=== PATIENT | male | born 1955 | race Caucasian/White ===

== ENCOUNTER 2021-01-20 08:04 | Emergency (ER) | payer OTHER, SELFPAY ==
[2021-01-20 08:23] VITALS: BP 138/94; PULSE 100; RESP 19; TEMP 38.7; O2SAT 95; BMI 27.6
[2021-01-20 08:27] VITALS: BP 128/84; PULSE 98; O2SAT 95
--- NOTE | 2021-01-20 09:07 | ED_ITS ---
HPI - COVID General: Chief Complaint: COVID symptoms Stated Complaint: COVID+ SOB Time Seen by Provider: 01/20/21 08:33 Triage information: Has fever, cough or shortness of breath . No known COVID + exposure last 14 days History of Present Illness: HPI Narrative: Patient is a Covid positive patient with symptoms shortness of breath fever and feels bad. Patient is an unvaccinated patient. Patient is requesting ivermectin. MD complaint: known COVID positive Prior covid testing: yes, results known Prior testing date: 01/15/21 COVID 19 common symptoms: positive fever(s), chills, non-productive cough, dyspnea, body aches, headache(s), nasal congestion and nausea COVID 19 other sytmptoms: negative chest pain Onset (ago): day(s) Severity: moderate Pertinent comorbid conditions: hypertension and heart disease Treatment prior to arrival: acetaminophen and ibuprofen COVID Results: No Data to Display Review of Systems Const: Reports: fever(s), chills and body aches Eyes: Denies: change in vision or blurry vision ENMT: Reports: nasal congestion Card: Denies: chest pain or dyspnea on exertion Resp: Reports: dyspnea and non-productive cough GI: Reports: nausea : Denies: difficulty urinating Musc: Denies: extremity pain Skin/Breast: Denies: rash Neuro: Reports: headache(s) Psych: Denies: anxiety or depression Moe/Lymph: Denies: easy bruising Physical Exam Const: COMMON NORMALS: no acute distress, average body habitus and patient oriented x3 HENMT: COMMON NORMALS: normocephalic HEAD & SCALP: normal to inspection and normocephalic FACE & SINUS: normal facial exam Eye: COMMON NORMALS: conjunctivae normal GENERAL EYE: appearance normal, both eyes and all related structures CONJUNCTIVA: Yes conjunctivae normal Neck/C-Spine: COMMON NORMALS: no JVD Chest: COMMONS NORMALS: normal inspection of the chest Resp: EFFORT & INSPECTION: Yes able to speak in complete sentences and Yes tachypneic Cardio: COMMON NORMALS: no JVD and regular rhythm RATE: tachycardic RHYTHM: regular rhythm GI: INSPECTION: Yes normal to inspection Extremity: COMMON NORMALS: normal to inspection and full ROM Neuro: COMMON NORMALS: patient oriented x3 Course Vital Signs: Vital signs: Vital Signs Temperature 101.6 F H 01/20/21 08:23 Pulse Rate 100 01/20/21 08:23 Respiratory Rate 19 H 01/20/21 08:23 Blood Pressure 138/94 01/20/21 08:23 Pulse Oximetry 95 01/20/21 08:23 MDM - COVID MDM Narrative: Medical decision making narrative: I discussed monoclonal antibody infusion with patient patient does not want to agree to accept infusion at this time. Would like to try antibiotic and steroid. Patient requesting ivermectin because a friend of his in [place] who is an [employer]TAIN recommended that. Did discuss worsening symptoms with shortness of breath low pulse ox what to watch for [facility] if he decides to go ahead and go with the infusion. COVID Results: No Data to Display Discharge Plan Discharge Patient Disposition: Home Clinical Impression: COVID-19 Condition: Stable Prescriptions: New dexamethasone 6 mg tablet 6 mg PO DAILY Qty: 7 RF: 0 Zithromax Z-Ho 250 mg tablet See Rx Instructions PO .COMPLEX Qty: 6 RF: 0 Discharge Orders: Discharge ED (Routine); Ordered 01/20/21 Ordered By: César Olmstead Referrals: Hailey Cabezas APN [Primary Care Provider] - Discharge Diet: Usual diet Discharge Activity: Increase activity as tolerated Patient Instructions: Viral Syndrome (ED) Activity Restrictions/Additional Instructions: Follow-up with medical provider as directed. Take medications as prescribed. Return to the ER or your medical provider if condition worsens. Please read and understand discharge instructions. If any questions ask please. Self quarantine for at least [address] Hardy can contact outpatient department hospital scheduled for monoclonal antibody infusion therapy if you desire that. Coding Level of Care Code ED Packing House Supervisor for Pia Fwd Exam Comprehensive
[2021-01-20] MEDS: acetaminophen 500 mg Tablet 1000 MG PO (09:25)
[2021-01-20] MEDS: dexamethasone 4 mg Tablet 10 MG PO (09:25)
[2021-01-20] MEDS: azithromycin 250 mg Tablet 500 MG PO (09:27)
[2021-01-20 09:35] VITALS: BP 144/92; PULSE 92; O2SAT 94
== END 2021-01-20 09:20 | disposition home or self-care (01) ==
PROVIDERS: Emergency Provider Nurse Practitioner Family; PCP Nurse Practitioner
DX: U07.1 COVID-19 (principal)
CPT/HCPCS: 99283; J8540; Q0144

== ENCOUNTER 2021-01-24 15:27 | Emergency (ER) | payer OTHER, SELFPAY ==
[2021-01-24 16:09] VITALS: BP 155/102; PULSE 92; RESP 20; TEMP 36.8; O2SAT 89; BMI 26.3
--- NOTE | 2021-01-24 16:39 | XRR_ITS ---
PROCEDURE INFORMATION: Exam: XR Chest Exam date and time: 01/24/2021 4:39 PM Age: 65 years old Clinical indication: Cough and shortness of breath; Prior surgery; Surgery type: Stents; Additional info: SOB, covid+ on 01/18/21 TECHNIQUE: Imaging protocol: XR of the chest. Views: 1 view. COMPARISON: CR Chest 1 [place] [id number] 08/06/2015 11:43 PM FINDINGS: Lungs: Peripheral predominant ground-glass opacities are seen in both lungs. Pleural spaces: Unremarkable. No pleural effusion. No pneumothorax. Heart/Mediastinum: Unremarkable. No cardiomegaly. Bones/joints: Unremarkable. XR/XR chest 1V portable [id number] IMPRESSION: Multilobar pneumonia versus pneumonitis. Atypical/viral pulmonary infection (ie. COVID-19 related pneumonia) is a consideration.
--- NOTE | 2021-01-24 21:02 | W.ED.SOB ---
HPI - SOB/Dyspnea General: Chief Complaint: Shortness of Breath/Dyspnea Stated Complaint: covid+: SOB, [facility] Time Seen by Provider: 01/24/21 20:50 Source: patient Mode of arrival: ambulatory Limitations: no limitations History of Present Illness: HPI Narrative: 65-year-old male who tested positive for Covid earlier this week. He states he has been having increasing shortness of breath and dyspnea. He states that he was placed on steroids the day as well and his blood sugars have been running high. He denies any chest pain. Patient is requiring 2 L of oxygen here. Denies any vomiting or diarrhea. Associated symptoms: Reports fever(s); Deny abdominal pain, chest pain, nausea or vomiting Review of Systems Const: Reports: fever(s); Denies: chills, body aches or change in appetite Eyes: Denies: blurry vision or eye discomfort ENMT: Denies: throat pain or dental pain Card: Denies: chest pain Resp: Reports: dyspnea and non-productive cough GI: Denies: abdominal pain, nausea, vomiting or diarrhea : Denies: dysuria Musc: Denies: neck pain or back pain Skin/Breast: Denies: rash Neuro: Denies: headache(s) Psych: Denies: depression Moe/Lymph: Denies: easy bruising All/Imm: Denies: urticaria Physical Exam Const: COMMON NORMALS: no acute distress, patient oriented x3 and healthy appearing HENMT: COMMON NORMALS: normocephalic and atraumatic HEAD & SCALP: normocephalic and atraumatic Eye: COMMON NORMALS: Equal, round and reactive pupils present and EOMs intact bilaterally PUPIL: Yes Equal, round and reactive pupils present Neck/C-Spine: COMMON NORMALS: full ROM and supple Chest: COMMONS NORMALS: normal inspection of the chest and normal palpation of entire chest wall Resp: COMMON NORMALS: normal respiratory effort, No retractions and No use of accessory muscles EFFORT & INSPECTION: Yes tachypneic AUSCULTATION: rales Cardio: COMMON NORMALS: regular rate, regular rhythm and No murmurs present (Cardio) RATE: regular rate RHYTHM: regular rhythm GI: COMMON NORMALS: Normal to inspection, nondistended, normoactive bowel sounds present, Soft to palpation, non-tender and no masses PALPATION: Yes Soft to palpation Extremity: COMMON NORMALS: normal to inspection and full ROM Neuro: COMMON NORMALS: patient oriented x3, moves all extremities and no focal motor deficits Psych: COMMON NORMALS: mental status grossly normal, Normal thought process present and cooperative THOUGHT PROCESS: Normal thought process present Skin: COMMON NORMALS: no rashes or lesions noted and no wounds GENERAL SKIN EXAM: no rashes or lesions noted Course Vital Signs: Vital signs: Vital Signs Temperature 98.2 F 01/24/21 16:09 Pulse Rate 87 01/25/21 02:38 Respiratory Rate 30 H 01/25/21 02:38 Blood Pressure 149/104 01/25/21 01:57 Pulse Oximetry 93 01/25/21 02:38 MDM - SOB/Dyspnea MDM Narrative: Medical decision making narrative: Patient presents here with Covid pneumonia along with hyperglycemia. I strongly recommend admission due to his hyperglycemia and his Covid. He states he feels much improved here on oxygen. His he states that his is here also and tested positive for Covid he would like to go home with her. I informed him that my advice would to be admitted but he states that he does not want to would like to trial at home first on home oxygen. Did set him up on 2 L of oxygen. I did inform him his blood sugars have likely been high due to the steroids and he is to probably increase his insulin and monitor his glucose closely. I informed if he worsens at all or changes his mind about admission he is to return immediately. He understands and agrees to this plan. Lab Data: Labs: Lab Results 01/24/21 01/24/21 01/24/21 Range/Units 21:15 21:15 21:15 WBC 7.7 (4.0-10.0) 10^3/ uL RBC 5.41 H (4.1-5.3) 10^6/u L Hgb 16.0 (11.7-16.6) g/dL Hct 47.4 (42.0-52.0) % MCV 87.6 (80-94) fL MCH 29.6 (28.0-34.0) pg MCHC 33.8 (30.0-36.0) g/dL RDW 13.4 (12.1-15.1) % Plt Count 131 (130-400) 10^3/c mm MPV 10.8 H (7.4-10.4) fL Neut % (Auto) 84.6 % Lymph % (Auto) 9.3 % [place] % (Auto) 5.2 % Eos % (Auto) 0.0 % Baso % (Auto) 0.1 % Neut # (Auto) 6.49 (1.8-7.7) 10^3/u L Lymph # (Auto) 0.7 L (0.8-4.8) 10^3/u L [place] # (Auto) 0.4 (0.2-0.9) 10^3/u L Eos # (Auto) 0.0 (0.0-0.8) 10^3/u L Baso # (Auto) 0.0 (0.0-0.1) 10^3/u L Nucleated RBC % (a uto) 0 % Nucleated RBCs # 0.0 /100WBC D-Dimer 2.25 H (0-0.59) ug/mIFE U Specimen Type Sample Site ABG pH (7.35-7.45) ABG pCO2 (35-45) mmHg ABG pO2 (80.0-100.0) mmH g ABG HCO3 (22-26) mmol/L ABG Base Excess (-2.0-2.0) mmol/ L Harley Test Hematocrit (42-52) % O2 Delivery Device O2 Liters/Min % FiO2 % Tape Weaver ID Sodium 126 L (136-145) mmol/L Potassium 5.3 H (3.5-5.1) mmol/L Chloride 91 L (98-107) mmol/L Carbon Dioxide 21 L (22-29) mmol/L Anion Gap 19.3 H (5-19) BUN 56 H (8-23) mg/dL Creatinine 2.1 H (0.7-1.2) mg/dL GFR Calculation 32.1 L (90-130) mL/min Glucose 566 H* (65-115) mg/dL POC Glucose (70-110) mg/dL Calculated Osmolal ity 303 H (285-295) mOsm/k g Lactic Acid (0.5-2.2) mmol/L Calcium 8.9 (8.5-10.5) mg/dL Total Bilirubin 0.5 (0.15-1.2) mg/dL AST 29 (0-40) U/L ALT 38 (0-41) U/L Alkaline Phosphata se 82 (40-130) IU/L C-Reactive Protein 30.5 H (0.0-4.9) mg/L NT-Pro-B Natriuret Pep 2613 H (0-125) pg/mL Total Protein 7.1 (6.6-8.7) g/dL Albumin 3.9 (3.5-5.2) g/dL Globulin 3.2 (1.3-4.6) g/dL 01/24/21 01/24/21 01/25/21 Range/Units 21:15 21:45 00:11 WBC (4.0-10.0) 10^3/ uL RBC (4.1-5.3) 10^6/u L Hgb (11.7-16.6) g/dL Hct (42.0-52.0) % MCV (80-94) fL MCH (28.0-34.0) pg MCHC (30.0-36.0) g/dL RDW (12.1-15.1) % Plt Count (130-400) 10^3/c mm MPV (7.4-10.4) fL Neut % (Auto) % Lymph % (Auto) % [place] % (Auto) % Eos % (Auto) % Baso % (Auto) % Neut # (Auto) (1.8-7.7) 10^3/u L Lymph # (Auto) (0.8-4.8) 10^3/u L [place] # (Auto) (0.2-0.9) 10^3/u L Eos # (Auto) (0.0-0.8) 10^3/u L Baso # (Auto) (0.0-0.1) 10^3/u L Nucleated RBC % (a uto) % Nucleated RBCs # /100WBC D-Dimer (0-0.59) ug/mIFE U Specimen Type Arterial Sample Site Radial, right ABG pH 7.45 (7.35-7.45) ABG pCO2 28.3 L (35-45) mmHg ABG pO2 67.3 L (80.0-100.0) mmH g ABG HCO3 19.7 L (22-26) mmol/L ABG Base Excess -2.8 L (-2.0-2.0) mmol/ L Harley Test Pos Hematocrit 49.4 (42-52) % O2 Delivery Device Nc O2 Liters/Min 2.0 % FiO2 28.0 % Tape Weaver ID nabde Sodium (136-145) mmol/L Potassium (3.5-5.1) mmol/L Chloride (98-107) mmol/L Carbon Dioxide (22-29) mmol/L Anion Gap (5-19) BUN (8-23) mg/dL Creatinine (0.7-1.2) mg/dL GFR Calculation (90-130) mL/min Glucose (65-115) mg/dL POC Glucose 549 H* (70-110) mg/dL Calculated Osmolal ity (285-295) mOsm/k g Lactic Acid 1.9 (0.5-2.2) mmol/L Calcium (8.5-10.5) mg/dL Total Bilirubin (0.15-1.2) mg/dL AST (0-40) U/L ALT (0-41) U/L Alkaline Phosphata se (40-130) IU/L C-Reactive Protein (0.0-4.9) mg/L NT-Pro-B Natriuret Pep (0-125) pg/mL Total Protein (6.6-8.7) g/dL Albumin (3.5-5.2) g/dL Globulin (1.3-4.6) g/dL 01/25/21 01/25/21 Range/Units 01:00 02:33 WBC (4.0-10.0) 10^3/ uL RBC (4.1-5.3) 10^6/u L Hgb (11.7-16.6) g/dL Hct (42.0-52.0) % MCV (80-94) fL MCH (28.0-34.0) pg MCHC (30.0-36.0) g/dL RDW (12.1-15.1) % Plt Count (130-400) 10^3/c mm MPV (7.4-10.4) fL Neut % (Auto) % Lymph % (Auto) % [place] % (Auto) % Eos % (Auto) % Baso % (Auto) % Neut # (Auto) (1.8-7.7) 10^3/u L Lymph # (Auto) (0.8-4.8) 10^3/u L [place] # (Auto) (0.2-0.9) 10^3/u L Eos # (Auto) (0.0-0.8) 10^3/u L Baso # (Auto) (0.0-0.1) 10^3/u L Nucleated RBC % (a uto) % Nucleated RBCs # /100WBC D-Dimer (0-0.59) ug/mIFE U Specimen Type Sample Site ABG pH (7.35-7.45) ABG pCO2 (35-45) mmHg ABG pO2 (80.0-100.0) mmH g ABG HCO3 (22-26) mmol/L ABG Base Excess (-2.0-2.0) mmol/ L Harley Test Hematocrit (42-52) % O2 Delivery Device O2 Liters/Min % FiO2 % Tape Weaver ID Sodium (136-145) mmol/L Potassium (3.5-5.1) mmol/L Chloride (98-107) mmol/L Carbon Dioxide (22-29) mmol/L Anion Gap (5-19) BUN (8-23) mg/dL Creatinine (0.7-1.2) mg/dL GFR Calculation (90-130) mL/min Glucose (65-115) mg/dL POC Glucose 423 H 430 H (70-110) mg/dL Calculated Osmolal ity (285-295) mOsm/k g Lactic Acid (0.5-2.2) mmol/L Calcium (8.5-10.5) mg/dL Total Bilirubin (0.15-1.2) mg/dL AST (0-40) U/L ALT (0-41) U/L Alkaline Phosphata se (40-130) IU/L C-Reactive Protein (0.0-4.9) mg/L NT-Pro-B Natriuret Pep (0-125) pg/mL Total Protein (6.6-8.7) g/dL Albumin (3.5-5.2) g/dL Globulin (1.3-4.6) g/dL Imaging Data^: CXR: Attestation: I personally reviewed and interpreted this imaging study as follows: Radiologist's impression: [place] [address] XRay Report Signed Patient: Isaiah Gillette Unit #: [id number] : 1955 Age/Sex: 65 / M ADM Date: 01/24/21 Loc: ER Room/Bed: Attending Dr: Ordering Provider/Ordering MD: Aye Ackerman Date of Service: 01/24/21 Procedure(s): XR chest 1V portable [id number] Accession Number(s): [id number] Report Number: [id number] PROCEDURE INFORMATION: Exam: XR Chest Exam date and time: 01/24/2021 4:39 PM Age: 65 years old Clinical indication: Cough and shortness of breath; Prior surgery; Surgery type: Stents; Additional info: SOB, covid+ on 01/18/21 TECHNIQUE: Imaging protocol: XR of the chest. Views: 1 view. COMPARISON: CR Chest 1 [place] [id number] 08/06/2015 11:43 PM FINDINGS: Lungs: Peripheral predominant ground-glass opacities are seen in both lungs. Pleural spaces: Unremarkable. No pleural effusion. No pneumothorax. Heart/Mediastinum: Unremarkable. No cardiomegaly. Bones/joints: Unremarkable. XR/XR chest 1V portable [id number] IMPRESSION: Multilobar pneumonia versus pneumonitis. Atypical/viral pulmonary infection (ie. COVID-19 related pneumonia) is a consideration. Dictated By: Salvador Wong MD Signed By: Salvador Wong MD Signed Date/Time: 01/24/211742 DD/ 40 Discharge Plan Discharge Patient Disposition: Home Clinical Impression: COVID-19, Acute hyperglycemia Condition: Stable Prescriptions: New albuterol sulfate 90 mcg/actuation HFA aerosol inhaler 2 inh INHALATION Q6H PRN (Reason: shortness of breath or wheezing) Qty: 8 RF: 0 No Action clonidine HCl 0.1 mg Tablet See Rx Instructions .ROUTE .COMPLEX RF: 0 Lantus U-100 Insulin 100 unit/mL Solution 22 unit SUBCUT DAILY RF: 0 metoprolol succinate 100 mg Tablet Extended Release 24 Hr 100 mg PO DAILY RF: 0 clopidogrel 75 mg Tablet 75 mg PO DAILY RF: 0 Aspir-81 81 mg Tablet,Delayed Release (Dr/Ec) 81 mg PO DAILY RF: 0 amlodipine 10 mg Tablet 10 mg PO DAILY RF: 0 doxazosin 4 mg Tablet 4 mg PO DAILY RF: 0 glipizide 5 mg Tablet 5 mg PO DAILY RF: 0 rivaroxaban 2.5 mg Tablet 2.5 mg PO BID RF: 0 Discharge Orders: Discharge ED (Routine); Ordered 01/25/21 Ordered By: Genet Schwartz Other Ambulatory Orders: DME: Oxygen (Order) Location: None Selected Ordered By: Genet Schwartz Referrals: Riley Sainz DO [Primary Care Provider] - Discharge Diet: Advance as tolerated Discharge Activity: Resume usual activity Patient Instructions: Viral Syndrome (ED) Coding Level of Care Code ED Diploma Dental Assistant for Pia Fwshelli Exam Comprehensive
[2021-01-24] MEDS: dexamethasone 4 mg/mL INJ 10 MG IVP (21:14)
[2021-01-24 21:40] VITALS: PULSE 80; RESP 18; O2SAT 94
[2021-01-24] MEDS: albuterol 8 gm MDI 2 PUFF INHALATION (21:40)
[2021-01-24 21:43] LABS: Basophils % 0.1 %; Hematocrit 47.4 % (42.0-52.0); Lymphocytes # 0.7 10^3/uL (0.8-4.8); Lymphocytes % 9.3 %; Mean Corpuscular HGB Conc 33.8 g/dL (30.0-36.0); Mean Corpuscular Hemoglobin 29.6 pg (28.0-34.0); Mean Corpuscular Volume 87.6 fL (80-94); Mean Platelet Volume 10.8 fL (7.4-10.4); Monocytes # 0.4 10^3/uL (0.2-0.9); Monocytes % 5.2 %; Neutrophils # 6.49 10^3/uL (1.8-7.7); Neutrophils % 84.6 %; Nucleated Red Blood Cells % 0 %; Platelet Count 131 10^3/cmm (130-400); Red Blood Count 5.41 10^6/uL (4.1-5.3); Red Cell Distribution Width 13.4 % (12.1-15.1); White Blood Count 7.7 10^3/uL (4.0-10.0)
[2021-01-24 21:44] LABS: Lactic Sepsis W/Reflex 1.9 mmol/L (0.5-2.2)
[2021-01-24 21:46] VITALS: BP 187/110; PULSE 78; RESP 18; O2SAT 95
[2021-01-24 21:50] VITALS: PULSE 80; RESP 18; O2SAT 93
[2021-01-24 21:54] LABS: ABG PCO2 28.3 mmHg (35-45); ABG PH Result 7.45 (7.35-7.45); Arterial Blood Gas Hematocrit 49.4 % (42-52); Base Excess ABG -2.8 mmol/L (-2.0-2.0); Blood Gas Allen Test Pos; Blood Gas Sample Site Radial, right; Blood Gas Sample Type Arterial; HCO3 ABG 19.7 mmol/L (22-26); Oxygen Device NC; PO2 ABG 67.3 mmHg (80.0-100.0)
[2021-01-24 21:55] LABS: Alanine Aminotransferase 38 U/L (0-41); Albumin Level 3.9 g/dL (3.5-5.2); Alkaline Phosphatase 82 IU/L (40-130); Aspartate Amino Transferase 29 U/L (0-40); Blood Urea Nitrogen 56 mg/dL (8-23); C Reactive Protein 30.5 mg/L (0.0-4.9); Calcium 8.9 mg/dL (8.5-10.5); Carbon Dioxide 21 mmol/L (22-29); Chloride 91 mmol/L (98-107); Globulin 3.2 g/dL (1.3-4.6); Glomerular Filtration Rate 32.1 mL/min (90-130); NT Pro B Type Natriuretic Pept 2613 pg/mL (0-125); Osmolality Calculated 303 mOsm/kg (285-295); Sodium 126 mmol/L (136-145); Total Bilirubin 0.5 mg/dL (0.15-1.2); Total Protein 7.1 g/dL (6.6-8.7)
[2021-01-24 21:56] LABS: Anion Gap 19.3 (5-19); Potassium 5.3 mmol/L (3.5-5.1)
[2021-01-24 22:00] LABS: Glucose 566 mg/dL (65-115)
[2021-01-24 22:08] LABS: D Dimer 2.25 ug/mIFEU (0-0.59)
[2021-01-24] MEDS: insulin regular-human 100 units/1 mL 13 UNIT IVP (22:10)
[2021-01-24] MEDS: hyDRALAzine 20 mg/mL INJ 1 mL 10 MG IVP (22:24)
[2021-01-24 22:35] VITALS: BP 164/94; PULSE 91; RESP 26; O2SAT 94
[2021-01-24] MEDS: sodium chloride 0.9% 500 ML 999 ML IV (23:14)
[2021-01-25 00:16] LABS: Glucose Point of Care 549 mg/dL (70-110)
[2021-01-25] MEDS: insulin regular-human 100 units/1 mL 10 UNIT IVP (00:19)
[2021-01-25 00:23] VITALS: BP 155/108; PULSE 87; RESP 29; O2SAT 93
[2021-01-25 01:04] LABS: Glucose Point of Care 423 mg/dL (70-110)
[2021-01-25] MEDS: insulin regular-human 100 units/1 mL 5 UNIT IVP (01:10)
[2021-01-25 01:20] VITALS: PULSE 91; RESP 18; O2SAT 93
[2021-01-25] MEDS: albuterol 8 gm MDI 2 PUFF INHALATION (01:20)
[2021-01-25 01:36] VITALS: O2SAT 89; O2SAT 91; O2SAT 94
[2021-01-25 01:57] VITALS: BP 149/104; PULSE 89; RESP 28; O2SAT 92
[2021-01-25 02:37] LABS: Glucose Point of Care 430 mg/dL (70-110)
[2021-01-25 02:38] VITALS: PULSE 87; RESP 30; O2SAT 93
== END 2021-01-25 02:41 | disposition home or self-care (01) ==
PROVIDERS: Emergency Provider Emergency Medicine; PCP Emergency Medicine Emergency Medical Services
DX: U07.1 COVID-19 (principal); R73.9 Hyperglycemia, unspecified
CPT/HCPCS: 36416; 36600; 71045; 80053; 82803; 82962; 83605; 83880; 85025; 85378; 86140; 94640; 96374; 96375; 96376; 99284; J0360; J1100; J1815; J3535; J7040

== ENCOUNTER 2021-01-26 17:50 | Inpatient (IN) | payer OTHER, SELFPAY ==
[2021-01-26] VITALS (9 sets, daily range): BP systolic 84–126; BP diastolic 52–85; PULSE 85–109; RESP 18–28; TEMP 37.2; O2SAT 90–97; BMI 27.8
--- NOTE | 2021-01-26 18:16 | XRR_ITS ---
PROCEDURE INFORMATION: Exam: XR Chest Exam date and time: 01/26/2021 6:16 PM Age: 65 years old Clinical indication: Dyspnea; Additional info: SOB TECHNIQUE: Imaging protocol: XR of the chest. Views: 1 view. COMPARISON: CR (CHEST, ) 01/24/2021 4:55 PM FINDINGS: There are bilateral pulmonary infiltrates not significantly changed since the previous exam. There is no pleural effusion or pneumothorax. The heart size is normal. XR/XR chest 1V portable [id number] IMPRESSION: Bilateral pulmonary infiltrates not significantly changed since the previous exam.
--- NOTE | 2021-01-26 18:17 | ECG_ITS ---
[facility] Test Date: 2021-01-26 Pat Name: Isaiah Gillette Department: Room: Gender: Male Family Reunification Specialist: : 1955 Requested By: Abe Gomes Order Number: [id number] Reading MD: HONG PHILIP Measurements Intervals Stuart Rate: 86 P: 24 KS: 163 QRS: -14 QRSD: 109 T: 101 QT: 400 QTc: 480 Interpretive Statements SINUS RHYTHM WITH MARKED SINUS ARRHYTHMIA ST DEVIATION AND MODERATE T-WAVE ABNORMALITY, CONSIDER LATERAL ISCHEMIA [-0.1+ mV T WAVE IN I/aVL/V5/V6] Compared to ECG 08/07/2015 01:14:06 Early repolarization no longer present T-wave abnormality still present Possible ischemia still present Electronically Signed On 01-26-2021 20:27:28 CDT by HONG PHILIP [email or web address]
--- NOTE | 2021-01-26 18:19 | ED_ITS ---
HPI - SOB/Dyspnea General: Chief Complaint: Shortness of Breath/Dyspnea Stated Complaint: RESP DISTRESS; COVID + Time Seen by Provider: 01/26/21 18:02 History of Present Illness: HPI Narrative: 65-year-old gentleman with who is known positive for COVID-19. He has been here a couple of times. He is diabetic. Is been given steroids previously. He says that he has had significantly increased sugars after steroids, up to the 500s. His oxygen saturation was in the low 70s at home on 2 L he had been sent home with. He presents on 15 L, still short of breath. He says that his legs have been swelling a bit. Denies fevers currently. MD elicited complaint: shortness of breath and cough Pertinent past history: diabetes Onset (ago): day(s) Context: recent illness Timing: constant and progressively worsening Severity: moderate Exacerbating factors: exertion Relieving factors: oxygen Known history of: diabetes Associated symptoms: Reports chest congestion, cough and dizziness; Deny abdominal pain, chest pain, fever(s) or vomiting Treatment prior to arrival: oxygen Review of Systems Const: Denies: fever(s) Card: Denies: chest pain Resp: Reports: chest congestion GI: Denies: abdominal pain, vomiting or hematochezia Neuro: Reports: dizziness; Denies: confusion Physical Exam Const: COMMON NORMALS: patient oriented x3 GENERAL APPEARANCE: ill appearing; not comfortable Chest: COMMONS NORMALS: normal inspection of the chest Resp: EFFORT & INSPECTION: Yes tachypneic, Yes respiratory distress and Yes uses accessory muscles Cardio: COMMON NORMALS: regular rhythm RATE: tachycardic RHYTHM: regular rhythm GI: COMMON NORMALS: Normal to inspection, nondistended, normoactive bowel sounds present and Soft to palpation PALPATION: Yes Soft to palpation Neuro: COMMON NORMALS: patient oriented x3 Course Consultations: Consultation #1: lew Vital Signs: Vital signs: Vital Signs Temperature 99.0 F 01/26/21 17:53 Pulse Rate 85 01/26/21 22:00 Respiratory Rate 21 H 01/26/21 20:00 Blood Pressure 84/52 01/26/21 18:49 Pulse Oximetry 94 01/26/21 20:00 MDM - SOB/Dyspnea MDM Narrative: Medical decision making narrative: 65-year-old male with a history of known COVID-19. He presents significantly hypoxic. He was placed on high flow nasal cannula on arrival, and has done better. Saturations are 92 to 95%. Heart rates down in the 80s. His blood pressures been good. His white blood cell count is 8.4. He is significantly hyperglycemic with blood sugar in the 430s. His bicarbonate level is 17, but his pH on blood gas testing is normal. His gap is essentially normal. He was given 15 units of insulin in the ER. Repeat BMP is pending at this point to see if gap is widening or closing. He should be able to go to our Covid unit on 2 a. Lab Data: Labs: Lab Results 01/26/21 01/26/21 01/26/21 Range/Units 18:44 18:44 18:44 WBC 8.4 (4.0-10.0) 10^3/ uL RBC 4.77 (4.1-5.3) 10^6/u L Hgb 14.2 (11.7-16.6) g/dL Hct 42.0 (42.0-52.0) % MCV 88.1 (80-94) fL MCH 29.8 (28.0-34.0) pg MCHC 33.8 (30.0-36.0) g/dL RDW 13.2 (12.1-15.1) % Plt Count 146 (130-400) 10^3/c mm MPV 10.3 (7.4-10.4) fL Neut % (Auto) 77.0 % Lymph % (Auto) 17.5 % [place] % (Auto) 3.8 % Eos % (Auto) 0.1 % Baso % (Auto) 0.1 % Neut # (Auto) 6.49 (1.8-7.7) 10^3/u L Lymph # (Auto) 1.5 (0.8-4.8) 10^3/u L [place] # (Auto) 0.3 (0.2-0.9) 10^3/u L Eos # (Auto) 0.0 (0.0-0.8) 10^3/u L Baso # (Auto) 0.0 (0.0-0.1) 10^3/u L Nucleated RBC % (a uto) 0 % Nucleated RBCs # 0.0 /100WBC D-Dimer 2.71 H (0-0.59) ug/mIFE U Specimen Type Sample Site ABG pH (7.35-7.45) ABG pCO2 (35-45) mmHg ABG pO2 (80.0-100.0) mmH g ABG HCO3 (22-26) mmol/L ABG Base Excess (-2.0-2.0) mmol/ L Harley Test Hematocrit (42-52) % Hgb O2 Saturation (95-100) % Carboxyhemoglobin (0.4-20.1) %THgb Methemoglobin (0.4-1.5) % Total Hemoglobin (14-18) g/dL O2 Delivery Device O2 Liters/Min % FiO2 % [employer]orer ID Sodium 128 L (136-145) mmol/L Potassium 4.2 (3.5-5.1) mmol/L Chloride 93 L (98-107) mmol/L Carbon Dioxide 17 L (22-29) mmol/L Anion Gap 22.2 H (5-19) BUN 51 H (8-23) mg/dL Creatinine 2.0 H (0.7-1.2) mg/dL GFR Calculation 33.9 L (90-130) mL/min Glucose 434 H (65-115) mg/dL Calculated Osmolal ity 298 H (285-295) mOsm/k g Lactic Acid (0.5-2.2) mmol/L Lactic Acid (Sepsi s) (0.5-2.2) mmol/L Calcium 8.0 L (8.5-10.5) mg/dL Total Bilirubin 0.4 (0.15-1.2) mg/dL AST 20 (0-40) U/L ALT 30 (0-41) U/L Alkaline Phosphata se 64 (40-130) IU/L Troponin T Baselin e (0-15) ng/L Troponin T 120 Min [place] (0-15) ng/L Delta Troponin T (0-10) ABS# C-Reactive Protein 78.1 H (0.0-4.9) mg/L NT-Pro-B Natriuret Pep 1724 H (0-125) pg/mL Total Protein 6.2 L (6.6-8.7) g/dL Albumin 3.2 L (3.5-5.2) g/dL Globulin 3.0 (1.3-4.6) g/dL Procalcitonin 0.21 (0-0.5) ng/mL 01/26/21 01/26/21 01/26/21 Range/Units 18:44 18:44 21:10 WBC (4.0-10.0) 10^3/ uL RBC (4.1-5.3) 10^6/u L Hgb (11.7-16.6) g/dL Hct (42.0-52.0) % MCV (80-94) fL MCH (28.0-34.0) pg MCHC (30.0-36.0) g/dL RDW (12.1-15.1) % Plt Count (130-400) 10^3/c mm MPV (7.4-10.4) fL Neut % (Auto) % Lymph % (Auto) % [place] % (Auto) % Eos % (Auto) % Baso % (Auto) % Neut # (Auto) (1.8-7.7) 10^3/u L Lymph # (Auto) (0.8-4.8) 10^3/u L [place] # (Auto) (0.2-0.9) 10^3/u L Eos # (Auto) (0.0-0.8) 10^3/u L Baso # (Auto) (0.0-0.1) 10^3/u L Nucleated RBC % (a uto) % Nucleated RBCs # /100WBC D-Dimer (0-0.59) ug/mIFE U Specimen Type Arterial Sample Site Radial, right ABG pH 7.42 (7.35-7.45) ABG pCO2 29.1 L (35-45) mmHg ABG pO2 80.6 (80.0-100.0) mmH g ABG HCO3 19.0 L (22-26) mmol/L ABG Base Excess -4.1 L (-2.0-2.0) mmol/ L Harley Test Pos Hematocrit 42.8 (42-52) % Hgb O2 Saturation 95.3 (95-100) % Carboxyhemoglobin 0.4 (0.4-20.1) %THgb Methemoglobin 0.5 (0.4-1.5) % Total Hemoglobin 14.0 (14-18) g/dL O2 Delivery Device Nc O2 Liters/Min 40.0 % FiO2 100.0 % [employer] ID [email or web address] Sodium (136-145) mmol/L Potassium (3.5-5.1) mmol/L Chloride (98-107) mmol/L Carbon Dioxide (22-29) mmol/L Anion Gap (5-19) BUN (8-23) mg/dL Creatinine (0.7-1.2) mg/dL GFR Calculation (90-130) mL/min Glucose (65-115) mg/dL Calculated Osmolal ity (285-295) mOsm/k g Lactic Acid 3.1 H (0.5-2.2) mmol/L Lactic Acid (Sepsi s) (0.5-2.2) mmol/L Calcium (8.5-10.5) mg/dL Total Bilirubin (0.15-1.2) mg/dL AST (0-40) U/L ALT (0-41) U/L Alkaline Phosphata se (40-130) IU/L Troponin T Baselin e 33 H (0-15) ng/L Troponin T 120 Min [place] (0-15) ng/L Delta Troponin T (0-10) ABS# C-Reactive Protein (0.0-4.9) mg/L NT-Pro-B Natriuret Pep (0-125) pg/mL Total Protein (6.6-8.7) g/dL Albumin (3.5-5.2) g/dL Globulin (1.3-4.6) g/dL Procalcitonin (0-0.5) ng/mL 01/26/21 01/26/21 01/26/21 Range/Units 21:55 21:55 21:55 WBC (4.0-10.0) 10^3/ uL RBC (4.1-5.3) 10^6/u L Hgb (11.7-16.6) g/dL Hct (42.0-52.0) % MCV (80-94) fL MCH (28.0-34.0) pg MCHC (30.0-36.0) g/dL RDW (12.1-15.1) % Plt Count (130-400) 10^3/c mm MPV (7.4-10.4) fL Neut % (Auto) % Lymph % (Auto) % [place] % (Auto) % Eos % (Auto) % Baso % (Auto) % Neut # (Auto) (1.8-7.7) 10^3/u L Lymph # (Auto) (0.8-4.8) 10^3/u L [place] # (Auto) (0.2-0.9) 10^3/u L Eos # (Auto) (0.0-0.8) 10^3/u L Baso # (Auto) (0.0-0.1) 10^3/u L Nucleated RBC % (a uto) % Nucleated RBCs # /100WBC D-Dimer (0-0.59) ug/mIFE U Specimen Type Sample Site ABG pH (7.35-7.45) ABG pCO2 (35-45) mmHg ABG pO2 (80.0-100.0) mmH g ABG HCO3 (22-26) mmol/L ABG Base Excess (-2.0-2.0) mmol/ L Harley Test Hematocrit (42-52) % Hgb O2 Saturation (95-100) % Carboxyhemoglobin (0.4-20.1) %THgb Methemoglobin (0.4-1.5) % Total Hemoglobin (14-18) g/dL O2 Delivery Device O2 Liters/Min % FiO2 % [employer] ID Sodium 130 L (136-145) mmol/L Potassium 4.1 (3.5-5.1) mmol/L Chloride 96 L (98-107) mmol/L Carbon Dioxide 20 L (22-29) mmol/L Anion Gap 18.1 (5-19) BUN 49 H (8-23) mg/dL Creatinine 1.9 H (0.7-1.2) mg/dL GFR Calculation 36.0 L (90-130) mL/min Glucose 398 H (65-115) mg/dL Calculated Osmolal ity 300 H (285-295) mOsm/k g Lactic Acid (0.5-2.2) mmol/L Lactic Acid (Sepsi s) 2.5 H (0.5-2.2) mmol/L Calcium 7.9 L (8.5-10.5) mg/dL Total Bilirubin (0.15-1.2) mg/dL AST (0-40) U/L ALT (0-41) U/L Alkaline Phosphata se (40-130) IU/L Troponin T Baselin e (0-15) ng/L Troponin T 120 Min [place] 31.73 H (0-15) ng/L Delta Troponin T -1.27 L (0-10) ABS# C-Reactive Protein (0.0-4.9) mg/L NT-Pro-B Natriuret Pep (0-125) pg/mL Total Protein (6.6-8.7) g/dL Albumin (3.5-5.2) g/dL Globulin (1.3-4.6) g/dL Procalcitonin (0-0.5) ng/mL Critical Care Time Critical Care Time: Critical Care Time: Yes Total Critical Care Time: 35 Attestation: This case had a high probability of a clinically significant, sudden, or life threatening deterioration of this patient's condition which required my full and direct attention, intervention and personal management. Discharge Plan Discharge Patient Disposition: Admitted As Inpatient Admit Provider: Kerry Elias Clinical Impression: COVID-19, Acute hyperglycemia Respiratory failure Qualifiers: Chronicity: acute Respiratory failure complication: hypoxia Qualified Code(s): J96.01 - Acute respiratory failure with hypoxia Condition: Serious Coding Level of Care Code ED Car Washer for [facility] Fwd Exam Detailed
[2021-01-26 18:52] LABS: Basophils % 0.1 %; Eosinophils % 0.1 %; Hemoglobin 14.2 g/dL (11.7-16.6); Lymphocytes # 1.5 10^3/uL (0.8-4.8); Lymphocytes % 17.5 %; Mean Corpuscular HGB Conc 33.8 g/dL (30.0-36.0); Mean Corpuscular Hemoglobin 29.8 pg (28.0-34.0); Mean Corpuscular Volume 88.1 fL (80-94); Mean Platelet Volume 10.3 fL (7.4-10.4); Monocytes # 0.3 10^3/uL (0.2-0.9); Monocytes % 3.8 %; Neutrophils # 6.49 10^3/uL (1.8-7.7); Nucleated Red Blood Cells % 0 %; Platelet Count 146 10^3/cmm (130-400); Red Blood Count 4.77 10^6/uL (4.1-5.3); Red Cell Distribution Width 13.2 % (12.1-15.1); White Blood Count 8.4 10^3/uL (4.0-10.0)
[2021-01-26 19:16] LABS: D Dimer 2.71 ug/mIFEU (0-0.59)
[2021-01-26 19:21] LABS: Troponin(5th) Baseline 33 ng/L (0-15)
[2021-01-26 19:29] LABS: NT Pro B Type Natriuretic Pept 1724 pg/mL (0-125); Procalcitonin 0.21 ng/mL (0-0.5)
[2021-01-26 19:35] LABS: Lactic Sepsis W/Reflex 3.1 mmol/L (0.5-2.2)
[2021-01-26 19:40] LABS: Alanine Aminotransferase 30 U/L (0-41); Albumin Level 3.2 g/dL (3.5-5.2); Alkaline Phosphatase 64 IU/L (40-130); Anion Gap 22.2 (5-19); Aspartate Amino Transferase 20 U/L (0-40); Blood Urea Nitrogen 51 mg/dL (8-23); C Reactive Protein 78.1 mg/L (0.0-4.9); Carbon Dioxide 17 mmol/L (22-29); Chloride 93 mmol/L (98-107); Glomerular Filtration Rate 33.9 mL/min (90-130); Glucose 434 mg/dL (65-115); Osmolality Calculated 298 mOsm/kg (285-295); Potassium 4.2 mmol/L (3.5-5.1); Sodium 128 mmol/L (136-145); Total Bilirubin 0.4 mg/dL (0.15-1.2); Total Protein 6.2 g/dL (6.6-8.7)
[2021-01-26] MEDS: morphine 4 mg/mL SDV 1 mL IVP (19:53)
[2021-01-26] MEDS: ondansetron 2 mg/ML SDV 2 mL 4 MG IVP (19:53)
[2021-01-26 20:36] LABS: Reflex Lactate Order REFLEX LACTIC ORDERD
[2021-01-26] MEDS: insulin regular-human 100 units/1 mL 15 UNIT IVP (20:51)
[2021-01-26] MEDS: sodium chloride 0.9% 1,000 ML 125 ML IV (20:52)
[2021-01-26 21:22] LABS: ABG PCO2 29.1 mmHg (35-45); ABG PH Result 7.42 (7.35-7.45); Arterial Blood Gas Hematocrit 42.8 % (42-52); Base Excess ABG -4.1 mmol/L (-2.0-2.0); Blood Gas Allen Test Pos; Blood Gas Sample Site Radial, right; Blood Gas Sample Type Arterial; Carboxyhemoglobin 0.4 %THgb (0.4-20.1); HGB O2 Sat 95.3 % (95-100); Methemoglobin 0.5 % (0.4-1.5); Oxygen Device NC; PO2 ABG 80.6 mmHg (80.0-100.0)
[2021-01-26] MEDS: remdesivir 200 MG in sodium chloride 0.9% (100 ml) 100 ML 100 MG IV (22:31)
[2021-01-26] MEDS: enoxaparin 40 mg/0.4 mL Syringe SUBCUT (22:35)
[2021-01-26] MEDS: dexamethasone 4 mg/mL INJ 6 MG IVP (22:35)
[2021-01-26] MEDS: cefTRIAXone 1,000 MG in sodium chloride 0.9% (plus) 100 ML 100 MG IV (22:36)
[2021-01-26 22:53] LABS: Troponin 5 2HR 31.73 ng/L (0-15)
[2021-01-26 22:54] LABS: Anion Gap 18.1 (5-19); Blood Urea Nitrogen 49 mg/dL (8-23); Calcium 7.9 mg/dL (8.5-10.5); Carbon Dioxide 20 mmol/L (22-29); Chloride 96 mmol/L (98-107); Glucose 398 mg/dL (65-115); Lactic Acid level (Lactate) 2.5 mmol/L (0.5-2.2); Osmolality Calculated 300 mOsm/kg (285-295); Potassium 4.1 mmol/L (3.5-5.1); Sodium 130 mmol/L (136-145)
[2021-01-26 23:06] LABS: Troponin 5 2HR Delta -1.27 ABS# (0-10)
[2021-01-26] MEDS: azithromycin 500 MG in sodium chloride 0.9% 250 ML 250 MG IV (23:18)
[2021-01-27] VITALS (52 sets, daily range): BP systolic 133–193; BP diastolic 78–107; PULSE 67–108; RESP 14–39; TEMP 36.8–37.2; O2SAT 80–99
[2021-01-27] MEDS: morphine 4 mg/mL SDV 1 mL 2 MG IVP (00:17)
[2021-01-27] MEDS: sodium chloride 0.9% 1,000 ML 75 ML IV ×2 (02:35→15:42)
[2021-01-27 02:44] LABS: Troponin 5 6HR 31.76 ng/L (0-15)
[2021-01-27 02:47] LABS: Glucose Point of Care 345 mg/dL (70-110)
[2021-01-27 02:57] LABS: Troponin 5 6HR Delta -1.24 ng/L (0-12)
--- NOTE | 2021-01-27 03:43 | P.HP_ITS ---
Providers/Chief Complaint Admitting Physician: Kerry Elias MD Primary Care Provider: Riley Sainz DO Chief Complaint: RESP DISTRESS; COVID + History of Present Illness Isaiah Gillette is a 65 year old male with PMH as listed below who tested positive for Covid earlier this week. He states he has been having increasing shortness of breath and dyspnea. He was discharged on 01/24 with 2lpm NC. He did not want to get steroids as it was causing hyperglycemia. Returned today with His oxygen saturation was in the low 70s at home on 2 L. Now on heated hi flow. D dimer elevated, likely from CKD and inflammation, avoiding CTA due to cr 2.0. He is on outpatient Eliquis. He refused monoclonal Ab on 01/20. He is unvaccinated. Review of Systems General: Reports: 10 or more systems reviewed and unremarkable except in HPI and below Const: Denies: fever(s), chills or body aches Eyes: Denies: change in vision, blurry vision or photophobia ENMT: Reports: hoarseness; Denies: throat pain, enlarged tonsils, odynophagia or nasal congestion Card: Denies: chest pain, palpitations, irregular heart rhythm, edema, swelling of feet/ankles, lightheadedness, pre-syncope, dyspnea on exertion or orthopnea Resp: Denies: dyspnea, productive cough, non-productive cough, wheezing, stridor, pain on inspiration, change in phlegm color, hemoptysis or chest congestion GI: Denies: abdominal pain, nausea, vomiting, hematemesis, coffee ground emesis, dysphagia, heartburn, diarrhea, constipation, GI cramping, change in stool character, hematochezia or melena : Denies: flank pain, dysuria, urinary frequency, urinary urgency, urinary hesitancy or hematuria Musc: Denies: neck pain, back pain, extremity pain, joint swelling, joint warmth or deformity Neuro: Denies: headache(s), numbness in extremities, weakness in extremities, sensory changes, difficulty walking, frequent falls, dizziness, vertigo, behavioral changes, Slurred speech present or seizure-like activity Psych: Denies: anxiety, depression, suicidal ideation or homicidal ideation Endo: Denies: polyuria, polydipsia, tired all the time, cold intolerance or hot flashes Moe/Lymph: Denies: easy bruising or easy bleeding Medications/Allergies Home Medications Medication Instructions Recorded Confirmed Last Taken Type amlodipine 10 mg PO DAILY 01/24/21 01/24/21 01/22/21 History aspirin [Aspir-81] 81 mg PO DAILY 01/24/21 01/24/21 01/22/21 History clonidine HCl See Rx Instructions .ROUTE .COMPLEX 01/24/21 01/24/21 Unknown History clopidogrel 75 mg PO DAILY 01/24/21 01/24/21 01/22/21 History doxazosin 4 mg PO DAILY 01/24/21 01/24/21 01/22/21 History glipizide 5 mg PO DAILY 01/24/21 01/24/21 01/22/21 History insulin glargine [Lantus U-100 22 unit SUBCUT DAILY 01/24/21 01/24/21 01/23/21 History Insulin] metoprolol succinate 100 mg PO DAILY 01/24/21 01/24/21 01/22/21 History rivaroxaban 2.5 mg PO BID 01/24/21 01/24/21 01/22/21 History albuterol sulfate 2 inh INHALATION Q6H PRN #8 gm 01/25/21 Unknown Rx Allergies Allergy/AdvReac Type Severity Reaction Status Date / Time No Known Allergies Allergy Verified 01/20/21 08:23 PFSH Acute PFSH: Medical History (Updated 01/27/21 @ 03:52 by Kerry Elias MD) Hypertension Vitals/I&O/Wt Last Vital Signs Temp 99.0 F 01/26/21 17:53 Pulse 72 01/27/21 03:30 Resp 14 01/27/21 03:30 BP 151/89 01/27/21 03:30 Pulse Ox 94 01/27/21 03:30 01/26/21 01/26/21 01/27/21 14:59 22:59 06:59 Intake Total 1000 / 1000 Balance 1000 / 1000 Weight last 48 hrs Weight 92.986 kg Physical Exam Narrative: EXAM NARRATIVE: General: No acute distress, AO x3 , tachypneic, on heated hi flow HEENT: PERRLA, pupils bilaterally equal and reactive, pallors not present Chest: Normal vesicular breath sounds, no added sounds, equal good air entry bilaterally CVS: S1-S2 regular, no murmurs, no tachycardia, no gallops, no rubs Abdomen: Soft, nontender, no organomegaly, bowel sounds present Neuro: No focal deficits, no facial deformity, AO x3, power 5/5 in all limbs Extremities: no cyanosis clubbing or edema. Data : 01/26/21 18:44 01/26/21 21:55 Micro: Microbiology 01/26/21 18:44 Blood Culture - Preliminary Blood SPECIMEN COLLECTED 01/26/21 18:44 Blood Culture - Preliminary Blood SPECIMEN COLLECTED A&P Assessment and plan (1) COVID-19: remdisivir 200mg iv x 1 then 100mg iv daily x 5 days dexamethasone 6g IVP qd duonebs, budesonide suppemetal 02, bipap prn ceftraixone and azithromycin empirically trend inflammatory markers Status: Acute (2) Respiratory failure: as above Status: Acute Qualifiers: Chronicity: acute Respiratory failure complication: hypoxia Qualified Code(s): J96.01 - Acute respiratory failure with hypoxia (3) Hyperosmolar hyperglycemic state (HHS): insulin drip per DKA/HHS protocol CMP every 6 hrs transition to s/c insulin when gap closes Status: Acute Attestations Medical Necessity Statement*: >2midnight will be needed for above defined care Critical Care Time: The high probability of a clinically significant, sudden o r life threatening deterioration of the patient's [respiratory] system(s) required my full and direct attention, intervention and personal management. The critical care time is as shown. This time is in addition to time spent performing any reported procedures but includes the following: [x] Data and vital sign review and interpretation [x] Patient assessment, examination and intervention [x] Documentation [x] Medication orders and management Critical Care Time (min): 45 Coding Level of Care Code Acute Regional Recruiter for g Fwd Diagnoses COVID-19 U07.1 Respiratory failure J96.01 Chronicity: acute Respiratory failure complication: hypoxia Hyperosmolar hyperglycemic state (HHS) E11.00; E11.65
[2021-01-27] MEDS: ipratropium-albuterol 3 mL Neb INHALATION ×4 (04:01→20:45)
[2021-01-27 06:19] LABS: Basophils % 0.2 %; Hematocrit 40.6 % (42.0-52.0); Hemoglobin 13.5 g/dL (11.7-16.6); Lymphocytes # 0.7 10^3/uL (0.8-4.8); Lymphocytes % 11.8 %; Mean Corpuscular HGB Conc 33.3 g/dL (30.0-36.0); Mean Corpuscular Hemoglobin 29.4 pg (28.0-34.0); Mean Corpuscular Volume 88.5 fL (80-94); Mean Platelet Volume 10.4 fL (7.4-10.4); Monocytes # 0.2 10^3/uL (0.2-0.9); Monocytes % 3.9 %; Neutrophils # 5.11 10^3/uL (1.8-7.7); Neutrophils % 82.3 %; Nucleated Red Blood Cells % 0 %; Platelet Count 155 10^3/cmm (130-400); Red Blood Count 4.59 10^6/uL (4.1-5.3); Red Cell Distribution Width 13.3 % (12.1-15.1); White Blood Count 6.2 10^3/uL (4.0-10.0)
[2021-01-27 06:25] LABS: D Dimer 2.99 ug/mIFEU (0-0.59)
[2021-01-27 06:29] LABS: Alanine Aminotransferase 29 U/L (0-41); Albumin Level 3.2 g/dL (3.5-5.2); Alkaline Phosphatase 65 IU/L (40-130); Anion Gap 17.5 (5-19); Aspartate Amino Transferase 21 U/L (0-40); Blood Urea Nitrogen 42 mg/dL (8-23); Calcium 7.6 mg/dL (8.5-10.5); Carbon Dioxide 22 mmol/L (22-29); Chloride 100 mmol/L (98-107); Globulin 2.2 g/dL (1.3-4.6); Glomerular Filtration Rate 38.3 mL/min (90-130); Glucose 269 mg/dL (65-115); Osmolality Calculated 300 mOsm/kg (285-295); Potassium 4.5 mmol/L (3.5-5.1); Sodium 135 mmol/L (136-145); Total Bilirubin 0.3 mg/dL (0.15-1.2); Total Protein 5.4 g/dL (6.6-8.7)
[2021-01-27 06:30] LABS: C Reactive Protein 102.3 mg/L (0.0-4.9); Lactate Dehydrogenase 428 U/L (135-225)
[2021-01-27 08:54] LABS: Glucose Point of Care 257 mg/dL (70-110)
[2021-01-27] MEDS: doxazosin 4 mg Tablet PO (09:07)
[2021-01-27] MEDS: aspirin 81 mg EC Tablet PO (09:07)
[2021-01-27] MEDS: rivaroxaban 10 mg Tablet 2.5 MG PO (09:07)
[2021-01-27] MEDS: pantoprazole DR 40 mg Tablet PO (09:07)
[2021-01-27] MEDS: amlodipine 10 mg Tablet PO (09:07)
[2021-01-27] MEDS: clopidogrel 75 mg Tablet PO (09:12)
[2021-01-27] MEDS: budesonide 0.5 mg/2 mL Neb INHALATION (09:18)
--- NOTE | 2021-01-27 10:02 | PC.PHAR ---
pts michelle verified medications off of pts med bottles-pt states he takes his medications the way the bottle has-waiting for [facility] to fax med list
[2021-01-27 11:02] LABS: Ferritin 1542 ng/mL (30-400)
[2021-01-27 12:03] LABS: Glucose Point of Care 407 mg/dL (70-110)
--- NOTE | 2021-01-27 12:41 | P.PN_ITS ---
Subjective Subjective: Interval history: H&P and overnight events reviewed. Patient is on heated high flow 90% 40 L Tachypneic 25-30s appears very anxious No overnight events, he has stayed afebrile, no leukocytosis noted D-dimer 2.9 Creatinine 1.8 today Glucose 269 Calcium 7.6 Albumin 3.2 Negative delta troponin Lactate improved -400ml fluid Procalcitonin unremarkable Discontinued ceftriaxone/azithromycin Will request CTA once creatinine is stable, currently patient is on rivaroxaban Vitals/I&O/Wt Last Vital Signs Temp 99.0 F 01/27/21 08:30 Pulse 85 01/27/21 12:00 Resp 30 H 01/27/21 12:00 BP 167/90 01/27/21 12:00 Pulse Ox 92 01/27/21 12:00 01/26/21 01/27/21 01/27/21 22:59 06:59 14:59 Intake Total 1000 / 1000 440 / 440 Output Total 600 / 600 1200 / 1200 Balance 1000 / 1000 -600 / 400 -760 / -760 Weight last 48 hrs Weight 92.986 kg Physical Exam Narrative: EXAM NARRATIVE: male who was sitting in his bed who appeared very anxious respiratory rate in 30s Skin flushed Saturating well on 90% 40 L heated high flow S1, S2 sinus rhythm Abdomen soft Bilateral breath sounds without adventitious rhonchi or crackles No joint swelling or cellulitis Abdomen soft without signs of peritonitis EOMI, PERRLA No neurological deficits Data : 01/27/21 04:50 01/27/21 04:50 Micro: Microbiology 01/26/21 18:44 Blood Culture - Preliminary Blood SPECIMEN COLLECTED 01/26/21 18:44 Blood Culture - Preliminary Blood SPECIMEN COLLECTED A&P Assessment and plan (1) COVID-19: Status: Acute (2) Acute hyperglycemia: Status: Acute (3) Hyperosmolar hyperglycemic state (HHS): Status: Acute (4) Acute respiratory failure with hypoxia: Status: Acute Additional A&P Information Acute hypoxic respiratory failure secondary to COVID-19 pneumonia Currently on remdesivir and Decadron regimen Discontinue ceftriaxone and azithromycin, procalcitonin unremarkable He has stayed afebrile no leukocytosis To decrease work of breathing might benefit from BiPAP on as needed basis, for now can give him morphine to decrease his anxiety CRP trending up Might benefit from interleukin-6 inhibitor if O2 requirement going up Encourage proning Incentive spirometer PT HHS No signs of DKA Blood sugar less than 250, anion gap 17, no signs of acidosis Continue sliding scale for now and discontinue insulin gtt. Acute on chronic kidney disease Patient clinically looks dehydrated, flushed skin noted Baseline creatinine seems to be around 1.5-1.8 Patient is able to void urine without any difficulty Judicious use of fluids Consistent carb diet DVT prophylaxis he is on Eliquis and dose has been reduced to 2.5 mg twice a day secondary to worsening creatinine Full code Attestations Medical Necessity Statement*: Continue ICU management for hypoxic respiratory failure related to COVID-19, high risk for deterioration Time Spent in Patient Care: less than 15 minutes Coding Level of Care Code Acute Information Technology Administrator for [facility] Fwd Diagnoses COVID-19 U07.1 Acute hyperglycemia R73.9 Hyperosmolar hyperglycemic state (HHS) E11.00; E11.65 Acute respiratory failure with hypoxia J96.01
[2021-01-27 13:14] LABS: Anion Gap 17.3 (5-19); Blood Urea Nitrogen 36 mg/dL (8-23); Calcium 7.8 mg/dL (8.5-10.5); Carbon Dioxide 20 mmol/L (22-29); Chloride 101 mmol/L (98-107); Glomerular Filtration Rate 40.9 mL/min (90-130); Glucose 396 mg/dL (65-115); Osmolality Calculated 303 mOsm/kg (285-295); Phosphorus 3.1 mg/dL (2.5-4.5); Potassium 4.3 mmol/L (3.5-5.1); Sodium 134 mmol/L (136-145)
--- NOTE | 2021-01-27 16:42 | PC.NURSE ---
Pt able to pull 1500 on IS. Catpress given now because BP is 193/100 also given in PRN Ativan
[2021-01-27] MEDS: cloNIDine 0.1 mg Tablet PO (16:43)
[2021-01-27] MEDS: LORazepam 2 mg/mL INJ 1 mL 0.5 MG IVP (16:43)
[2021-01-27] MEDS: remdesivir 100 MG in sodium chloride 0.9% (100 ml) 100 ML IV (18:31)
[2021-01-27 19:32] LABS: Glucose Point of Care 277 mg/dL (70-110)
[2021-01-27 20:24] LABS: Anion Gap 16.3 (5-19); Blood Urea Nitrogen 31 mg/dL (8-23); Calcium 7.9 mg/dL (8.5-10.5); Carbon Dioxide 19 mmol/L (22-29); Chloride 104 mmol/L (98-107); Glomerular Filtration Rate 43.9 mL/min (90-130); Glucose 249 mg/dL (65-115); Magnesium 1.9 mg/dL (1.7-2.3); Osmolality Calculated 295 mOsm/kg (285-295); Phosphorus 2.3 mg/dL (2.5-4.5); Potassium 4.3 mmol/L (3.5-5.1); Sodium 135 mmol/L (136-145)
[2021-01-27] MEDS: dexamethasone 4 mg/mL INJ 6 MG IVP (20:28)
[2021-01-27] MEDS: apixaban 5 mg Tablet 2.5 MG PO (20:28)
[2021-01-27] MEDS: insulin glargine 100 units/1 mL 30 UNIT SUBCUT (20:46)
[2021-01-27 20:57] LABS: Glucose Point of Care 283 mg/dL (70-110)
[2021-01-28] VITALS (46 sets, daily range): BP systolic 139–174; BP diastolic 78–98; PULSE 70–105; RESP 16–33; TEMP 36.8–37.3; O2SAT 83–97
[2021-01-28 02:06] LABS: Anion Gap 14.6 (5-19); Blood Urea Nitrogen 31 mg/dL (8-23); Calcium 8.1 mg/dL (8.5-10.5); Carbon Dioxide 19 mmol/L (22-29); Chloride 109 mmol/L (98-107); Glomerular Filtration Rate 43.9 mL/min (90-130); Glucose 178 mg/dL (65-115); Magnesium 2.1 mg/dL (1.7-2.3); Osmolality Calculated 297 mOsm/kg (285-295); Phosphorus 2.6 mg/dL (2.5-4.5); Potassium 4.6 mmol/L (3.5-5.1); Sodium 138 mmol/L (136-145)
[2021-01-28] MEDS: sodium chloride 0.9% 1,000 ML 75 ML IV (02:34)
[2021-01-28] MEDS: ipratropium-albuterol 3 mL Neb INHALATION ×4 (02:49→21:05)
--- NOTE | 2021-01-28 06:25 | PC.NURSE ---
Patient blood culture result back 1/3 bottles growing Gram positive cocci in clusters reported by Lexie from lab, this RN notified Dr. Mckeon of result.
[2021-01-28 06:53] LABS: Basophils % 0.1 %; Hematocrit 39.2 % (42.0-52.0); Hemoglobin 13.3 g/dL (11.7-16.6); Lymphocytes # 0.6 10^3/uL (0.8-4.8); Lymphocytes % 7.8 %; Mean Corpuscular HGB Conc 33.9 g/dL (30.0-36.0); Mean Corpuscular Hemoglobin 29.8 pg (28.0-34.0); Mean Corpuscular Volume 87.7 fL (80-94); Mean Platelet Volume 10.2 fL (7.4-10.4); Monocytes # 0.1 10^3/uL (0.2-0.9); Nucleated Red Blood Cells % 0 %; Platelet Count 163 10^3/cmm (130-400); Red Blood Count 4.47 10^6/uL (4.1-5.3); Red Cell Distribution Width 13.4 % (12.1-15.1)
--- NOTE | 2021-01-28 06:59 | PC.NURSE ---
Patient had an uneventful shift last pm. Nil distress noted. Remains on HHF, wean from 60-40L and 89.9-89.8%. N/S 75mls infusing. V/S stabe. Patient report given to Johanna BEVERLY.
[2021-01-28 07:13] LABS: D Dimer 3.27 ug/mIFEU (0-0.59)
[2021-01-28 07:32] LABS: Anion Gap 15.4 (5-19); Blood Urea Nitrogen 29 mg/dL (8-23); Calcium 8.1 mg/dL (8.5-10.5); Carbon Dioxide 19 mmol/L (22-29); Chloride 106 mmol/L (98-107); Glomerular Filtration Rate 47.3 mL/min (90-130); Glucose 227 mg/dL (65-115); Magnesium 1.9 mg/dL (1.7-2.3); Osmolality Calculated 295 mOsm/kg (285-295); Phosphorus 3.3 mg/dL (2.5-4.5); Potassium 4.4 mmol/L (3.5-5.1); Sodium 136 mmol/L (136-145)
[2021-01-28 07:33] LABS: C Reactive Protein 134.7 mg/L (0.0-4.9)
[2021-01-28] MEDS: doxazosin 4 mg Tablet PO (08:49)
[2021-01-28] MEDS: cloNIDine 0.1 mg Tablet PO ×2 (08:49→18:01)
[2021-01-28] MEDS: amlodipine 10 mg Tablet PO (08:49)
[2021-01-28] MEDS: aspirin 81 mg EC Tablet PO (08:50)
[2021-01-28] MEDS: clopidogrel 75 mg Tablet PO (08:50)
[2021-01-28] MEDS: pantoprazole DR 40 mg Tablet PO (08:50)
[2021-01-28] MEDS: metoprolol tartrate 25 mg Tablet PO ×2 (09:48→20:28)
[2021-01-28] MEDS: apixaban 5 mg Tablet 2.5 MG PO ×2 (09:48→20:28)
[2021-01-28 10:11] LABS: Anion Gap 17.7 (5-19); Blood Urea Nitrogen 32 mg/dL (8-23); Carbon Dioxide 19 mmol/L (22-29); Chloride 105 mmol/L (98-107); Glomerular Filtration Rate 38.3 mL/min (90-130); Glucose 340 mg/dL (65-115); Magnesium 2.2 mg/dL (1.7-2.3); Osmolality Calculated 304 mOsm/kg (285-295); Phosphorus 3.7 mg/dL (2.5-4.5); Potassium 4.7 mmol/L (3.5-5.1); Sodium 137 mmol/L (136-145)
--- NOTE | 2021-01-28 10:29 | PC.NURSE ---
SCDs/VTE prophylaxis Patient states he has a history of stent placement in lower legs. SCDs are uncomfortable to the patient. Patient is on Eliquis/Plavix for A.Fib and VTE prophylaxis.
--- NOTE | 2021-01-28 10:44 | P.CONIM_ITS ---
Providers/Reason For Consult Consulting Physician/Specialty*: Pulmonary critical care medicine Reason for Consult*: Acute hypoxic respiratory failure from SARS-CoV-2 pneumonia/severe COVID-19 Attending Physician: Preston Armenta MD Primary Care Provider: Riley Sainz DO History of Present Illness History of Present Illness Isaiah Gillette is a 65 year old male who presented to the hospital on January 26 with worsening shortness of breath. The patient was diagnosed with COVID-19 earlier last week. The patient was discharged from the ED with 2 L oxygen via nasal cannula on January 24. At home he notices oxygen saturation to be in the low 70s. The patient had not received any monoclonal antibody on January 20. Chest x-ray on January 26 revealed bilateral infiltrate in the peripheral distribution. Laboratory data showed normal WBC count with lymphopenia. His D-dimer is elevated at 3.27 today. The patient has mild non-anion gap metabolic acidosis likely secondary to chronic kidney disease. His blood sugar has been running in high 200s 2 400s. He has elevated LDH, CRP. His blood culture from January 26 has been negative. The patient was seen and examined in the intensive care unit. Currently he is on high flow nasal cannula with an FiO2 of 90%. Patient overall appears to be comfortable. Review of Systems Narrative: The patient is currently on high flow nasal cannula. The review of system was somewhat limited because of his clinical condition including the risk of lateralization. Overall, the patient denies any fever, night sweats. He is fatigued and also complains of some hoarseness. He denies any chest pain, the patient has cough but no significant wheezing. Meds/Allergies Home Medications and Allergies Home Medications Medication Instructions Recorded Confirmed Last Taken Type amlodipine 10 mg PO DAILY 01/24/21 01/27/21 01/22/21 History clonidine HCl 0.1 mg PO BID 01/24/21 01/27/21 Unknown History clopidogrel 75 mg PO DAILY 01/24/21 01/27/21 01/22/21 History doxazosin 2 mg PO BEDTIME 01/24/21 01/27/21 01/22/21 History glipizide 5 mg PO BID 01/24/21 01/27/21 01/22/21 History insulin glargine [Lantus U-100 25 unit SUBCUT BEDTIME 01/24/21 01/27/21 01/23/21 History Insulin] rivaroxaban [Xarelto] 2.5 mg PO BID 01/24/21 01/27/21 01/22/21 History albuterol sulfate 2 inh INHALATION Q6H PRN #8 gm 01/25/21 01/27/21 Unknown Rx Vitamin C 1 tab PO DAILY 01/27/21 01/27/21 Unknown History Vitamin D3 1 cap PO DAILY 01/27/21 01/27/21 Unknown History aspirin 325 mg PO DAILY 01/27/21 01/27/21 Unknown History azithromycin See Rx Instructions .ROUTE .COMPLEX 01/27/21 01/27/21 Unknown History dexamethasone 6 mg PO DAILY 01/27/21 01/27/21 Unknown History metoprolol tartrate 50 mg PO BID 01/27/21 01/27/21 Unknown History zinc 1 cap PO DAILY 01/27/21 01/27/21 Unknown History Allergies Allergy/AdvReac Type Severity Reaction Status Date / Time No Known Allergies Allergy Verified 01/27/21 10:01 Current Medications Current Medications Generic Name Dose Route Start Last Admin Trade Name Rejiq PRN Reason Stop Dose Admin Albuterol/Ipratropium 3 ml 01/26/21 21:30 01/28/21 09:34 Ipratropium-Albuterol 3 Ml Neb INHALATION 3 ml Q6H KINDRA Administration Amlodipine Besylate 10 mg 01/27/21 09:00 01/28/21 08:49 Amlodipine 10 Mg Tablet PO 10 mg DAILY KINDRA Administration Apixaban 2.5 mg 01/27/21 21:00 01/28/21 09:48 Apixaban 5 Mg Tablet PO 2.5 mg BID@0900,2100 KINDRA Administration Aspirin 81 mg 01/27/21 09:00 01/28/21 08:50 Aspirin 81 Mg Ec Tablet PO 81 mg DAILY KINDRA Administration Clonidine HCl 0.1 mg 01/27/21 18:00 01/28/21 08:49 Clonidine 0.1 Mg Tablet PO 0.1 mg BID KINDRA Administration Clopidogrel Bisulfate 75 mg 01/27/21 09:00 01/28/21 08:50 Clopidogrel 75 Mg Tablet PO 75 mg DAILY KINDRA Administration Dexamethasone 6 mg 01/26/21 21:30 01/27/21 20:28 Dexamethasone 4 Mg/Ml Inj IVP 6 mg Q24H KINDRA Administration Doxazosin Mesylate 4 mg 01/27/21 09:00 01/28/21 08:49 Doxazosin 4 Mg Tablet PO 4 mg DAILY KINDRA Administration Remdesivir 100 mg/ Sodium 100 mls @ 100 mls/hr 01/27/21 18:00 01/27/21 19:40 Chloride IV 01/31/21 18:59 Infused Q24H KINDRA Infusion Sodium Chloride 1,000 mls @ 75 mls/hr 01/26/21 23:45 01/28/21 02:34 Sodium Chloride 0.9% IV 75 mls/hr .[id number] KINDRA Administration Insulin Aspart 0 unit 01/27/21 08:00 01/28/21 08:49 Insulin Aspart 100 Unit/1 Ml SUBCUT 10 unit WM&BEDTIME KINDRA Administration Protocol Insulin Glargine 30 unit 01/27/21 21:00 01/27/21 20:46 Insulin Glargine 100 Units/1 Ml SUBCUT 30 unit BEDTIME KINDRA Administration Lorazepam 0.5 mg 01/27/21 12:54 01/27/21 16:43 Lorazepam 2 Mg/Ml Inj 1 Ml IVP 0.5 mg Q12H PRN Administration ANXIETY Metoprolol Tartrate 25 mg 01/28/21 09:00 01/28/21 09:48 Metoprolol Tartrate 25 Mg Tablet PO 25 mg BID@0900,2100 KINDRA Administration Morphine Sulfate 2 mg 01/26/21 23:48 01/27/21 00:17 Morphine 4 Mg/Ml Sdv 1 Ml IVP 2 mg Q4H PRN Administration SEVERE PAIN Pantoprazole Sodium 40 mg 01/27/21 09:00 01/28/21 08:[address] 40 Mg Tablet PO 40 mg DAILY KINDRA Administration PFSH Acute PFSH: Medical History Hypertension Vitals/I&O/Wt Last Vital Signs Temp 98.4 F 01/28/21 06:00 Pulse 105 H 01/28/21 10:00 Resp 20 H 01/28/21 10:00 BP 172/80 01/28/21 10:00 Pulse Ox 95 01/28/21 10:00 01/27/21 01/28/21 01/28/21 22:59 06:59 14:59 Intake Total 1573.75 / 2012.75 1235 / 3248.75 354 / 354 Output Total 850 / 2050 660 / 2710 650 / 650 Balance 723.75 / -36.25 575 / 538.75 -296 / -296 Weight last 48 hrs Weight 205 lb Physical Exam Narrative: EXAM NARRATIVE: General: Patient is awake alert and oriented, tachypneic. Neck: No JVD Respiratory: Auscultation: Reduced breath sound bilaterally, occasional crackles at the lung bases. Cardiovascular: Regular rate and rhythm, S1-S2 present, no murmur, no peripheral edema. Abdomen: Soft, nontender, nondistended, positive bowel sound Skin: No rash Neuro: Mental status is normal, no gross cranial nerve deficit, normal motor and coordination. Data Micro: Micro: Microbiology 01/26/21 18:44 Blood Culture - Pr eliminary Blood 01/26/21 18:44 Blood Culture - Pr eliminary Blood NEGATIVE TO ELIANA E Other Data: Attestation for Other Data: I personally reviewed and interpreted the following: Other data: I have reviewed his laboratory, microbiologic and radiologic data. Please see the HPI for detail. A&P Assessment and plan (1) Pneumonia due to severe acute respiratory syndrome coronavirus 2 (SARS-CoV-2): This is a 65-year-old gentleman with SARS-CoV-2 pneumonia. The patient has severe COVID-19. Currently he is requiring high flow nasal cannula with 90% FiO2. The patient has significantly elevated inflammatory markers including CRP which is currently 135 from an admission value of 30. The patient is currently receiving remdesivir, dexamethasone and I believe he will benefit from anti-IL-6 therapy. Status: Acute (2) ARDS (adult respiratory distress syndrome): The patient has developed ARDS secondary to SARS-CoV-2 pneumonia. There is no evidence of any secondary bacterial or fungal infection at this time. Currently the patient is not on antibiotic. We will continue to follow him closely. Status: Acute (3) Hyperglycemia: Patient has type 2 diabetes. He has developed significant hyperglycemia secondary to IV steroid therapy as well as the critical care illness. His blood sugar goal is less than 180. I am going to start the patient on 35 units of Lantus at night. He will receive an additional dose of 10 units of Lantus today now. The patient is receiving sliding scale coverage. I am going to add 5 units of NovoLog with each meal. The patient needs more aggressive blood sugar control. Status: Acute (4) History of atrial fibrillation: The patient has history of A. fib. Currently he is in sinus rhythm. He is anticoagulated with 2.5 mg twice daily apixaban. Is starting to have the dose of metoprolol now. If his blood pressure permits, I will start him on 50 mg twice daily. Status: Acute (5) Chronic kidney disease: The patient has chronic kidney disease secondary to diabetes. Currently his creatinine is stable. Status: Acute (6) Diabetes mellitus: Going to obtain an A1c with blood work tomorrow morning. The patient is currently on aspirin and Plavix I am assuming the patient has a significant cardiac history. I will look into that more Status: Acute (7) Hypertension: Currently the patient is on amlodipine, clonidine and metoprolol. Blood pressure goal less than 150 systolic. Status: Acute (8) Metabolic acidosis: The patient has non-anion gap metabolic acidosis. This is likely secondary to IV normal saline that the patient had been receiving or with a combination of chronic kidney disease. I have stopped the IV fluid. We will continue to monitor. 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
[2021-01-28 12:03] LABS: Glucose Point of Care 251 mg/dL (70-110)
[2021-01-28 12:03] LABS: Glucose Point of Care 406 mg/dL (70-110)
[2021-01-28 14:28] LABS: Anion Gap 16.8 (5-19); Blood Urea Nitrogen 31 mg/dL (8-23); Calcium 8.4 mg/dL (8.5-10.5); Carbon Dioxide 17 mmol/L (22-29); Chloride 105 mmol/L (98-107); Glomerular Filtration Rate 43.9 mL/min (90-130); Glucose 354 mg/dL (65-115); Osmolality Calculated 299 mOsm/kg (285-295); Phosphorus 2.8 mg/dL (2.5-4.5); Potassium 4.8 mmol/L (3.5-5.1); Sodium 134 mmol/L (136-145)
[2021-01-28 17:32] LABS: Anion Gap 15.2 (5-19); Blood Urea Nitrogen 35 mg/dL (8-23); Calcium 8.2 mg/dL (8.5-10.5); Carbon Dioxide 18 mmol/L (22-29); Chloride 106 mmol/L (98-107); Glomerular Filtration Rate 47.3 mL/min (90-130); Glucose 201 mg/dL (65-115); Magnesium 2.1 mg/dL (1.7-2.3); Osmolality Calculated 294 mOsm/kg (285-295); Phosphorus 2.3 mg/dL (2.5-4.5); Potassium 4.2 mmol/L (3.5-5.1); Sodium 135 mmol/L (136-145)
--- NOTE | 2021-01-28 17:42 | PM.PN ---
Subjective Subjective: Interval history: Patient was seen and examined this morning, continues to have shortness of breath, Continues to be tachypneic, continues to require high supplemental oxygen. His other vitals and labs have been reviewed. Medications: Reviewed: Yes Vitals/I&O/Wt Last Vital Signs Temp 98.4 F 01/28/21 06:00 Pulse 70 01/28/21 15:34 Resp 20 H 01/28/21 15:34 BP 139/84 01/28/21 15:34 Pulse Ox 94 01/28/21 15:34 01/28/21 01/28/21 01/28/21 06:59 14:59 22:59 Intake Total 1235 / 3248.75 714 / 714 Output Total 660 / 2710 850 / 850 Balance 575 / 538.75 -136 / -136 Weight last 48 hrs Weight 92.986 kg Physical Exam Const: COMMON NORMALS: patient oriented x3 Chest: CHEST: Yes Symmetrical chest wall rise Resp: OTHER: Diminished air entry bilaterally Cardio: COMMON NORMALS: regular rate, regular rhythm, S1 normal heart sound present, S2 normal heart sound present, No gallops present (Cardio), No murmurs present (Cardio), No rub (Cardio) and Peripheral pulses 2+ throughout RATE: regular rate RHYTHM: regular rhythm HEART SOUNDS: S1 normal heart sound present and S2 normal heart sound present PERIPHERAL PULSES: Peripheral pulses 2+ throughout GI: COMMON NORMALS: Normal to inspection, nondistended, normoactive bowel sounds present, Soft to palpation, non-tender, No hepatosplenomegaly present and no masses AUSCULTATION: Yes normoactive bowel sounds PALPATION: Yes Soft to palpation and Yes No hepatosplenomegaly present RECTAL EXAM: Yes deferred Extremity: COMMON NORMALS: no clubbing, cyanosis or edema and no pedal edema Neuro: COMMON NORMALS: patient oriented x3 Data : 01/28/21 06:30 01/28/21 17:07 Micro: Microbiology 01/26/21 18:44 Blood Culture - Preliminary Blood 01/26/21 18:44 Blood Culture - Preliminary Blood NEGATIVE TO DATE A&P Assessment and plan (1) COVID-19: remdisivir 200mg iv x 1 then 100mg iv daily x 5 days dexamethasone 6g IVP qd duonebs, budesonide suppemetal 02, bipap prn ceftraixone and azithromycin empirically trend inflammatory markers Status: Acute (2) Acute hyperglycemia: Status: Acute (3) Hyperosmolar hyperglycemic state (HHS): insulin drip per DKA/HHS protocol CMP every 6 hrs transition to s/c insulin when gap closes Status: Acute (4) Acute respiratory failure with hypoxia: Status: Acute Additional A&P Information Acute hypoxic respiratory failure secondary to COVID-19 pneumonia Currently on remdesivir and Decadron regimen Discontinue ceftriaxone and azithromycin, procalcitonin unremarkable He has stayed afebrile no leukocytosis To decrease work of breathing might benefit from BiPAP on as needed basis, for now can give him morphine to decrease his anxiety CRP trending up s/p 1 dose of tocilizumab Encourage proning Incentive spirometer PT HHS No signs of DKA Blood sugar less than 250, anion gap 17, no signs of acidosis Continue sliding scale for now and discontinue insulin gtt. Acute on chronic kidney disease Patient clinically looks dehydrated, flushed skin noted Baseline creatinine seems to be around 1.5-1.8 Patient is able to void urine without any difficulty Judicious use of fluids Consistent carb diet DVT prophylaxis he is on Eliquis and dose has been reduced to 2.5 mg twice a day secondary to worsening creatinine Full code Attestations Medical Necessity Statement*: Patient needs to be in hospital for management of respiratory failure secondary to Covid pneumonia. Coding Level of Care Code Acute Engraver Steel Plate for [facility] Fwd Diagnoses COVID-19 U07.1 Acute hyperglycemia R73.9 Hyperosmolar hyperglycemic state (HHS) E11.00; E11.65 Acute respiratory failure with hypoxia J96.01
[2021-01-28] MEDS: remdesivir 100 MG in sodium chloride 0.9% (100 ml) 100 ML IV (18:01)
[2021-01-28 18:04] LABS: Glucose Point of Care 214 mg/dL (70-110)
[2021-01-28] MEDS: benzonatate 100 mg Capsule PO (20:28)
[2021-01-28] MEDS: LORazepam 2 mg/mL INJ 1 mL 0.5 MG IVP (21:14)
[2021-01-28] MEDS: dexamethasone 4 mg/mL INJ 6 MG IVP (21:14)
[2021-01-28] MEDS: insulin glargine 100 units/1 mL 35 UNIT SUBCUT (21:29)
--- NOTE | 2021-01-28 21:40 | PC.NURSE ---
Patient c/o of tingling feeling to his Rt. foot bottom, blood sugar checked- 398, was given 16 units Novolog as prescribed on AUG.
[2021-01-28 21:54] LABS: Anion Gap 16.5 (5-19); Blood Urea Nitrogen 35 mg/dL (8-23); Carbon Dioxide 15 mmol/L (22-29); Chloride 103 mmol/L (98-107); Glomerular Filtration Rate 43.9 mL/min (90-130); Glucose 400 mg/dL (65-115); Osmolality Calculated 295 mOsm/kg (285-295); Phosphorus 2.3 mg/dL (2.5-4.5); Potassium 4.5 mmol/L (3.5-5.1); Sodium 130 mmol/L (136-145)
[2021-01-29] VITALS (24 sets, daily range): BP systolic 140–168; BP diastolic 74–96; PULSE 65–90; RESP 20–30; TEMP 36.4–37.1; O2SAT 84–95
[2021-01-29] MEDS: ipratropium-albuterol 3 mL Neb INHALATION ×4 (03:52→21:27)
--- NOTE | 2021-01-29 06:51 | PC.NURSE ---
Patient spent an uneventful shift last pm. Nil distress noted. Remains on HHF 50L/90%. SR with occassional pvcs and Afib on monitor. SBP 170s- 130s. DARI to Rt. hand saline locked. Call luong and urinal in close reach. Observation continues.
[2021-01-29 07:40] LABS: Glucose Point of Care 422 mg/dL (70-110)
[2021-01-29 08:04] LABS: Glucose Point of Care 398 mg/dL (70-110)
[2021-01-29] MEDS: apixaban 5 mg Tablet 2.5 MG PO ×2 (08:34→20:03)
[2021-01-29] MEDS: amlodipine 10 mg Tablet PO (08:35)
[2021-01-29] MEDS: doxazosin 4 mg Tablet PO (08:35)
[2021-01-29] MEDS: clopidogrel 75 mg Tablet PO (08:35)
[2021-01-29] MEDS: metoprolol tartrate 25 mg Tablet PO ×2 (08:35→20:04)
[2021-01-29] MEDS: pantoprazole DR 40 mg Tablet PO (08:35)
[2021-01-29] MEDS: aspirin 81 mg EC Tablet PO (08:35)
[2021-01-29] MEDS: cloNIDine 0.1 mg Tablet PO ×2 (08:35→18:24)
--- NOTE | 2021-01-29 09:39 | P.PN_ITS ---
Subjective Subjective: Interval history: Patient was seen and examined this this morning.No acute events overnigh. Continues to require high supplemental oxygen. Clinically he feels better. His other vitals and labs have been reviewed. Medications: Reviewed: Yes Vitals/I&O/Wt Last Vital Signs Temp 98.2 F 01/29/21 06:00 Pulse 72 01/29/21 09:07 Resp 24 H 01/29/21 09:07 BP 140/84 01/29/21 08:35 Pulse Ox 89 L 01/29/21 09:07 01/28/21 01/29/21 01/29/21 22:59 06:59 14:59 Intake Total 600 / 1314 480 / 1794 Output Total 600 / 1450 590 / 2040 Balance 0 / -136 -110 / -246 Physical Exam Const: COMMON NORMALS: patient oriented x3 Chest: CHEST: Yes Symmetrical chest wall rise Resp: OTHER: Diminished air entry bilaterally Cardio: COMMON NORMALS: regular rate, regular rhythm, S1 normal heart sound present, S2 normal heart sound present, No gallops present (Cardio), No murmurs present (Cardio), No rub (Cardio) and Peripheral pulses 2+ throughout RATE: r egular rate RHYTHM: regular rhythm HEART SOUNDS: S1 normal heart sound present and S2 normal heart sound present PERIPHERAL PULSES: Peripheral pulses 2+ throughout GI: COMMON NORMALS: Normal to inspection, nondistended, normoactive bowel sounds present, Soft to palpation, non-tender, No hepatosplenomegaly present and no masses AUSCULTATION: Yes normoactive bowel sounds PALPATION: Yes Soft to palpation and Yes No hepatosplenomegaly present RECTAL EXAM: Yes deferred Extremity: COMMON NORMALS: no clubbing, cyanosis or edema and no pedal edema Neuro: COMMON NORMALS: patient oriented x3 Data : 01/29/21 10:35 01/29/21 10:35 Micro: Microbiology 01/26/21 18:44 Blood Culture - Preliminary Blood A&P Assessment and plan (1) COVID-19: remdisivir 200mg iv x 1 then 100mg iv daily x 5 days dexamethasone 6g IVP qd duonebs, budesonide suppemetal 02, bipap prn ceftraixone and azithromycin empirically Status post 1 dose of tocilizumab trend inflammatory markers Status: Acute (2) Acute hyperglycemia: Status: Acute (3) Hyperosmolar hyperglycemic state (HHS): insulin drip per DKA/HHS protocol CMP every 6 hrs transition to s/c insulin when gap closes Status: Acute (4) Acute respiratory failure with hypoxia: Status: Acute Additional A&P Information Acute hypoxic respiratory failure secondary to COVID-19 pneumonia Currently on remdesivir and Decadron regimen Discontinue ceftriaxone and azithromycin, procalcitonin unremarkable He has stayed afebrile no leukocytosis To decrease work of breathing might benefit from BiPAP on as needed basis, for now can give him morphine to decrease his anxiety CRP trending up s/p 1 dose of tocilizumab Encourage proning Incentive spirometer PT HHS No signs of DKA Blood sugar less than 250, anion gap 17, no signs of acidosis On Lantus:35 U SC at night 20 units subcu daily Sliding scale insulin Acute on chronic kidney disease Patient clinically looks dehydrated, flushed skin noted Baseline creatinine seems to be around 1.5-1.8 Patient is able to void urine without any difficulty Judicious use of fluids Consistent carb diet DVT prophylaxis he is on Eliquis and dose has been reduced to 2.5 mg twice a day secondary to worsening creatinine Full code Attestations Medical Necessity Statement*: Patient needs to be in the hospital for management of respiratory failure secondary to Covid pneumonia. Coding Level of Care Code Acute Nailhead Operator for [facility] Fwd Exam Detailed Diagnoses COVID-19 U07.1 Acute hyperglycemia R73.9 Hyperosmolar hyperglycemic state (HHS) E11.00; E11.65 Acute respiratory failure with hypoxia J96.01
--- NOTE | 2021-01-29 09:40 | PC.CHAP ---
Pastoral Care Encounter/Spiritual Assessment Type of Contact [] Declined press operator carbon products visit [] Patient/Family/Request visit [] Outpatient visit [] Follow-up visit [] Physician referral [] Code/Alert [x] Routine visit [] Staff referral [] Actively dying [] Patient sleeping [] Family support [] [] Out of room [] Palliative care [] [] Receiving care in room [] Pre-surgical visit [] Trauma [] Long length of stay [x] ICU visit [x] Other: oxygen Relational/Emotional Strength [] Patient feels connected with others/family/visitors/staff [] Distress [] Loneliness/isolation [] Abandonment Spirituality of Patient [] Person of Shalonda [] Attends Spiritism of their Shalonda [] Believes in Prayer [] Reads Bible or Muslim materials [] There are Spiritual issues to be addressed Coal Weigher Interventions [x] Prayer [] Active listening [] Non-anxious presence [] Spiritual/emotional support [] Crisis/trauma care [] Spiritual counseling [] Bereavement support [] Provided bereavement packet [] Provided Bible/devotional materials [] Provided toy/stuffed animal, coloring book to patient or family member [] Provided Communion [] Anointing/[place] [] Salvation [x] Completed spiritual assessment [] Other: Impact on Illness or Injury [] Angry [] Fearful [] Anxious [] Often cries [] Exhaustion [] Unable to work [] Unable to attend taoism [] Unable to walk/stand [] Unable to read [] Unable to drive [] Unable to eat/drink [] Unable to sleep [] Unable to be with family [] Patient intubated [] Other: Summary Time spent with patient
[2021-01-29 10:45] LABS: Basophils % 0.1 %; Eosinophils % 0.1 %; Hematocrit 38.5 % (42.0-52.0); Lymphocytes # 0.4 10^3/uL (0.8-4.8); Lymphocytes % 5.5 %; Mean Corpuscular HGB Conc 33.8 g/dL (30.0-36.0); Mean Corpuscular Hemoglobin 29.9 pg (28.0-34.0); Mean Corpuscular Volume 88.5 fL (80-94); Mean Platelet Volume 10.1 fL (7.4-10.4); Monocytes # 0.2 10^3/uL (0.2-0.9); Monocytes % 1.9 %; Neutrophils # 6.99 10^3/uL (1.8-7.7); Neutrophils % 90.8 %; Nucleated Red Blood Cells % 0 %; Platelet Count 171 10^3/cmm (130-400); Red Blood Count 4.35 10^6/uL (4.1-5.3); Red Cell Distribution Width 13.9 % (12.1-15.1); White Blood Count 7.7 10^3/uL (4.0-10.0)
--- NOTE | 2021-01-29 11:02 | PM.PN ---
Subjective Subjective: Interval history: The patient was seen and examined. No significant overnight events. The patient continues to require almost 90% FiO2 on high flow nasal cannula. The patient tells me that he is feeling better than how he did before. Medications: Reviewed: Yes Vitals/I&O/Wt Last Vital Signs Temp 98.2 F 01/29/21 06:00 Pulse 72 01/29/21 09:07 Resp 24 H 01/29/21 09:07 BP 140/84 01/29/21 08:35 Pulse Ox 89 L 01/29/21 09:07 01/28/21 01/29/21 01/29/21 22:59 06:59 14:59 Intake Total 600 / 1314 480 / 1794 Output Total 600 / 1450 590 / 2040 Balance 0 / -136 -110 / -246 Physical Exam Narrative: EXAM NARRATIVE: General: Patient is awake alert and oriented, tachypneic. Neck: No JVD Respiratory: Auscultation: Reduced breath sound bilaterally, occasional crackles at the lung bases. Cardiovascular: Regular rate and rhythm, S1-S2 present, no murmur, no peripheral edema. Abdomen: Soft, nontender, nondistended, positive bowel sound Skin: No rash Neuro: Mental status is normal, no gross cranial nerve deficit, normal motor and coordination. Data : 01/29/21 10:35 01/28/21 21:25 Micro: Microbiology 01/26/21 18:44 Blood Culture - Preliminary Blood Attestation for Other Data: I personally reviewed and interpreted the following: Other data: Some of the blood work is not back yet. A&P Assessment and plan (1) Pneumonia due to severe acute respiratory syndrome coronavirus 2 (SARS-CoV-2): This is a 65-year-old gentleman with SARS-CoV-2 pneumonia. The patient has severe COVID-19. Currently he is requiring high flow nasal cannula with 88% FiO2. He is on remdesivir and dexamethasone. He received a dose of Tocilizumab on January 28 Status: Acute (2) ARDS (adult respiratory distress syndrome): The patient has developed ARDS secondary to SARS-CoV-2 pneumonia. There is no evidence of any secondary bacterial or fungal infection at this time. Currently the patient is not on antibiotic. We will continue to follow him closely. Status: Acute (3) Hyperglycemia: Patient has type 2 diabetes. He has developed significant hyperglycemia secondary to IV steroid therapy as well as the critical care illness. His blood sugar goal is less than 180. The patient is going to be on 20 units of Lantus in the morning and 35 units at night. In addition I have increased NovoLog with meal to 8 units and he will continue with sliding scale coverage. Going to obtain an A1c with tomorrow morning's lab. Status: Acute (4) History of atrial fibrillation: The patient has history of A. fib. Currently he is in sinus rhythm. He is anticoagulated with 2.5 mg twice daily apixaban. He is on metoprolol 25 twice daily. Status: Acute (5) Chronic kidney disease: The patient has chronic kidney disease secondary to diabetes. Currently his creatinine is stable. Status: Acute (6) Diabetes mellitus: The patient is currently on aspirin and Plavix I am assuming the patient has a significant cardiac history. Status: Acute (7) Hypertension: Currently the patient is on amlodipine, clonidine and metoprolol. Blood pressure goal less than 150 systolic. Blood pressure is well controlled Status: Acute (8) Metabolic acidosis: Non-anion gap metabolic acidosis. Continue to monitor. 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
[2021-01-29 11:05] LABS: Alanine Aminotransferase 23 U/L (0-41); Albumin Level 2.7 g/dL (3.5-5.2); Alkaline Phosphatase 67 IU/L (40-130); Anion Gap 15.4 (5-19); Aspartate Amino Transferase 20 U/L (0-40); Blood Urea Nitrogen 39 mg/dL (8-23); Calcium 8.1 mg/dL (8.5-10.5); Carbon Dioxide 18 mmol/L (22-29); Chloride 102 mmol/L (98-107); Globulin 2.8 g/dL (1.3-4.6); Glomerular Filtration Rate 43.9 mL/min (90-130); Glucose 454 mg/dL (65-115); Osmolality Calculated 299 mOsm/kg (285-295); Potassium 5.4 mmol/L (3.5-5.1); Sodium 130 mmol/L (136-145); Total Bilirubin 0.3 mg/dL (0.15-1.2); Total Protein 5.5 g/dL (6.6-8.7)
--- NOTE | 2021-01-29 11:47 | PC.NURSE ---
Patient on eliquis, and plavix. Patient refused SCDs because of tenderness. 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
[2021-01-29 11:51] LABS: Glucose Point of Care 395 mg/dL (70-110)
[2021-01-29] MEDS: insulin glargine 100 units/1 mL 20 UNIT SUBCUT (12:34)
--- NOTE | 2021-01-29 14:29 | PC.NURSE ---
Patient resting in bed without signs of distress. Oxygen saturation in the high 80s and low 90s throughout the day. Patient states that he is without pain as long as he keeps the heated high flow on. Patient items and call light in reach. Will continue to monitor.
[2021-01-29 17:55] LABS: Glucose Point of Care 349 mg/dL (70-110)
[2021-01-29] MEDS: remdesivir 100 MG in sodium chloride 0.9% (100 ml) 100 ML IV (18:24)
--- NOTE | 2021-01-29 19:16 | PC.NURSE ---
Shift Note Frequent safety and comfort rounds continue. Orders and/or nursing care completed as indicated. Patient monitored for response to intervention and treatment(s). Will continue to monitor.
--- NOTE | 2021-01-29 19:18 | PC.NURSE ---
1550 Dr. Mckeon at bedside. Reported increasing work of breathing and sleepiness. Orders to continue to monitor.
[2021-01-29 19:57] LABS: Glucose Point of Care 302 mg/dL (70-110)
[2021-01-29] MEDS: insulin glargine 100 units/1 mL 35 UNIT SUBCUT (20:05)
[2021-01-29] MEDS: dexamethasone 4 mg/mL INJ 6 MG IVP (20:06)
[2021-01-29] MEDS: LORazepam 2 mg/mL INJ 1 mL 0.5 MG IVP (20:08)
[2021-01-30] VITALS (38 sets, daily range): BP systolic 124–162; BP diastolic 66–89; PULSE 67–94; RESP 16–34; TEMP 35.8–36.8; O2SAT 83–95
[2021-01-30] MEDS: morphine 4 mg/mL SDV 1 mL 2 MG IVP (03:00)
[2021-01-30] MEDS: ipratropium-albuterol 3 mL Neb INHALATION ×4 (03:36→21:12)
--- NOTE | 2021-01-30 06:14 | PC.NURSE ---
Shift Summary patient has slept well overnight, complaining of only mild pain that was relieved by IV pain medicine. Ativan was given at the beginning of the shift to help with anxiety and increased resp rate. He states that he feels more rested this morning and less anxious. he does not currently have any pain. he has had adequate UOP this shift. He remains on the heated high flow. HR and BP remain WNL. patient has repositioned throughout the night per request with only minimal assistance provided. No new skin issues noted
[2021-01-30 06:47] LABS: Basophils % 0.2 %; Eosinophils % 0.3 %; Hematocrit 41.1 % (42.0-52.0); Hemoglobin 13.9 g/dL (11.7-16.6); Lymphocytes # 0.5 10^3/uL (0.8-4.8); Lymphocytes % 4.8 %; Mean Corpuscular HGB Conc 33.8 g/dL (30.0-36.0); Mean Corpuscular Hemoglobin 29.6 pg (28.0-34.0); Mean Corpuscular Volume 87.4 fL (80-94); Mean Platelet Volume 10.1 fL (7.4-10.4); Monocytes # 0.2 10^3/uL (0.2-0.9); Monocytes % 1.6 %; Neutrophils # 9.63 10^3/uL (1.8-7.7); Neutrophils % 90.7 %; Nucleated Red Blood Cells % 0 %; Platelet Count 201 10^3/cmm (130-400); Red Cell Distribution Width 13.6 % (12.1-15.1); White Blood Count 10.6 10^3/uL (4.0-10.0)
[2021-01-30 07:18] LABS: Estmated Average Glucose 243; Hemoglobin A1C 10.1 % (4.0-6.0)
[2021-01-30 07:24] LABS: Alanine Aminotransferase 29 U/L (0-41); Albumin Level 2.9 g/dL (3.5-5.2); Alkaline Phosphatase 68 IU/L (40-130); Anion Gap 15.7 (5-19); Aspartate Amino Transferase 25 U/L (0-40); Blood Urea Nitrogen 41 mg/dL (8-23); Calcium 8.4 mg/dL (8.5-10.5); Carbon Dioxide 19 mmol/L (22-29); Chloride 106 mmol/L (98-107); Globulin 2.9 g/dL (1.3-4.6); Glomerular Filtration Rate 40.9 mL/min (90-130); Glucose 141 mg/dL (65-115); Osmolality Calculated 294 mOsm/kg (285-295); Potassium 4.7 mmol/L (3.5-5.1); Sodium 136 mmol/L (136-145); Total Bilirubin 0.2 mg/dL (0.15-1.2); Total Protein 5.8 g/dL (6.6-8.7)
[2021-01-30 07:43] LABS: Glucose Point of Care 175 mg/dL (70-110)
--- NOTE | 2021-01-30 08:00 | PC.NURSE ---
Patient resting in bed without signs of distress. Patients states that he feels some better today. Patient states no complaints of pain at this time. Patient breakfast tray set up. Patient c/o the HHF falling down constantly. Patient HHF readjusted on his face and he stated that it felt much better. Patient sitting up in bed with breakfast and patient items, call light within reach. Will continue to monitor.
[2021-01-30] MEDS: amlodipine 10 mg Tablet PO (08:21)
[2021-01-30] MEDS: doxazosin 4 mg Tablet PO (08:21)
[2021-01-30] MEDS: clopidogrel 75 mg Tablet PO (08:21)
[2021-01-30] MEDS: cloNIDine 0.1 mg Tablet PO ×2 (08:21→17:25)
[2021-01-30] MEDS: pantoprazole DR 40 mg Tablet PO (08:21)
[2021-01-30] MEDS: aspirin 81 mg EC Tablet PO (08:21)
[2021-01-30] MEDS: insulin glargine 100 units/1 mL 30 UNIT SUBCUT (08:47)
--- NOTE | 2021-01-30 08:48 | PC.NURSE ---
VTE Assessment Patient has a history of artificial stent placement and has tenderness in his lower bilateral legs. Patient refused SCDs but has eliquis ordered for VTE prophylaxis. Patient is also on aspirin and plavix.
[2021-01-30] MEDS: metoprolol tartrate 25 mg Tablet PO ×2 (09:12→21:17)
[2021-01-30] MEDS: apixaban 5 mg Tablet 2.5 MG PO ×2 (09:12→21:17)
--- NOTE | 2021-01-30 09:50 | PC.CHAP ---
Pastoral Care Encounter/Spiritual Assessment Type of Contact [] Declined industrial machinery mechanic visit [] Patient/Family/Request visit [] Outpatient visit [] Follow-up visit [] Physician referral [] Code/Alert [x] Routine visit [] Staff referral [] Actively dying [] Patient sleeping [] Family support [] [] Out of room [] Palliative care [] [] Receiving care in room [] Pre-surgical visit [] Trauma [] Long length of stay [x] ICU visit [x] Other: breakfast Relational/Emotional Strength [] Patient feels connected with others/family/visitors/staff [] Distress [] Loneliness/isolation [] Abandonment Spirituality of Patient [] Person of Shalonda [] Attends Rastafari of their Shalonda [] Believes in Prayer [] Reads Bible or Baptist materials [] There are Spiritual issues to be addressed Records And Tape Recordings Engineer Interventions [x] Prayer [] Active listening [] Non-anxious presence [] Spiritual/emotional support [] Crisis/trauma care [] Spiritual counseling [] Bereavement support [] Provided bereavement packet [] Provided Bible/devotional materials [] Provided toy/stuffed animal, coloring book to patient or family member [] Provided Communion [] Anointing/[place] [] Salvation [x] Completed spiritual assessment [] Other: Impact on Illness or Injury [] Angry [] Fearful [] Anxious [] Often cries [] Exhaustion [] Unable to work [] Unable to attend judaism [] Unable to walk/stand [] Unable to read [] Unable to drive [] Unable to eat/drink [] Unable to sleep [] Unable to be with family [] Patient intubated [] Other: Summary Time spent with patient
--- NOTE | 2021-01-30 09:51 | XR_ITS ---
WS: [id number] Portable AP semiupright chest, 01/30/2021 Clinical Data: respiratory failure Comparison: Portable chest, 01/26/2021. Findings: The patchy bilateral pulmonary opacities remain the same. The heart size is normal. The aor tic arch is tortuous. Monitor leads are on the chest wall. XR/XR chest 1V portable [id number] Impression: No change in patchy bilateral pulmonary opacities.
--- NOTE | 2021-01-30 10:02 | PC.NURSE ---
Patient temperature checked and it is 96.9 degrees. Patient offered more blankets and patient stated that he has a few cold chills, but doesn't want a heavy blanket. Patient given an extra sheet. Will continue to monitor.
--- NOTE | 2021-01-30 10:52 | PM.PN ---
Subjective Subjective: Interval history: The patient was seen and examined this morning. He has been doing more or less the same. Continues to be on approximately 90% oxygen. His oxygen saturation is between high 80s to low 90s. Chest x-ray this morning revealed bilateral infiltrate. The lung volume was less compared to before. His blood sugar is better controlled. It has come down to less than 180 for the first time today since his admission. Medications: Reviewed: Yes Vitals/I&O/Wt Last Vital Signs Temp 96.9 F L 01/30/21 10:00 Pulse 85 01/30/21 10:00 Resp 19 H 01/30/21 10:00 BP 156/86 01/30/21 10:00 Pulse Ox 89 L 01/30/21 10:00 01/29/21 01/30/21 01/30/21 22:59 06:59 14:59 Intake Total 50 / 1344 150 / 1494 506 / 506 Output Total 800 / 1700 300 / 2000 450 / 450 Balance -750 / -356 -150 / -506 56 / 56 Physical Exam Narrative: EXAM NARRATIVE: General: Patient is awake alert and oriented, tachypneic. Neck: No JVD Respiratory: Auscultation: Reduced breath sound bilaterally, occasional crackles at the lung bases. Cardiovascular: Regular rate and rhythm, S1-S2 present, no murmur, no peripheral edema. Abdomen: Soft, nontender, nondistended, positive bowel sound Skin: No rash Neuro: Mental status is normal, no gross cranial nerve deficit, normal motor and coordination. Data : 01/30/21 06:10 01/30/21 06:10 Micro: Microbiology 01/26/21 18:44 Blood Culture - Preliminary Blood Staphylococcus sp coag neg Attestation for Other Data: I personally reviewed and interpreted the following: Other data: I have reviewed the patient's laboratory, microbiology cardiology data. A&P Assessment and plan (1) Pneumonia due to severe acute respiratory syndrome coronavirus 2 (SARS-CoV-2): This is a 65-year-old gentleman with SARS-CoV-2 pneumonia. The patient has severe COVID-19. Currently he is requiring high flow nasal cannula with approximately 90% FiO2 He is on remdesivir and dexamethasone. Remdesivir was started on January 27. He received a dose of Tocilizumab on [place] 2nd The patient unfortunately has not gotten significantly better since he was admitted. If he continues to desaturate frequently, he may require intubation. Status: Acute (2) ARDS (adult respiratory distress syndrome): The patient has developed ARDS secondary to SARS-CoV-2 pneumonia. There is no evidence of any secondary bacterial or fungal infection at this time. Currently the patient is not on antibiotic. We will continue to follow him closely. Status: Acute (3) Hyperglycemia: Patient has type 2 diabetes. He has developed significant hyperglycemia secondary to IV steroid therapy as well as the critical care illness. His A1c is 10. His blood sugar goal is less than 180. His blood sugar was 175 this morning. Currently he is on 35 units of Lantus at night and 20 units in the morning. I am going to increase the morning dose to 25. I have cut down the NovoLog with meals to 5 units with meals and continue the sliding scale. She is on aspirin and Plavix for likely coronary artery disease. Status: Acute (4) History of atrial fibrillation: The patient has history of A. fib. Currently he is in sinus rhythm. He is anticoagulated with 2.5 mg twice daily apixaban. He is on metoprolol 25 twice daily. Status: Acute (5) Chronic kidney disease: The patient has chronic kidney disease secondary to diabetes. Currently his creatinine is stable. There has been mild elevation of the BUN over the past few days. I am going to give him 1 L of LR 50 cc an hour. Status: Acute (6) Hypertension: Currently the patient is on amlodipine, clonidine and metoprolol. Blood pressure goal less than 150 systolic. Blood pressure is well controlled Status: Acute (7) Metabolic acidosis: Non-anion gap metabolic acidosis. Continue to monitor. Status: Acute Attestations Medical Necessity Statement*: Will defer to the primary team Coding Level of Care Code Acute Innovation Manager for [facility] Fwd Diagnoses Pneumonia due to severe acute respiratory syndrome coronavirus 2 (SARS-CoV-2) U07.1; J12.82 ARDS (adult respiratory distress syndrome) J80 Hyperglycemia R73.9 History of atrial fibrillation Z86.79 Chronic kidney disease N18.9 Hypertension I10 Metabolic acidosis E87.2 Time Spent (min) 37
[2021-01-30] MEDS: lactated ringers 1,000 ML 50 ML IV (10:57)
--- NOTE | 2021-01-30 12:04 | PC.NURSE ---
Patient temperature 96.5 degrees and patient states that he feels fine. Extra blanket still on patient from earlier today. Patient refuses any further warming measures at this time. Will continue to monitor temperature closely.
--- NOTE | 2021-01-30 12:20 | PM.PN ---
Subjective Subjective: Interval history: Patient continues to complain of SOB with minimal exertion as well as of cough.Continue to be on high supplemental oxygen. Medications: Reviewed: Yes Vitals/I&O/Wt Last Vital Signs Temp 96.5 F L 01/30/21 12:00 Pulse 77 01/30/21 12:00 Resp 16 01/30/21 12:00 BP 124/79 01/30/21 12:00 Pulse Ox 95 01/30/21 12:00 01/29/21 01/30/21 01/30/21 22:59 06:59 14:59 Intake Total 50 / 1344 150 / 1494 506 / 506 Output Total 800 / 1700 300 / 2000 450 / 450 Balance -750 / -356 -150 / -506 56 / 56 Physical Exam Const: COMMON NORMALS: patient oriented x3 Chest: CHEST: Yes Symmetrical chest wall rise Resp: OTHER: Diminished air entry bilaterally Cardio: COMMON NORMALS: regular rate, regular rhythm, S1 normal heart sound present, S2 normal heart sound present, No gallops present (Cardio), No murmurs present (Cardio), No rub (Cardio) and Peripheral pulses 2+ throughout RATE: regular rate RHYTHM: regular rhythm HEART SOUNDS: S1 normal heart sound present and S2 normal heart sound present PERIPHERAL PULSES: Peripheral pulses 2+ throughout GI: COMMON NORMALS: Normal to inspection, nondistended, normoactive bowel sounds present, Soft to palpation, non-tender, No hepatosplenomegaly present and no masses AUSCULTATION: Yes normoactive bowel sounds PALPATION: Yes Soft to palpation and Yes No hepatosplenomegaly present RECTAL EXAM: Yes deferred Extremity: COMMON NORMALS: no clubbing, cyanosis or edema and no pedal edema Neuro: COMMON NORMALS: patient oriented x3 Data : 01/30/21 06:10 01/30/21 06:10 Micro: Microbiology 01/26/21 18:44 Blood Culture - Preliminary Blood Staphylococcus sp coag neg A&P Assessment and plan (1) COVID-19: remdisivir 200mg iv x 1 then 100mg iv daily x 5 days dexamethasone 6g IVP qd duonebs, budesonide suppemetal 02, bipap prn ceftraixone and azithromycin empirically Status post 1 dose of tocilizumab trend inflammatory markers Status: Acute (2) Acute hyperglycemia: Status: Acute (3) Hyperosmolar hyperglycemic state (HHS): insulin drip per DKA/HHS protocol CMP every 6 hrs transition to s/c insulin when gap closes Status: Acute (4) Acute respiratory failure with hypoxia: Status: Acute Additional A&P Information Acute hypoxic respiratory failure secondary to COVID-19 pneumonia Currently on remdesivir and Decadron regimen Discontinue ceftriaxone and azithromycin, procalcitonin unremarkable He has stayed afebrile no leukocytosis To decrease work of breathing might benefit from BiPAP on as needed basis, for now can give him morphine to decrease his anxiety CRP trending up s/p 1 dose of tocilizumab Encourage proning Incentive spirometer PT HHS No signs of DKA Blood sugar less than 250, anion gap 17, no signs of acidosis On Lantus:35 U SC at night 20 units subcu daily Sliding scale insulin Acute on chronic kidney disease Patient clinically looks dehydrated, flushed skin noted Baseline creatinine seems to be around 1.5-1.8 Patient is able to void urine without any difficulty Judicious use of fluids Consistent carb diet DVT prophylaxis he is on Eliquis and dose has been reduced to 2.5 mg twice a day secondary to worsening creatinine Full code Attestations Medical Necessity Statement*: Patient needs to be in hospital for the management of COVID PNA Coding Level of Care Code Acute School Bus Driver/Teacher Assistant for g Fwd Exam Detailed Diagnoses COVID-19 U07.1 Acute hyperglycemia R73.9 Hyperosmolar hyperglycemic state (HHS) E11.00; E11.65 Acute respiratory failure with hypoxia J96.01
[2021-01-30] MEDS: LORazepam 2 mg/mL INJ 1 mL 0.5 MG IVP (13:45)
--- NOTE | 2021-01-30 13:56 | PC.NURSE ---
Ativan Patient very anxious and stated that he could not breathe after having a conversation with his . Patient given 0.5 mL of Ativan for anxiety. Eden Mora RN administered the IVP medication. This nurse scanned and verified the patient. Patient oxygen saturation went from 84% to 95% prior to administration. Patient states that he feels better and feels like he can breathe now. Patient notified of current status. Will continue to monitor.
--- NOTE | 2021-01-30 16:03 | PC.SLP ---
Pulmonary Rehab information sent to patient.
[2021-01-30] MEDS: lanolin oint 7 gm 1 APPLIC TOPICAL (16:55)
[2021-01-30 17:07] LABS: Glucose Point of Care 267 mg/dL (70-110)
[2021-01-30] MEDS: remdesivir 100 MG in sodium chloride 0.9% (100 ml) 100 ML IV (17:26)
[2021-01-30] MEDS: sodium bicarbonate 650 mg Tablet PO (21:17)
[2021-01-30] MEDS: dexamethasone 4 mg/mL INJ 6 MG IVP (21:18)
[2021-01-30] MEDS: insulin glargine 100 units/1 mL 35 UNIT SUBCUT (21:18)
[2021-01-30 21:23] LABS: Glucose Point of Care 337 mg/dL (70-110)
[2021-01-31] VITALS (43 sets, daily range): BP systolic 122–177; BP diastolic 78–106; PULSE 73–95; RESP 16–33; TEMP 36.4–36.9; O2SAT 86–99
[2021-01-31] MEDS: ipratropium-albuterol 3 mL Neb INHALATION ×4 (02:50→21:24)
[2021-01-31 03:39] LABS: Glucose Point of Care 184 mg/dL (70-110)
[2021-01-31 06:56] LABS: Basophils % 0.2 %; Eosinophils # 0.1 10^3/uL (0.0-0.8); Eosinophils % 0.8 %; Hematocrit 42.3 % (42.0-52.0); Hemoglobin 14.2 g/dL (11.7-16.6); Lymphocytes # 0.5 10^3/uL (0.8-4.8); Lymphocytes % 4.3 %; Mean Corpuscular HGB Conc 33.6 g/dL (30.0-36.0); Mean Corpuscular Hemoglobin 29.6 pg (28.0-34.0); Mean Corpuscular Volume 88.3 fL (80-94); Mean Platelet Volume 10.4 fL (7.4-10.4); Monocytes # 0.2 10^3/uL (0.2-0.9); Monocytes % 1.5 %; Neutrophils # 9.98 10^3/uL (1.8-7.7); Nucleated Red Blood Cells % 0.2 %; Platelet Count 181 10^3/cmm (130-400); Red Blood Count 4.79 10^6/uL (4.1-5.3); Red Cell Distribution Width 13.9 % (12.1-15.1)
[2021-01-31 07:13] LABS: Alanine Aminotransferase 46 U/L (0-41); Albumin Level 2.9 g/dL (3.5-5.2); Alkaline Phosphatase 83 IU/L (40-130); Anion Gap 18.1 (5-19); Aspartate Amino Transferase 40 U/L (0-40); Blood Urea Nitrogen 41 mg/dL (8-23); Calcium 8.2 mg/dL (8.5-10.5); Carbon Dioxide 19 mmol/L (22-29); Chloride 104 mmol/L (98-107); Globulin 2.9 g/dL (1.3-4.6); Glomerular Filtration Rate 43.9 mL/min (90-130); Glucose 197 mg/dL (65-115); Osmolality Calculated 298 mOsm/kg (285-295); Potassium 5.1 mmol/L (3.5-5.1); Sodium 136 mmol/L (136-145); Total Bilirubin 0.3 mg/dL (0.15-1.2); Total Protein 5.8 g/dL (6.6-8.7)
--- NOTE | 2021-01-31 07:15 | PC.NURSE ---
Shift Note Frequent safety and comfort rounds continue. Orders and/or nursing care completed as indicated. Patient monitored for response to intervention and treatment(s). Education provided includes IV pump, O2 safety,and telemetry. Patient verbalize understanding. Patient had 1050 mls out of clear bright yellow urine all evening. He remains on heated high flow at 55 liters and 85% FiO2. Left forearm IV has LR infusing at 50 mls/hr. Patient had no complaints of pain all evening. No wounds or skin issues noted at this time. He is alert and oriented x4. Will continue to monitor.
[2021-01-31] MEDS: insulin glargine 100 units/1 mL 30 UNIT SUBCUT (07:51)
[2021-01-31] MEDS: amlodipine 10 mg Tablet PO (07:53)
[2021-01-31] MEDS: cloNIDine 0.1 mg Tablet PO ×2 (07:54→17:29)
[2021-01-31] MEDS: apixaban 5 mg Tablet 2.5 MG PO ×2 (07:54→20:34)
[2021-01-31] MEDS: benzonatate 100 mg Capsule PO ×2 (07:54→19:26)
[2021-01-31] MEDS: aspirin 81 mg EC Tablet PO (07:54)
[2021-01-31] MEDS: clopidogrel 75 mg Tablet PO (07:54)
[2021-01-31] MEDS: metoprolol tartrate 25 mg Tablet PO ×2 (07:54→20:35)
[2021-01-31] MEDS: sodium bicarbonate 650 mg Tablet PO ×3 (07:55→20:33)
[2021-01-31] MEDS: pantoprazole DR 40 mg Tablet PO (07:55)
[2021-01-31] MEDS: doxazosin 4 mg Tablet PO (07:55)
[2021-01-31 08:08] LABS: Glucose Point of Care 227 mg/dL (70-110)
--- NOTE | 2021-01-31 09:44 | PC.CHAP ---
Pastoral Care Encounter/Spiritual Assessment Type of Contact [] Declined bird raiser visit [] Patient/Family/Request visit [] Outpatient visit [] Follow-up visit [] Physician referral [] Code/Alert [x] Routine visit [] Staff referral [] Actively dying [] Patient sleeping [] Family support [] [] Out of room [] Palliative care [] [] Receiving care in room [] Pre-surgical visit [] Trauma [] Long length of stay [x] ICU visit [] Other: Relational/Emotional Strength [] Patient feels connected with others/family/visitors/staff [] Distress [] Loneliness/isolation [] Abandonment Spirituality of Patient [] Person of Shalonda [] Attends Christian of their Shalonda [] Believes in Prayer [] Reads Bible or Congregational materials [] There are Spiritual issues to be addressed Circular Head Saw Operator Interventions [x] Prayer [] Active listening [] Non-anxious presence [] Spiritual/emotional support [] Crisis/trauma care [] Spiritual counseling [] Bereavement support [] Provided bereavement packet [] Provided Bible/devotional materials [] Provided toy/stuffed animal, coloring book to patient or family member [] Provided Communion [] Anointing/[place] [] Salvation [x] Completed spiritual assessment [] Other: Impact on Illness or Injury [] Angry [] Fearful [] Anxious [] Often cries [] Exhaustion [] Unable to work [] Unable to attend jewish [] Unable to walk/stand [] Unable to read [] Unable to drive [] Unable to eat/drink [] Unable to sleep [] Unable to be with family [] Patient intubated [] Other: Summary Time spent with patient
--- NOTE | 2021-01-31 10:56 | P.PN_ITS ---
Subjective Subjective: Interval history: The patient was seen and examined this morning. He is doing more or less the same. Continues to be on high flow nasal cannula requiring 80% oxygen. The patient appears tired. He tells me that he feels the same way. Medications: Reviewed: Yes Vitals/I&O/Wt Last Vital Signs Temp 97.5 F L 01/31/21 00:00 Pulse 88 01/31/21 10:37 Resp 24 H 01/31/21 10:37 BP 134/85 01/31/21 10:00 Pulse Ox 90 01/31/21 10:37 01/30/21 01/31/21 01/31/21 22:59 06:59 14:59 Intake Total 600 / 1106 250 / 1356 Output Total 500 / 950 1050 / 2000 Balance 100 / 156 -800 / -644 Physical Exam Narrative: EXAM NARRATIVE: General: Patient is awake alert and oriented, tachypneic. Visibly short of breath with minimal conversation Neck: No JVD Respiratory: Auscultation: Reduced breath sound bilaterally, occasional crackles at the lung bases. Cardiovascular: Regular rate and rhythm, S1-S2 present, no murmur, no peripheral edema. Abdomen: Soft, nontender, nondistended, positive bowel sound Skin: No rash Neuro: Mental status is normal, no gross cranial nerve deficit, normal motor and coordination. Data : 01/31/21 06:09 01/31/21 06:09 Attestation for Other Data: I personally reviewed and interpreted the following: Other data: I have reviewed his laboratory, microbiologic and radiologic data A&P Assessment and plan (1) Pneumonia due to severe acute respiratory syndrome coronavirus 2 (SARS-CoV-2): This is a 65-year-old gentleman with SARS-CoV-2 pneumonia. The patient has severe COVID-19. Currently he is requiring high flow nasal cannula with approximately 85% FiO2 He is on remdesivir and dexamethasone. Remdesivir was started on January 27. He received a dose of Tocilizumab on January 28 The patient unfortunately has not gotten significantly better since he was admitted. If he continues to desaturate frequently, he may require intubation. His chest x-ray from yesterday is showing changes more consistent with fibrotic evolution of the pulmonary lesions. Status: Acute (2) ARDS (adult respiratory distress syndrome): The patient has developed ARDS secondary to SARS-CoV-2 pneumonia. There is no evidence of any secondary bacterial or fungal infection at this time. Currently the patient is not on antibiotic. We will continue to follow him closely. Status: Acute (3) Hyperglycemia: Patient has type 2 diabetes. He has developed significant hyperglycemia secondary to IV steroid therapy as well as the critical care illness. His A1c is 10. His blood sugar goal is less than 180. His blood sugar is better controlled. I have adjusted the insulin regimen. Status: Acute (4) History of atrial fibrillation: The patient has history of A. fib. Currently he is in sinus rhythm. He is anticoagulated with 2.5 mg twice daily apixaban. He is on metoprolol 25 twice daily. Status: Acute (5) Chronic kidney disease: The patient has chronic kidney disease secondary to diabetes. Currently his creatinine is stable. There has been mild elevation of the BUN over the past few days. I am going to give him half NS at 50 cc for a liter today. His potassium level went up with the lactated Ringer's. Status: Acute (6) Hypertension: Currently the patient is on amlodipine, clonidine and metoprolol. Blood pressure goal less than 150 systolic. Blood pressure is well controlled Status: Acute (7) Metabolic acidosis: Non-anion gap metabolic acidosis. Continue to monitor. Status: Acute Attestations Medical Necessity Statement*: Will defer to the primary team Coding Level of Care Code Acute Strapping Machine Operator for [facility] Fwd Diagnoses Pneumonia due to severe acute respiratory syndrome coronavirus 2 (SARS-CoV-2) U07.1; J12.82 ARDS (adult respiratory distress syndrome) J80 Hyperglycemia R73.9 History of atrial fibrillation Z86.79 Chronic kidney disease N18.9 Hypertension I10 Metabolic acidosis E87.2 Time Spent (min) 32
[2021-01-31] MEDS: LORazepam 2 mg/mL INJ 1 mL 1 MG IVP (11:48)
[2021-01-31] MEDS: sodium chloride 0.45% 1,000 ML 50 ML IV (11:56)
[2021-01-31 11:57] LABS: Glucose Point of Care 187 mg/dL (70-110)
--- NOTE | 2021-01-31 12:21 | PM.PN ---
Subjective Subjective: Interval history: The patient was seen and examined this morning. Continues to require high supplemental oxygen.Not much of a change seen since yesterday. Medications: Reviewed: Yes Vitals/I&O/Wt Last Vital Signs Temp 97.5 F L 01/31/21 00:00 Pulse 88 01/31/21 10:37 Resp 24 H 01/31/21 10:37 BP 134/85 01/31/21 10:00 Pulse Ox 90 01/31/21 10:37 01/30/21 01/31/21 01/31/21 22:59 06:59 14:59 Intake Total 600 / 1106 250 / 1356 Output Total 500 / 950 1050 / 2000 Balance 100 / 156 -800 / -644 Physical Exam Const: COMMON NORMALS: patient oriented x3 Chest: CHEST: Yes Symmetrical chest wall rise Resp: OTHER: Diminished air entry bilaterally Cardio: COMMON NORMALS: regular rate, regular rhythm, S1 normal heart sound present, S2 normal heart sound present, No gallops present (Cardio), No murmurs present (Cardio), No rub (Cardio) and Peripheral pulses 2+ throughout RATE: regular rate RHYTHM: regular rhythm HEART SOUNDS: S1 normal heart sound present and S2 normal heart sound present PERIPHERAL PULSES: Peripheral pulses 2+ throughout GI: COMMON NORMALS: Normal to inspection, nondistended, normoactive bowel sounds present, Soft to palpation, non-tender, No hepatosplenomegaly present and no masses AUSCULTATION: Yes normoactive bowel sounds PALPATION: Yes Soft to palpation and Yes No hepatosplenomegaly present RECTAL EXAM: Yes deferred Extremity: COMMON NORMALS: no clubbing, cyanosis or edema and no pedal edema Neuro: COMMON NORMALS: patient oriented x3 Data : 01/31/21 06:09 01/31/21 06:09 A&P Assessment and plan (1) COVID-19: remdisivir 200mg iv x 1 then 100mg iv daily x 5 days dexamethasone 6g IVP qd duonebs, budesonide suppemetal 02, bipap prn ceftraixone and azithromycin empirically Status post 1 dose of tocilizumab trend inflammatory markers Status: Acute (2) Acute hyperglycemia: Status: Acute (3) Hyperosmolar hyperglycemic state (HHS): insulin drip per DKA/HHS protocol CMP every 6 hrs transition to s/c insulin when gap closes Status: Acute (4) Acute respiratory failure with hypoxia: Status: Acute Additional A&P Information Acute hypoxic respiratory failure secondary to COVID-19 pneumonia Currently on remdesivir and Decadron regimen Discontinue ceftriaxone and azithromycin, procalcitonin unremarkable He has stayed afebrile no leukocytosis To decrease work of breathing might benefit from BiPAP on as needed basis, for now can give him morphine to decrease his anxiety CRP trending up s/p 1 dose of tocilizumab Encourage proning Incentive spirometer PT HHS No signs of DKA Blood sugar less than 250, anion gap 17, no signs of acidosis On Lantus:35 U SC at night 20 units subcu daily Sliding scale insulin Acute on chronic kidney disease Patient clinically looks dehydrated, flushed skin noted Baseline creatinine seems to be around 1.5-1.8 Patient is able to void urine without any difficulty Judicious use of fluids Consistent carb diet DVT prophylaxis he is on Eliquis and dose has been reduced to 2.5 mg twice a day secondary to worsening creatinine Full code Attestations Medical Necessity Statement*: Patient needs to be in hospital for management of Covid pneumonia. Coding Level of Care Code Acute Manufacturing Maintenance Mechanic for [facility] Fwd Diagnoses COVID-19 U07.1 Acute hyperglycemia R73.9 Hyperosmolar hyperglycemic state (HHS) E11.00; E11.65 Acute respiratory failure with hypoxia J96.01
[2021-01-31 17:14] LABS: Glucose Point of Care 63 mg/dL (70-110)
[2021-01-31] MEDS: remdesivir 100 MG in sodium chloride 0.9% (100 ml) 100 ML IV (17:29)
[2021-01-31 17:53] LABS: Glucose Point of Care 71 mg/dL (70-110)
[2021-01-31 18:26] LABS: Glucose Point of Care 133 mg/dL (70-110)
[2021-01-31] MEDS: dexamethasone 4 mg/mL INJ 6 MG IVP (20:33)
[2021-01-31] MEDS: morphine 4 mg/mL SDV 1 mL 2 MG IVP (20:33)
[2021-01-31] MEDS: insulin glargine 100 units/1 mL 35 UNIT SUBCUT (20:39)
[2021-01-31 20:50] LABS: Glucose Point of Care 86 mg/dL (70-110)
[2021-02-01] VITALS (34 sets, daily range): BP systolic 90–168; BP diastolic 55–116; PULSE 77–105; RESP 0–31; TEMP 36.2–36.5; O2SAT 63–100
[2021-02-01] MEDS: ipratropium-albuterol 3 mL Neb INHALATION ×4 (02:31→21:38)
[2021-02-01] MEDS: morphine 4 mg/mL SDV 1 mL 2 MG IVP ×2 (04:35)
--- NOTE | 2021-02-01 04:58 | PC.NURSE ---
RR 35 to 40, very anxious, Dr. Ramso gave t.o. for 0.5 mg Ativan IVP x1 now
[2021-02-01] MEDS: LORazepam 2 mg/mL INJ 1 mL 0.5 MG IVP (05:17)
--- NOTE | 2021-02-01 06:02 | PC.NURSE ---
Shift Note Frequent safety and comfort rounds continue. Orders and/or nursing care completed as indicated. Patient monitored for response to intervention and treatment(s). Education provided includes keeping the bipap mask on. Education was also provided for medications, specifically ativan and morphine. Patient nodded that he understood and asked questions when able. was educated on the use of bipap as well as medications to lessen anxiety and air hunger. Will continue to monitor.
[2021-02-01 06:04] LABS: Basophils % 0.2 %; Eosinophils # 0.1 10^3/uL (0.0-0.8); Eosinophils % 0.9 %; Hemoglobin 14.6 g/dL (11.7-16.6); Lymphocytes # 0.5 10^3/uL (0.8-4.8); Lymphocytes % 3.9 %; Mean Corpuscular HGB Conc 32.4 g/dL (30.0-36.0); Mean Corpuscular Hemoglobin 29.7 pg (28.0-34.0); Mean Corpuscular Volume 91.6 fL (80-94); Mean Platelet Volume 9.9 fL (7.4-10.4); Monocytes # 0.2 10^3/uL (0.2-0.9); Monocytes % 1.6 %; Neutrophils # 10.79 10^3/uL (1.8-7.7); Nucleated Red Blood Cells % 0.3 %; Platelet Count 151 10^3/cmm (130-400); Red Blood Count 4.91 10^6/uL (4.1-5.3); Red Cell Distribution Width 14.2 % (12.1-15.1); White Blood Count 11.7 10^3/uL (4.0-10.0)
[2021-02-01 06:25] LABS: Alanine Aminotransferase 52 U/L (0-41); Albumin Level 2.9 g/dL (3.5-5.2); Alkaline Phosphatase 93 IU/L (40-130); Aspartate Amino Transferase 40 U/L (0-40); Blood Urea Nitrogen 48 mg/dL (8-23); Calcium 8.1 mg/dL (8.5-10.5); Carbon Dioxide 19 mmol/L (22-29); Chloride 105 mmol/L (98-107); Globulin 2.9 g/dL (1.3-4.6); Glucose 162 mg/dL (65-115); Osmolality Calculated 298 mOsm/kg (285-295); Sodium 136 mmol/L (136-145); Total Bilirubin 0.3 mg/dL (0.15-1.2); Total Protein 5.8 g/dL (6.6-8.7)
[2021-02-01 06:29] LABS: Anion Gap 17.2 (5-19); Potassium 5.2 mmol/L (3.5-5.1)
[2021-02-01] MEDS: sodium chloride 0.45% 1,000 ML 50 ML IV (07:31)
[2021-02-01] MEDS: insulin glargine 100 units/1 mL 20 UNIT SUBCUT (08:04)
[2021-02-01 08:26] LABS: Glucose Point of Care 154 mg/dL (70-110)
--- NOTE | 2021-02-01 09:53 | XR_ITS ---
WS: [id number] PORTABLE CHEST HISTORY: intubation, OGT, CVL COMPARISON: 01/30/2021 RIGHT IJ line in good position with tip in the distal SVC. Endotracheal tube in good position with the tip ending at the clavicular head level. Orogastric tube with tip terminating in the LEFT upper abdomen. The proximal port is just beyond the GE junction. For more optimal positioning consider advancing another 10 cm. Diffuse bilateral pulmonary opacifications. Reticular nodular consolidations greatest in the mid and lower lungs. Mild progression of the opacifications since 01/30/2021. Small bilateral pleural effusions . No pneumothorax. Cardiac size: Normal. Mediastinum/Aorta: Normal mediastinum. No osseous abnormality seen. XR/XR chest 1V portable [id number] IMPRESSION: 1. Endotracheal tube in good position. 2. Recommend advancing orogastric tube 10 cm for more optimal positioning. 3. RIGHT IJ catheter with tip in distal SVC. 4. Increasing bilateral pulmonary consolidations, likely pneumonia.
[2021-02-01] MEDS: rocuronium 10 mg/mL INJ 5mL IV (10:22)
[2021-02-01] MEDS: midazolam 1 mg/mL INJ 5 ML 5 MG IVP (10:22)
[2021-02-01] MEDS: midazolam 1 mg/mL INJ 2 mL 2 MG IVP (10:23)
[2021-02-01] MEDS: propofol 1,000 MG/100 ML INJ 27.9 MG IV ×3 (10:27→16:06)
[2021-02-01] MEDS: cisatracurium 100 MG in sodium chloride 0.9% 50 ML IV (10:28)
[2021-02-01] MEDS: piperacillin-tazobactam 3.375 GM in sodium chloride 0.9% (plus) 50 ML IV ×2 (11:49→18:33)
[2021-02-01 12:19] LABS: Glucose Point of Care 113 mg/dL (70-110)
--- NOTE | 2021-02-01 12:23 | PC.NURSE ---
[address] Mckeon. 8.0 ETT, 25 at teeth. Meds given per orders for intubation. Levophed, fentanyl, nimbex,propofol, versed gtts infusing per orders. RIJ CVL placed per MD. OGT inserted per this nurse. Stat CXR performed. MD gave ok to use all lines and tubes. Biz monitor in place, TOF 4/4. Marshall cath inserted per orders. Will monitor.
--- NOTE | 2021-02-01 14:19 | P.PN_ITS ---
Subjective Subjective: Interval history: The patient was seen and examined this morning.Patient was intubated this morning. Because of worsening respiratory distress.Right IJ central line was placed. Currently intubated sedated paralyzed. Medications: Reviewed: Yes Vitals/I&O/Wt Last Vital Signs Temp 97.1 F L 02/01/21 11:00 Pulse 91 02/01/21 13:42 Resp 16 02/01/21 13:00 BP 125/87 02/01/21 13:00 Pulse Ox 93 02/01/21 13:00 01/31/21 02/01/21 02/01/21 22:59 06:59 14:59 Intake Total 1600 / 1600 650 / 2250 1041.650 / 1041.650 Output Total 500 / 900 1050 / 1950 Balance 1100 / 700 -400 / 300 1041.650 / 1041.650 Physical Exam Const: COMMON NORMALS: patient oriented x3 Chest: CHEST: Yes Symmetrical chest wall rise Resp: OTHER: Diminished air entry bilaterally Cardio: COMMON NORMALS: regular rate, regular rhythm, S1 normal heart sound present, S2 normal heart sound present, No gallops present (Cardio), No murmurs present (Cardio), No rub (Cardio) and Peripheral pulses 2+ throughout RATE: regular rate RHYTHM: regular rhythm HEART SOUNDS: S1 normal heart sound present and S2 normal heart sound present PERIPHERAL PULSES: Peripheral pulses 2+ throughout GI: COMMON NORMALS: Normal to inspection, nondistended, normoactive bowel sounds present, Soft to palpation, non-tender, No hepatosplenomegaly present and no masses AUSCULTATION: Yes normoactive bowel sounds PALPATION: Yes Soft to palpation and Yes No hepatosplenomegaly present RECTAL EXAM: Yes deferred Extremity: COMMON NORMALS: no clubbing, cyanosis or edema and no pedal edema Neuro: COMMON NORMALS: patient oriented x3 Urinary Catheter Management^: Marshall: Cath Placed During This Visit: yes Urinary Catheter Date of Insertion: 02/01/21 Urinary Catheter Time of Insertion: 11:10 Data : 02/01/21 05:40 02/01/21 05:40 Micro: Microbiology 01/26/21 18:44 Blood Culture - Final Blood NO GROWTH AFTER 5 DAYS A&P Assessment and plan (1) COVID-19: remdisivir 200mg iv x 1 then 100mg iv daily x 5 days dexamethasone 6g IVP qd duonebs, budesonide suppemetal 02, bipap prn ceftraixone and azithromycin empirically Status post 1 dose of tocilizumab trend inflammatory markers Status: Acute (2) Acute hyperglycemia: Status: Acute (3) Hyperosmolar hyperglycemic state (HHS): insulin drip per DKA/HHS protocol CMP every 6 hrs transition to s/c insulin when gap closes Status: Acute (4) Acute respiratory failure with hypoxia: Status: Acute Additional A&P Information Acute hypoxic respiratory failure secondary to COVID-19 pneumonia. ESR CRP D-dimer Ferritin Blood culture Sputum culture Completed remdesivir 5-day course Completed Decadron regimen. s/p 1 dose of tocilizumab Zosyn Eliquis 2.5 mg every 12 hours Currently on Nimbex, Versed, propofol, fentanyl On Levophed HHS No signs of DKA Blood sugar less than 250, anion gap 17, no signs of acidosis On Lantus:35 U SC at night 20 units subcu daily Sliding scale insulin Acute on chronic kidney disease Patient clinically looks dehydrated, flushed skin noted Baseline creatinine seems to be around 1.5-1.8 Patient is able to void urine without any difficulty Judicious use of fluids Consistent carb diet DVT prophylaxis he is on Eliquis and dose has been reduced to 2.5 mg twice a day secondary to worsening creatinine Full code Attestations Medical Necessity Statement*: Patient needs to be in the hospital for management of respiratory failure secondary to pneumonia. Coding Level of Care Code Acute Data Report Analyst for [facility] Fwd Diagnoses COVID-19 U07.1 Acute hyperglycemia R73.9 Hyperosmolar hyperglycemic state (HHS) E11.00; E11.65 Acute respiratory failure with hypoxia J96.01
[2021-02-01] MEDS: sodium bicarbonate 650 mg Tablet PO ×2 (15:08→21:28)
[2021-02-01 15:11] LABS: ABG PCO2 48.6 mmHg (35-45); ABG PH Result 7.23 (7.35-7.45); Alveolar-Arterial Oxygen Gradi 74.1 mmHg (5-10); Arterial Blood Gas Hematocrit 44.9 % (42-52); Base Excess ABG -7.2 mmol/L (-2.0-2.0); Blood Gas Allen Test Pos; Blood Gas Operator Identificat GD; Blood Gas Sample Site Radial, right; Blood Gas Sample Type Arterial; Blood Gas Tidal Volume 0.45; Carboxyhemoglobin 0.3 %THgb (0.4-20.1); HCO3 ABG 20.5 mmol/L (22-26); HGB O2 Sat 93.4 % (95-100); Ionized Calcium Level - ABG 1.2 mmol/L (1.1-1.4); Methemoglobin 0.8 % (0.4-1.5); Oxygen Device VENT; Oxygen Saturation ABG 94.4; PO2 ABG 83.8 mmHg (80.0-100.0); Potassium Level - ABG 4.9 mmol/L (3.5-5.0); Total Hemoglobin 14.7 g/dL (14-18)
--- NOTE | 2021-02-01 15:21 | PC.NURSE ---
Fentanyl at 150mcg/h per MD.
[2021-02-01 17:34] LABS: ABG PCO2 56.8 mmHg (35-45); ABG PH Result 7.19 (7.35-7.45); Alveolar-Arterial Oxygen Gradi 70.1 mmHg (5-10); Arterial Blood Gas Hematocrit 46.5 % (42-52); Base Excess ABG -7.6 mmol/L (-2.0-2.0); Blood Gas Allen Test Pos; Blood Gas Operator Identificat GD; Blood Gas Sample Site Radial, right; Blood Gas Sample Type Arterial; Blood Gas Tidal Volume 0.45; Carboxyhemoglobin 0.5 %THgb (0.4-20.1); HCO3 ABG 21.5 mmol/L (22-26); HGB O2 Sat 95.2 % (95-100); Ionized Calcium Level - ABG 1.2 mmol/L (1.1-1.4); Methemoglobin 1.1 % (0.4-1.5); Oxygen Device VENT; Oxygen Saturation ABG 96.7; Potassium Level - ABG 5.3 mmol/L (3.5-5.0); Total Hemoglobin 15.2 g/dL (14-18)
--- NOTE | 2021-02-01 17:43 | PC.RESP ---
RT Shift Note Frequent safety and respiratory rounds continue. Orders completed as indicated. Patient monitored pre and post treatments throughout shift. Patient [Did.] tolerate treatments appropriately. Condition [.DidNotChange]. Patient and/or inside technical sales representative educated on respiratory treatment and medications. Patient and/or inside technical sales representative [NO ResponseToTeaching - ON VENT]. Will continue to monitor patient progress.
[2021-02-01 18:28] LABS: Glucose Point of Care 137 mg/dL (70-110)
--- NOTE | 2021-02-01 18:50 | PC.NURSE ---
Shift Note Frequent safety and comfort rounds continue. Orders and/or nursing care completed as indicated. Patient monitored for response to intervention and treatment(s). Education provided to r/t intubation and medications that are in use at this time, verbalizes understanding. Gtts per orders. PT proned at 1800. Will continue to monitor.
[2021-02-01] MEDS: propofol 1,000 MG/100 ML INJ 30.69 MG IV ×2 (19:32→22:14)
--- NOTE | 2021-02-01 19:58 | P.PN_ITS ---
Subjective Subjective: Interval history: The patient was seen and examined this morning. Overnight, he required BiPAP. He was tired. After discussing with his , we have decided to proceed with intubation. The patient was intubated uneventfully. He was paralyzed. The arterial blood gas revealed severe hypoxemia and respiratory acidosis. Appropriate ventilator changes were made. Patient will be ventilated in prone position. Postintubation chest x-ray revealed good positioning of the ET tube and the right IJ central venous line. There was worsening bilateral infiltrate. Medications: Reviewed: Yes Vitals/I&O/Wt Last Vital Signs Temp 97.6 F 02/01/21 16:00 Pulse 105 H 02/01/21 17:00 Resp 21 H 02/01/21 17:00 BP 98/76 02/01/21 18:00 Pulse Ox 94 02/01/21 18:00 02/01/21 02/01/21 02/01/21 06:59 14:59 22:59 Intake Total 650 / 2250 1051.136 / 1051.136 335.295 / 1386.431 Output Total 1050 / 1950 775 / 775 Balance -400 / 300 1051.136 / 1051.136 -439.705 / 611.431 Physical Exam Narrative: EXAM NARRATIVE: General: Patient is intubated and sedated, he is paralyzed Neck: No JVD Respiratory: Auscultation: Reduced breath sound bilaterally, occasional crackles at the lung bases. Cardiovascular: Regular rate and rhythm, S1-S2 present, no murmur, no peripheral edema. Abdomen: Soft, nondistended, sluggish bowel sound Skin: No rash Neuro: Sedated after intubation Urinary Catheter Management^: Marshall: Cath Placed During This Visit: yes Reason for Continuing Indwelling Catheter: Accurate Measurement of Urinary Output in Critically Ill Patients Urinary Catheter Date of Insertion: 02/01/21 Urinary Catheter Time of Insertion: 11:10 Data : 02/01/21 05:40 02/01/21 05:40 Micro: Microbiology 02/01/21 14:45 Gram Stain - Final Sputum - Endotracheal Tube Aspirate 01/26/21 18:44 Blood Culture - Final Blood NO GROWTH AFTER 5 DAYS Attestation for Other Data: I personally reviewed and interpreted the following: Other data: I have reviewed the patient laboratory, microbiologic and radiologic data A&P Assessment and plan (1) Pneumonia due to severe acute respiratory syndrome coronavirus 2 (SARS-CoV-2): This is a 65-year-old gentleman with SARS-CoV-2 pneumonia. The patient has severe COVID-19. The patient was intubated on February 01 He is on remdesivir and dexamethasone. Remdesivir was started on January 27. He received a dose of Tocilizumab on January 28 There is worsening chest infiltrate. The patient was empirically started on Zosyn. Endotracheal aspirate did not show any significant organism on Gram stain. Status: Acute (2) ARDS (adult respiratory distress syndrome): The patient has developed ARDS secondary to SARS-CoV-2 pneumonia. The patient did undergo paralysis and prone positioning. Status: Acute (3) Hyperglycemia: Patient has type 2 diabetes. He has developed significant hyperglycemia secondary to IV steroid therapy as well as the critical care illness. His A1c is 10. The patient is going to receive Lantus 20 units in the morning. He is on tube feed and he will receive every 6 hour sliding scale coverage for now. I will optimize this based on his blood sugar. Status: Acute (4) History of atrial fibrillation: The patient has history of A. fib. Currently he is in sinus rhythm. He is anticoagulated with 2.5 mg twice daily apixaban. Status: Acute (5) Chronic kidney disease: The patient has chronic kidney disease secondary to diabetes. The creatinine has been more or less stable. We will keep a close eye on input and output. Status: Acute (6) Hypertension: Medications will be optimized based on his blood pressure. Currently the patient is on multiple sedative medications may actually require pressor support . Status: Acute (7) Metabolic acidosis: Non-anion gap metabolic acidosis. Continue to monitor. Status: Acute Attestations Medical Necessity Statement*: Will defer to the primary team Coding Level of Care Code Acute Crime Lab Technician for [facility] Diagnoses Pneumonia due to severe acute respiratory syndrome coronavirus 2 (SARS-CoV-2) U07.1; J12.82 ARDS (adult respiratory distress syndrome) J80 Hyperglycemia R73.9 History of atrial fibrillation Z86.79 Chronic kidney disease N18.9 Hypertension I10 Metabolic acidosis E87.2 Time Spent (min) 44
--- NOTE | 2021-02-01 20:11 | PM.ACPR ---
Procedure/Consent Time out: Time Out Performed: Yes Consent: Consent for Procedure: Emergency procedure Procedure Narrative: Name of the procedure: Endotracheal intubation. Indication: Hypoxic respiratory failure. Medications: Etomidate 20 mg, rocuronium 100 mg Procedure: The patient was positioned optimally. The patient was oxygenated with 100% oxygen with noninvasive ventilator. After appropriate medications were given, the glide scope blade was introduced and advanced till vocal cords were visualized. The endotracheal tube was advanced through the vocal cords under direct visualization. There was fogging of the ET tube, positive change in end-tidal CO2 monitor, bilateral chest rise, bilateral positive breath sound. The ET tube was secured at 24 cm at the lips. Complications: There was no immediate complications. Chest x-ray: ET tube in good position Acute Procedures Epistaxis Control: Time out performed: Yes
--- NOTE | 2021-02-01 20:12 | PM.ACPR ---
Procedure/Consent Time out: Time Out Performed: Yes Consent: Consent for Procedure: Emergency procedure Procedure Narrative: Name of the Procedure: Right internal Jugular Central venous catheter placement under ultrasound guidance. Indication: Frequent blood work and possible need for vasopressor Anesthesiia: Lidocaine 1%, 5 ml Description of the procedure: The right IJ vein was identified with the Ultrasound from collapsibility and lack of pulsatility. The site was prepared using sterile technique. The skin and subcuteneous tissue was anesthetized using lidocaine. The introducer needle was advanced under US guidance till flash back was noted. Dark, non pulsatile blood noted. Using seldinger technique the CVC was put in.Blood return was noted in all ports. Catheter was secured with suture and covered with transparent dressing. Complications: None X-ray: Central venous catheter ends in the lower end of the SVC Acute Procedures Epistaxis Control: Time out performed: Yes
[2021-02-01] MEDS: apixaban 5 mg Tablet 2.5 MG PO (21:28)
[2021-02-01] MEDS: dexamethasone 4 mg/mL INJ 6 MG IVP (21:28)
--- NOTE | 2021-02-01 21:41 | PC.RESP ---
RT Shift Note Frequent safety and respiratory rounds continue. Orders completed as indicated. Patient monitored pre and post treatments throughout shift. Patient [Did.DidNot] tolerate treatments appropriately. Condition [Improved.Worsened.DidNotChange]. Patient and/or paper sales representative educated on respiratory treatment and medications. Patient and/or paper sales representative [ResponseToTeaching]. Will continue to monitor patient progress.
[2021-02-01 21:46] LABS: Glucose Point of Care 186 mg/dL (70-110)
[2021-02-02] VITALS (34 sets, daily range): BP systolic 88–149; BP diastolic 62–82; PULSE 71–90; RESP 0–28; TEMP 36.4–36.6; O2SAT 90–98
[2021-02-02] MEDS: cisatracurium 100 MG in sodium chloride 0.9% 50 ML 5.58 MG IV (01:46)
[2021-02-02] MEDS: piperacillin-tazobactam 3.375 GM in sodium chloride 0.9% (plus) 50 ML IV ×3 (01:48→17:54)
[2021-02-02] MEDS: propofol 1,000 MG/100 ML INJ 30.69 MG IV ×4 (01:58→15:29)
[2021-02-02 02:48] LABS: Glucose Point of Care 215 mg/dL (70-110)
--- NOTE | 2021-02-02 05:54 | PC.NURSE ---
TOF 1900 - 4 2000 - 4 2100 - 3 2200 - 2 2300 - 2 0000 - 3 0100 - 2 0200 - 3 0300 - 3 0400 - 3 0500 - 4 0600 - 3
--- NOTE | 2021-02-02 06:02 | PC.NURSE ---
Shift Note Frequent safety and comfort rounds continue. Orders and/or nursing care completed as indicated. Patient monitored for response to intervention and treatment(s). TOF and BIS assessed Q1 hour and documented. Education provided to pt's (Leyla) which included prone information and ventilator settings - specifically fiO2. Pt's asked clarifying questions and thanked this nurse for the information. Will continue to monitor.
[2021-02-02 06:03] LABS: ABG PCO2 54.1 mmHg (35-45); ABG PH Result 7.19 (7.35-7.45); Base Excess ABG -7.9 mmol/L (-2.0-2.0); Blood Gas Allen Test Pos; Blood Gas Sample Type Arterial; Blood Gas Tidal Volume 0.45; Carboxyhemoglobin 0.7 %THgb (0.4-20.1); HCO3 ABG 20.8 mmol/L (22-26); HGB O2 Sat 91.6 % (95-100); Ionized Calcium Level - ABG 1.2 mmol/L (1.1-1.4); Methemoglobin 1.2 % (0.4-1.5); Oxygen Saturation ABG 93.4; PO2 ABG 74.3 mmHg (80.0-100.0); Potassium Level - ABG 5.3 mmol/L (3.5-5.0)
[2021-02-02 06:04] LABS: Alveolar-Arterial Oxygen Gradi 51.5 mmHg (5-10); Blood Gas Operator Identificat BD; Blood Gas Sample Site Radial, right; Oxygen Device VENT
[2021-02-02 08:36] LABS: Glucose Point of Care 236 mg/dL (70-110)
[2021-02-02] MEDS: clopidogrel 75 mg Tablet PO (08:37)
[2021-02-02] MEDS: sodium bicarbonate 650 mg Tablet PO (08:37)
[2021-02-02] MEDS: aspirin 81 mg EC Tablet PO (08:37)
[2021-02-02] MEDS: pantoprazole DR 40 mg Tablet PO (08:37)
[2021-02-02] MEDS: apixaban 5 mg Tablet 2.5 MG PO ×2 (08:39→21:41)
--- NOTE | 2021-02-02 09:08 | P.PN_ITS ---
Subjective Subjective: Interval history: The patient is intubated sedated, paralyzed and prone. His oxygen requirement is 70% currently. The morning blood gas revealed combined respiratory and metabolic acidosis. This is likely due to chronic kidney disease. Overall, the patient remained stable overnight. Medications: Reviewed: Yes Vitals/I&O/Wt Last Vital Signs Temp 97.6 F 02/01/21 16:00 Pulse 89 02/02/21 06:00 Resp 3 L 02/02/21 05:00 BP 123/70 02/02/21 05:00 Pulse Ox 94 02/02/21 05:00 02/01/21 02/02/21 02/02/21 22:59 06:59 14:59 Intake Total 1575.295 / 2626.431 852.974 / 3479.405 Output Total 775 / 775 600 / 1375 Balance 800.295 / 1851.431 252.974 / 2104.405 Physical Exam Narrative: EXAM NARRATIVE: General: Patient is intubated and sedated paralyzed in prone Respiratory: Auscultation: Reduced breath sound bilaterally, occasional crackles at the lung bases. Cardiovascular: Regular rate and rhythm, S1-S2 present, no murmur, no peripheral edema. Abdomen: Soft, nondistended, sluggish bowel sound Skin: No rash Neuro: Sedated after intubation Urinary Catheter Management^: Marshall: Cath Placed During This Visit: yes Reason for Continuing Indwelling Catheter: Accurate Measurement of Urinary Output in Critically Ill Patients Urinary Catheter Date of Insertion: 02/01/21 Urinary Catheter Time of Insertion: 11:10 Data : 02/01/21 05:40 02/01/21 05:40 Micro: Microbiology 01/26/21 18:44 Blood Culture - Final Blood Staphylococcus sp coag neg 02/01/21 14:45 Gram Stain - Final Sputum - Endotracheal Tube Aspirate Attestation for Other Data: I personally reviewed and interpreted the following: Other data: I have reviewed his laboratory, microbiologic and radiology data. His lab works have not been back yet. A&P Assessment and plan (1) Pneumonia due to severe acute respiratory syndrome coronavirus 2 (SARS-CoV- 2): This is a 65-year-old gentleman with SARS-CoV-2 pneumonia. The patient has severe COVID-19. The patient was intubated on [place] 6 Remdesivir was started on January 27 and he has completed his 5-day therapy. He received a dose of Tocilizumab on January 28 There is worsening chest infiltrate. The patient was empirically started on Zosyn. Endotracheal aspirate did not show any significant organism on Gram stain. Currently he is on dexamethasone. Status: Acute (2) ARDS (adult respiratory distress syndrome): The patient has developed ARDS secondary to SARS-CoV-2 pneumonia. The patient is currently in prone position, paralyzed. His FiO2 requirement is 70%. The patient has evidence of combined metabolic and respiratory acidosis. I have increased his respiratory rate. Going to obtain a repeat arterial blood gas. Status: Acute (3) Hyperglycemia: Patient has type 2 diabetes. He has developed significant hyperglycemia secondary to IV steroid therapy as well as the critical care illness. His A1c is 10. The patient is going to be receiving 25 units of Lantus in the morning. Every 6 hours sliding scale. The patient is on trickle feed. Status: Acute (4) Metabolic acidosis: This is likely secondary to chronic kidney disease. I am starting him on concentrated bicarb drip. We'll repeat BMP at 4 PM today. Status: Acute (5) History of atrial fibrillation: The patient has history of A. fib. Currently he is in sinus rhythm. He is anticoagulated with 2.5 mg twice daily apixaban. Status: Acute (6) Chronic kidney disease: The patient has chronic kidney disease secondary to diabetes. The creatinine has been more or less stable. However, there may be worsening metabolic acidosis at this time. Status: Acute Attestations Medical Necessity Statement*: Will defer to the primary team Coding Level of Care Code Acute Technical Proposal Writer for [facility] [place] Diagnoses Pneumonia due to severe acute respiratory syndrome coronavirus 2 (SARS-CoV-2) U07.1; J12.82 ARDS (adult respiratory distress syndrome) J80 Hyperglycemia R73.9 Metabolic acidosis E87.2 History of atrial fibrillation Z86.79 Chronic kidney disease N18.9 Time Spent (min) 37
[2021-02-02] MEDS: insulin glargine 100 units/1 mL 20 UNIT SUBCUT (09:35)
[2021-02-02] MEDS: insulin glargine 100 units/1 mL 8 UNIT SUBCUT (09:42)
[2021-02-02 10:19] LABS: ABG PCO2 42.5 mmHg (35-45); ABG PH Result 7.28 (7.35-7.45); Arterial Blood Gas Hematocrit 44.1 % (42-52); Base Excess ABG -6.5 mmol/L (-2.0-2.0); Blood Gas Allen Test Pos; Blood Gas Operator Identificat GD; Blood Gas Sample Site Radial, right; Blood Gas Sample Type Arterial; Oxygen Device VENT
[2021-02-02] MEDS: ipratropium-albuterol 3 mL Neb INHALATION ×2 (14:34→20:31)
[2021-02-02 14:49] LABS: Basophils % 0.2 %; Eosinophils # 0.1 10^3/uL (0.0-0.8); Eosinophils % 0.5 %; Hematocrit 45.4 % (42.0-52.0); Hemoglobin 14.4 g/dL (11.7-16.6); Lymphocytes # 0.4 10^3/uL (0.8-4.8); Lymphocytes % 3.6 %; Mean Corpuscular HGB Conc 31.7 g/dL (30.0-36.0); Mean Corpuscular Hemoglobin 29.6 pg (28.0-34.0); Mean Corpuscular Volume 93.2 fL (80-94); Mean Platelet Volume 10.2 fL (7.4-10.4); Monocytes # 0.2 10^3/uL (0.2-0.9); Monocytes % 2.1 %; Neutrophils # 10.67 10^3/uL (1.8-7.7); Neutrophils % 92.5 %; Nucleated Red Blood Cells % 0.3 %; Platelet Count 112 10^3/cmm (130-400); Red Blood Count 4.87 10^6/uL (4.1-5.3); White Blood Count 11.5 10^3/uL (4.0-10.0)
[2021-02-02] MEDS: cisatracurium 100 MG in sodium chloride 0.9% 50 ML 8.37 MG IV (15:28)
--- NOTE | 2021-02-02 15:38 | PC.RESP ---
RT Shift Note Frequent safety and respiratory rounds continue. Orders completed as indicated. Patient monitored pre and post treatments throughout shift. Patient [Did.] tolerate treatments appropriately. Condition .DidNotChange]. Patient and/or sales representative jewelry educated on respiratory treatment and medications. Patient and/or sales representative jewelry unable. Will continue to monitor patient progress.
[2021-02-02 15:41] LABS: Alanine Aminotransferase 50 U/L (0-41); Albumin Level 2.7 g/dL (3.5-5.2); Alkaline Phosphatase 88 IU/L (40-130); Anion Gap 20.1 (5-19); Aspartate Amino Transferase 27 U/L (0-40); Blood Urea Nitrogen 57 mg/dL (8-23); Calcium 7.8 mg/dL (8.5-10.5); Carbon Dioxide 18 mmol/L (22-29); Chloride 102 mmol/L (98-107); Globulin 2.5 g/dL (1.3-4.6); Glomerular Filtration Rate 25.1 mL/min (90-130); Glucose 183 mg/dL (65-115); Magnesium 2.7 mg/dL (1.7-2.3); Osmolality Calculated 301 mOsm/kg (285-295); Potassium 5.1 mmol/L (3.5-5.1); Sodium 135 mmol/L (136-145); Total Bilirubin 0.5 mg/dL (0.15-1.2); Total Protein 5.2 g/dL (6.6-8.7)
[2021-02-02 15:42] LABS: Lactate (Lactic Acid level) 2.7 mmol/L (0.5-2.2)
[2021-02-02 15:47] LABS: Phosphorus 8.2 mg/dL (2.5-4.5)
--- NOTE | 2021-02-02 15:56 | PM.PN ---
Subjective Subjective: Interval history: The patient is intubated sedated, paralyzed and prone.at 70 % fio2 No acute events overnight. Medications: Reviewed: Yes Vitals/I&O/Wt Last Vital Signs Temp 98 F 02/02/21 13:00 Pulse 71 02/02/21 14:35 Resp 28 H 02/02/21 14:35 BP 108/74 02/02/21 13:00 Pulse Ox 97 02/02/21 14:35 02/02/21 02/02/21 02/02/21 06:59 14:59 22:59 Intake Total 852.974 / 3479.405 475.582 / 475.582 50 / 525.582 Output Total 600 / 1375 Balance 252.974 / 2104.405 475.582 / 475.582 50 / 525.582 Physical Exam Const: COMMON NORMALS: patient oriented x3 Chest: CHEST: Yes Symmetrical chest wall rise Resp: OTHER: Diminished air entry bilaterally Cardio: COMMON NORMALS: regular rate, regular rhythm, S1 normal heart sound present, S2 normal heart sound present, No gallops present (Cardio), No murmurs present (Cardio), No rub (Cardio) and Peripheral pulses 2+ throughout RATE: regular rate RHYTHM: regular rhythm HEART SOUNDS: S1 normal heart sound present and S2 normal heart sound present PERIPHERAL PULSES: Peripheral pulses 2+ throughout GI: COMMON NORMALS: Normal to inspection, nondistended, normoactive bowel sounds present, Soft to palpation, non-tender, No hepatosplenomegaly present and no masses AUSCULTATION: Yes normoactive bowel sounds PALPATION: Yes Soft to palpation and Yes No hepatosplenomegaly present RECTAL EXAM: Yes deferred Extremity: COMMON NORMALS: no clubbing, cyanosis or edema and no pedal edema Neuro: COMMON NORMALS: patient oriented x3 Urinary Catheter Management^: Marshall: Cath Placed During This Visit: yes Reason for Continuing Indwelling Catheter: Accurate Measurement of Urinary Output in Critically Ill Patients Urinary Catheter Date of Insertion: 02/01/21 Urinary Catheter Time of Insertion: 11:10 Data : 02/02/21 14:40 02/02/21 18:59 Micro: Microbiology 02/01/21 14:45 Gram Stain - Final Sputum - Endotracheal Tube Aspirate Sputum Culture - Preliminary 01/26/21 18:44 Blood Culture - Final Blood Staphylococcus sp coag neg A&P Assessment and plan (1) COVID-19: remdisivir 200mg iv x 1 then 100mg iv daily x 5 days dexamethasone 6g IVP qd duonebs, budesonide suppemetal 02, bipap prn ceftraixone and azithromycin empirically Status post 1 dose of tocilizumab trend inflammatory markers Status: Acute (2) Acute hyperglycemia: Status: Acute (3) Hyperosmolar hyperglycemic state (HHS): insulin drip per DKA/HHS protocol CMP every 6 hrs transition to s/c insulin when gap closes Status: Acute (4) Acute respiratory failure with hypoxia: Status: Acute Additional A&P Information Acute hypoxic respiratory failure secondary to COVID-19 pneumonia. ESR: CRP D-dimer Ferritin Blood culture: Coagulase negative staph 07/02 :Likely contaminant. Sputum culture Completed remdesivir 5-day course Completed Decadron regimen. s/p 1 dose of tocilizumab Zosyn Eliquis 2.5 mg every 12 hours Currently on Nimbex, Versed, propofol, fentanyl On Levophed HHS No signs of DKA Blood sugar less than 250, anion gap 17, no signs of acidosis On Lantus:35 U SC at night 20 units subcu daily Sliding scale insulin Acute on chronic kidney disease Patient clinically looks dehydrated, flushed skin noted Baseline creatinine seems to be around 1.5-1.8 Patient is able to void urine without any difficulty Judicious use of fluids Consistent carb diet DVT prophylaxis he is on Eliquis and dose has been reduced to 2.5 mg twice a day secondary to worsening creatinine Full code Attestations Medical Necessity Statement*: Patient needs to be in hospital for the management of respiratory failure Coding Level of Care Code Acute Pedicab Driver for [facility] Diagnoses COVID-19 U07.1 Acute hyperglycemia R73.9 Hyperosmolar hyperglycemic state (HHS) E11.00; E11.65 Acute respiratory failure with hypoxia J96.01
[2021-02-02 16:38] LABS: Glucose Point of Care 199 mg/dL (70-110)
--- NOTE | 2021-02-02 19:03 | PC.NURSE ---
shift summary pt from prone position to supine .. oral care done frequent check saftey and comfort urine output fair this shift back on levophed low dose when turned to supine position
--- NOTE | 2021-02-02 19:17 | PC.NURSE ---
shift summary.. from prone position to supine . 0800 train of 4 3 of 4 biz 34 1000 4 of 4 biz 36 1200 4 of 4 biz 40 1400 4 of 4 biz 36 1600 4 of 4 biz 33
[2021-02-02 19:40] LABS: Anion Gap 20.2 (5-19); Blood Urea Nitrogen 60 mg/dL (8-23); Calcium 8.1 mg/dL (8.5-10.5); Carbon Dioxide 20 mmol/L (22-29); Chloride 100 mmol/L (98-107); Glucose 184 mg/dL (65-115); Osmolality Calculated 302 mOsm/kg (285-295); Potassium 5.2 mmol/L (3.5-5.1); Sodium 135 mmol/L (136-145)
[2021-02-02 21:08] LABS: Glucose Point of Care 199 mg/dL (70-110)
[2021-02-02 21:08] LABS: Glucose Point of Care 223 mg/dL (70-110)
[2021-02-02] MEDS: propofol 1,000 MG/100 ML INJ 27.9 MG IV (21:37)
[2021-02-02] MEDS: dexamethasone 4 mg/mL INJ 6 MG IVP (21:40)
[2021-02-03] VITALS (50 sets, daily range): BP systolic 81–163; BP diastolic 52–98; PULSE 74–744; RESP 28; TEMP 34.8–37.2; O2SAT 7–99
[2021-02-03] MEDS: propofol 1,000 MG/100 ML INJ 27.9 MG IV ×4 (01:10→13:00)
[2021-02-03] MEDS: piperacillin-tazobactam 3.375 GM in sodium chloride 0.9% (plus) 50 ML IV ×3 (02:13→17:32)
[2021-02-03 03:17] LABS: Glucose Point of Care 217 mg/dL (70-110)
[2021-02-03] MEDS: ipratropium-albuterol 3 mL Neb INHALATION ×4 (03:26→21:26)
[2021-02-03 04:07] LABS: Basophils % 0.2 %; Eosinophils # 0.1 10^3/uL (0.0-0.8); Eosinophils % 0.6 %; Hematocrit 40.8 % (42.0-52.0); Hemoglobin 13.3 g/dL (11.7-16.6); Lymphocytes # 0.3 10^3/uL (0.8-4.8); Lymphocytes % 2.8 %; Mean Corpuscular HGB Conc 32.6 g/dL (30.0-36.0); Mean Corpuscular Hemoglobin 29.7 pg (28.0-34.0); Mean Corpuscular Volume 91.1 fL (80-94); Mean Platelet Volume 10.4 fL (7.4-10.4); Monocytes # 0.2 10^3/uL (0.2-0.9); Monocytes % 1.9 %; Neutrophils # 9.26 10^3/uL (1.8-7.7); Neutrophils % 92.9 %; Nucleated Red Blood Cells % 0 %; Platelet Count 124 10^3/cmm (130-400); Red Blood Count 4.48 10^6/uL (4.1-5.3); Red Cell Distribution Width 14.3 % (12.1-15.1)
[2021-02-03 04:34] LABS: Alanine Aminotransferase 62 U/L (0-41); Albumin Level 2.7 g/dL (3.5-5.2); Alkaline Phosphatase 92 IU/L (40-130); Anion Gap 19.3 (5-19); Aspartate Amino Transferase 41 U/L (0-40); Blood Urea Nitrogen 58 mg/dL (8-23); Calcium 7.6 mg/dL (8.5-10.5); Carbon Dioxide 23 mmol/L (22-29); Chloride 99 mmol/L (98-107); Globulin 2.3 g/dL (1.3-4.6); Glucose 174 mg/dL (65-115); Magnesium 2.6 mg/dL (1.7-2.3); Osmolality Calculated 304 mOsm/kg (285-295); Phosphorus 7.5 mg/dL (2.5-4.5); Potassium 4.3 mmol/L (3.5-5.1); Sodium 137 mmol/L (136-145); Total Bilirubin 0.4 mg/dL (0.15-1.2)
--- NOTE | 2021-02-03 06:26 | PC.NURSE ---
Shift Note Frequent safety and comfort rounds continue. Patient intubated, sedated and paralyzed. gtts include: nimbex, versed, fentanyl, and propofol. Patient was proned last night at 2300. fio2 decreased to 65% from 70%. Patient has been off of levo since 0000. TOF and BIS monitor maintained within parameters. Orders and nursing care completed as indicated. Patient monitored for response to intervention and treatments. Spoke with patients this shift. Education provided including ventilator management, proning, and levophed. She verbalized understanding and has no further questions. She was then able to facetime with patient before proning began. Will continue to monitor.
--- NOTE | 2021-02-03 08:00 | PC.NURSE ---
TOF 09/30.
[2021-02-03 08:35] LABS: Glucose Point of Care 183 mg/dL (70-110)
[2021-02-03] MEDS: pantoprazole 40 mg SDV IVP (09:20)
[2021-02-03] MEDS: insulin glargine 100 units/1 mL 20 UNIT SUBCUT (09:21)
[2021-02-03] MEDS: aspirin 81 mg EC Tablet PO (09:22)
[2021-02-03] MEDS: clopidogrel 75 mg Tablet PO (09:22)
[2021-02-03] MEDS: apixaban 5 mg Tablet 2.5 MG PO ×2 (09:22→21:38)
--- NOTE | 2021-02-03 11:10 | PC.NURSE ---
V tach noted on monitor within 15 minutes after bolus feeding pt 150ml while proned as ordered. Notified Dr Mckeon. OG to suction now.
--- NOTE | 2021-02-03 11:20 | PC.NURSE ---
No further V Tach noted. Immediate return of tube feeding after OG to suction. Dr Mckeon notified. Tube feeding issue will be revisited later continue to hold tube feeding.
--- NOTE | 2021-02-03 11:20 | P.PN_ITS ---
Subjective Subjective: Interval history: The patient is intubated sedated, paralyzed and prone.at 65 % fio2 No acute events overnight. Medications: Reviewed: Yes Vitals/I&O/Wt Last Vital Signs Temp 99 F 02/03/21 03:00 Pulse 81 02/03/21 08:53 Resp 28 H 02/03/21 09:09 BP 147/89 02/03/21 06:00 Pulse Ox 94 02/03/21 09:09 02/02/21 02/03/21 02/03/21 22:59 06:59 14:59 Intake Total 300 / 775.582 439.622 / 1215.204 750 / 750 Output Total 800 / 800 900 / 1700 Balance -500 / -24.418 -460.378 / -484.796 750 / 750 Weight last 48 hrs Weight 85.389 kg Physical Exam Const: COMMON NORMALS: patient oriented x3 Chest: CHEST: Yes Symmetrical chest wall rise Resp: OTHER: Diminished air entry bilaterally Cardio: COMMON NORMALS: regular rate, regular rhythm, S1 normal heart sound present, S2 normal heart sound present, No gallops present (Cardio), No murmurs present (Cardio), No rub (Cardio) and Peripheral pulses 2+ throughout RATE: regular rate RHYTHM: regular rhythm HEART SOUNDS: S1 normal heart sound present and S2 normal heart sound present PERIPHERAL PULSES: Peripheral pulses 2+ throughout GI: COMMON NORMALS: Normal to inspection, nondistended, normoactive bowel sounds present, Soft to palpation, non-tender, No hepatosplenomegaly present and no masses AUSCULTATION: Yes normoactive bowel sounds PALPATION: Yes Soft to palpation and Yes No hepatosplenomegaly present RECTAL EXAM: Yes deferred Extremity: COMMON NORMALS: no clubbing, cyanosis or edema and no pedal edema Neuro: COMMON NORMALS: patient oriented x3 Urinary Catheter Management^: Marshall: Cath Placed During This Visit: yes Reason for Continuing Indwelling Catheter: Accurate Measurement of Urinary Output in Critically Ill Patients Urinary Catheter Date of Insertion: 02/01/21 Urinary Catheter Time of Insertion: 11:10 Data : 02/03/21 03:26 02/03/21 03:26 Micro: Microbiology 02/01/21 14:45 Gram Stain - Final Sputum - Endotracheal Tube Aspirate Sputum Culture - Preliminary A&P Assessment and plan (1) COVID-19: remdisivir 200mg iv x 1 then 100mg iv daily x 5 days dexamethasone 6g IVP qd duonebs, budesonide suppemetal 02, bipap prn ceftraixone and azithromycin empirically Status post 1 dose of tocilizumab trend inflammatory markers Status: Acute (2) Acute hyperglycemia: Status: Acute (3) Hyperosmolar hyperglycemic state (HHS): insulin drip per DKA/HHS protocol CMP every 6 hrs transition to s/c insulin when gap closes Status: Acute (4) Acute respiratory failure with hypoxia: Status: Acute Additional A&P Information Acute hypoxic respiratory failure secondary to COVID-19 pneumonia. ESR: CRP:134 D-dimer: 3.27 Ferritin : 1542 Blood culture: Coagulase negative staph 07/02 :Likely contaminant. Sputum culture: Few mixed respiratory sebas Completed remdesivir 5-day course Completed Decadron regimen. s/p 1 dose of tocilizumab Zosyn : Eliquis 2.5 mg every 12 hours Currently on Nimbex, Versed, propofol, fentanyl On Levophed HHS No signs of DKA Blood sugar less than 250, anion gap 17, no signs of acidosis On Lantus:35 U SC at night 20 units subcu daily Sliding scale insulin Acute on chronic kidney disease Baseline creatinine seems to be around 1.5-1.8 Current serum creatinine:2.7 Consistent carb diet DVT prophylaxis he is on Eliquis and dose has been reduced to 2.5 mg twice a day secondary to worsening creatinine Full code Attestations Medical Necessity Statement*: Patient needs to be in hospital for management of respiratory failure. Coding Level of Care Code Acute Director Of Event Management for [facility] Fwd Diagnoses COVID-19 U07.1 Acute hyperglycemia R73.9 Hyperosmolar hyperglycemic state (HHS) E11.00; E11.65 Acute respiratory failure with hypoxia J96.01
--- NOTE | 2021-02-03 12:00 | PC.NURSE ---
TOF 4/4. Pt vent compliant.
--- NOTE | 2021-02-03 14:06 | P.PN_ITS ---
Subjective Subjective: Interval history: The patient was seen and examined. He is currently intubated sedated, paralyzed and in prone position. His oxygen saturation is in the mid 90s with an FiO2 of 65% His creatinine has remained stable. Medications: Reviewed: Yes Vitals/I&O/Wt Last Vital Signs Temp 99 F 02/03/21 03:00 Pulse 81 02/03/21 08:53 Resp 28 H 02/03/21 13:24 BP 147/89 02/03/21 06:00 Pulse Ox 7 L 02/03/21 13:24 02/02/21 02/03/21 02/03/21 22:59 06:59 14:59 Intake Total 300 / 775.582 439.622 / 1215.204 850 / 850 Output Total 800 / 800 900 / 1700 Balance -500 / -24.418 -460.378 / -484.796 850 / 850 Weight last 48 hrs Weight 188 lb 4 oz Physical Exam Narrative: EXAM NARRATIVE: General: Patient is intubated and sedated paralyzed in prone Respiratory: Auscultation: Reduced breath sound bilaterally, occasional crackles at the lung bases. Cardiovascular: Regular rate and rhythm, S1-S2 present, no murmur, no peripheral edema. Abdomen: Soft, nondistended, sluggish bowel sound Skin: No rash Neuro: Sedated and paralyzed Urinary Catheter Management^: Marshall: Cath Placed During This Visit: yes Reason for Continuing Indwelling Catheter: Accurate Measurement of Urinary Output in Critically Ill Patients Urinary Catheter Date of Insertion: 02/01/21 Urinary Catheter Time of Insertion: 11:10 Data : 02/03/21 03:26 02/03/21 03:26 Micro: Microbiology 02/01/21 14:45 Gram Stain - Final Sputum - Endotracheal Tube Aspirate Sputum Culture - Preliminary Attestation for Other Data: I personally reviewed and interpreted the following: Other data: I have reviewed his laboratory, microbiologic and radiology data. The creatinine has been stable. The patient does have hyperphosphatemia. The creatinine and BUN are stable. A&P Assessment and plan (1) Pneumonia due to severe acute respiratory syndrome coronavirus 2 (SARS-CoV-2): This is a 65-year-old gentleman with SARS-CoV-2 pneumonia. The patient has severe COVID-19. The patient was intubated on February 01 Remdesivir was started on January 27 and he has completed his 5-day therapy. He received a dose of Tocilizumab on January 28 There is worsening chest infiltrate. The patient was empirically started on Zosyn. Endotracheal aspirate did not show any significant organism on Gram stain. Currently he is on dexamethasone. Status: Acute (2) ARDS (adult respiratory distress syndrome): The patient has developed ARDS secondary to SARS-CoV-2 pneumonia. The patient is currently in prone position, paralyzed. His FiO2 requirement is 65%. The patient has evidence of combined metabolic and respiratory acidosis. I have increased his respiratory rate. He was started on a concentrated bicarb drip. His BUN/creatinine has remained stable. Interestingly, the patient had runs of nonsustained V. tach after he was given 150 cc to feed. We will hold this for the time being. I am hoping the patient will continue to make recovery and he will likely need another session of prone positioning. Status: Acute (3) Hyperglycemia: Patient has type 2 diabetes. He has developed significant hyperglycemia secondary to IV steroid therapy as well as the critical care illness. His A1c is 10. The patient is going to be receiving 25 units of Lantus in the morning. Every 6 hours sliding scale. His blood sugar has been running in low 200s. Status: Acute (4) Metabolic acidosis: This is likely secondary to chronic kidney disease. We will continue the bicarb drip for now. Status: Acute (5) History of atrial fibrillation: The patient has history of A. fib. Currently he is in sinus rhythm. He is anticoagulated with 2.5 mg twice daily apixaban. Status: Acute (6) Chronic kidney disease: The patient has chronic kidney disease secondary to diabetes. The creatinine has been more or less stable. Status: Acute Attestations Medical Necessity Statement*: Will defer to the primary team Coding Level of Care Code Acute Supervisor Winding Department for primitivo Bhatt Diagnoses Pneumonia due to severe acute respiratory syndrome coronavirus 2 (SARS-CoV-2) U07.1; J12.82 ARDS (adult respiratory distress syndrome) J80 Hyperglycemia R73.9 Metabolic acidosis E87.2 History of atrial fibrillation Z86.79 Chronic kidney disease N18.9 Time Spent (min) 33
--- NOTE | 2021-02-03 14:15 | PC.NURSE ---
Pt un-proned. Supine position HOB 45 degrees. Pt tolerated well.
--- NOTE | 2021-02-03 14:47 | PC.RESP ---
RT Shift Note Frequent safety and respiratory rounds continue. Orders completed as indicated. Patient monitored pre and post treatments throughout shift. Patient [Did.] tolerate treatments appropriately. Condition .DidNotChange]. Patient and/or vaccine customer representative educated on respiratory treatment and medications. Patient and/or vaccine customer representative [unable to comprehend]. Will continue to monitor patient progress.
[2021-02-03 15:24] LABS: Glucose Point of Care 121 mg/dL (70-110)
[2021-02-03] MEDS: cisatracurium 100 MG in sodium chloride 0.9% 50 ML 8.37 MG IV (15:30)
[2021-02-03] MEDS: insulin glargine 100 units/1 mL 8 UNIT SUBCUT (16:00)
--- NOTE | 2021-02-03 16:30 | PC.NURSE ---
Pt remains vent complaint with a TOF 4/4.
[2021-02-03] MEDS: propofol 1,000 MG/100 ML INJ 19.53 MG IV (17:32)
--- NOTE | 2021-02-03 19:40 | PC.NURSE ---
Shift summary: Pt remains paralyzed, sedated and on vent. FIO2 decreased from 65% to 50% today. Pt had an episode of V-tach due to intolerance of tube feeding while being proned. Proning done at 1415 today. Pt's temp. low, room temp increased, pt's temp improving. NO changes in Nimbex gtt. Fentanyl , Versed and Propofol gtts adjusted per BIS and VS. Bicarb fluids still infusing. updated twice this shift via telephone. Lung sounds posteriorly are clear, much more diminished anteriorly. Urine output of 1250 mls noted. Frequent safety and comfort rounds continue. Orders and/or nursing care completed as indicated. Patient monitored for response to intervention and treatment(s). Education provided include Lantus, regular insulin and sedation medications. Patient and/or sales representative girls' apparel verbalized understanding. Will continue to monitor.
[2021-02-03] MEDS: dexamethasone 4 mg/mL INJ 6 MG IVP (21:38)
[2021-02-03] MEDS: propofol 1,000 MG/100 ML INJ 16.74 MG IV (21:38)
[2021-02-04] VITALS (64 sets, daily range): BP systolic 86–140; BP diastolic 57–90; PULSE 68–101; RESP 16–28; TEMP 35.8–37.1; O2SAT 88–98
--- NOTE | 2021-02-04 02:24 | PC.NURSE ---
Addendum entered by Yakelin Tarango RN 02/04/21 07:50: BIS/TOF 1999 40/4 2200 43/4 0000 37/4 0200 34/4 0400 33/4 0600 36/4 Original Note: Shift Note Frequent safety and comfort rounds continue. Orders and/or nursing care completed as indicated. Patient monitored for response to intervention and treatment(s). Education provided includes tube feeding and patient status. Patient unable to comprehend due to sedation. Patients spouse verbalized understanding of education Will continue to monitor. Provided tube feeding boluses because there are no pumps available in the hospital to provided the ordered 15ml/hr. Patient tolerated the boluses well. Patient complete the full 3 prone sessions with stable V/S's.
[2021-02-04] MEDS: piperacillin-tazobactam 3.375 GM in sodium chloride 0.9% (plus) 50 ML IV ×3 (03:01→18:55)
[2021-02-04] MEDS: propofol 1,000 MG/100 ML INJ 16.74 MG IV (03:02)
[2021-02-04] MEDS: cisatracurium 100 MG in sodium chloride 0.9% 50 ML 5.58 MG IV ×2 (03:03→22:57)
[2021-02-04] MEDS: ipratropium-albuterol 3 mL Neb INHALATION ×4 (03:30→21:18)
[2021-02-04 03:49] LABS: Basophils % 0.2 %; Eosinophils # 0.1 10^3/uL (0.0-0.8); Eosinophils % 0.8 %; Hematocrit 38.7 % (42.0-52.0); Lymphocytes # 0.5 10^3/uL (0.8-4.8); Lymphocytes % 5.1 %; Mean Corpuscular HGB Conc 33.6 g/dL (30.0-36.0); Mean Corpuscular Hemoglobin 30.1 pg (28.0-34.0); Mean Corpuscular Volume 89.6 fL (80-94); Mean Platelet Volume 10.3 fL (7.4-10.4); Monocytes # 0.3 10^3/uL (0.2-0.9); Monocytes % 2.8 %; Neutrophils # 9.22 10^3/uL (1.8-7.7); Neutrophils % 89.7 %; Nucleated Red Blood Cells % 0.2 %; Platelet Count 100 10^3/cmm (130-400); Red Blood Count 4.32 10^6/uL (4.1-5.3); Red Cell Distribution Width 14.3 % (12.1-15.1); White Blood Count 10.3 10^3/uL (4.0-10.0)
[2021-02-04 04:15] LABS: Alanine Aminotransferase 74 U/L (0-41); Albumin Level 2.7 g/dL (3.5-5.2); Alkaline Phosphatase 90 IU/L (40-130); Anion Gap 14.6 (5-19); Aspartate Amino Transferase 57 U/L (0-40); Blood Urea Nitrogen 68 mg/dL (8-23); Calcium 7.6 mg/dL (8.5-10.5); Carbon Dioxide 31 mmol/L (22-29); Chloride 104 mmol/L (98-107); Globulin 2.2 g/dL (1.3-4.6); Glomerular Filtration Rate 22.1 mL/min (90-130); Glucose 99 mg/dL (65-115); Magnesium 2.7 mg/dL (1.7-2.3); Osmolality Calculated 320 mOsm/kg (285-295); Phosphorus 5.9 mg/dL (2.5-4.5); Potassium 4.6 mmol/L (3.5-5.1); Sodium 145 mmol/L (136-145); Total Bilirubin 0.4 mg/dL (0.15-1.2); Total Protein 4.9 g/dL (6.6-8.7)
[2021-02-04 05:37] LABS: Glucose Point of Care 97 mg/dL (70-110)
[2021-02-04 07:58] LABS: Glucose Point of Care 92 mg/dL (70-110)
[2021-02-04] MEDS: pantoprazole 40 mg SDV IVP (08:05)
[2021-02-04] MEDS: clopidogrel 75 mg Tablet PO (08:05)
[2021-02-04] MEDS: aspirin 81 mg EC Tablet PO (08:05)
[2021-02-04] MEDS: insulin glargine 100 units/1 mL 28 UNIT SUBCUT (08:07)
[2021-02-04] MEDS: apixaban 5 mg Tablet 2.5 MG PO ×2 (08:07→21:04)
--- NOTE | 2021-02-04 08:27 | XRR_ITS ---
PROCEDURE INFORMATION: Exam: XR Chest Exam date and time: 02/04/2021 8:27 AM Age: 65 years old Clinical indication: Condition or disease; Lung condition and disease; Pneumonia; Patient HX: PT intabated unable to give history TECHNIQUE: Imaging protocol: XR of the chest. Views: 1 view. COMPARISON: CR XR chest 1V portable [id number] 02/01/2021 10:08 AM FINDINGS: Tubes, catheters and devices: Endotracheal tube above the kale adjacent to the level of the clavicles. Central venous catheter via the right jugular approach with the tip projecting over the superior vena cava. nasogastric tube extends below the diaphragm although the location of the tip not identified as it is outside of the [id number]. Lungs: Patchy alveolar airspace consolidation in the perihilar regions and to a greater degree within the lung bases right greater than left. Pleural spaces: Unremarkable. No pleural effusion. No pneumothorax. Heart/Mediastinum: Unremarkable. No cardiomegaly. Bones/joints: Unremarkable. XR/XR chest 1V portable [id number] IMPRESSION: Patchy alveolar airspace consolidation in the perihilar regions and to a greater degree within the lung bases right greater than left. Moderate subpulmonic effusion on the right.
[2021-02-04 08:44] LABS: Glucose Point of Care 88 mg/dL (70-110)
--- NOTE | 2021-02-04 10:00 | PC.CHAP ---
Pastoral Care Encounter/Spiritual Assessment Type of Contact [] Declined accounts receivable coordinator visit [] Patient/Family/Request visit [] Outpatient visit [] Follow-up visit [] Physician referral [] Code/Alert [x] Routine visit [] Staff referral [] Actively dying [] Patient sleeping [] Family support [] [] Out of room [] Palliative care [] [] Receiving care in room [] Pre-surgical visit [] Trauma [] Long length of stay [x] ICU visit [] Other: Relational/Emotional Strength [] Patient feels connected with others/family/visitors/staff [] Distress [] Loneliness/isolation [] Abandonment Spirituality of Patient [] Person of Shalonda [] Attends Jewish of their Shalonda [] Believes in Prayer [] Reads Bible or Church materials [] There are Spiritual issues to be addressed [place] Interventions [x] Prayer [] Active listening [] Non-anxious presence [] Spiritual/emotional support [] Crisis/trauma care [] Spiritual counseling [] Bereavement support [] Provided bereavement packet [] Provided Bible/devotional materials [] Provided toy/stuffed animal, coloring book to patient or family member [] Provided Communion [] Anointing/[place] [] Salvation [x] Completed spiritual assessment [] Other: Impact on Illness or Injury [] Angry [] Fearful [] Anxious [] Often cries [] Exhaustion [] Unable to work [] Unable to attend hinduism [] Unable to walk/stand [] Unable to read [] Unable to drive [] Unable to eat/drink [] Unable to sleep [] Unable to be with family [] Patient intubated [] Other: Summary Time spent with patient
[2021-02-04] MEDS: propofol 1,000 MG/100 ML INJ 19.53 MG IV (10:11)
[2021-02-04 10:40] LABS: ABG PH Result 7.46 (7.35-7.45); Alveolar-Arterial Oxygen Gradi 31.1 mmHg (5-10); Arterial Blood Gas Hematocrit 41.5 % (42-52); Base Excess ABG 11.1 mmol/L (-2.0-2.0); Blood Gas Allen Test Pos; Blood Gas Operator Identificat CAK; Blood Gas Sample Site Radial, right; Blood Gas Sample Type Arterial; Carboxyhemoglobin 0.9 %THgb (0.4-20.1); HCO3 ABG 36.9 mmol/L (22-26); HGB O2 Sat 85.9 % (95-100); Ionized Calcium Level - ABG 1.1 mmol/L (1.1-1.4); Oxygen Device VENT; Oxygen Saturation ABG 87.6; PO2 ABG 54.4 mmHg (80.0-100.0); Potassium Level - ABG 4.2 mmol/L (3.5-5.0); Total Hemoglobin 13.5 g/dL (14-18)
--- NOTE | 2021-02-04 12:13 | PC.NURSE ---
0700 Report received, pt assessment completed. VSS. Gtts infusing per orders. Remains paralyzed, sedated and intubated. ETT in place, vent settings per RT. OGT in place. Biz monitor in place. Foly cath in place draining clear yellow urine to BSD. 1030 PT proned via staff x5 per MD orders. Tolerated positioning well. Bed bath given at this time. VSS, O2 sat 88%. Will monitor.
[2021-02-04 13:25] LABS: Glucose Point of Care 93 mg/dL (70-110)
[2021-02-04] MEDS: propofol 1,000 MG/100 ML INJ 25.11 MG IV ×2 (15:28→19:19)
--- NOTE | 2021-02-04 17:55 | P.PN_ITS ---
Subjective Subjective: Interval history: Patient was seen and examined he was being proned at the time of my evaluation O2 requirement increased to 75% Vitals/I&O/Wt Last Vital Signs Temp 98.7 F 02/04/21 12:00 Pulse 96 02/04/21 16:30 Resp 26 H 02/04/21 15:19 BP 114/76 02/04/21 16:30 Pulse Ox 91 02/04/21 16:30 02/04/21 02/04/21 02/04/21 06:59 14:59 22:59 Intake Total 363.332 / 7049.629 7291.550 / 1041.550 190 / 1231.550 Output Total 675 / 2225 550 / 550 Balance -311.668 / -483.561 0182.550 / 1041.550 -360 / 681.550 Weight last 48 hrs Weight 86.999 kg Weight 85.389 kg Physical Exam Narrative: EXAM NARRATIVE: Limited exam at patient is intubated and sedated and paralyzed Being proned at the time of my evaluation Reduced breath sounds bilaterally from posterior auscultation Normal sinus rhythm Abdomen exam limited Skin without any rash Sedated and paralyzed Urinary Catheter Management^: Marshall: Cath Placed During This Visit: yes Reason for Continuing Indwelling Catheter: Accurate Measurement of Urinary Output in Critically Ill Patients Urinary Catheter Date of Insertion: 02/01/21 Urinary Catheter Time of Insertion: 11:10 Data : 02/04/21 03:40 02/04/21 03:40 Micro: Microbiology 02/01/21 14:45 Gram Stain - Final Sputum - Endotracheal Tube Aspirate Sputum Culture - Preliminary Yeast A&P Assessment and plan (1) Metabolic acidosis: Status: Acute (2) Hypertension: Status: Acute (3) Diabetes mellitus: Status: Acute (4) Chronic kidney disease: Status: Acute (5) History of atrial fibrillation: Status: Acute (6) Hyperglycemia: Status: Acute (7) ARDS (adult respiratory distress syndrome): Status: Acute (8) Pneumonia due to severe acute respiratory syndrome coronavirus 2 (SARS-CoV-2): Status: Acute Additional A&P Information severe ARDS related to COVID-19 Proning,, intubated, sedated and paralyzed Status post remdesivir, interleukin-6 inhibitor January 28 Management as per operations officer trust department O2 requirement increased to 75% from 70% Continuing Decadron for now Still requiring vasopressors Empiric Zosyn antibiotic added Hyperglycemia without DKA: Aggressive insulin regimen added, insulin seems to be around 88-93 Acute on chronic kidney disease: Creatinine 2.9 monitor ins and outs, creatinine, Alkalosis noted on BMP Hold bicarb drip Tube feed diet, Full code DVT prophylaxis currently on Eliquis 2.5 twice a day Attestations Medical Necessity Statement*: Continue medical management need ICU care for proning, intubated and sedated Time Spent in Patient Care: less than 15 minutes Coding Level of Care Code Acute Weekend Anchor for Chg Fwd Diagnoses Metabolic acidosis E87.2 Hypertension I10 Diabetes mellitus E11.9 Chronic kidney disease N18.9 History of atrial fibrillation Z86.79 Hyperglycemia R73.9 ARDS (adult respiratory distress syndrome) J80 Pneumonia due to severe acute respiratory syndrome coronavirus 2 (SARS-CoV-2) U07.1; J12.82
--- NOTE | 2021-02-04 18:19 | PC.NURSE ---
Shift Note Frequent safety and comfort rounds continue. Orders and/or nursing care completed as indicated. Patient monitored for response to intervention and treatment(s). Education provided includes information about medications, lab results and treatment plan. Family verbalize understanding. Pt in prone position, tolerating well. Tolerated bolus feed well. VSS. Gtts per orders infusing to RIJ TL CVL. Vent settings per RT flowsheet. No issues noted. No s/s of pain or SOB noted. Will continue to monitor.
--- NOTE | 2021-02-04 19:20 | P.PN_ITS ---
Subjective Subjective: Interval history: pt seen at bedside today morning paralyzed and proned for 3rd time saturating > 88% on FiO2 55% labs and imaging reviewed Medications: Reviewed: Yes Vitals/I&O/Wt Last Vital Signs Temp 98.7 F 02/04/21 12:00 Pulse 92 02/04/21 18:00 Resp 23 H 02/04/21 18:22 BP 112/73 02/04/21 18:00 Pulse Ox 92 02/04/21 18:22 02/04/21 02/04/21 02/04/21 06:59 14:59 22:59 Intake Total 363.332 / 8396.338 2491.550 / 1041.550 248.45 / 1290.000 Output Total 675 / 2225 550 / 550 Balance -311.668 / -315.386 0491.550 / 1041.550 -301.55 / 740.000 Weight last 48 hrs Weight 191 lb 12.8 oz Weight 188 lb 4 oz Physical Exam Narrative: EXAM NARRATIVE: General: lying in bed, sedated and intubated. HEENT:NCAT, PERRLA, EOMI Neck: Supple Lungs: Reduced breath sounds bilaterally Heart: s1/s2, RRR Abd: soft, NT, ND, BS + Normoactive Extremities: No edema SAUSAGE MEAT TRIMMER: sedated and limited SAUSAGE MEAT TRIMMER exam possible, has contractures of all 4 extremities SKIN: no rash Urinary Catheter Management^: Marshall: Cath Placed During This Visit: yes Reason for Continuing Indwelling Catheter: Accurate Measurement of Urinary Output in Critically Ill Patients Urinary Catheter Date of Insertion: 02/01/21 Urinary Catheter Time of Insertion: 11:10 Data : 02/04/21 03:40 02/04/21 03:40 Other Labs: Laboratory Results WBC 10.3 10^3/uL (4.0-10.0) H 02/04/21 03:40 RBC 4.32 10^6/uL (4.1-5.3) 02/04/21 03:40 Hgb 13.0 g/dL (11.7-16.6) 02/04/21 03:40 Hct 38.7 % (42.0-52.0) L 02/04/21 03:40 MCV 89.6 fL (80-94) 02/04/21 03:40 MCH 30.1 pg (28.0-34.0) 02/04/21 03:40 MCHC 33.6 g/dL (30.0-36.0) 02/04/21 03:40 RDW 14.3 % (12.1-15.1) 02/04/21 03:40 Plt Count 100 10^3/cmm (130-400) L 02/04/21 03:40 MPV 10.3 fL (7.4-10.4) 02/04/21 03:40 Neut % (Auto) 89.7 % 02/04/21 03:40 Lymph % (Auto) 5.1 % 02/04/21 03:40 [place] % (Auto) 2.8 % 02/04/21 03:40 Eos % (Auto) 0.8 % 02/04/21 03:40 Baso % (Auto) 0.2 % 02/04/21 03:40 Neut # (Auto) 9.22 10^3/uL (1.8-7.7) H 02/04/21 03:40 Lymph # (Auto) 0.5 10^3/uL (0.8-4.8) L 02/04/21 03:40 [place] # (Auto) 0.3 10^3/uL (0.2-0.9) 02/04/21 03:40 Eos # (Auto) 0.1 10^3/uL (0.0-0.8) 02/04/21 03:40 Baso # (Auto) 0.0 10^3/uL (0.0-0.1) 02/04/21 03:40 Nucleated RBC % (auto) 0.2 % 02/04/21 03:40 Nucleated RBCs # 0.0 /100WBC 02/04/21 03:40 D-Dimer 3.27 ug/mIFEU (0-0.59) H 01/28/21 06:30 Specimen Type Arterial 02/04/21 10:29 Sample Site Radial, right 02/04/21 10:29 ABG pH 7.46 (7.35-7.45) H 02/04/21 10:29 ABG pCO2 52.0 mmHg (35-45) H 02/04/21 10:29 ABG pO2 54.4 mmHg (80.0-100.0) L 02/04/21 10:29 ABG HCO3 36.9 mmol/L (22-26) H 02/04/21 10:29 ABG O2 Saturation 87.6 02/04/21 10:29 ABG Base Excess 11.1 mmol/L (-2.0-2.0) H 02/04/21 10:29 Harley Test Pos 02/04/21 10:29 A-a O2 Gradient 31.1 mmHg (5-10) H 02/04/21 10:29 Hematocrit 41.5 % (42-52) L 02/04/21 10:29 Hgb O2 Saturation 85.9 % (95-100) L 02/04/21 10:29 Carboxyhemoglobin 0.9 %THgb (0.4-20.1) 02/04/21 10:29 Methemoglobin 1.0 % (0.4-1.5) 02/04/21 10:29 Total Hemoglobin 13.5 g/dL (14-18) L 02/04/21 10:29 Sodium 148.0 mmol/L (131-143) H 02/04/21 10:29 Potassium 4.2 mmol/L (3.5-5.0) 02/04/21 10:29 Glucose 66.0 mg/dL (70-115) L 02/04/21 10:29 Ionized Calcium 1.1 mmol/L (1.1-1.4) 02/04/21 10:29 O2 Delivery Device Vent 02/04/21 10:29 O2 Liters/Min 40.0 % 01/26/21 21:10 FiO2 50.0 % 02/04/21 10:29 Tidal Volume 0.50 02/04/21 10:29 PEEP 10.0 cmH20 02/04/21 10:29 Yarn Examiner Skeins ID Cak 02/04/21 10:29 Sodium 145 mmol/L (136-145) 02/04/21 03:40 Potassium 4.6 mmol/L (3.5-5.1) 02/04/21 03:40 Chloride 104 mmol/L (98-107) 02/04/21 03:40 Carbon Dioxide 31 mmol/L (22-29) H 02/04/21 03:40 Anion Gap 14.6 (5-19) 02/04/21 03:40 BUN 68 mg/dL (8-23) H 02/04/21 03:40 Creatinine 2.9 mg/dL (0.7-1.2) H 02/04/21 03:40 GFR Calculation 22.1 mL/min (90-130) L 02/04/21 03:40 Glucose 99 mg/dL (65-115) 02/04/21 03:40 POC Glucose 93 mg/dL (70-110) 02/04/21 13:20 Estimat Average Glucose 243 01/30/21 06:10 Hemoglobin A1c 10.1 % (4.0-6.0) H 01/30/21 06:10 Calculated Osmolality 320 mOsm/kg (285-295) H 02/04/21 03:40 Lactic Acid 3.1 mmol/L (0.5-2.2) H 01/26/21 18:44 Lactic Acid (Sepsis) 2.5 mmol/L (0.5-2.2) H 01/26/21 21:55 Lactate 2.7 mmol/L (0.5-2.2) H 02/02/21 14:40 Calcium 7.6 mg/dL (8.5-10.5) L 02/04/21 03:40 Phosphorus 5.9 mg/dL (2.5-4.5) H 02/04/21 03:40 Magnesium 2.7 mg/dL (1.7-2.3) H 02/04/21 03:40 Ferritin 1542 ng/mL (30-400) H 01/27/21 04:50 Total Bilirubin 0.4 mg/dL (0.15-1.2) 02/04/21 03:40 AST 57 U/L (0-40) H 02/04/21 03:40 ALT 74 U/L (0-41) H 02/04/21 03:40 Alkaline Phosphatase 90 IU/L (40-130) 02/04/21 03:40 Lactate Dehydrogenase 428 U/L (135-225) H 01/27/21 04:50 Troponin T Baseline 33 ng/L (0-15) H 01/26/21 18:44 Troponin T 120 Minute 31.73 ng/L (0-15) H 01/26/21 21:55 Delta Troponin T -1.27 ABS# (0-10) L 01/26/21 21:55 Troponin T Hi Sens 6Hr 31.76 ng/L (0-15) H 01/27/21 02:10 Troponin T Hi Sens 6Hr Delta -1.24 ng/L (0-12) L 01/27/21 02:10 C-Reactive Protein 134.7 mg/L (0.0-4.9) H 01/28/21 06:30 NT-Pro-B Natriuret Pep 1724 pg/mL (0-125) H 01/26/21 18:44 Total Protein 4.9 g/dL (6.6-8.7) L 02/04/21 03:40 Albumin 2.7 g/dL (3.5-5.2) L 02/04/21 03:40 Globulin 2.2 g/dL (1.3-4.6) 02/04/21 03:40 Procalcitonin 0.21 ng/mL (0-0.5) 01/26/21 18:44 Impressions Chest X-Ray 02/04/21 08:27 IMPRESSION: Patchy alveolar airspace consolidation in the perihilar regions and to a greater degree within the lung bases right greater than left. Moderate subpulmonic effusion on the right. Micro: Microbiology 02/01/21 14:45 Gram Stain - Final Sputum - Endotracheal Tube Aspirate Sputum Culture - Preliminary Yeast A&P Assessment and plan (1) Pneumonia due to severe acute respiratory syndrome coronavirus 2 (SARS-CoV-2): Status: Acute (2) Acute respiratory failure with hypoxia: Status: Acute (3) Hypertension: Status: Acute Qualifiers: Hypertension type: unspecified Qualified Code(s): I10 - Essential (primary) hypertension (4) Chronic kidney disease: Status: Acute Qualifiers: Chronic kidney disease stage: unspecified stage Qualified Code(s): N18.9 - Chronic kidney disease, unspecified (5) Diabetes mellitus: Status: Acute Qualifiers: Diabetes mellitus type: type 2 Diabetes mellitus chcf insulin use: unspecified chcf insulin use status Diabetes mellitus complication status: with kidney complications Diabetes mellitus complication detail: with chronic kidney disease Chronic kidney disease stage: unspecified stage Qualified Code(s): E11.22 - Type 2 diabetes mellitus with diabetic chronic kidney disease (6) Metabolic acidosis: Status: Acute # Acute hypoxic respiratory failure secondary to ARDS due to Covid 19 Pneumonia # Metabolic acidosis in pt with CKD # HTN # Diabetes # h/o A fib - rate controlled - intubated, sedated, paralyzed and proned (3rd session) - On CMV 500/10/50%/28 ABG 7.46/52/54/36/87% - Duoneb q 6 hr nathalie - dexamethasone 6 mg ivp nathalie ; s/p 5 day remdesivir and Tocilizumab 01/28/21 - monitor inflammatory markers q 48 hrs - On levophed 2 mcg/hr - ASA/PLAVIX - Lantus 28 U sub cut and Insulin scale coverage - decrease lantus to 14U - Zosyn for empiric coverage - so far sputum positive for Yeast - id pending - Blood cx - CONS - Contaminant - I/O/N - -300 ml 24 hr / +2.4L since admission - lasix 20 mg one dose - PPI for gi ppx - Elliquis for DVT ppx and chronic A FIB code: Full DVT ppx: Elliquis GI ppx : PPI Prognosis: guarded recommendations conveyed to RN,RT, Hospitalist taking care of the patient. Attestations Medical Necessity Statement*: Acute hypoxic respiratory failure secondary to ARDS due to COVID 19 Pneumonia - intubated, sedated and proned still requiring mechanical ventilator Time Spent in Patient Care: Greater than 35 minutes (>than 50% of time spent in counselling and/or direct pt care on unit) . Critical Care Time: The high probability of a clinically significant, sudden or life threatening deterioration of the patient's [] system(s) required my full and direct attention, intervention and personal management. The critical care time is as shown. This time is in addition to time spent performing any reported procedures but includes the following: [x] Data and vital sign review and interpretation [x] Patient assessment, examination and intervention [x] Documentation [x] Medication orders and management Critical Care Time (min): 60 Coding Level of Care Code Established Pt Acute Bale Breaker Operator for Chg Fwd Patient Type Established History Comprehensive Exam Comprehensive Medical Decision Making High Complexity Diagnoses Pneumonia due to severe acute respiratory syndrome coronavirus 2 (SARS-CoV-2) U07.1; J12.82 Acute respiratory failure with hypoxia J96.01 Hypertension I10 Hypertension type: unspecified Chronic kidney disease N18.9 Chronic kidney disease stage: unspecified stage Diabetes mellitus E11.22 Diabetes mellitus type: type 2 Diabetes mellitus vermin exterminator insulin use: 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 Diabetes mellitus complication status: with kidney complications Diabetes mellitus complication detail: with chronic kidney disease Chronic kidney disease stage: unspecified stage Metabolic acidosis E87.2 Time Spent (min) 60
[2021-02-04 20:27] LABS: Glucose Point of Care 46 mg/dL (70-110)
[2021-02-04] MEDS: dextrose 50% syringe 50 mL IVP (20:37)
[2021-02-04] MEDS: dexamethasone 4 mg/mL INJ 6 MG IVP (20:37)
[2021-02-04] MEDS: FUROsemide 10 mg/mL SDV 2mL 20 MG IVP (21:04)
--- NOTE | 2021-02-04 21:20 | PC.NURSE ---
OTHER CONTACTS Juanita - [phone] Johnathan - [phone] Luis Alfredo - [phone] Osman - [phone] Abe - [phone]
[2021-02-04] MEDS: propofol 1,000 MG/100 ML INJ 27.9 MG IV (22:57)
[2021-02-05] VITALS (60 sets, daily range): BP systolic 114–184; BP diastolic 77–104; PULSE 69–96; RESP 20–26; TEMP 35.3–36.4; O2SAT 87–99
[2021-02-05] MEDS: piperacillin-tazobactam 3.375 GM in sodium chloride 0.9% (plus) 50 ML IV ×3 (02:05→18:23)
[2021-02-05] MEDS: propofol 1,000 MG/100 ML INJ 27.9 MG IV ×2 (02:06→09:31)
[2021-02-05 02:20] LABS: Glucose Point of Care 73 mg/dL (70-110)
--- NOTE | 2021-02-05 03:04 | PC.NURSE ---
VERSED INCREASE Dr carton repairer (Curt) notified of increasing BIS monitor level. Nurse gave summary of sedation being used. Dr ordered nurse to increase versed to 8.
[2021-02-05] MEDS: ipratropium-albuterol 3 mL Neb INHALATION ×4 (03:05→20:42)
[2021-02-05] MEDS: propofol 1,000 MG/100 ML INJ 30.69 MG IV (05:25)
[2021-02-05 05:53] LABS: Basophils % 0.2 %; Eosinophils % 0.3 %; Hematocrit 38.7 % (42.0-52.0); Hemoglobin 12.3 g/dL (11.7-16.6); Lymphocytes # 0.5 10^3/uL (0.8-4.8); Lymphocytes % 5.3 %; Mean Corpuscular HGB Conc 31.8 g/dL (30.0-36.0); Mean Corpuscular Hemoglobin 29.1 pg (28.0-34.0); Mean Corpuscular Volume 91.7 fL (80-94); Mean Platelet Volume 10.5 fL (7.4-10.4); Monocytes # 0.4 10^3/uL (0.2-0.9); Monocytes % 3.9 %; Neutrophils # 8.07 10^3/uL (1.8-7.7); Neutrophils % 89.3 %; Nucleated Red Blood Cells % 0 %; Platelet Count 94 10^3/cmm (130-400); Red Blood Count 4.22 10^6/uL (4.1-5.3); Red Cell Distribution Width 14.9 % (12.1-15.1)
--- NOTE | 2021-02-05 06:14 | PC.NURSE ---
TOF 1900 - 4 2000 - 4 2100 - 4 2200 - 4 2300 - 4 0000 - 4 0100 - 4 0200 - 4 0300 - 4 0400 - 4 0500 - 3 0600 - 4
[2021-02-05 06:18] LABS: Alanine Aminotransferase 93 U/L (0-41); Albumin Level 2.6 g/dL (3.5-5.2); Alkaline Phosphatase 131 IU/L (40-130); Anion Gap 17.5 (5-19); Aspartate Amino Transferase 103 U/L (0-40); Blood Urea Nitrogen 74 mg/dL (8-23); Calcium 7.8 mg/dL (8.5-10.5); Carbon Dioxide 33 mmol/L (22-29); Chloride 101 mmol/L (98-107); Globulin 2.4 g/dL (1.3-4.6); Glomerular Filtration Rate 20.5 mL/min (90-130); Glucose 64 mg/dL (65-115); Magnesium 3.2 mg/dL (1.7-2.3); Osmolality Calculated 324 mOsm/kg (285-295); Phosphorus 7.5 mg/dL (2.5-4.5); Potassium 4.5 mmol/L (3.5-5.1); Sodium 147 mmol/L (136-145); Total Bilirubin 0.7 mg/dL (0.15-1.2)
--- NOTE | 2021-02-05 06:37 | PC.NURSE ---
RT Shift Note Pt was placed supine at 0315. BIS monitor assessment slowly increased. Dr. Elias notified. Orders received and implemented (see previous note and MAR). Frequent safety and respiratory rounds continue. Orders completed as indicated. Blood suagr was taken Q6 and continues to remain within normal limits or low. D50 given once (as indicated) and Dr. Glass notified. No further orders received. Patient monitored pre and post treatments throughout shift. Patient tolerated treatments appropriately. Condition Did Not Change. Patient's educated on respiratory treatment and medications. asks questions/is eager to learn. Will continue to monitor patient progress.
[2021-02-05 09:08] LABS: Glucose Point of Care 61 mg/dL (70-110)
[2021-02-05] MEDS: pantoprazole 40 mg SDV IVP (09:29)
[2021-02-05] MEDS: aspirin 81 mg EC Tablet PO (09:30)
[2021-02-05] MEDS: clopidogrel 75 mg Tablet PO (09:30)
[2021-02-05] MEDS: fluconazole premix 200 MG/100 ML PREMIX 100 MG IV (09:34)
--- NOTE | 2021-02-05 12:20 | PC.NURSE ---
During morning assessment this nurse palpated abdomen and bladder was distended and urine was leaking around catheter. Old catheter was removed and urine immediately was released. New catheter was placed and 1800 ML of tea colored urine with hematuria was in bag. Dr. Glass is aware.
[2021-02-05] MEDS: apixaban 5 mg Tablet 2.5 MG PO ×2 (12:32→21:16)
[2021-02-05] MEDS: propofol 1,000 MG/100 ML INJ 22.32 MG IV ×3 (13:23→23:47)
--- NOTE | 2021-02-05 13:27 | PC.NURSE ---
Patient was proned at 1145. Tolerated well.
[2021-02-05] MEDS: cisatracurium 100 MG in sodium chloride 0.9% 50 ML 8.37 MG IV (14:33)
[2021-02-05 14:54] LABS: ABG PCO2 46.5 mmHg (35-45); ABG PH Result 7.48 (7.35-7.45); Arterial Blood Gas Hematocrit 39.4 % (42-52); Base Excess ABG 10.1 mmol/L (-2.0-2.0); Blood Gas Allen Test Pos; Blood Gas Sample Type Arterial; HCO3 ABG 34.9 mmol/L (22-26); HGB O2 Sat 88.2 % (95-100); Ionized Calcium Level - ABG 1.1 mmol/L (1.1-1.4); Methemoglobin 1.1 % (0.4-1.5); Potassium Level - ABG 4.1 mmol/L (3.5-5.0); Total Hemoglobin 12.8 g/dL (14-18)
[2021-02-05 14:55] LABS: Alveolar-Arterial Oxygen Gradi 31.4 mmHg (5-10); Blood Gas Operator Identificat MONRO; Blood Gas Sample Site Radial, left; Oxygen Device VENT
[2021-02-05] MEDS: dextrose 50% syringe 50 mL IVP (15:13)
--- NOTE | 2021-02-05 17:00 | PC.NUTR ---
Tube feeding recommendations: Recommend continuous TF when pump available, or consider gravity feeding if possible in facility. Recommend Nepro, beginning at 10 ml/hr, increasing by 10 ml/hr q 8 hrs to goal rate of 25 ml/hr with 300 ml H2O flushes q 6 hours, to provide 1080 kcal, 49 g protein, and (or per MD discretion) Noted propofol providing 589 kcal. When propofol decreased, would recommend increasing goal rate to 40 ml/hr. Notified Dr. Glass of recommendatin. See full RD assessment for further details.
[2021-02-05 17:24] LABS: Glucose Point of Care 52 mg/dL (70-110)
[2021-02-05 17:24] LABS: Glucose Point of Care 123 mg/dL (70-110)
--- NOTE | 2021-02-05 18:00 | PC.NURSE ---
TOF BIS 0800- 4 32 1200- 4 46 1600- 4 51 1900- 4 45
[2021-02-05 18:09] LABS: Anion Gap 15.2 (5-19); Blood Urea Nitrogen 79 mg/dL (8-23); Calcium 7.8 mg/dL (8.5-10.5); Carbon Dioxide 32 mmol/L (22-29); Chloride 102 mmol/L (98-107); Glucose 95 mg/dL (65-115); Osmolality Calculated 323 mOsm/kg (285-295); Potassium 4.2 mmol/L (3.5-5.1); Sodium 145 mmol/L (136-145)
[2021-02-05 18:13] LABS: Creatine Phosphokinase 1280 U/L (39-308)
[2021-02-05] MEDS: hyDRALAzine 20 mg/mL INJ 1 mL 25 MG IVP (18:33)
[2021-02-05] MEDS: lactated ringers 1,000 ML 50 ML IV (18:35)
--- NOTE | 2021-02-05 18:46 | PM.PN ---
Subjective Subjective: Interval history: Patient examined in the room when he was proned, sedated and paralyzed Vitals/I&O/Wt Last Vital Signs Temp 95.5 F L 02/05/21 07:30 Pulse 88 02/05/21 18:00 Resp 26 H 02/05/21 17:30 BP 180/104 02/05/21 18:00 Pulse Ox 93 02/05/21 18:00 02/05/21 02/05/21 02/05/21 06:59 14:59 22:59 Intake Total 501.854 / 2264.078 555.372 / 555.372 235 / 790.372 Output Total 150 / 700 1800 / 1800 Balance 351.854 / 1564.078 -1244.628 / -1244.628 235 / -1009.628 Weight last 48 hrs Weight 86.999 kg Physical Exam Narrative: EXAM NARRATIVE: Patient laying in bed prone sedated and intubated Bilateral reduced breath sounds S1, S2 no murmur appreciated No signs of edema of lower extremities Neuro exam is limited Abdomen soft nondistended Skin without any signs of rash or cellulitis Urinary Catheter Management^: Marshall: Cath Placed During This Visit: yes Reason for Continuing Indwelling Catheter: Accurate Measurement of Urinary Output in Critically Ill Patients Urinary Catheter Date of Insertion: 02/01/21 Urinary Catheter Time of Insertion: 11:10 Data : 02/05/21 05:25 02/05/21 17:15 A&P Assessment and plan (1) Metabolic acidosis: Status: Acute (2) Hypertension: Status: Acute (3) Diabetes mellitus: Status: Acute Qualifiers: Diabetes mellitus type: type 2 Diabetes mellitus mcfp insulin use: unspecified continuous churn buttermaker insulin use status Diabetes mellitus complication status: with kidney complications Diabetes mellitus complication detail: with chronic kidney disease Chronic kidney disease stage: unspecified stage Qualified Code(s): E11.22 - Type 2 diabetes mellitus with diabetic chronic kidney disease (4) Chronic kidney disease: Status: Acute Qualifiers: Chronic kidney disease stage: unspecified stage Qualified Code(s): N18.9 - Chronic kidney disease, unspecified (5) History of atrial fibrillation: Status: Acute (6) Hyperglycemia: Status: Acute (7) ARDS (adult respiratory distress syndrome): Status: Acute (8) Pneumonia due to severe acute respiratory syndrome coronavirus 2 (SARS-CoV-2): Status: Acute Additional A&P Information Ventilator dependent respiratory failure Patient in last cycle of proning Severe ARDS Continue steroids, finished remdesivir, got interleukin-6 inhibitor dose as well Sedated and paralyzed Zosyn for empiric coverage On fluconazole IV regimen Management as per Dr. King Afebrile, no leukocytosis, Clinically looks dry sodium 145 Acute on chronic disease: Worsening, might need dialysis in near future, abnormal phosphorus and calcium noted CK 1280 Will need readjustment of dosages of antimicrobials because of worsening kidney function Hyperglycemia, labile blood sugar a few episodes of hypoglycemia, Accu-Cheks every 6 hours Tube feed diet Full code Eliquis renally reduced dose Attestations Medical Necessity Statement*: Third cycle of proning continue ICU management Time Spent in Patient Care: less than 15 minutes Coding Level of Care Code Acute Seaming Machine Operator for Chg Fwd Diagnoses Metabolic acidosis E87.2 Hypertension I10 Diabetes mellitus E11.22 Diabetes mellitus type: type 2 Diabetes mellitus mcfp insulin use: unspecified mcfp insulin use status Diabetes mellitus complication status: with kidney complications Diabetes mellitus complication detail: with chronic kidney disease Chronic kidney disease stage: unspecified stage Chronic kidney disease N18.9 Chronic kidney disease stage: unspecified stage History of atrial fibrillation Z86.79 Hyperglycemia R73.9 ARDS (adult respiratory distress syndrome) J80 Pneumonia due to severe acute respiratory syndrome coronavirus 2 (SARS-CoV-2) U07.1; J12.82
[2021-02-05 20:22] LABS: Glucose Point of Care 78 mg/dL (70-110)
[2021-02-05] MEDS: dexamethasone 4 mg/mL INJ 6 MG IVP (21:16)
--- NOTE | 2021-02-05 21:29 | PC.NURSE ---
Spoke with , Leyla, and let her know plan of action for the evening. Answered all questions.
--- NOTE | 2021-02-05 22:39 | P.PN_ITS ---
Subjective Subjective: Interval history: -Patient dialyzed on room the fourth time today -Labs and imaging reviewed Medications: Reviewed: Yes Vitals/I&O/Wt Last Vital Signs Temp 97.6 F 02/05/21 20:00 Pulse 92 02/05/21 20:43 Resp 26 H 02/05/21 20:44 BP 143/81 02/05/21 20:00 Pulse Ox 91 02/05/21 20:44 02/05/21 02/05/21 02/05/21 06:59 14:59 22:59 Intake Total 501.854 / 2264.078 555.372 / 300.316 1329 / 1870.372 Output Total 150 / 700 1800 / 1800 475 / 2275 Balance 351.854 / 1564.078 -1244.628 / -1244.628 840 / -404.628 Weight last 48 hrs Weight 191 lb 12.8 oz Physical Exam Narrative: EXAM NARRATIVE: General: lying in bed, sedated and intubated. HEENT:NCAT, PERRLA, EOMI Neck: Supple Lungs: Bilateral diffuse crepitations Heart: s1/s2, RRR Abd: soft, NT, ND, BS + Normoactive Extremities: No edema REAL ESTATE LAWYER: sedated and limited REAL ESTATE LAWYER exam possible SKIN: no rash Urinary Catheter Management^: Marshall: Cath Placed During This Visit: yes Reason for Continuing Indwelling Catheter: Accurate Measurement of Urinary Output in Critically Ill Patients Urinary Catheter Date of Insertion: 02/01/21 Urinary Catheter Time of Insertion: 11:10 Data : 02/05/21 05:25 02/05/21 17:15 Other Labs: Laboratory Results WBC 9.0 10^3/uL (4.0-10.0) 02/05/21 05:25 RBC 4.22 10^6/uL (4.1-5.3) 02/05/21 05:25 Hgb 12.3 g/dL (11.7-16.6) 02/05/21 05:25 Hct 38.7 % (42.0-52.0) L 02/05/21 05:25 MCV 91.7 fL (80-94) 02/05/21 05:25 MCH 29.1 pg (28.0-34.0) 02/05/21 05:25 MCHC 31.8 g/dL (30.0-36.0) 02/05/21 05:25 RDW 14.9 % (12.1-15.1) 02/05/21 05:25 Plt Count 94 10^3/cmm (130-400) L 02/05/21 05:25 MPV 10.5 fL (7.4-10.4) H 02/05/21 05:25 Neut % (Auto) 89.3 % 02/05/21 05:25 Lymph % (Auto) 5.3 % 02/05/21 05:25 [place] % (Auto) 3.9 % 02/05/21 05:25 Eos % (Auto) 0.3 % 02/05/21 05:25 Baso % (Auto) 0.2 % 02/05/21 05:25 Neut # (Auto) 8.07 10^3/uL (1.8-7.7) H 02/05/21 05:25 Lymph # (Auto) 0.5 10^3/uL (0.8-4.8) L 02/05/21 05:25 [place] # (Auto) 0.4 10^3/uL (0.2-0.9) 02/05/21 05:25 Eos # (Auto) 0.0 10^3/uL (0.0-0.8) 02/05/21 05:25 Baso # (Auto) 0.0 10^3/uL (0.0-0.1) 02/05/21 05:25 Nucleated RBC % (auto) 0 % 02/05/21 05:25 Nucleated RBCs # 0.0 /100WBC 02/05/21 05:25 D-Dimer 3.27 ug/mIFEU (0-0.59) H 01/28/21 06:30 Specimen Type Arterial 02/05/21 14:41 Sample Site Radial, left 02/05/21 14:41 ABG pH 7.48 (7.35-7.45) H 02/05/21 14:41 ABG pCO2 46.5 mmHg (35-45) H 02/05/21 14:41 ABG pO2 58.0 mmHg (80.0-100.0) L 02/05/21 14:41 ABG HCO3 34.9 mmol/L (22-26) H 02/05/21 14:41 ABG O2 Saturation 90.0 02/05/21 14:41 ABG Base Excess 10.1 mmol/L (-2.0-2.0) H 02/05/21 14:41 Harley Test Pos 02/05/21 14:41 A-a O2 Gradient 31.4 mmHg (5-10) H 02/05/21 14:41 Hematocrit 39.4 % (42-52) L 02/05/21 14:41 Hgb O2 Saturation 88.2 % (95-100) L 02/05/21 14:41 Carboxyhemoglobin 1.0 %THgb (0.4-20.1) 02/05/21 14:41 Methemoglobin 1.1 % (0.4-1.5) 02/05/21 14:41 Total Hemoglobin 12.8 g/dL (14-18) L 02/05/21 14:41 Sodium 149.0 mmol/L (131-143) H 02/05/21 14:41 Potassium 4.1 mmol/L (3.5-5.0) 02/05/21 14:41 Glucose 48.0 mg/dL (70-115) L 02/05/21 14:41 Ionized Calcium 1.1 mmol/L (1.1-1.4) 02/05/21 14:41 O2 Delivery Device Vent 02/05/21 14:41 O2 Liters/Min 40.0 % 01/26/21 21:10 FiO2 50.0 % 02/05/21 14:41 Tidal Volume 0.50 02/05/21 14:41 PEEP 10.0 cmH20 02/05/21 14:41 Engineer Remote Control Diesel ID [place] 02/05/21 14:41 Sodium 145 mmol/L (136-145) 02/05/21 17:15 Potassium 4.2 mmol/L (3.5-5.1) 02/05/21 17:15 Chloride 102 mmol/L (98-107) 02/05/21 17:15 Carbon Dioxide 32 mmol/L (22-29) H 02/05/21 17:15 Anion Gap 15.2 (5-19) 02/05/21 17:15 BUN 79 mg/dL (8-23) H 02/05/21 17:15 Creatinine 3.3 mg/dL (0.7-1.2) H 02/05/21 17:15 GFR Calculation 19.0 mL/min (90-130) L 02/05/21 17:15 Glucose 95 mg/dL (65-115) 02/05/21 17:15 POC Glucose 78 mg/dL (70-110) 02/05/21 20:19 Estimat Average Glucose 243 01/30/21 06:10 Hemoglobin A1c 10.1 % (4.0-6.0) H 01/30/21 06:10 Calculated Osmolality 323 mOsm/kg (285-295) H 02/05/21 17:15 Lactic Acid 3.1 mmol/L (0.5-2.2) H 01/26/21 18:44 Lactic Acid (Sepsis) 2.5 mmol/L (0.5-2.2) H 01/26/21 21:55 Lactate 2.7 mmol/L (0.5-2.2) H 02/02/21 14:40 Calcium 7.8 mg/dL (8.5-10.5) L 02/05/21 17:15 Phosphorus 7.5 mg/dL (2.5-4.5) H 02/05/21 05:25 Magnesium 3.2 mg/dL (1.7-2.3) H 02/05/21 05:25 Ferritin 1542 ng/mL (30-400) H 01/27/21 04:50 Total Bilirubin 0.7 mg/dL (0.15-1.2) 02/05/21 05:25 AST 103 U/L (0-40) H 02/05/21 05:25 ALT 93 U/L (0-41) H 02/05/21 05:25 Alkaline Phosphatase 131 IU/L (40-130) H 02/05/21 05:25 Lactate Dehydrogenase 428 U/L (135-225) H 01/27/21 04:50 Creatine Kinase 1280 U/L (39-308) H* 02/05/21 17:15 Troponin T Baseline 33 ng/L (0-15) H 01/26/21 18:44 Troponin T 120 Minute 31.73 ng/L (0-15) H 01/26/21 21:55 Delta Troponin T -1.27 ABS# (0-10) L 01/26/21 21:55 Troponin T Hi Sens 6Hr 31.76 ng/L (0-15) H 01/27/21 02:10 Troponin T Hi Sens 6Hr Delta -1.24 ng/L (0-12) L 01/27/21 02:10 C-Reactive Protein 134.7 mg/L (0.0-4.9) H 01/28/21 06:30 NT-Pro-B Natriuret Pep 1724 pg/mL (0-125) H 01/26/21 18:44 Total Protein 5.0 g/dL (6.6-8.7) L 02/05/21 05:25 Albumin 2.6 g/dL (3.5-5.2) L 02/05/21 05:25 Globulin 2.4 g/dL (1.3-4.6) 02/05/21 05:25 Procalcitonin 0.21 ng/mL (0-0.5) 01/26/21 18:44 Impressions Chest X-Ray 02/04/21 08:27 IMPRESSION: Patchy alveolar airspace consolidation in the perihilar regions and to a greater degree within the lung bases right greater than left. Moderate subpulmonic effusion on the right. A&P Assessment and plan (1) Pneumonia due to severe acute respiratory syndrome coronavirus 2 (SARS-CoV-2): Status: Acute (2) Acute respiratory failure with hypoxia: Status: Acute (3) Hypertension: Status: Acute Qualifiers: Hypertension type: unspecified Qualified Code(s): I10 - Essential (primary) hypertension (4) Chronic kidney disease: Status: Acute Qualifiers: Chronic kidney disease stage: unspecified stage Qualified Code(s): N18.9 - Chronic kidney disease, unspecified (5) Diabetes mellitus: Status: Acute Qualifiers: Diabetes mellitus type: type 2 Diabetes mellitus intermediate insulin use: unspecified intermediate insulin use status Diabetes mellitus complication status: with kidney complications Diabetes mellitus complication detail: with chronic kidney disease Chronic kidney disease stage: unspecified stage Qualified Code(s): E11.22 - Type 2 diabetes mellitus with diabetic chronic kidney disease (6) Metabolic acidosis: Status: Acute # Acute hypoxic respiratory failure secondary to ARDS due to Covid 19 Pneumonia # Metabolic acidosis in pt with CKD-worsening NASIR # HTN # Diabetes # h/o A fib - rate controlled #Rhabdomyolysis - intubated, sedated, paralyzed and proned (fourth session) - On CMV 500/10/50%/26 ABG 7.4 8/46/58/30 4/90% - Duoneb q 6 hr nathalie - dexamethasone 6 mg ivp nathalie ; s/p 5 day remdesivir and Tocilizumab 01/28/21 - monitor inflammatory markers q 48 hrs -Off pressor - ASA/PLAVIX -Hold Lantus as patient has hypoglycemic episodes -Continue FSBS every 6 monitoring and Insulin scale coverage - Zosyn for empiric coverage - so far sputum positive for Yeast - id pending-on fluconazole - Blood cx - CONS - Contaminant - I/O/N -+1.5 L/ +2.4L since admission - lasix 20 mg one dose -CK-1280, given LR 500 mL - 50 mL/hour - PPI for gi ppx - Elliquis for DVT ppx and chronic A FIB -N.p.o. for today-tube feeding after supinating the patient code: Full DVT ppx: Elliquis GI ppx : PPI Prognosis: guarded Family NOK : Updated recommendations conveyed to RN,RT, Hospitalist taking care of the patient. Attestations Medical Necessity Statement*: Acute hypoxic respiratory failure secondary to ARDS due to COVID 19 Pneumonia - intubated, sedated and proned still requiring mechanical ventilator Time Spent in Patient Care: Greater than 35 minutes (>than 50% of time spent in counselling and/or direct pt care on unit) . Critical Care Time: The high probability of a clinically significant, sudden or life threatening deterioration of the patient's [respiratory, endocrine, renal] system(s) required my full and direct attention, intervention and personal management. The critical care time is as shown. This time is in addition to time spent performing any reported procedures but includes the following: [x] Data and vital sign review and interpretation [x] Patient assessment, examination and intervention [x] Documentation [x] Medication orders and management Critical Care Time (min): 45 Coding Level of Care Code Established Pt Acute Music Mixer for Chg Fwd Patient Type Established History Comprehensive Exam Comprehensive Medical Decision Making High Complexity Diagnoses Pneumonia due to severe acute respiratory syndrome coronavirus 2 (SARS-CoV-2) U07.1; J12.82 Acute respiratory failure with hypoxia J96.01 Hypertension I10 Hypertension type: unspecified Chronic kidney disease N18.9 Chronic kidney disease stage: unspecified stage Diabetes mellitus E11.22 Diabetes mellitus type: type 2 Diabetes mellitus long filler cigar roller machine insulin use: unspecified long filler cigar roller machine insulin use status Diabetes mellitus complication status: with kidney complications Diabetes mellitus complication detail: with chronic kidney disease Chronic kidney disease stage: unspecified stage Metabolic acidosis E87.2 Time Spent (min) 45
[2021-02-06] VITALS (59 sets, daily range): BP systolic 89–157; BP diastolic 62–98; PULSE 75–104; RESP 22–26; TEMP 36.1–36.9; O2SAT 89–99
[2021-02-06] MEDS: ipratropium-albuterol 3 mL Neb INHALATION ×4 (02:44→22:20)
--- NOTE | 2021-02-06 02:47 | PC.RESP ---
RT Shift Note Frequent safety and respiratory rounds continue. Orders completed as indicated. Patient monitored pre and post treatments throughout shift. Patient [Did.] tolerate treatments appropriately. Condition [.DidNotChange]. Patient and/or sales representative wire rope educated on respiratory treatment and medications. Patient and/or sales representative wire rope [unable to comprehend]. Will continue to monitor patient progress.
[2021-02-06] MEDS: piperacillin-tazobactam 3.375 GM in sodium chloride 0.9% (plus) 50 ML IV ×3 (02:55→18:15)
[2021-02-06 03:30] LABS: Glucose Point of Care 99 mg/dL (70-110)
--- NOTE | 2021-02-06 04:42 | PC.NURSE ---
Pt put supine without difficulty. BIS 43, TOF-4
[2021-02-06] MEDS: cisatracurium 100 MG in sodium chloride 0.9% 50 ML 8.37 MG IV (04:45)
[2021-02-06] MEDS: propofol 1,000 MG/100 ML INJ 22.32 MG IV ×4 (04:45→19:51)
[2021-02-06 07:56] LABS: Glucose Point of Care 121 mg/dL (70-110)
[2021-02-06] MEDS: pantoprazole 40 mg SDV IVP (08:40)
[2021-02-06] MEDS: aspirin 81 mg EC Tablet PO (08:41)
[2021-02-06] MEDS: clopidogrel 75 mg Tablet PO (08:41)
[2021-02-06] MEDS: apixaban 5 mg Tablet 2.5 MG PO ×2 (08:41→22:07)
--- NOTE | 2021-02-06 09:48 | XR_ITS ---
WS: [id number] Portable AP semiupright chest, 02/06/2021 Clinical Data: pneumonia Comparison: Portable chest, 02/04/2021. Findings: The patchy bilateral pulmonary opacities throughout both lungs especially in the lower lobe s have not changed. The heart is normal. The aortic arch shows minimal calcification. The endotrachea l tube, right internal jugular venous catheter and nasogastric tube remain in good position. Monitor leads are on the chest wall. XR/XR chest 1V portable [id number] Impression: 1. No change in patchy bilateral pulmonary opacities consistent with pneumonia. 2. No change in position of multiple tubes.
[2021-02-06] MEDS: fluconazole premix 200 MG/100 ML PREMIX 100 MG IV (10:05)
--- NOTE | 2021-02-06 10:48 | PC.CHAP ---
Pastoral Care Encounter/Spiritual Assessment Type of Contact [] Declined fur examiner visit [] Patient/Family/Request visit [] Outpatient visit [] Follow-up visit [] Physician referral [] Code/Alert [x] Routine visit [] Staff referral [] Actively dying [] Patient sleeping [] Family support [] [] Out of room [] Palliative care [] [x] Receiving care in room [] Pre-surgical visit [] Trauma [] Long length of stay [x] ICU visit [] Other: Relational/Emotional Strength [] Patient feels connected with others/family/visitors/staff [] Distress [] Loneliness/isolation [] Abandonment Spirituality of Patient [] Person of Shalonda [] Attends Gnosticism of their Shalonda [] Believes in Prayer [] Reads Bible or Shinto materials [] There are Spiritual issues to be addressed Manager Bilingual Interventions [x] Prayer [] Active listening [] Non-anxious presence [] Spiritual/emotional support [] Crisis/trauma care [] Spiritual counseling [] Bereavement support [] Provided bereavement packet [] Provided Bible/devotional materials [] Provided toy/stuffed animal, coloring book to patient or family member [] Provided Communion [] Anointing/[place] [] Salvation [x] Completed spiritual assessment [] Other: Impact on Illness or Injury [] Angry [] Fearful [] Anxious [] Often cries [] Exhaustion [] Unable to work [] Unable to attend buddhism [] Unable to walk/stand [] Unable to read [] Unable to drive [] Unable to eat/drink [] Unable to sleep [] Unable to be with family [] Patient intubated [] Other: Summary Time spent with patient
--- NOTE | 2021-02-06 11:12 | PC.NURSE ---
Patients left lower leg and goot is cold and pale. Pulse was palpated. Dr. Goncalvesr aware
[2021-02-06 11:42] LABS: Glucose Point of Care 117 mg/dL (70-110)
[2021-02-06 12:37] LABS: Basophils % 0.1 %; Eosinophils % 0.3 %; Hematocrit 38.3 % (42.0-52.0); Lymphocytes # 0.5 10^3/uL (0.8-4.8); Lymphocytes % 5.9 %; Mean Corpuscular HGB Conc 31.3 g/dL (30.0-36.0); Mean Corpuscular Hemoglobin 29.8 pg (28.0-34.0); Mean Platelet Volume 10.5 fL (7.4-10.4); Monocytes # 0.4 10^3/uL (0.2-0.9); Neutrophils # 7.85 10^3/uL (1.8-7.7); Neutrophils % 88.6 %; Nucleated Red Blood Cells % 0 %; Platelet Count 95 10^3/cmm (130-400); Red Blood Count 4.03 10^6/uL (4.1-5.3); Red Cell Distribution Width 15.3 % (12.1-15.1); White Blood Count 8.9 10^3/uL (4.0-10.0)
[2021-02-06 12:59] LABS: Alanine Aminotransferase 100 U/L (0-41); Albumin Level 2.7 g/dL (3.5-5.2); Alkaline Phosphatase 131 IU/L (40-130); Anion Gap 17.8 (5-19); Aspartate Amino Transferase 85 U/L (0-40); Blood Urea Nitrogen 76 mg/dL (8-23); Carbon Dioxide 29 mmol/L (22-29); Chloride 107 mmol/L (98-107); Globulin 2.6 g/dL (1.3-4.6); Glomerular Filtration Rate 22.1 mL/min (90-130); Glucose 118 mg/dL (65-115); Osmolality Calculated 332 mOsm/kg (285-295); Potassium 4.8 mmol/L (3.5-5.1); Sodium 149 mmol/L (136-145); Total Bilirubin 0.5 mg/dL (0.15-1.2); Total Protein 5.3 g/dL (6.6-8.7)
[2021-02-06 13:07] LABS: Creatine Phosphokinase 774 U/L (39-308)
[2021-02-06 15:06] LABS: Glucose Point of Care 96 mg/dL (70-110)
--- NOTE | 2021-02-06 15:18 | PM.PN ---
Subjective Subjective: Interval history: Status post 4 cycles of proning Sedation vacation Negative fluid balance Afebrile Hypernatremia noted Creatinine 2.9, adequate urine output, polyuric POC glucose 96 Vitals/I&O/Wt Last Vital Signs Temp 97.0 F L 02/06/21 08:00 Pulse 79 02/06/21 15:00 Resp 26 H 02/06/21 11:35 BP 118/85 02/06/21 15:00 Pulse Ox 95 02/06/21 15:00 02/06/21 02/06/21 02/06/21 06:59 14:59 22:59 Intake Total 550 / 2670.372 500.223 / 500.223 50.233 / 550.456 Output Total 1800 / 4075 625 / 625 Balance -1250 / -1404.628 -124.777 / -124.777 50.233 / -74.544 Weight last 48 hrs Weight 86.664 kg Physical Exam Narrative: EXAM NARRATIVE: Patient was laying supine Intubated sedated and paralyzed S1, S2 sinus rhythm Abdomen soft Right-sided IJ Lower extremity no edema No signs of fluid overload Neuro exam limited Pinpoint pupils Urinary Catheter Management^: Marshall: Cath Placed During This Visit: yes Reason for Continuing Indwelling Catheter: Accurate Measurement of Urinary Output in Critically Ill Patients Urinary Catheter Date of Insertion: 02/01/21 Urinary Catheter Time of Insertion: 11:10 Data : 02/06/21 12:00 02/06/21 12:00 A&P Assessment and plan (1) Metabolic acidosis: Status: Acute (2) Diabetes mellitus: Status: Acute Qualifiers: Diabetes mellitus type: type 2 Diabetes mellitus ocean transportation intermediary insulin use: unspecified ocean transportation intermediary insulin use status Diabetes mellitus complication status: with kidney complications Diabetes mellitus complication detail: with chronic kidney disease Chronic kidney disease stage: unspecified stage Qualified Code(s): E11.22 - Type 2 diabetes mellitus with diabetic chronic kidney disease (3) Chronic kidney disease: Status: Acute Qualifiers: Chronic kidney disease stage: unspecified stage Qualified Code(s): N18.9 - Chronic kidney disease, unspecified (4) History of atrial fibrillation: Status: Acute (5) Hyperglycemia: Status: Acute (6) ARDS (adult respiratory distress syndrome): Status: Acute (7) Pneumonia due to severe acute respiratory syndrome coronavirus 2 (SARS-CoV-2): Status: Acute (8) Acute respiratory failure with hypoxia: Status: Acute (9) Hyperosmolar hyperglycemic state (HHS): Status: Acute Additional A&P Information Severe ARDS secondary to COVID-19 pneumonia Status post 4 cycles of proning Sedation vacation today Start waking up & weaning trial afterward Has stayed afebrile no leukocytosis Oxygen requirement has not worsened Continue empirical coverage On fluconazole for yeast sputum positive culture Patient seems to be around polyuric range of urine output, hypernatremia 149, will benefit from fluid hydration CK improving Acute on chronic kidney disease: Creatinine seems to run 2.9 today Hyperglycemia: Currently euglycemic Eliquis for DVT Tube feed Guarded prognosis Full code Attestations Medical Necessity Statement*: Continue ICU care Time Spent in Patient Care: less than 15 minutes Coding Level of Care Code Acute Truck Mechanic for Chg Fwd Diagnoses Metabolic acidosis E87.2 Diabetes mellitus E11.22 Diabetes mellitus type: type 2 Diabetes mellitus alf insulin use: unspecified ocean transportation intermediary insulin use status Diabetes mellitus complication status: with kidney complications Diabetes mellitus complication detail: with chronic kidney disease Chronic kidney disease stage: unspecified stage Chronic kidney disease N18.9 Chronic kidney disease stage: unspecified stage History of atrial fibrillation Z86.79 Hyperglycemia R73.9 ARDS (adult respiratory distress syndrome) J80 Pneumonia due to severe acute respiratory syndrome coronavirus 2 (SARS-CoV-2) U07.1; J12.82 Acute respiratory failure with hypoxia J96.01 Hyperosmolar hyperglycemic state (HHS) E11.00; E11.65
[2021-02-06 17:31] LABS: Glucose Point of Care 91 mg/dL (70-110)
--- NOTE | 2021-02-06 19:02 | PC.NURSE ---
Nimbex was shut off this shift. Gag reflex has returned.
--- NOTE | 2021-02-06 20:05 | PM.PN ---
Subjective Subjective: Interval history: -Patient seen at bedside today morning -Completed 4 sessions of proning -Plan today is to taper down paralytic and sedation -Labs and imaging reviewed Medications: Reviewed: Yes Vitals/I&O/Wt Last Vital Signs Temp 97.0 F L 02/06/21 08:00 Pulse 89 02/06/21 18:00 Resp 22 H 02/06/21 17:46 BP 148/95 02/06/21 18:00 Pulse Ox 92 02/06/21 18:00 02/06/21 02/06/21 02/06/21 06:59 14:59 22:59 Intake Total 550 / 2670.372 600.223 / 968.616 9727.781 / 1872.004 Output Total 1800 / 4075 625 / 625 700 / 1325 Balance -1250 / -1404.628 -24.777 / -24.777 571.781 / 547.004 Weight last 48 hrs Weight 191 lb 1 oz Physical Exam Narrative: EXAM NARRATIVE: General: lying in bed, sedated and intubated. HEENT:NCAT, PERRLA, EOMI Neck: Supple Lungs: Bilateral diffuse crepitations Heart: s1/s2, RRR Abd: soft, NT, ND, BS + Normoactive Extremities: No edema PRIMARY SPECIAL EDUCATION TEACHER: sedated and limited PRIMARY SPECIAL EDUCATION TEACHER exam possible SKIN: no rash Urinary Catheter Management^: Marshall: Cath Placed During This Visit: yes Reason for Continuing Indwelling Catheter: Accurate Measurement of Urinary Output in Critically Ill Patients Urinary Catheter Date of Insertion: 02/01/21 Urinary Catheter Time of Insertion: 11:10 Data : 02/06/21 12:00 02/06/21 12:00 Other Labs: Laboratory Results WBC 8.9 10^3/uL (4.0-10.0) 02/06/21 12:00 RBC 4.03 10^6/uL (4.1-5.3) L 02/06/21 12:00 Hgb 12.0 g/dL (11.7-16.6) 02/06/21 12:00 Hct 38.3 % (42.0-52.0) L 02/06/21 12:00 MCV 95.0 fL (80-94) H 02/06/21 12:00 MCH 29.8 pg (28.0-34.0) 02/06/21 12:00 MCHC 31.3 g/dL (30.0-36.0) 02/06/21 12:00 RDW 15.3 % (12.1-15.1) H 02/06/21 12:00 Plt Count 95 10^3/cmm (130-400) L 02/06/21 12:00 MPV 10.5 fL (7.4-10.4) H 02/06/21 12:00 Neut % (Auto) 88.6 % 02/06/21 12:00 Lymph % (Auto) 5.9 % 02/06/21 12:00 [place] % (Auto) 4.0 % 02/06/21 12:00 Eos % (Auto) 0.3 % 02/06/21 12:00 Baso % (Auto) 0.1 % 02/06/21 12:00 Neut # (Auto) 7.85 10^3/uL (1.8-7.7) H 02/06/21 12:00 Lymph # (Auto) 0.5 10^3/uL (0.8-4.8) L 02/06/21 12:00 [place] # (Auto) 0.4 10^3/uL (0.2-0.9) 02/06/21 12:00 Eos # (Auto) 0.0 10^3/uL (0.0-0.8) 02/06/21 12:00 Baso # (Auto) 0.0 10^3/uL (0.0-0.1) 02/06/21 12:00 Nucleated RBC % (auto) 0 % 02/06/21 12:00 Nucleated RBCs # 0.0 /100WBC 02/06/21 12:00 D-Dimer 3.27 ug/mIFEU (0-0.59) H 01/28/21 06:30 Specimen Type Arterial 02/05/21 14:41 Sample Site Radial, left 02/05/21 14:41 ABG pH 7.48 (7.35-7.45) H 02/05/21 14:41 ABG pCO2 46.5 mmHg (35-45) H 02/05/21 14:41 ABG pO2 58.0 mmHg (80.0-100.0) L 02/05/21 14:41 ABG HCO3 34.9 mmol/L (22-26) H 02/05/21 14:41 ABG O2 Saturation 90.0 02/05/21 14:41 ABG Base Excess 10.1 mmol/L (-2.0-2.0) H 02/05/21 14:41 Harley Test Pos 02/05/21 14:41 A-a O2 Gradient 31.4 mmHg (5-10) H 02/05/21 14:41 Hematocrit 39.4 % (42-52) L 02/05/21 14:41 Hgb O2 Saturation 88.2 % (95-100) L 02/05/21 14:41 Carboxyhemoglobin 1.0 %THgb (0.4-20.1) 02/05/21 14:41 Methemoglobin 1.1 % (0.4-1.5) 02/05/21 14:41 Total Hemoglobin 12.8 g/dL (14-18) L 02/05/21 14:41 Sodium 149.0 mmol/L (131-143) H 02/05/21 14:41 Potassium 4.1 mmol/L (3.5-5.0) 02/05/21 14:41 Glucose 48.0 mg/dL (70-115) L 02/05/21 14:41 Ionized Calcium 1.1 mmol/L (1.1-1.4) 02/05/21 14:41 O2 Delivery Device Vent 02/05/21 14:41 O2 Liters/Min 40.0 % 01/26/21 21:10 FiO2 50.0 % 02/05/21 14:41 Tidal Volume 0.50 02/05/21 14:41 PEEP 10.0 cmH20 02/05/21 14:41 Melting Furnace Skimmer ID [place] 02/05/21 14:41 Sodium 149 mmol/L (136-145) H 02/06/21 12:00 Potassium 4.8 mmol/L (3.5-5.1) 02/06/21 12:00 Chloride 107 mmol/L (98-107) 02/06/21 12:00 Carbon Dioxide 29 mmol/L (22-29) 02/06/21 12:00 Anion Gap 17.8 (5-19) 02/06/21 12:00 BUN 76 mg/dL (8-23) H 02/06/21 12:00 Creatinine 2.9 mg/dL (0.7-1.2) H 02/06/21 12:00 GFR Calculation 22.1 mL/min (90-130) L 02/06/21 12:00 Glucose 118 mg/dL (65-115) H 02/06/21 12:00 POC Glucose 91 mg/dL (70-110) 02/06/21 17:29 Estimat Average Glucose 243 01/30/21 06:10 Hemoglobin A1c 10.1 % (4.0-6.0) H 01/30/21 06:10 Calculated Osmolality 332 mOsm/kg (285-295) H 02/06/21 12:00 Lactic Acid 3.1 mmol/L (0.5-2.2) H 01/26/21 18:44 Lactic Acid (Sepsis) 2.5 mmol/L (0.5-2.2) H 01/26/21 21:55 Lactate 2.7 mmol/L (0.5-2.2) H 02/02/21 14:40 Calcium 8.0 mg/dL (8.5-10.5) L 02/06/21 12:00 Phosphorus 7.5 mg/dL (2.5-4.5) H 02/05/21 05:25 Magnesium 3.0 mg/dL (1.7-2.3) H 02/06/21 12:00 Ferritin 1542 ng/mL (30-400) H 01/27/21 04:50 Total Bilirubin 0.5 mg/dL (0.15-1.2) 02/06/21 12:00 AST 85 U/L (0-40) H 02/06/21 12:00 ALT 100 U/L (0-41) H 02/06/21 12:00 Alkaline Phosphatase 131 IU/L (40-130) H 02/06/21 12:00 Lactate Dehydrogenase 428 U/L (135-225) H 01/27/21 04:50 Creatine Kinase 774 U/L (39-308) H* 02/06/21 12:00 Troponin T Baseline 33 ng/L (0-15) H 01/26/21 18:44 Troponin T 120 Minute 31.73 ng/L (0-15) H 01/26/21 21:55 Delta Troponin T -1.27 ABS# (0-10) L 01/26/21 21:55 Troponin T Hi Sens 6Hr 31.76 ng/L (0-15) H 01/27/21 02:10 Troponin T Hi Sens 6Hr Delta -1.24 ng/L (0-12) L 01/27/21 02:10 C-Reactive Protein 134.7 mg/L (0.0-4.9) H 01/28/21 06:30 NT-Pro-B Natriuret Pep 1724 pg/mL (0-125) H 01/26/21 18:44 Total Protein 5.3 g/dL (6.6-8.7) L 02/06/21 12:00 Albumin 2.7 g/dL (3.5-5.2) L 02/06/21 12:00 Globulin 2.6 g/dL (1.3-4.6) 02/06/21 12:00 Procalcitonin 0.21 ng/mL (0-0.5) 01/26/21 18:44 Impressions Chest X-Ray 02/06/21 09:48 Impression: 1. No change in patchy bilateral pulmonary opacities consistent with pneumonia. 2. No change in position of multiple tubes. A&P Assessment and plan (1) Pneumonia due to severe acute respiratory syndrome coronavirus 2 (SARS-CoV-2): Status: Acute (2) Acute respiratory failure with hypoxia: Status: Acute (3) Hypertension: Status: Acute Qualifiers: Hypertension type: unspecified Qualified Code(s): I10 - Essential (primary) hypertension (4) Chronic kidney disease: Status: Acute Qualifiers: Chronic kidney disease stage: unspecified stage Qualified Code(s): N18.9 - Chronic kidney disease, unspecified (5) Diabetes mellitus: Status: Acute Qualifiers: Diabetes mellitus type: type 2 Diabetes mellitus group home insulin use: unspecified group home insulin use status Diabetes mellitus complication status: with kidney complications Diabetes mellitus complication detail: with chronic kidney disease Chronic kidney disease stage: unspecified stage Qualified Code(s): E11.22 - Type 2 diabetes mellitus with diabetic chronic kidney disease (6) Metabolic acidosis: Status: Acute # Acute hypoxic respiratory failure secondary to ARDS due to Covid 19 Pneumonia # Metabolic acidosis in pt with CKD-worsening NASIR # HTN # Diabetes # h/o A fib - rate controlled #Rhabdomyolysis - intubated, sedated, paralyzed and proned x 4 -Plan is to taper off paralytic and sedation and do spontaneous awakening trial - On AC 26/500/9/45%- - Duoneb q 6 hr nathalie - dexamethasone 6 mg ivp nathalie ; s/p 5 day remdesivir and Tocilizumab 01/28/21 - monitor inflammatory markers q 48 hrs -Off pressor - ASA/PLAVIX -Hold Lantus as patient has hypoglycemic episodes -Continue FSBS every 6 monitoring and Insulin scale coverage - Zosyn for empiric coverage - so far sputum positive for Yeast - id pending-on fluconazole - Blood cx - CONS - Contaminant - I/O/N -+2.4 L/+4 L / -1.6 L since admission - lasix 20 mg one dose -CK-1280, given LR 500 mL - 50 mL/hour - PPI for gi ppx - Elliquis for DVT ppx and chronic A FIB -Start tube feeding code: Full DVT ppx: Elliquis GI ppx : PPI Prognosis: guarded Family NOK : Updated recommendations conveyed to RN,RT, Hospitalist taking care of the patient. Attestations Medical Necessity Statement*: Acute hypoxic respiratory failure secondary to ARDS due to COVID 19 Pneumonia - intubated, sedated and proned still requiring mechanical ventilator Time Spent in Patient Care: Greater than 35 minutes (>than 50% of time spent in counselling and/or direct pt care on unit). Critical Care Time: The high probability of a clinically significant, sudden or life threatening deterioration of the patient's [respiratory, endocrine, renal] system(s) required my full and direct attention, intervention and personal management. The critical care time is as shown. This time is in addition to time spent performing any reported procedures but includes the following: [x] Data and vital sign review and interpretation [x] Patient assessment, examination and intervention [x] Documentation [x] Medication orders and management Critical Care Time (min): 45 Coding Level of Care Code Established Pt Acute Translation Director for Chg Fwd Patient Type Established History Comprehensive Exam Comprehensive Medical Decision Making High Complexity Diagnoses Pneumonia due to severe acute respiratory syndrome coronavirus 2 (SARS-CoV-2) U07.1; J12.82 Acute respiratory failure with hypoxia J96.01 Hypertension I10 Hypertension type: unspecified Chronic kidney disease N18.9 Chronic kidney disease stage: unspecified stage Diabetes mellitus E11.22 Diabetes mellitus type: type 2 Diabetes mellitus terminal operator insulin use: unspecified terminal operator insulin use status Diabetes mellitus complication status: with kidney complications Diabetes mellitus complication detail: with chronic kidney disease Chronic kidney disease stage: unspecified stage Metabolic acidosis E87.2 Time Spent (min) 45
[2021-02-06] MEDS: dexamethasone 4 mg/mL INJ 6 MG IVP (22:07)
[2021-02-06 22:37] LABS: Glucose Point of Care 111 mg/dL (70-110)
[2021-02-07] VITALS (45 sets, daily range): BP systolic 80–208; BP diastolic 52–127; PULSE 83–121; RESP 25–27; TEMP 36.8–37.2; O2SAT 83–100
[2021-02-07] MEDS: hyDRALAzine 20 mg/mL INJ 1 mL 25 MG IVP ×3 (00:04→15:44)
[2021-02-07] MEDS: propofol 1,000 MG/100 ML INJ 22.32 MG IV (01:05)
[2021-02-07] MEDS: ipratropium-albuterol 3 mL Neb INHALATION ×4 (02:35→21:43)
[2021-02-07] MEDS: piperacillin-tazobactam 3.375 GM in sodium chloride 0.9% (plus) 50 ML IV ×4 (03:15→20:11)
[2021-02-07 04:04] LABS: Glucose Point of Care 185 mg/dL (70-110)
[2021-02-07] MEDS: propofol 1,000 MG/100 ML INJ 30.69 MG IV ×2 (04:32→09:25)
--- NOTE | 2021-02-07 05:55 | PC.NURSE ---
Shift Note Frequent safety and comfort rounds continue. Orders and/or nursing care completed as indicated. Blood pressure started high early on during shift, PRN hydralazine given and Dr. Elias notified (see MAR). No further orders given. While performing oral care, nurse noticed patient opening his eyes to stimulation. Patient monitored for response to intervention and treatment(s). Education provided to about ventilator settings and oxygen levels. Patient's eager to learn and asked questions when appropriate. Will continue to monitor.
[2021-02-07] MEDS: apixaban 5 mg Tablet 2.5 MG PO ×2 (08:38→21:13)
[2021-02-07] MEDS: aspirin 81 mg EC Tablet PO (08:38)
[2021-02-07] MEDS: pantoprazole 40 mg SDV IVP (08:38)
[2021-02-07] MEDS: clopidogrel 75 mg Tablet PO (08:39)
[2021-02-07] MEDS: fluconazole premix 200 MG/100 ML PREMIX 100 MG IV (10:27)
--- NOTE | 2021-02-07 10:40 | PC.NURSE ---
Pt's , Leyla, called multiple times this morning for update. Nurse able to return phone call. Informed that sedation was being decreased per Dr Glass's wishes and that Precedex may be added to provide pt additional comfort. asked if she was allowed to visit. Discussed with Dr Glass. Dr Glass stated no visitors at this time. disappointed but remained pleasant.
[2021-02-07 11:31] LABS: Glucose Point of Care 175 mg/dL (70-110)
[2021-02-07 13:20] LABS: Basophils % 0.2 %; Eosinophils % 0.2 %; Hematocrit 41.8 % (42.0-52.0); Hemoglobin 12.8 g/dL (11.7-16.6); Lymphocytes # 0.6 10^3/uL (0.8-4.8); Lymphocytes % 5.4 %; Mean Corpuscular HGB Conc 30.6 g/dL (30.0-36.0); Mean Corpuscular Hemoglobin 29.6 pg (28.0-34.0); Mean Corpuscular Volume 96.8 fL (80-94); Mean Platelet Volume 10.5 fL (7.4-10.4); Monocytes # 0.5 10^3/uL (0.2-0.9); Monocytes % 4.5 %; Neutrophils % 88.3 %; Nucleated Red Blood Cells % 0.2 %; Platelet Count 99 10^3/cmm (130-400); Red Blood Count 4.32 10^6/uL (4.1-5.3); Red Cell Distribution Width 15.7 % (12.1-15.1); White Blood Count 10.4 10^3/uL (4.0-10.0)
[2021-02-07 14:00] LABS: Alanine Aminotransferase 90 U/L (0-41); Albumin Level 3.2 g/dL (3.5-5.2); Alkaline Phosphatase 140 IU/L (40-130); Anion Gap 16.7 (5-19); Aspartate Amino Transferase 66 U/L (0-40); Blood Urea Nitrogen 80 mg/dL (8-23); Calcium 8.8 mg/dL (8.5-10.5); Carbon Dioxide 27 mmol/L (22-29); Chloride 110 mmol/L (98-107); Globulin 2.8 g/dL (1.3-4.6); Glomerular Filtration Rate 25.1 mL/min (90-130); Glucose 158 mg/dL (65-115); Osmolality Calculated 335 mOsm/kg (285-295); Potassium 4.7 mmol/L (3.5-5.1); Sodium 149 mmol/L (136-145); Total Bilirubin 0.6 mg/dL (0.15-1.2)
[2021-02-07 14:02] LABS: Glucose Point of Care 132 mg/dL (70-110)
[2021-02-07 14:15] LABS: Creatine Phosphokinase 1096 U/L (39-308)
--- NOTE | 2021-02-07 15:40 | PC.NURSE ---
Dr Glass ordered Hydralazine to be administered slightly early.
[2021-02-07] MEDS: dexmedetomidine 400 MCG in sodium chloride 0.9% (100 ml) 100 ML IV (15:43)
[2021-02-07] MEDS: propofol 1,000 MG/100 ML INJ 13.95 MG IV (15:54)
[2021-02-07 17:40] LABS: Glucose Point of Care 105 mg/dL (70-110)
[2021-02-07 17:40] LABS: Glucose Point of Care 97 mg/dL (70-110)
--- NOTE | 2021-02-07 17:52 | PC.RESP ---
RT Shift Note Frequent safety and respiratory rounds continue. Orders completed as indicated. Patient monitored pre and post treatments throughout shift. Patient [Did.] tolerate treatments appropriately. Condition [.DidNotChange]. Patient and/or client relations representative educated on respiratory treatment and medications. Patient and/or client relations representative [unable to comprehend]. Will continue to monitor patient progress.
--- NOTE | 2021-02-07 18:03 | PM.PN ---
Subjective Subjective: Interval history: Seen and examined Patient is intubated and sedated Status post 4 cycles of proning Awakening trial Sedation vacation Wean off pressors Vitals/I&O/Wt Last Vital Signs Temp 98.9 F 02/07/21 11:30 Pulse 101 H 02/07/21 16:56 Resp 27 H 02/07/21 16:57 BP 208/107 02/07/21 16:00 Pulse Ox 90 02/07/21 16:57 02/07/21 02/07/21 02/07/21 06:59 14:59 22:59 Intake Total 634.542 / 2576.046 278.833 / 278.833 60.032 / 338.865 Output Total 950 / 2275 1420 / 1420 Balance -315.458 / 301.046 278.833 / 278.833 -1359.968 / -1081.135 Weight last 48 hrs Weight 86.664 kg Physical Exam Narrative: EXAM NARRATIVE: Intubated and sedated Neuro exam limited Pinpoint pupils Bilateral breath sounds assisted, diminished Abdomen soft Right IJ in place Lower extremity no edema Urinary Catheter Management^: Marshall: Cath Placed During This Visit: yes Reason for Continuing Indwelling Catheter: Accurate Measurement of Urinary Output in Critically Ill Patients Urinary Catheter Date of Insertion: 02/01/21 Urinary Catheter Time of Insertion: 11:10 Data : 02/07/21 12:46 02/07/21 12:46 A&P Assessment and plan (1) ARDS (adult respiratory distress syndrome): Status: Acute (2) Pneumonia due to severe acute respiratory syndrome coronavirus 2 (SARS-CoV-2): Status: Acute (3) History of atrial fibrillation: Status: Acute (4) Chronic kidney disease: Status: Acute Qualifiers: Chronic kidney disease stage: unspecified stage Qualified Code(s): N18.9 - Chronic kidney disease, unspecified (5) Diabetes mellitus: Status: Acute Qualifiers: Diabetes mellitus type: type 2 Diabetes mellitus terminal press operator insulin use: unspecified terminal press operator insulin use status Diabetes mellitus complication status: with kidney complications Diabetes mellitus complication detail: with chronic kidney disease Chronic kidney disease stage: unspecified stage Qualified Code(s): E11.22 - Type 2 diabetes mellitus with diabetic chronic kidney disease (6) Hypertension: Status: Acute (7) Metabolic acidosis: Status: Acute (8) Hyperosmolar hyperglycemic state (HHS): Status: Acute Additional A&P Information Ventilator dependent respiratory failure secondary to severe ARDS related to COVID-19 Finished 4 cycles of proning Wean off pressors Awakening trials, sedation vacation Wean off oxygen requirement Management as per field services manager Hypernatremia Negative fluid balance Hypernatremia secondary to free water deficit, may benefit from water flushes with tube feeds Acute on chronic kidney disease Creatinine trending down Might get better with water flushes and replenishment of intravascular volume No signs of acidosis potassium 4.7 Uremia secondary to dehydration as well Sputum culture grew yeast On fluconazole Zosyn as empirical coverage Blood culture most likely contaminant, plan to de-escalate antibiotics if clinically stays stable Eliquis for A. fib would suffice for DVT Currently on reduced dose secondary to NASIR Type 2 diabetes, currently euglycemic, Lantus on hold secondary to hypoglycemic events Full code Attestations Medical Necessity Statement*: Intubated continue ICU care Time Spent in Patient Care: less than 15 minutes Coding Level of Care Code Acute High School Foreign Language Tutor for [facility] Fwd Diagnoses ARDS (adult respiratory distress syndrome) J80 Pneumonia due to severe acute respiratory syndrome coronavirus 2 (SARS-CoV-2) U07.1; J12.82 History of atrial fibrillation Z86.79 Chronic kidney disease N18.9 Chronic kidney disease stage: unspecified stage Diabetes mellitus E11.22 Diabetes mellitus type: type 2 Diabetes mellitus terminal press operator insulin use: unspecified alf insulin use status Diabetes mellitus complication status: with kidney complications Diabetes mellitus complication detail: with chronic kidney disease Chronic kidney disease stage: unspecified stage Hypertension I10 Metabolic acidosis E87.2 Hyperosmolar hyperglycemic state (HHS) E11.00; E11.65
[2021-02-07 20:25] LABS: Glucose Point of Care 120 mg/dL (70-110)
[2021-02-07] MEDS: propofol 1,000 MG/100 ML INJ 25.11 MG IV (20:49)
[2021-02-07] MEDS: dexamethasone 4 mg/mL INJ 6 MG IVP (21:13)
--- NOTE | 2021-02-07 22:22 | PM.PN ---
Subjective Subjective: Interval history: -Patient seen multiple times at bedside today -Yesterday tapered paralytic and Versed-patient barely opens eyes -Today plan is to taper down further sedation with fentanyl and propofol and if needed will place on Precedex drip -Continue with awakening trial - labs and imaging reviewed Medications: Reviewed: Yes Vitals/I&O/Wt Last Vital Signs Temp 98.9 F 02/07/21 11:30 Pulse 99 02/07/21 22:00 Resp 26 H 02/07/21 21:41 BP 80/52 02/07/21 22:00 Pulse Ox 93 02/07/21 22:00 02/07/21 02/07/21 02/07/21 06:59 14:59 22:59 Intake Total 634.542 / 2576.046 278.833 / 278.833 317.671 / 596.504 Output Total 950 / 2275 1420 / 1420 Balance -315.458 / 301.046 278.833 / 278.833 -1102.329 / -823.496 Weight last 48 hrs Weight 191 lb 1 oz Physical Exam Narrative: EXAM NARRATIVE: General: lying in bed, sedated and intubated. HEENT:NCAT, PERRLA, EOMI Neck: Supple Lungs: Bilateral diffuse crepitations Heart: s1/s2, RRR Abd: soft, NT, ND, BS + Normoactive Extremities: No edema SUPERVISOR ORDER TAKERS: sedated and limited SUPERVISOR ORDER TAKERS exam possible SKIN: no rash Urinary Catheter Management^: Marshall: Cath Placed During This Visit: yes Reason for Continuing Indwelling Catheter: Accurate Measurement of Urinary Output in Critically Ill Patients Urinary Catheter Date of Insertion: 02/01/21 Urinary Catheter Time of Insertion: 11:10 Data : 02/07/21 12:46 02/07/21 12:46 Other Labs: Laboratory Results WBC 10.4 10^3/uL (4.0-10.0) H 02/07/21 12:46 RBC 4.32 10^6/uL (4.1-5.3) 02/07/21 12:46 Hgb 12.8 g/dL (11.7-16.6) 02/07/21 12:46 Hct 41.8 % (42.0-52.0) L 02/07/21 12:46 MCV 96.8 fL (80-94) H 02/07/21 12:46 MCH 29.6 pg (28.0-34.0) 02/07/21 12:46 MCHC 30.6 g/dL (30.0-36.0) 02/07/21 12:46 RDW 15.7 % (12.1-15.1) H 02/07/21 12:46 Plt Count 99 10^3/cmm (130-400) L 02/07/21 12:46 MPV 10.5 fL (7.4-10.4) H 02/07/21 12:46 Neut % (Auto) 88.3 % 02/07/21 12:46 Lymph % (Auto) 5.4 % 02/07/21 12:46 [place] % (Auto) 4.5 % 02/07/21 12:46 Eos % (Auto) 0.2 % 02/07/21 12:46 Baso % (Auto) 0.2 % 02/07/21 12:46 Neut # (Auto) 9.20 10^3/uL (1.8-7.7) H 02/07/21 12:46 Lymph # (Auto) 0.6 10^3/uL (0.8-4.8) L 02/07/21 12:46 [place] # (Auto) 0.5 10^3/uL (0.2-0.9) 02/07/21 12:46 Eos # (Auto) 0.0 10^3/uL (0.0-0.8) 02/07/21 12:46 Baso # (Auto) 0.0 10^3/uL (0.0-0.1) 02/07/21 12:46 Nucleated RBC % (auto) 0.2 % 02/07/21 12:46 Nucleated RBCs # 0.0 /100WBC 02/07/21 12:46 D-Dimer 3.27 ug/mIFEU (0-0.59) H 01/28/21 06:30 Specimen Type Arterial 02/05/21 14:41 Sample Site Radial, left 02/05/21 14:41 ABG pH 7.48 (7.35-7.45) H 02/05/21 14:41 ABG pCO2 46.5 mmHg (35-45) H 02/05/21 14:41 ABG pO2 58.0 mmHg (80.0-100.0) L 02/05/21 14:41 ABG HCO3 34.9 mmol/L (22-26) H 02/05/21 14:41 ABG O2 Saturation 90.0 02/05/21 14:41 ABG Base Excess 10.1 mmol/L (-2.0-2.0) H 02/05/21 14:41 Harley Test Pos 02/05/21 14:41 A-a O2 Gradient 31.4 mmHg (5-10) H 02/05/21 14:41 Hematocrit 39.4 % (42-52) L 02/05/21 14:41 Hgb O2 Saturation 88.2 % (95-100) L 02/05/21 14:41 Carboxyhemoglobin 1.0 %THgb (0.4-20.1) 02/05/21 14:41 Methemoglobin 1.1 % (0.4-1.5) 02/05/21 14:41 Total Hemoglobin 12.8 g/dL (14-18) L 02/05/21 14:41 Sodium 149.0 mmol/L (131-143) H 02/05/21 14:41 Potassium 4.1 mmol/L (3.5-5.0) 02/05/21 14:41 Glucose 48.0 mg/dL (70-115) L 02/05/21 14:41 Ionized Calcium 1.1 mmol/L (1.1-1.4) 02/05/21 14:41 O2 Delivery Device Vent 02/05/21 14:41 O2 Liters/Min 40.0 % 01/26/21 21:10 FiO2 50.0 % 02/05/21 14:41 Tidal Volume 0.50 02/05/21 14:41 PEEP 10.0 cmH20 02/05/21 14:41 Business Support Coordinator ID [place] 02/05/21 14:41 Sodium 149 mmol/L (136-145) H 02/07/21 12:46 Potassium 4.7 mmol/L (3.5-5.1) 02/07/21 12:46 Chloride 110 mmol/L (98-107) H 02/07/21 12:46 Carbon Dioxide 27 mmol/L (22-29) 02/07/21 12:46 Anion Gap 16.7 (5-19) 02/07/21 12:46 BUN 80 mg/dL (8-23) H 02/07/21 12:46 Creatinine 2.6 mg/dL (0.7-1.2) H 02/07/21 12:46 GFR Calculation 25.1 mL/min (90-130) L 02/07/21 12:46 Glucose 158 mg/dL (65-115) H 02/07/21 12:46 POC Glucose 120 mg/dL (70-110) H 02/07/21 20:19 Estimat Average Glucose 243 01/30/21 06:10 Hemoglobin A1c 10.1 % (4.0-6.0) H 01/30/21 06:10 Calculated Osmolality 335 mOsm/kg (285-295) H 02/07/21 12:46 Lactic Acid 3.1 mmol/L (0.5-2.2) H 01/26/21 18:44 Lactic Acid (Sepsis) 2.5 mmol/L (0.5-2.2) H 01/26/21 21:55 Lactate 2.7 mmol/L (0.5-2.2) H 02/02/21 14:40 Calcium 8.8 mg/dL (8.5-10.5) 02/07/21 12:46 Phosphorus 7.5 mg/dL (2.5-4.5) H 02/05/21 05:25 Magnesium 3.0 mg/dL (1.7-2.3) H 02/07/21 12:46 Ferritin 1542 ng/mL (30-400) H 01/27/21 04:50 Total Bilirubin 0.6 mg/dL (0.15-1.2) 02/07/21 12:46 AST 66 U/L (0-40) H 02/07/21 12:46 ALT 90 U/L (0-41) H 02/07/21 12:46 Alkaline Phosphatase 140 IU/L (40-130) H 02/07/21 12:46 Lactate Dehydrogenase 428 U/L (135-225) H 01/27/21 04:50 Creatine Kinase 1096 U/L (39-308) H* 02/07/21 12:46 Troponin T Baseline 33 ng/L (0-15) H 01/26/21 18:44 Troponin T 120 Minute 31.73 ng/L (0-15) H 01/26/21 21:55 Delta Troponin T -1.27 ABS# (0-10) L 01/26/21 21:55 Troponin T Hi Sens 6Hr 31.76 ng/L (0-15) H 01/27/21 02:10 Troponin T Hi Sens 6Hr Delta -1.24 ng/L (0-12) L 01/27/21 02:10 C-Reactive Protein 134.7 mg/L (0.0-4.9) H 01/28/21 06:30 NT-Pro-B Natriuret Pep 1724 pg/mL (0-125) H 01/26/21 18:44 Total Protein 6.0 g/dL (6.6-8.7) L 02/07/21 12:46 Albumin 3.2 g/dL (3.5-5.2) L 02/07/21 12:46 Globulin 2.8 g/dL (1.3-4.6) 02/07/21 12:46 Procalcitonin 0.21 ng/mL (0-0.5) 01/26/21 18:44 Impressions Chest X-Ray 02/06/21 09:48 Impression: 1. No change in patchy bilateral pulmonary opacities consistent with pneumonia. 2. No change in position of multiple tubes. A&P Assessment and plan (1) Pneumonia due to severe acute respiratory syndrome coronavirus 2 (SARS-CoV-2): Status: Acute (2) Acute respiratory failure with hypoxia: Status: Acute (3) Hypertension: Status: Acute Qualifiers: Hypertension type: unspecified Qualified Code(s): I10 - Essential (primary) hypertension (4) Chronic kidney disease: Status: Acute Qualifiers: Chronic kidney disease stage: unspecified stage Qualified Code(s): N18.9 - Chronic kidney disease, unspecified (5) Diabetes mellitus: Status: Acute Qualifiers: Diabetes mellitus type: type 2 Diabetes mellitus penitentiary insulin use: unspecified penitentiary insulin use status Diabetes mellitus complication status: with kidney complications Diabetes mellitus complication detail: with chronic kidney disease Chronic kidney disease stage: unspecified stage Qualified Code(s): E11.22 - Type 2 diabetes mellitus with diabetic chronic kidney disease (6) Metabolic acidosis: Status: Acute # Acute hypoxic respiratory failure secondary to ARDS due to Covid 19 Pneumonia # Metabolic acidosis in pt with CKD-worsening NASIR # HTN # Diabetes # h/o A fib - rate controlled off paralytic and #Rhabdomyolysis #Thrombocytopenia-monitor platelets - intubated, sedated, paralyzed and proned x 4 ; Versed since 02/06/2021 -Plan is to taper off further sedation and do spontaneous awakening trial - On AC 26/500/9/75%- - Duoneb q 6 hr nathalie - dexamethasone 6 mg ivp nathalie ; s/p 5 day remdesivir and Tocilizumab 01/28/21 - monitor inflammatory markers q 48 hrs -Off pressor - ASA/PLAVIX -Hold Lantus as patient has hypoglycemic episodes -Continue FSBS every 6 monitoring and Insulin scale coverage - Zosyn for empiric coverage - so far sputum positive for Yeast - id pending-on fluconazole - Blood cx - CONS - Contaminant - I/O/N -+300;; +900 since admission - lasix 20 mg one dose -CK-1280, given LR 500 mL - 50 mL/hour - PPI for gi ppx - Elliquis for DVT ppx and chronic A FIB -Continue tube feeding code: Full DVT ppx: Elliquis GI ppx : PPI Prognosis: guarded Family NOK : Updated recommendations conveyed to RN,RT, Hospitalist taking care of the patient. Attestations Medical Necessity Statement*: Acute hypoxic respiratory failure secondary to ARDS due to COVID 19 Pneumonia - intubated, sedated and proned still requiring mechanical ventilator Time Spent in Patient Care: Greater than 35 minutes (>than 50% of time spent in counselling and/or direct pt care on unit). Critical Care Time: The high probability of a clinically significant, sudden or life threatening deterioration of the patient's [respiratory, endocrine, renal] system(s) required my full and direct attention, intervention and personal management. The critical care time is as shown. This time is in addition to time spent performing any reported procedures but includes the following: [x] Data and vital sign review and interpretation [x] Patient assessment, examination and intervention [x] Documentation [x] Medication orders and management Critical Care Time (min): 45 Coding Level of Care Code Established Pt Acute Etcher Enameling for Chg Fwd Patient Type Established History Comprehensive Exam Comprehensive Medical Decision Making High Complexity Diagnoses Pneumonia due to severe acute respiratory syndrome coronavirus 2 (SARS-CoV-2) U07.1; J12.82 Acute respiratory failure with hypoxia J96.01 Hypertension I10 Hypertension type: unspecified Chronic kidney disease N18.9 Chronic kidney disease stage: unspecified stage Diabetes mellitus E11.22 Diabetes mellitus type: type 2 Diabetes mellitus penitentiary insulin use: unspecified penitentiary insulin use status Diabetes mellitus complication status: with kidney complications Diabetes mellitus complication detail: with chronic kidney disease Chronic kidney disease stage: unspecified stage Metabolic acidosis E87.2 Time Spent (min) 45
[2021-02-08] VITALS (56 sets, daily range): BP systolic 91–173; BP diastolic 57–97; PULSE 73–102; RESP 24–28; TEMP 37.2; O2SAT 86–96
[2021-02-08] MEDS: propofol 1,000 MG/100 ML INJ 22.32 MG IV ×2 (00:25→02:56)
[2021-02-08] MEDS: dexmedetomidine 400 MCG in sodium chloride 0.9% (100 ml) 100 ML 15.77 MCG IV ×3 (01:08→17:41)
[2021-02-08 01:38] LABS: Glucose Point of Care 179 mg/dL (70-110)
[2021-02-08] MEDS: ipratropium-albuterol 3 mL Neb INHALATION ×3 (03:07→14:33)
--- NOTE | 2021-02-08 04:00 | XR_ITS ---
WS: [id number] Portable AP semiupright chest, 02/08/2021 Clinical Data: pneumonia Comparison: Portable chest, 02/06/2021. Findings: The bilateral patchy pulmonary opacities remain the same. The heart is normal. The endotrac heal tube remains above the kale. The endotracheal tube has been retreated and tip may be overlying the T1 vertebral body. The right internal jugular venous catheter has not changed. XR/XR chest 1V portable 27085 Impression: 1. Endotracheal tube above kale. 2. No change in patchy bilateral pulmonary opacities consistent with pneumonia.
[2021-02-08 04:58] LABS: Basophils % 0.2 %; Eosinophils % 0.5 %; Hematocrit 35.3 % (42.0-52.0); Hemoglobin 10.8 g/dL (11.7-16.6); Lymphocytes # 0.4 10^3/uL (0.8-4.8); Mean Corpuscular HGB Conc 30.6 g/dL (30.0-36.0); Mean Corpuscular Hemoglobin 29.9 pg (28.0-34.0); Mean Corpuscular Volume 97.8 fL (80-94); Mean Platelet Volume 10.4 fL (7.4-10.4); Monocytes # 0.2 10^3/uL (0.2-0.9); Monocytes % 2.3 %; Neutrophils # 7.83 10^3/uL (1.8-7.7); Neutrophils % 91.2 %; Nucleated Red Blood Cells % 0 %; Platelet Count 79 10^3/cmm (130-400); Red Blood Count 3.61 10^6/uL (4.1-5.3); Red Cell Distribution Width 15.7 % (12.1-15.1); White Blood Count 8.6 10^3/uL (4.0-10.0)
[2021-02-08 05:18] LABS: Alanine Aminotransferase 72 U/L (0-41); Albumin Level 2.7 g/dL (3.5-5.2); Alkaline Phosphatase 107 IU/L (40-130); Anion Gap 14.8 (5-19); Aspartate Amino Transferase 52 U/L (0-40); Blood Urea Nitrogen 79 mg/dL (8-23); Calcium 8.2 mg/dL (8.5-10.5); Carbon Dioxide 27 mmol/L (22-29); Chloride 114 mmol/L (98-107); Globulin 2.4 g/dL (1.3-4.6); Glucose 189 mg/dL (65-115); Magnesium 2.7 mg/dL (1.7-2.3); Osmolality Calculated 341 mOsm/kg (285-295); Potassium 4.8 mmol/L (3.5-5.1); Sodium 151 mmol/L (136-145); Total Bilirubin 0.6 mg/dL (0.15-1.2); Total Protein 5.1 g/dL (6.6-8.7)
[2021-02-08 06:03] LABS: Creatine Phosphokinase 658 U/L (39-308)
--- NOTE | 2021-02-08 06:27 | PC.NURSE ---
Shift Note Frequent safety and comfort rounds continue. Orders and/or nursing care completed as indicated. Patient monitored for response to intervention and treatment(s). Education provided includes changes of vent settings. Patient's responsive to teaching and asked questions. Patient required increasing amounts of fio2 throughout the night. Final fio2 of shift was 85%. Will continue to monitor.
--- NOTE | 2021-02-08 08:00 | PC.NURSE ---
OG tube appears to be displaced. Feeding tube stopped. Reinserted. Xray obtained per protocol to check placement.
[2021-02-08 08:37] LABS: Glucose Point of Care 174 mg/dL (70-110)
--- NOTE | 2021-02-08 08:46 | XR_ITS ---
WS: [id number] Portable AP upright chest, 02/08/2021, 0906 hours Clinical Data: OG PLACEMENT Comparison: Portable chest, 02/08/2021, 0513 hours Findings: The nasogastric tube has been placed so that it ends in the body of the stomach. XR/XR chest 1V portable 10071 Impression: Satisfactory placement of nasogastric tube.
[2021-02-08] MEDS: propofol 1,000 MG/100 ML INJ 33.48 MG IV ×2 (08:49→17:40)
--- NOTE | 2021-02-08 09:32 | PC.NUTR ---
Tube feeding recommendatin: Recommend check Phos and triglycerides when possible. Spoke with Dr. Glass regarding renal function, recommend change to Nepro. Beginning at 15 ml/hr, increasing by 10 ml/hr q 12 hrs to goal rate of 25 ml/hr with 300 ml H2O flushes q 6 hours, to provide 1080 kcal, 49 g protein, and 1635 ml H2O. (or per MD discretion) Noted propofol providing 883 kcal. When propofol decreased, would recommend increasing goal rate to 40 ml/hr. See full RD assessment for further details.
[2021-02-08] MEDS: pantoprazole 40 mg SDV IVP (10:30)
[2021-02-08] MEDS: aspirin 81 mg EC Tablet PO (10:30)
[2021-02-08] MEDS: clopidogrel 75 mg Tablet PO (10:30)
[2021-02-08] MEDS: apixaban 5 mg Tablet 2.5 MG PO ×2 (10:31→21:05)
[2021-02-08] MEDS: fluconazole premix 200 MG/100 ML PREMIX 100 MG IV (10:55)
[2021-02-08 11:21] LABS: ABG PCO2 38.6 mmHg (35-45); ABG PH Result 7.47 (7.35-7.45); Alveolar-Arterial Oxygen Gradi 64.6 mmHg (5-10); Base Excess ABG 3.8 mmol/L (-2.0-2.0); Blood Gas Operator Identificat GD; Blood Gas Sample Site Brachial, right; Blood Gas Sample Type Arterial; Carboxyhemoglobin 0.9 %THgb (0.4-20.1); HCO3 ABG 27.7 mmol/L (22-26); HGB O2 Sat 90.2 % (95-100); Ionized Calcium Level - ABG 1.2 mmol/L (1.1-1.4); Methemoglobin 1.3 % (0.4-1.5); Oxygen Device VENT; Oxygen Saturation ABG 92.2; Potassium Level - ABG 4.6 mmol/L (3.5-5.0); Total Hemoglobin 12.1 g/dL (14-18)
--- NOTE | 2021-02-08 14:36 | PC.RESP ---
RT Shift Note Frequent safety and respiratory rounds continue. Orders completed as indicated. Patient monitored pre and post treatments throughout shift. Patient [Did.] tolerate treatments appropriately. Condition [.DidNotChange]. Patient and/or volunteer patient representative educated on respiratory treatment and medications. Patient and/or volunteer patient representative [unable to comprehend]. Will continue to monitor patient progress.
[2021-02-08] MEDS: propofol 1,000 MG/100 ML INJ 39.05 MG IV ×2 (14:58→18:29)
[2021-02-08 15:12] LABS: Glucose Point of Care 162 mg/dL (70-110)
--- NOTE | 2021-02-08 16:00 | USCV_ITS ---
Isaiah Gillette Age: 65 Gender: M : 1955 Exam Date: 02/08/2021 16:30 Ordering Phys: Praveen Glass MD Technologist: Mary Gunn [place] [facility] [place]: PAD Risk Factors: Unknown Previous Vascular Surgery: BILATERAL GRAFTS UPPER LEGS. RIGHT LEFT BP: 128.0 / 80.00 BP: 120.0/ 80.00 0 0 Waveform Velocity (cm/s) Velocity (cm/s) Waveform Monophasic 82.6 Iliac Prox 103.4 Monophasic Monophasic Iliac Mid Monophasic 56.7 108.4 Biphasic 58.1 Iliac Distal 149.4 Monophasic Monophasic 81.2 LASER BEAM MACHINE OPERATOR 145.3 Monophasic SFA Prox 127.5 Monophasic Monophasic 36.1 POP 68.6 Monophasic BRAIN PICKER 41.1 Monophasic DPA 79.5 Monophasic BERNARD 0.8 FINDINGS NO FLOW RT SITKA SFA. THE GRAFT ON RT HAS NO FLOW LT SITKA SFA HAS NO FLOW AT MID AND DISTAL LEVEL. THE GRAFT APPEARS TO BE OPENED AND GOING To moderate diffuse plaque in the right iliac and common femoral artery. Normal Doppler flow signals in the superficial femoral artery on the bypass graft. The bypass graft has a hypoechoic lumen. Moderate to heavy heterogeneous irregular plaques are noted to the popliteal artery. No Doppler flow signals in the dorsalis pedis artery. A small segment of the posterior tibial artery was found to have extremely low velocity continuous Doppler flow signal. On the left side moderate diffuse plaques were noted in the iliac and femoral arteries. No Doppler flow signals were noted in the mid and distal superficial femoral artery. The femoral popliteal bypass graft appeared to be patent. Flow was noted in the posterior tibial and dorsalis pedis arteries. Monophasic and continuous waveforms in the dorsalis pedis artery LT DPA 100 LT BRAIN PICKER 100 Diminished resting BERNARD of 0.8 on the left side CONCLUSIONS 1. 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 2. Features of total occlusion of the femoral-popliteal bypass graft on the right side possibly recent 3. Sluggish flow in the right popliteal and peroneal arteries with no detectable flow in the dorsalis pedis artery. Signs of sluggish collateral filling in a small segment of the posterior tibial artery. 3. Features of total occlusion of the mid and distal superficial femoral artery on the left side 4. The left to popliteal, posterior tibial arteries found to be patent. Features of collateral filling the dorsalis pedis artery on the left side. 5. Slightly diminished resting BERNARD of 0.8 on the left side. No similar previous studies are available for comparison Dr Michelle Srivastava MD [facility] (Electronically Signed) Final Date: 09 February 2021 09:44 S
--- NOTE | 2021-02-08 17:00 | PC.NURSE ---
Pt's at bedside. Pt became agitated attempting to communicate. SBP increased. Work of breathing increased. Pt attempts to pull at tube. Increased Diprovan out of parameters. Dr Glass at bedside and aware.
--- NOTE | 2021-02-08 18:56 | P.PN_ITS ---
Subjective Subjective: Interval history: Added water flushes clinically looks dehydrated sodium 151 with worsening of creatinine Urine output 1 L with positive balance of 700 mL Awakening trials, sedation vacation Weaning off vasopressors Discontinued Zosyn secondary to worsening creatinine no bacteremia Requested nurse to do [facility] evaluation today Fentanyl running at 25, propofol at 40, tube feeding at 15 mL/h Precedex 0.7 Vitals/I&O/Wt Last Vital Signs Temp 98.9 F 02/08/21 08:00 Pulse 82 02/08/21 17:30 Resp 25 H 02/08/21 18:16 BP 138/92 02/08/21 17:30 Pulse Ox 92 02/08/21 18:16 02/08/21 02/08/21 02/08/21 06:59 14:59 22:59 Intake Total 693.032 / 1289.536 573.125 / 573.125 231.342 / 804.467 Output Total 1050 / 2470 Balance -356.968 / -1180.464 573.125 / 573.125 231.342 / 804.467 Physical Exam Narrative: EXAM NARRATIVE: Intubated and sedated Requiring vasopressors and sedatives Abdomen soft Yellow-colored urine noticed in the bag S1, S2 variable rhythm Assisted bilateral breath sounds Weak pulse right leg cold extremity No signs of cellulitis Pinpoint pupils Urinary Catheter Management^: Marshall: Cath Placed During This Visit: yes Reason for Continuing Indwelling Catheter: Accurate Measurement of Urinary Output in Critically Ill Patients Urinary Catheter Date of Insertion: 02/01/21 Urinary Catheter Time of Insertion: 11:10 Data : 02/08/21 04:49 02/08/21 04:49 A&P Assessment and plan (1) Metabolic acidosis: Status: Acute (2) Hypertension: Status: Acute (3) Diabetes mellitus: Status: Acute Qualifiers: Diabetes mellitus type: type 2 Diabetes mellitus mcfp insulin use: unspecified mcfp insulin use status Diabetes mellitus complication status: with kidney complications Diabetes mellitus complication detail: with chronic kidney disease Chronic kidney disease stage: unspecified stage Qualified Code(s): E11.22 - Type 2 diabetes mellitus with diabetic chronic kidney disease (4) Chronic kidney disease: Status: Acute Qualifiers: Chronic kidney disease stage: unspecified stage Qualified Code(s): N18.9 - Chronic kidney disease, unspecified (5) History of atrial fibrillation: Status: Acute (6) Hyperglycemia: Status: Acute (7) ARDS (adult respiratory distress syndrome): Status: Acute (8) Pneumonia due to severe acute respiratory syndrome coronavirus 2 (SARS-CoV- 2): Status: Acute (9) Respiratory failure: Status: Acute Qualifiers: Chronicity: acute Respiratory failure complication: hypoxia Qualified Code(s): J96.01 - Acute respiratory failure with hypoxia (10) COVID-19: Status: Acute (11) Hypernatremia: Status: Acute Additional A&P Information Ventilator dependent respiratory failure ARDS related to COVID-19 Status post proning 4 cycles Sedation vacation, awakening trials,, Titrating off Precedex Currently on propofol fentanyl and Precedex Hypernatremia related to intravascular volume depletion 4 L water deficit Added free water flushes 200 mL every 4 hours Judicious use of fluids considering ARDS Acute on chronic kidney disease Creatinine worsening clinically looks dehydrated No signs of acidosis CPK improving Discontinue Zosyn secondary to worsening creatinine, no bacteremia Continue antifungal Arterial clot: Cold extremities, anticoagulation to be decided by irrigation system operator History of A. 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: unspecified mcfp insulin use status Diabetes mellitus complication status: with kidney complications Diabetes mellitus complication detail: with chronic kidney disease Chronic kidney disease stage: unspecified stage Chronic kidney disease N18.9 Chronic kidney disease stage: unspecified stage History of atrial fibrillation Z86.79 Hyperglycemia R73.9 ARDS (adult respiratory distress syndrome) J80 Pneumonia due to severe acute respiratory syndrome coronavirus 2 (SARS-CoV-2) U07.1; J12.82 Respiratory failure J96.01 Chronicity: acute Respiratory failure complication: hypoxia COVID-19 U07.1 Hypernatremia E87.0
--- NOTE | 2021-02-08 20:30 | PC.NURSE ---
Pt's states she is taking pt's wallet to have access to medical business cards and other info. She requested I chart so our records are not inaccurate upon discharge.
--- NOTE | 2021-02-08 20:42 | P.PN_ITS ---
Subjective Subjective: Interval history: -Patient seen at bedside today multiple times -Continues to be sedated and on ventilator FiO2 75% -Right extremity felt very cold and could not feel dorsalis pedis pulses -Arterial Doppler ordered and -Other labs and imaging reviewed Medications: Reviewed: Yes Vitals/I&O/Wt Last Vital Signs Temp 98.9 F 02/08/21 08:00 Pulse 77 02/08/21 20:00 Resp 25 H 02/08/21 18:16 BP 135/86 02/08/21 20:00 Pulse Ox 93 02/08/21 20:00 02/08/21 02/08/21 02/08/21 06:59 14:59 22:59 Intake Total 693.032 / 1289.536 573.125 / 573.125 531.342 / 1104.467 Output Total 1050 / 2470 1500 / 1500 Balance -356.968 / -1180.464 573.125 / 573.125 -968.658 / -395.533 Physical Exam Narrative: EXAM NARRATIVE: General: lying in bed, sedated and intubated. HEENT:NCAT, PERRLA, EOMI Neck: Supple Lungs: Bilateral diffuse crackles Heart: s1/s2, RRR Abd: soft, NT, ND, BS + Normoactive Extremities: No edema BLANKET WINDER OPERATOR: sedated and limited BLANKET WINDER OPERATOR exam possible SKIN: no rash Urinary Catheter Management^: Marshall: Cath Placed During This Visit: yes Reason for Continuing Indwelling Catheter: Accurate Measurement of Urinary Output in Critically Ill Patients Urinary Catheter Date of Insertion: 02/01/21 Urinary Catheter Time of Insertion: 11:10 Data : 02/09/21 03:28 02/09/21 03:28 A&P Assessment and plan (1) Pneumonia due to severe acute respiratory syndrome coronavirus 2 (SRI S-CoV-2): Status: Acute (2) Acute respiratory failure with hypoxia: Status: Acute (3) Hypertension: Status: Acute Qualifiers: Hypertension type: unspecified Qualified Code(s): I10 - Essential (primary) hypertension (4) Chronic kidney disease: Status: Acute Qualifiers: Chronic kidney disease stage: unspecified stage Qualified Code(s): N18.9 - Chronic kidney disease, unspecified (5) Diabetes mellitus: Status: Acute Qualifiers: Diabetes mellitus type: type 2 Diabetes mellitus terminal press operator insulin use: unspecified terminal press operator insulin use status Diabetes mellitus complication status: with kidney complications Diabetes mellitus complication detail: with chronic kidney disease Chronic kidney disease stage: unspecified stage Qualified Code(s): E11.22 - Type 2 diabetes mellitus with diabetic chronic kidney disease (6) Metabolic acidosis: Status: Acute (7) Decreased pulses in feet: Status: Acute # Acute hypoxic respiratory failure secondary to ARDS due to Covid 19 Pneumonia # Metabolic acidosis in pt with CKD-worsening NASIR # HTN # Diabetes # h/o A fib - rate controlled off paralytic and #Rhabdomyolysis -improving #Thrombocytopenia-monitor platelets #Decreased right lower extremity pulses and cold - intubated, sedated, paralyzed and proned x 4 ; Versed since 02/06/2021 -Plan is to taper off further sedation and do spontaneous awakening trial - On AC /500//75%- - Duoneb q 6 hr nathalie - dexamethasone 6 mg ivp nathalie ; s/p 5 day remdesivir and Tocilizumab 01/28/21 - monitor inflammatory markers q 48 hrs -Off pressor - ASA/PLAVIX -Ordered arterial Doppler for cold right lower extremity -Hold Lantus as patient has hypoglycemic episodes -Continue FSBS every 6 monitoring and Insulin scale coverage - Zosyn for empiric coverage - so far sputum positive for Yeast - id pending-on fluconazole - Blood cx - CONS - Contaminant - I/O/N -+300;; +900 since admission - lasix 20 mg one dose -CK-1280, given LR 500 mL - 50 mL/hour -improving CK - PPI for gi ppx - Elliquis for DVT ppx and chronic A FIB -Continue tube feeding code: Full DVT ppx: Elliquis GI ppx : PPI Prognosis: guarded Family NOK : Updated recommendations conveyed to RN,RT, Hospitalist taking care of the patient. Attestations Medical Necessity Statement*: Acute hypoxic respiratory failure secondary to ARDS due to COVID 19 Pneumonia - intubated, sedated and proned still requiring mechanical ventilator Time Spent in Patient Care: Greater than 35 minutes (>than 50% of time spent in counselling and/or direct pt care on unit) . Critical Care Time: The high probability of a clinically significant, sudden or life threatening deterioration of the patient's [respiratory, endocrine, renal, vascular] system(s) required my full and direct attention, intervention and personal management. The critical care time is as shown. This time is in addition to time spent performing any reported procedures but includes the following: [x] Data and vital sign review and interpretation [x] Patient assessment, examination and intervention [x] Documentation [x] Medication orders and management Critical Care Time (min): 45 Coding Level of Care Code Established Pt Acute Air Transportation Provider for g Fwd Patient Type Established History Comprehensive Exam Comprehensive Medical Decision Making High Complexity Diagnoses Pneumonia due to severe acute respiratory syndrome coronavirus 2 (SARS-CoV-2) U07.1; J12.82 Acute respiratory failure with hypoxia J96.01 Hypertension I10 Hypertension type: unspecified Chronic kidney disease N18.9 Chronic kidney disease stage: unspecified stage Diabetes mellitus E11.22 Diabetes mellitus type: type 2 Diabetes mellitus longterm insulin use: unspecified terminal press operator insulin use status Diabetes mellitus complication status: with kidney complications Diabetes mellitus complication detail: with chronic kidney disease Chronic kidney disease stage: unspecified stage Metabolic acidosis E87.2 Decreased pulses in feet R09.89 Time Spent (min) 45
[2021-02-08] MEDS: dexamethasone 4 mg/mL INJ 6 MG IVP (20:44)
[2021-02-08] MEDS: propofol 1,000 MG/100 ML INJ 27.9 MG IV (20:55)
[2021-02-08 21:05] LABS: Glucose Point of Care 173 mg/dL (70-110)
[2021-02-09] VITALS (48 sets, daily range): BP systolic 122–197; BP diastolic 74–102; PULSE 60–101; RESP 18–29; TEMP 36.8–37.8; O2SAT 88–96; BMI 25.9
[2021-02-09] MEDS: propofol 1,000 MG/100 ML INJ 27.9 MG IV ×4 (00:34→11:21)
[2021-02-09] MEDS: dexmedetomidine 400 MCG in sodium chloride 0.9% (100 ml) 100 ML 15.77 MCG IV ×4 (00:35→23:04)
[2021-02-09 03:47] LABS: Glucose Point of Care 235 mg/dL (70-110)
[2021-02-09 04:08] LABS: Basophils % 0.3 %; Eosinophils # 0.1 10^3/uL (0.0-0.8); Eosinophils % 0.7 %; Hematocrit 37.9 % (42.0-52.0); Hemoglobin 11.3 g/dL (11.7-16.6); Lymphocytes # 0.5 10^3/uL (0.8-4.8); Lymphocytes % 5.3 %; Mean Corpuscular HGB Conc 29.8 g/dL (30.0-36.0); Mean Corpuscular Hemoglobin 30.1 pg (28.0-34.0); Mean Corpuscular Volume 101.1 fl (80-94); Mean Platelet Volume 10.8 fL (7.4-10.4); Monocytes # 0.2 10^3/uL (0.2-0.9); Monocytes % 2.1 %; Neutrophils % 90.9 %; Nucleated Red Blood Cells % 0 %; Platelet Count 86 10^3/cmm (130-400); Red Blood Count 3.75 10^6/uL (4.1-5.3); Red Cell Distribution Width 15.8 % (12.1-15.1); White Blood Count 9.9 10^3/uL (4.0-10.0)
--- NOTE | 2021-02-09 04:23 | XRR_ITS ---
PROCEDURE INFORMATION: Exam: XR Chest Exam date and time: 02/09/2021 4:23 AM Age: 65 years old Clinical indication: Device placement; Ett placement (vent status); Patient HX: Check placement of et tube; Additional info: Check ett placement TECHNIQUE: Imaging protocol: XR of the chest. Views: 1 view. COMPARISON: CR XR chest 1V portable [id number] 02/08/2021 9:04 AM FINDINGS: Tubes, catheters and devices: An endotracheal tube is present with its tip about 8.5 cm above the kale. A nasogastric tube extends down to the stomach. A central venous catheter is present with the tip in the SVC. Lungs: There are prominent worsening bilateral pulmonary infiltrates especially in the lung bases. Pleural spaces: Unremarkable. No pleural effusion. No pneumothorax. Heart/Mediastinum: Unremarkable. No cardiomegaly. Bones/joints: Unremarkable. XR/XR chest 1V portable [id number] IMPRESSION: 1. The tip of the endotracheal tube is about 8.5 cm above the klae. 2. Prominent extensive basilar pulmonary infiltrates which are worsening since previous study.
[2021-02-09 04:55] LABS: Alanine Aminotransferase 62 U/L (0-41); Albumin Level 2.8 g/dL (3.5-5.2); Alkaline Phosphatase 124 IU/L (40-130); Anion Gap 15.2 (5-19); Aspartate Amino Transferase 37 U/L (0-40); Blood Urea Nitrogen 77 mg/dL (8-23); Calcium 8.4 mg/dL (8.5-10.5); Carbon Dioxide 25 mmol/L (22-29); Chloride 116 mmol/L (98-107); Globulin 2.6 g/dL (1.3-4.6); Glomerular Filtration Rate 26.2 mL/min (90-130); Glucose 240 mg/dL (65-115); Magnesium 2.6 mg/dL (1.7-2.3); Osmolality Calculated 343 mOsm/kg (285-295); Potassium 5.2 mmol/L (3.5-5.1); Sodium 151 mmol/L (136-145); Total Bilirubin 0.5 mg/dL (0.15-1.2); Total Protein 5.4 g/dL (6.6-8.7)
[2021-02-09 04:57] LABS: Creatine Phosphokinase 447 U/L (39-308)
--- NOTE | 2021-02-09 08:42 | PM.PN ---
Subjective Subjective: Interval history: - no fevers - -216 last 24 hours/ + 537 - drips: fentanyl 60; propofol 50, precedex 0.7 - stable platelets 86 - Na 151; K 5.2; creatinine better;CK better; - Eliquis /asa/plavix/ PPI - Dex 3 mg - taperin down over 5 days - Diflucan - Push ET 2 cm down - arterial doppler results reported features of severe PAD on the right and left extremities with occluded right femoral popliteal bypass graft Medications: Reviewed: Yes Vitals/I&O/Wt Last Vital Signs Temp 98.3 F 02/09/21 07:00 Pulse 80 02/09/21 07:00 Resp 25 H 02/09/21 07:00 BP 149/90 02/09/21 07:00 Pulse Ox 94 02/09/21 07:00 02/08/21 02/09/21 02/09/21 22:59 06:59 14:59 Intake Total 626.364 / 1199.489 884 / 2083.489 198.86 / 198.86 Output Total 1500 / 1500 800 / 2300 Balance -873.636 / -300.511 84 / -216.511 198.86 / 198.86 Weight last 48 hrs Weight 191 lb 1 oz Physical Exam Narrative: EXAM NARRATIVE: General: lying in bed, sedated and intubated. HEENT:NCAT, PERRLA, EOMI Neck: Supple Lungs: Bilateral diffuse crackles Heart: s1/s2, RRR Abd: soft, NT, ND, BS + Normoactive Extremities: No edema; today felt right lower extremity slightly warm CELL TENDER HELPER: sedated and limited CELL TENDER HELPER exam possible SKIN: no rash Urinary Catheter Management^: Marshall: Cath Placed During This Visit: yes Reason for Continuing Indwelling Catheter: Accurate Measurement of Urinary Output in Critically Ill Patients Urinary Catheter Date of Insertion: 02/01/21 Urinary Catheter Time of Insertion: 11:10 Data : 02/09/21 03:28 02/09/21 03:28 Other Labs: Laboratory Results WBC 9.9 10^3/uL (4.0-10.0) 02/09/21 03:28 RBC 3.75 10^6/uL (4.1-5.3) L 02/09/21 03:28 Hgb 11.3 g/dL (11.7-16.6) L 02/09/21 03:28 Hct 37.9 % (42.0-52.0) L 02/09/21 03:28 MCV 101.1 fl (80-94) H 02/09/21 03:28 MCH 30.1 pg (28.0-34.0) 02/09/21 03:28 MCHC 29.8 g/dL (30.0-36.0) L 02/09/21 03:28 RDW 15.8 % (12.1-15.1) H 02/09/21 03:28 Plt Count 86 10^3/cmm (130-400) L 02/09/21 03:28 MPV 10.8 fL (7.4-10.4) H 02/09/21 03:28 Neut % (Auto) 90.9 % 02/09/21 03:28 Lymph % (Auto) 5.3 % 02/09/21 03:28 [place] % (Auto) 2.1 % 02/09/21 03:28 Eos % (Auto) 0.7 % 02/09/21 03:28 Baso % (Auto) 0.3 % 02/09/21 03:28 Neut # (Auto) 9.00 10^3/uL (1.8-7.7) H 02/09/21 03:28 Lymph # (Auto) 0.5 10^3/uL (0.8-4.8) L 02/09/21 03:28 [place] # (Auto) 0.2 10^3/uL (0.2-0.9) 02/09/21 03:28 Eos # (Auto) 0.1 10^3/uL (0.0-0.8) 02/09/21 03:28 Baso # (Auto) 0.0 10^3/uL (0.0-0.1) 02/09/21 03:28 Nucleated RBC % (auto) 0 % 02/09/21 03:28 Nucleated RBCs # 0.0 /100WBC 02/09/21 03:28 D-Dimer 3.27 ug/mIFEU (0-0.59) H 01/28/21 06:30 Specimen Type Arterial 02/08/21 11:00 Sample Site Brachial, right 02/08/21 11:00 ABG pH 7.47 (7.35-7.45) H 02/08/21 11:00 ABG pCO2 38.6 mmHg (35-45) 02/08/21 11:00 ABG pO2 64.0 mmHg (80.0-100.0) L 02/08/21 11:00 ABG HCO3 27.7 mmol/L (22-26) H 02/08/21 11:00 ABG O2 Saturation 92.2 02/08/21 11:00 ABG Base Excess 3.8 mmol/L (-2.0-2.0) H 02/08/21 11:00 Harley Test N/a 02/08/21 11:00 A-a O2 Gradient 64.6 mmHg (5-10) H 02/08/21 11:00 Hematocrit 37.0 % (42-52) L 02/08/21 11:00 Hgb O2 Saturation 90.2 % (95-100) L 02/08/21 11:00 Carboxyhemoglobin 0.9 %THgb (0.4-20.1) 02/08/21 11:00 Methemoglobin 1.3 % (0.4-1.5) 02/08/21 11:00 Total Hemoglobin 12.1 g/dL (14-18) L 02/08/21 11:00 Sodium 154.0 mmol/L (131-143) H 02/08/21 11:00 Potassium 4.6 mmol/L (3.5-5.0) 02/08/21 11:00 Glucose 228.0 mg/dL (70-115) H 02/08/21 11:00 Ionized Calcium 1.2 mmol/L (1.1-1.4) 02/08/21 11:00 O2 Delivery Device Vent 02/08/21 11:00 O2 Liters/Min 40.0 % 01/26/21 21:10 FiO2 85.0 % 02/08/21 11:00 Tidal Volume 0.50 02/08/21 11:00 PEEP 10.0 cmH20 02/08/21 11:00 Trust Accounts Supervisor ID Gd 02/08/21 11:00 Sodium 151 mmol/L (136-145) H 02/09/21 03:28 Potassium 5.2 mmol/L (3.5-5.1) H 02/09/21 03:28 Chloride 116 mmol/L (98-107) H 02/09/21 03:28 Carbon Dioxide 25 mmol/L (22-29) 02/09/21 03:28 Anion Gap 15.2 (5-19) 02/09/21 03:28 BUN 77 mg/dL (8-23) H 02/09/21 03:28 Creatinine 2.5 mg/dL (0.7-1.2) H 02/09/21 03:28 GFR Calculation 26.2 mL/min (90-130) L 02/09/21 03:28 Glucose 240 mg/dL (65-115) H 02/09/21 03:28 POC Glucose 108 mg/dL (70-110) 02/09/21 14:46 Estimat Average Glucose 243 01/30/21 06:10 Hemoglobin A1c 10.1 % (4.0-6.0) H 01/30/21 06:10 Calculated Osmolality 343 mOsm/kg (285-295) H 02/09/21 03:28 Lactic Acid 3.1 mmol/L (0.5-2.2) H 01/26/21 18:44 Lactic Acid (Sepsis) 2.5 mmol/L (0.5-2.2) H 01/26/21 21:55 Lactate 2.7 mmol/L (0.5-2.2) H 02/02/21 14:40 Calcium 8.4 mg/dL (8.5-10.5) L 02/09/21 03:28 Phosphorus 7.5 mg/dL (2.5-4.5) H 02/05/21 05:25 Magnesium 2.6 mg/dL (1.7-2.3) H 02/09/21 03:28 Ferritin 1542 ng/mL (30-400) H 01/27/21 04:50 Total Bilirubin 0.5 mg/dL (0.15-1.2) 02/09/21 03:28 AST 37 U/L (0-40) 02/09/21 03:28 ALT 62 U/L (0-41) H 02/09/21 03:28 Alkaline Phosphatase 124 IU/L (40-130) 02/09/21 03:28 Lactate Dehydrogenase 428 U/L (135-225) H 01/27/21 04:50 Creatine Kinase 447 U/L (39-308) H* 02/09/21 03:28 Troponin T Baseline 33 ng/L (0-15) H 01/26/21 18:44 Troponin T 120 Minute 31.73 ng/L (0-15) H 01/26/21 21:55 Delta Troponin T -1.27 ABS# (0-10) L 01/26/21 21:55 Troponin T Hi Sens 6Hr 31.76 ng/L (0-15) H 01/27/21 02:10 Troponin T Hi Sens 6Hr Delta -1.24 ng/L (0-12) L 01/27/21 02:10 C-Reactive Protein 134.7 mg/L (0.0-4.9) H 01/28/21 06:30 NT-Pro-B Natriuret Pep 1724 pg/mL (0-125) H 01/26/21 18:44 Total Protein 5.4 g/dL (6.6-8.7) L 02/09/21 03:28 Albumin 2.8 g/dL (3.5-5.2) L 02/09/21 03:28 Globulin 2.6 g/dL (1.3-4.6) 02/09/21 03:28 Triglycerides 627 mg/dL (0-150) H 02/09/21 03:28 LDL Cholesterol Direct 122 mg/dL (0-100) H 02/09/21 03:28 Procalcitonin 0.21 ng/mL (0-0.5) 01/26/21 18:44 Impressions Chest X-Ray 02/09/21 04:23 IMPRESSION: 1. The tip of the endotracheal tube is about 8.5 cm above the kale. 2. Prominent extensive basilar pulmonary infiltrates which are worsening since previous study. A&P Assessment and plan (1) Pneumonia due to severe acute respiratory syndrome coronavirus 2 (SARS-CoV-2): Status: Acute (2) Acute respiratory failure with hypoxia: Status: Acute (3) Hypertension: Status: Acute Qualifiers: Hypertension type: unspecified Qualified Code(s): I10 - Essential (primary) hypertension (4) Chronic kidney disease: Status: Acute Qualifiers: Chronic kidney disease stage: unspecified stage Qualified Code(s): N18.9 - Chronic kidney disease, unspecified (5) Diabetes mellitus: Status: Acute Qualifiers: Diabetes mellitus type: type 2 Diabetes mellitus medical terminologist insulin use: unspecified medical terminologist insulin use status Diabetes mellitus complication status: with kidney complications Diabetes mellitus complication detail: with chronic kidney disease Chronic kidney disease stage: unspecified stage Qualified Code(s): E11.22 - Type 2 diabetes mellitus with diabetic chronic kidney disease (6) Metabolic acidosis: Status: Acute (7) Decreased pulses in feet: Status: Acute (8) PAD (peripheral artery disease): Status: Acute # Acute hypoxic respiratory failure secondary to ARDS due to Covid 19 Pneumonia # Metabolic acidosis in pt with CKD-worsening NASIR # HTN # Diabetes # h/o A fib - rate controlled off paralytic and #Rhabdomyolysis -improving #Thrombocytopenia-monitor platelets #severe PAD - intubated, sedated, paralyzed and proned x 4 ; Versed since 02/06/2021 -Plan is to taper off further sedation and do spontaneous awakening trial - drips: fentanyl 60; propofol 50, precedex 0.7; dc propofol as triglycerides are high - Morphine 2mg ivp q 6 hr prn pain - On AC 26/500/9/75%- - Duoneb q 6 hr nathalie - dexamethasone 6 mg ivp nathalie ; s/p 5 day remdesivir and Tocilizumab 01/28/21 - monitor inflammatory markers q 48 hrs -Off pressor, ASA/PLAVIX -Ordered arterial Doppler for cold right lower extremity - I/O/N -216 last 24 hours/ + 537 since admission - Na 151; K 5.2; creatinine better;CK better; started on D5 @ 30 mls/hr -Hold Lantus as patient has hypoglycemic episodes -Continue FSBS every 6 monitoring and Insulin scale coverage - -Continue tube feeding - PPI for gi ppx - Elliquis for DVT ppx and chronic A FIB - no fevers ; off antibiotics; - Diflucan - Blood cx - CONS - Contaminant - Zosyn for empiric coverage - so far sputum positive for Yeast - id pending-on fluconazole - stable platelets 86 - Eliquis /asa/plavix/ PPI - Dex 3 mg - taperin down over 5 days - Push ET 2 cm down - arterial doppler results reported features of severe PAD on the right and left extremities with occluded right femoral popliteal bypass graft -notify results to family and they wanted to transfer to [facility] to pts vascular surgeon Dr. Holley - Unable to reach Dr. Holley office and also [facility] is on transfer diversion due to bed unavailability -Family agreed to see intervention gasoline service attendant here & Dr. Farley was consulted-we will follow his recommendations-until then we will continue Eliquis, aspirin, Plavix code: Full DVT ppx: Elliquis GI ppx : PPI Prognosis: guarded Family NOK : Updated recommendations conveyed to RN,RT, Hospitalist taking care of the patient. Attestations Medical Necessity Statement*: Acute hypoxic respiratory failure secondary to ARDS due to COVID 19 Pneumonia - intubated, sedated and proned still requiring mechanical ventilator Time Spent in Patient Care: Greater than 35 minutes (>than 50% of time spent in counselling and/or direct pt care on unit). Critical Care Time: The high probability of a clinically significant, sudden or life threatening deterioration of the patient's [respiratory, endocrine, renal, vascular] system(s) required my full and direct attention, intervention and personal management. The critical care time is as shown. This time is in addition to time spent performing any reported procedures but includes the following: [x] Data and vital sign review and interpretation [x] Patient assessment, examination and intervention [x] Documentation [x] Medication orders and management Critical Care Time (min): 45 Coding Level of Care Code Acute Macerator Operator for [facility] Fwd Diagnoses Pneumonia due to severe acute respiratory syndrome coronavirus 2 (SARS-CoV-2) U07.1; J12.82 Acute respiratory failure with hypoxia J96.01 Hypertension I10 Hypertension type: unspecified Chronic kidney disease N18.9 Chronic kidney disease stage: unspecified stage Diabetes mellitus E11.22 Diabetes mellitus type: type 2 Diabetes mellitus medical terminologist insulin use: unspecified [facility] insulin use status Diabetes mellitus complication status: with kidney complications Diabetes mellitus complication detail: with chronic kidney disease Chronic kidney disease stage: unspecified stage Metabolic acidosis E87.2 Decreased pulses in feet R09.89 PAD (peripheral artery disease) I73.9
[2021-02-09 09:39] LABS: Triglycerides 627 mg/dL (0-150)
[2021-02-09] MEDS: ipratropium-albuterol 3 mL Neb INHALATION ×3 (09:43→21:44)
[2021-02-09] MEDS: apixaban 5 mg Tablet 2.5 MG PO ×2 (10:00→23:46)
[2021-02-09 10:01] LABS: LDL Cholesterol Direct 122 mg/dL (0-100)
[2021-02-09] MEDS: clopidogrel 75 mg Tablet PO (10:01)
[2021-02-09] MEDS: aspirin 81 mg EC Tablet PO (10:01)
[2021-02-09] MEDS: pantoprazole 40 mg SDV IVP (10:02)
[2021-02-09 10:04] LABS: Glucose Point of Care 157 mg/dL (70-110)
[2021-02-09] MEDS: fluconazole premix 200 MG/100 ML PREMIX 100 MG IV (10:04)
--- NOTE | 2021-02-09 12:11 | P.PN_ITS ---
Subjective Subjective: Interval history: Patient was seen and examined this morning, noticed green urine color, Triglyceride high, propofol to be discontinued today Currently on fentanyl at 60 propofol at 50 Precedex 0.7 Platelet staying stable around 86 He is on low-dose Eliquis and Plavix Taper down Decadron to 3 mg today Added D5 at 30 cc/h getting water flushes 200 cc every 4 hours Sodium 151 Endotracheal tube appears to centimeters down after reviewing chest x-ray Zosyn discontinued currently on Diflucan Arterial Doppler studies showing significant arterial obstruction however no signs of acute ischemia of lower extremity Fluid balance -500 ml General Purchasing Agent requested his medications to be administered with D5 and start normal saline because of worsening sodium and chloride Triglyceride 627 I have tried to get in touch with [facility] transfer line unfortunately they are on diversion and will not accept any patients at this point Vitals/I&O/Wt Last Vital Signs Temp 98.3 F 02/09/21 07:00 Pulse 74 02/09/21 09:00 Resp 27 H 02/09/21 11:55 BP 147/84 02/09/21 09:00 Pulse Ox 92 02/09/21 11:55 02/08/21 02/09/21 02/09/21 22:59 06:59 14:59 Intake Total 626.364 / 1199.489 884 / 2083.489 298.86 / 298.86 Output Total 1500 / 1500 800 / 2300 Balance -873.636 / -300.511 84 / -216.511 298.86 / 298.86 Weight last 48 hrs Weight 86.664 kg Physical Exam Narrative: EXAM NARRATIVE: Intubated and sedated Endotracheal tube placed 2 cm down FiO2 70% PEEP 10 Saturating well Bilateral assisted breath sounds with rhonchi Soft abdomen Left foot warmer as compared to right foot however no ischemic ulcer of toes, feeble pulses bilaterally Variable S1-S2 no murmur Right IJ Marshall catheter draining green urine Urinary Catheter Management^: Marshall: Cath Placed During This Visit: yes Reason for Continuing Indwelling Catheter: Accurate Measurement of Urinary Output in Critically Ill Patients Urinary Catheter Date of Insertion: 02/01/21 Urinary Catheter Time of Insertion: 11:10 Data : 02/09/21 03:28 02/09/21 03:28 A&P Assessment and plan (1) Hypernatremia: Status: Acute (2) Metabolic acidosis: Status: Acute (3) Hypertension: Status: Acute (4) Diabetes mellitus: Status: Acute Qualifiers: Diabetes mellitus type: type 2 Diabetes mellitus terminal operations supervisor insulin use: unspecified care home insulin use status Diabetes mellitus complication status: with kidney complications Diabetes mellitus complication detail: with chronic kidney disease Chronic kidney disease stage: unspecified stage Qualified Code(s): E11.22 - Type 2 diabetes mellitus with diabetic chronic kidney disease (5) Acute kidney injury superimposed on chronic kidney disease: Status: Acute (6) History of atrial fibrillation: Status: Acute (7) ARDS (adult respiratory distress syndrome): Status: Acute (8) Pneumonia due to severe acute respiratory syndrome coronavirus 2 (SARS-CoV-2): Status: Acute (9) Arterial occlusion: Status: Acute Additional A&P Information Ventilator dependent respiratory failure Severe ARDS COVID-19 pneumonia No bacteremia, sputum positive for yeast Species of yeast not finalized currently on Diflucan Afebrile no leukocytosis Vasopressors turned off Sedation vacation Propofol to be discontinued secondary to hypertriglyceridemia and green urine, propofol syndrome Monitor liver enzymes, heart rate seems to be within normal range Acute arterial occlusion is requesting that patient be transferred to [facility], intervention done by Dr. Holley in the past [facility] is on diversion, won't accept him at this point General Purchasing Agent notified Hypernatremia Sodium 151 Negative fluid balance, started D5 at 30 cc/h he will get 200 mL water flushes every 4 hours Total 4 L water deficit General Purchasing Agent requested pharmacy to mix his medications with D5 instead of normal saline Hyperglycemia: Most of his [id number] glucose levels are below 180 Long-acting insulin was discontinued due to hypoglycemia Acute on chronic kidney disease NASIR secondary to hypotension initially required vasopressors, Creatinine slightly improved today after addition of water flushes yesterday Potassium 5.2 Acidosis improved Rhabdomyolysis creatininekinase improving Zosyn discontinued Eliquis reduced dose would suffice DVT prophylaxis, considering arterial occlusion this might be changed to heparin today Tube feeding 15 mL/h Full code Tube feed diet GI prophylaxis Protonix Guarded prognosis, updated Attestations Medical Necessity Statement*: Continue medical management for above-mentioned assessment and plan Time Spent in Patient Care: 16 - 35 minutes Coding Level of Care Code Acute Rat Culturist for [facility] Fwd Diagnoses Hypernatremia E87.0 Metabolic acidosis E87.2 Hypertension I10 Diabetes mellitus E11.22 Diabetes mellitus type: type 2 Diabetes mellitus care home insulin use: unspecified care home insulin use status Diabetes mellitus complication status: with kidney complications Diabetes mellitus complication detail: with chronic kidney disease Chronic kidney disease stage: unspecified stage Acute kidney injury superimposed on chronic kidney disease N17.9; N18.9 History of atrial fibrillation Z86.79 ARDS (adult respiratory distress syndrome) J80 Pneumonia due to severe acute respiratory syndrome coronavirus 2 (SARS-CoV-2) U07.1; J12.82 Arterial occlusion I70.90
[2021-02-09] MEDS: dextrose 5% 1,000 ML 30 ML IV (13:04)
--- NOTE | 2021-02-09 13:09 | PM.CONSULT ---
Providers/Reason For Consult Consulting Physician/Specialty*: Interventional cardiology Reason for Consult*: Chronic limb ischemia Attending Physician: Soraya Ramos MD Primary Care Provider: Riley Sainz DO History of Present Illness History of Present Illness Isaiah Gillette is a 65 year old male past medical history significant for chronic kidney disease with baseline creatinine around 2.0, severe peripheral arterial disease with history of multiple intervention in the past chronically occluded bilateral SFA was admitted with Covid pneumonia ARDS placed on vent has been slowly recovering was noted to have slightly cold feet by the family, because of their concern arterial ultrasound was performed which showed chronically occluded bilateral SFA and graft however monophasic flow noted on the left side with BERNARD of 0.8 on the left. Patient follows up with vascular surgery /Dr. Holley at [facility]. I was asked to assist in patient's care. I examined the patient. He has good vitals with good mean arterial pressure. Both legs and feet are warm and moist with good capillary refill. Patient is moving both feet and leg, he has good sensation while my examination. He has dopplerable good right posterior tibial and left anterior tibial pulses. CONCLUSIONS 1. 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 2. Features of total occlusion of the femoral-popliteal bypass graft on the right side possibly recent 3. Sluggish flow in the right popliteal and peroneal arteries with no detectable flow in the dorsalis pedis artery. Signs of sluggish collateral filling in a small segment of the posterior tibial artery. 3. Features of total occlusion of the mid and distal superficial femoral artery on the left side 4. The left to popliteal, posterior tibial arteries found to be patent. Features of collateral filling the dorsalis pedis artery on the left side. 5. Slightly diminished resting BERNARD of 0.8 on the left side. No similar previous studies are available for comparison Dr Michelle Srivastava MD [facility] (Electronically Signed) Final Date: 09 February 2021 09:44 Review of Systems General: Reports: 10 or more systems reviewed and unremarkable except in HPI and below Narrative: The patient is currently on high flow nasal cannula. The review of system was somewhat limited because of his clinical condition including the risk of lateralization. Overall, the patient denies any fever, night sweats. He is fatigued and also complains of some hoarseness. He denies any chest pain, the patient has cough but no significant wheezing. Const: Denies: fever(s), chills or body aches Eyes: Denies: change in vision, blurry vision or photophobia ENMT: Reports: hoarseness; Denies: throat pain, enlarged tonsils, odynophagia or nasal congestion Card: Denies: chest pain, palpitations, irregular heart rhythm, edema, swelling of feet/ankles, lightheadedness, pre-syncope, dyspnea on exertion or orthopnea Resp: Denies: dyspnea, productive cough, non-productive cough, wheezing, stridor, pain on inspiration, change in phlegm color, hemoptysis or chest congestion GI: Denies: abdominal pain, nausea, vomiting, hematemesis, coffee ground emesis, dysphagia, heartburn, diarrhea, constipation, GI cramping, change in stool character, hematochezia or melena : Denies: flank pain, dysuria, urinary frequency, urinary urgency, urinary hesitancy or hematuria Musc: Denies: neck pain, back pain, extremity pain, joint swelling, joint warmth or deformity Neuro: Denies: headache(s), numbness in extremities, weakness in extremities, sensory changes, difficulty walking, frequent falls, dizziness, vertigo, confusion, behavioral changes, Slurred speech present or seizure-like activity Psych: Denies: anxiety, depression, suicidal ideation or homicidal ideation Endo: Denies: polyuria, polydipsia, tired all the time, cold intolerance or hot flashes Moe/Lymph: Denies: easy bruising or easy bleeding Meds/Allergies Home Medications and Allergies Home Medications Medication Instructions Recorded Confirmed Last Taken Type amlodipine 10 mg PO DAILY 01/24/21 01/27/21 01/22/21 History clonidine HCl 0.1 mg PO BID 01/24/21 01/27/21 Unknown History clopidogrel 75 mg PO DAILY 01/24/21 01/27/21 01/22/21 History doxazosin 2 mg PO BEDTIME 01/24/21 01/27/21 01/22/21 History glipizide 5 mg PO BID 01/24/21 01/27/21 01/22/21 History insulin glargine [Lantus U-100 25 unit SUBCUT BEDTIME 01/24/21 01/27/21 01/23/21 History Insulin] rivaroxaban [Xarelto] 2.5 mg PO BID 01/24/21 01/27/21 01/22/21 History albuterol sulfate 2 inh INHALATION Q6H PRN #8 gm 01/25/21 01/27/21 Unknown Rx Vitamin C 1 tab PO DAILY 01/27/21 01/27/21 Unknown History Vitamin D3 1 cap PO DAILY 01/27/21 01/27/21 Unknown History aspirin 325 mg PO DAILY 01/27/21 01/27/21 Unknown History azithromycin See Rx Instructions .ROUTE .COMPLEX 01/27/21 01/27/21 Unknown History dexamethasone 6 mg PO DAILY 01/27/21 01/27/21 Unknown History metoprolol tartrate 50 mg PO BID 01/27/21 01/27/21 Unknown History zinc 1 cap PO DAILY 01/27/21 01/27/21 Unknown History Allergies Allergy/AdvReac Type Severity Reaction Status Date / Time No Known Allergies Allergy Verified 01/27/21 10:01 Current Medications Current Medications Generic Name Dose Route Start Last Admin Trade Name Freq PRN Reason Stop Dose Admin Albuterol/Ipratropium 3 ml 01/26/21 21:30 02/09/21 09:43 Ipratropium-Albuterol 3 Ml Neb INHALATION 3 ml Q6H KINDRA Administration Apixaban 2.5 mg 01/27/21 21:00 02/09/21 10:00 Apixaban 5 Mg Tablet PO 2.5 mg BID@0900,2100 KINDRA Administration Aspirin 81 mg 01/27/21 09:00 02/09/21 10:01 Aspirin 81 Mg Ec Tablet PO 81 mg DAILY KINDRA Administration Clopidogrel Bisulfate 75 mg 01/27/21 09:00 02/09/21 10:01 Clopidogrel 75 Mg Tablet PO 75 mg DAILY KINDRA Administration Dextrose 50 ml 01/26/21 21:25 02/04/21 20:37 Dextrose 50% Syringe 50 Ml IVP 50 ml PRN PRN Administration hypoglycemia protocol Protocol Hydralazine HCl 25 mg 02/05/21 18:12 02/07/21 15:44 Hydralazine 20 Mg/Ml Inj 1 Ml IVP 25 mg Q6H PRN Administration HYPERTENSION Propofol 1,000 mg in 100 mls @ 0 mls/hr 02/01/21 08:00 02/09/21 11:21 Diprivan IV 50 mcg/kg/min .Q0M KINDRA 27.9 mls/hr Administration Protocol Per Protocol Fentanyl 1,000 mcg/ Sodium 100 mls @ 0 mls/hr 02/01/21 08:00 02/08/21 08:50 Chloride IV 40 mcg/hr .Q0M KINDRA 4 mls/hr Titration Protocol Per Protocol Norepinephrine Bitartrate 4 mg 254 mls @ 0 mls/hr 02/01/21 08:00 02/03/21 12:12 / Dextrose IV Infused .Q0M KINDRA Titration Protocol Per Protocol Fluconazole 200 mg in 100 mls @ 100 mls/hr 02/05/21 10:00 02/09/21 10:04 Diflucan Premix IV 100 mls/hr Q24H KINDRA Administration Dexmedetomidine HCl 400 mcg/ 104 mls @ 0 mls/hr 02/07/21 15:15 02/09/21 07:42 Sodium Chloride IV 0.7 mcg/kg/hr .Q0M KINDRA 15.77 mls/hr Administration Protocol Per Protocol Dextrose 1,000 mls @ 30 mls/hr 02/09/21 12:15 02/09/21 13:04 D5w IV 30 mls/hr .Q24H KINDRA Administration Insulin Aspart 0 unit 02/01/21 21:00 02/09/21 10:14 Insulin Aspart 100 Unit/1 Ml SUBCUT 4 unit Q6H KINDRA Administration Protocol Lanolin 1 applic 01/30/21 16:16 01/30/21 16:55 Lanolin Oint 7 Gm TOPICAL 1 tube PRN PRN Administration DRYNESS Pantoprazole Sodium 40 mg 02/03/21 09:00 02/09/21 10:02 Pantoprazole 40 Mg Sdv IVP 40 mg DAILY KINDRA Administration PFSH Acute PFSH: Medical History (Updated 02/09/21 @ 14:31 by Soraya Farley MD) Hypertension Peripheral arterial disease with history of revascularization Vitals/I&O/Wt Last Vital Signs Temp 98.3 F 02/09/21 07:00 Pulse 87 02/09/21 11:00 Resp 27 H 02/09/21 11:55 BP 176/88 02/09/21 11:00 Pulse Ox 92 02/09/21 11:55 02/08/21 02/09/21 02/09/21 22:59 06:59 14:59 Intake Total 626.364 / 1199.489 884 / 2083.489 298.86 / 298.86 Output Total 1500 / 1500 800 / 2300 Balance -873.636 / -300.511 84 / -216.511 298.86 / 298.86 Weight last 48 hrs Weight 191 lb 1 oz Physical Exam Narrative: EXAM NARRATIVE: Patient somewhat respond to the command. He is intubated. Bilateral lower extremity warm and moist. Good capillary refill on both feet. Good dopplerable right posterior tibial and left anterior tibial pulses. Color of both legs normal. Urinary Catheter Management^: Marshall: Cath Placed During This Visit: yes Reason for Continuing Indwelling Catheter: Accurate Measurement of Urinary Output in Critically Ill Patients Urinary Catheter Date of Insertion: 02/01/21 Urinary Catheter Time of Insertion: 11:10 A&P Assessment and plan (1) Peripheral arterial disease with history of revascularization: Patient has chronic limb ischemia without acute limb threatening insult or ischemia. He has good capillary refill both legs are warm and moist. He has good dopplerable posterior tibial on the right and left anterior tibial pulses. He has history of multiple revascularization in the past. Graft and SFA on the right side is chronically occluded left SFA is also chronically occluded he has collateral flow to the lower legs. At this point there is no indication to proceed with intervention. We will treat him medically by keeping both leg warm and mean arterial pressure at optimal level of more than 65 mmHg. We recommend continuing anticoagulation in the form of Eliquis or heparin and aspirin what ever our medicine and pulmonary critical care colleagues choose. Patient has underlying acute on chronic kidney injury. He is at a high risk for contrast-induced nephropathy and at a high risk of ending up in dialysis if taken to the Optics Technical Officer at the same time as a defined above there is no indication to consider revascularization with invasive strategy at the moment. I have detailed discussion with the patient family his and 2 sons for nearly half an hour, I have explained my findings and recommendations. I have given them the option of second opinion in fact our medicine recruiting operations consultant has consulted [facility] where initially patient's family would like the patient to be transferred but because of bed situation due to Covid pandemic [facility] and surrounding was not accepting. We will continue to monitor closely. Patient's family including both son and his understood my recommendation and agreed with it. Status: Acute (2) Acute kidney injury superimposed on chronic kidney disease: Acute on chronic continue to manage as per medicine. Patient is at high risk of contrast-induced nephropathy . Status: Acute (3) Pneumonia due to severe acute respiratory syndrome coronavirus 2 (SARS-CoV-2): As per medicine and pulmonary critical care Status: Acute Consult Attestations Medical Necessity Statement: Patient require continuation hospitalization for above defined care. 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
[2021-02-09 14:51] LABS: Glucose Point of Care 108 mg/dL (70-110)
[2021-02-09] MEDS: cetacaine Spray 5 gm Can 1 SPRAY TOPICAL (15:04)
--- NOTE | 2021-02-09 18:39 | PC.NURSE ---
Shift Note Frequent safety and comfort rounds continue. Orders and/or nursing care completed as indicated. Patient monitored for response to intervention and treatment(s). Dr. Glass and Dr. Ramos discussed right leg arterial occlusion. Spoke with flower machine operator in [place]. No need for transfer of care to [place] at this time as this arterial occlusion is not acute. Education provided included plan of care and medication changes. propofol stopped due to increased cholesterol level and green urine color. versed gtt started. Pt is restless at times still despite versed, fentanyl and precedex drips. understands teaching. Will continue to monitor.
[2021-02-09] MEDS: dexamethasone 4 mg/mL INJ 3 MG IVP (23:46)
[2021-02-10] VITALS (62 sets, daily range): BP systolic 92–206; BP diastolic 56–112; PULSE 79–96; RESP 13–27; TEMP 36.8–37.9; O2SAT 89–96; BMI 25.9
[2021-02-10] MEDS: ipratropium-albuterol 3 mL Neb INHALATION ×4 (03:25→20:54)
[2021-02-10 03:45] LABS: Glucose Point of Care 149 mg/dL (70-110)
[2021-02-10 03:57] LABS: Basophils % 0.3 %; Eosinophils # 0.4 10^3/uL (0.0-0.8); Eosinophils % 3.7 %; Hematocrit 35.8 % (42.0-52.0); Hemoglobin 10.8 g/dL (11.7-16.6); Lymphocytes # 0.6 10^3/uL (0.8-4.8); Lymphocytes % 5.9 %; Mean Corpuscular HGB Conc 30.2 g/dL (30.0-36.0); Mean Corpuscular Hemoglobin 29.7 pg (28.0-34.0); Mean Corpuscular Volume 98.4 fl (80-94); Mean Platelet Volume 11.2 fL (7.4-10.4); Monocytes # 0.3 10^3/uL (0.2-0.9); Monocytes % 3.6 %; Neutrophils # 8.19 10^3/uL (1.8-7.7); Nucleated Red Blood Cells % 0 %; Platelet Count 79 10^3/cmm (130-400); Red Blood Count 3.64 10^6/uL (4.1-5.3); Red Cell Distribution Width 15.1 % (12.1-15.1); White Blood Count 9.5 10^3/uL (4.0-10.0)
[2021-02-10 04:23] LABS: Alanine Aminotransferase 53 U/L (0-41); Albumin Level 2.8 g/dL (3.5-5.2); Alkaline Phosphatase 124 IU/L (40-130); Anion Gap 10.9 (5-19); Aspartate Amino Transferase 32 U/L (0-40); Blood Urea Nitrogen 56 mg/dL (8-23); Calcium 8.4 mg/dL (8.5-10.5); Carbon Dioxide 26 mmol/L (22-29); Chloride 115 mmol/L (98-107); Globulin 2.4 g/dL (1.3-4.6); Glomerular Filtration Rate 30.4 mL/min (90-130); Glucose 152 mg/dL (65-115); Magnesium 2.1 mg/dL (1.7-2.3); Osmolality Calculated 322 mOsm/kg (285-295); Potassium 4.9 mmol/L (3.5-5.1); Sodium 147 mmol/L (136-145); Total Bilirubin 0.5 mg/dL (0.15-1.2); Total Protein 5.2 g/dL (6.6-8.7)
[2021-02-10] MEDS: dexmedetomidine 400 MCG in sodium chloride 0.9% (100 ml) 100 ML 15.77 MCG IV ×3 (06:24→21:28)
--- NOTE | 2021-02-10 08:32 | XRR_ITS ---
PROCEDURE INFORMATION: Exam: XR Chest Exam date and time: 02/10/2021 8:32 AM Age: 65 years old Clinical indication: Condition or disease; Lung condition and disease; Pneumonia TECHNIQUE: Imaging protocol: XR of the chest. Views: 1 view. COMPARISON: CR (CHEST, ) 02/09/2021 5:17 AM FINDINGS: Tubes, catheters and devices: Endotracheal tube above the kale adjacent to the level of the clavicles. nasogastric tube extends below the diaphragm although the location of the tip not identified as it is outside of the [id number]. Central venous catheter via the right jugular approach with the tip projecting over the superior vena cava. Lungs: diffuse interstitial and alveolar airspace disease most pronounced within the lung bases and to a lesser degree the perihilar regions. Pneumonia versus cardiogenic or noncardiogenic edema versus other alveolar filling process. Correlate. Pleural spaces: Unremarkable. No pleural effusion. No pneumothorax. Heart/Mediastinum: Borderline cardiomegaly. Bones/joints: Unremarkable. XR/XR chest 1V portable [id number] IMPRESSION: Diffuse interstitial and alveolar airspace disease most pronounced within the lung bases and to a lesser degree the perihilar regions. Pneumonia versus cardiogenic or noncardiogenic edema versus other alveolar filling process. Correlate. Favor pneumonic process.
[2021-02-10 09:05] LABS: Glucose Point of Care 141 mg/dL (70-110)
[2021-02-10] MEDS: apixaban 5 mg Tablet 2.5 MG PO ×2 (09:11→20:21)
[2021-02-10] MEDS: clopidogrel 75 mg Tablet PO (09:11)
[2021-02-10] MEDS: pantoprazole 40 mg SDV IVP (09:11)
[2021-02-10] MEDS: aspirin 81 mg EC Tablet PO (09:11)
[2021-02-10] MEDS: fluconazole premix 200 MG/100 ML PREMIX 100 MG IV (09:27)
[2021-02-10 11:15] LABS: ABG PCO2 37.2 mmHg (35-45); ABG PH Result 7.48 (7.35-7.45); Alveolar-Arterial Oxygen Gradi 42.8 mmHg (5-10); Arterial Blood Gas Hematocrit 34.7 % (42-52); Base Excess ABG 3.7 mmol/L (-2.0-2.0); Blood Gas Allen Test Pos; Blood Gas Operator Identificat CAK; Blood Gas Sample Site Radial, left; Blood Gas Sample Type Arterial; Carboxyhemoglobin 1.4 %THgb (0.4-20.1); HCO3 ABG 27.4 mmol/L (22-26); HGB O2 Sat 87.5 % (95-100); Methemoglobin 1.2 % (0.4-1.5); Oxygen Device VENT; Oxygen Saturation ABG 89.8; Potassium Level - ABG 4.7 mmol/L (3.5-5.0); Total Hemoglobin 11.3 g/dL (14-18)
--- NOTE | 2021-02-10 11:22 | PC.NURSE ---
in weaning versed
[2021-02-10] MEDS: hyDRALAzine 20 mg/mL INJ 1 mL 25 MG IVP (13:07)
--- NOTE | 2021-02-10 13:08 | PC.NURSE ---
blood pressure consistently high. hydralazine given
--- NOTE | 2021-02-10 13:18 | PC.NURSE ---
1320 more awake, rolling head around breathing hard
[2021-02-10] MEDS: morphine 4 mg/mL SDV 1 mL 2 MG IVP (13:25)
--- NOTE | 2021-02-10 14:31 | P.PN_ITS ---
Subjective Subjective: Interval history: Patient was seen and examined at the bedside, was also present at the time of my evaluation His FiO2 requirement has increased to 70% Urine output 3 L Sodium 147 today Currently on Precedex 0.7 Fentanyl 100, propofol has been turned off, Versed at 8 Pressure support settings, concern for auto PEEP, this morning ABG revealed hypoxia with PEEP of 8, 60% FiO2 Cr improving Stays euglycemic Right foot toes colder and pale, otherwise his lower extremities and dorsum of foot has normal temperature without any skin mottling or ischemic ulcers Vitals/I&O/Wt Last Vital Signs Temp 98.4 F 02/10/21 13:00 Pulse 83 02/10/21 13:00 Resp 24 H 02/10/21 13:25 BP 173/112 02/10/21 13:00 Pulse Ox 91 02/10/21 13:25 02/09/21 02/10/21 02/10/21 22:59 06:59 14:59 Intake Total 600.000 / 1188.422 536.017 / 1724.439 404.616 / 404.616 Output Total 1300 / 1300 1750 / 3050 Balance -700.000 / -111.578 -1213.983 / -1325.561 404.616 / 404.616 Weight last 48 hrs Weight 86.664 kg Weight 86.664 kg Physical Exam Narrative: EXAM NARRATIVE: Intubated and sedated On pressure support Right toes cold with pale color, otherwise bilateral lower extremities warm to touch, no signs of arterial ischemic ulcers Urine color has improved to yellowish-green S1, S2 No murmur Clinically euvolemic Abdomen soft Patient does wake up and tries to bite his tube Is able to move his extremities when he wakes up spite being on sedation, Right IJ Marshall catheter Urinary Catheter Management^: Marshall: Cath Placed During This Visit: yes Reason for Continuing Indwelling Catheter: Accurate Measurement of Urinary Output in Critically Ill Patients Urinary Catheter Date of Insertion: 02/01/21 Urinary Catheter Time of Insertion: 11:10 Data : 02/10/21 03:22 02/10/21 03:22 A&P Assessment and plan (1) PAD (peripheral artery disease): Status: Acute (2) Decreased pulses in feet: Status: Acute (3) Peripheral arterial disease with history of revascularization: Status: Acute (4) Arterial occlusion: Status: Acute (5) Acute kidney injury superimposed on chronic kidney disease: Status: Acute (6) Hypernatremia: Status: Acute (7) Metabolic acidosis: Status: Acute (8) Hypertension: Status: Acute (9) Diabetes mellitus: Status: Acute Qualifiers: Diabetes mellitus type: type 2 Diabetes mellitus termination clerk insulin use: unspecified nursing home insulin use status Diabetes mellitus complication status: with kidney complications Diabetes mellitus complication detail: with chronic kidney disease Chronic kidney disease stage: unspecified stage Qualified Code(s): E11.22 - Type 2 diabetes mellitus with diabetic chronic kidney disease (10) History of atrial fibrillation: Status: Acute (11) Hyperglycemia: Status: Acute (12) ARDS (adult respiratory distress syndrome): Status: Acute (13) Pneumonia due to severe acute respiratory syndrome coronavirus 2 (SARS-CoV-2): Status: Acute Additional A&P Information Ventilator dependent respiratory failure Severe ARDS COVID-19 pneumonia Currently on Diflucan Low-grade temperature noted No leukocytosis Currently on fentanyl 100 and Versed 8 does wake up from time to time, propofol discontinued yesterday Urine color improving Ventilator settings changed to pressure support, on PEEP of 8 FiO2 60% PO2 showed hypoxia Vent management as per sand mill operator facing 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 Farley evaluated him yesterday recommended continuing Eliquis, no acute intervention needed no signs of acute limb ischemia, please review his note for further detail Hypernatremia: Sodium 147 improving with D5 and water flushes Polyuric 3 L urine output Hyperglycemia: Currently blood sugar within target range Lantus Acute on chronic kidney disease: Creatinine improving with replenishment of fluids and discontinuation of Zosyn Potassium improved as well CPK trending down Eliquis reduced dose because of NASIR Acidosis improved Tube feeding at 50 mL/h with water flushes 200 mL every 4 hours GI prophylaxis Protonix Guarded prognosis, present at the bedside, her questions were answered to her satisfaction, Full code Attestations Medical Necessity Statement*: Continue ICU care intubated, Time Spent in Patient Care: 16 - 35 minutes Coding Level of Care Code Acute Director Of Convention Services for g Fwd Diagnoses PAD (peripheral artery disease) I73.9 Decreased pulses in feet R09.89 Peripheral arterial disease with history of revascularization I73.9; Z98.890 Arterial occlusion I70.90 Acute kidney injury superimposed on chronic kidney disease N17.9; N18.9 Hypernatremia E87.0 Metabolic acidosis E87.2 Hypertension I10 Diabetes mellitus E11.22 Diabetes mellitus type: type 2 Diabetes mellitus nursing home insulin use: unspecified nursing home insulin use status Diabetes mellitus complication status: with kidney complications Diabetes mellitus complication detail: with chronic kidney disease Chronic kidney disease stage: unspecified stage History of atrial fibrillation Z86.79 Hyperglycemia R73.9 ARDS (adult respiratory distress syndrome) J80 Pneumonia due to severe acute respiratory syndrome coronavirus 2 (SARS-CoV-2) U07.1; J12.82
--- NOTE | 2021-02-10 14:33 | PC.NURSE ---
didnt shailesh. volume control. here. resp. labored. b/p up. fentanyl increased to [address] porras.
--- NOTE | 2021-02-10 14:42 | P.PN_ITS ---
Subjective Subjective: Interval history: Patient continues to be on the ventilator respond to tactile stimulus. Both legs and feet continues to be of normal temperature. Color is normal. Medications: Reviewed: Yes Vitals/I&O/Wt Last Vital Signs Temp 98.4 F 02/10/21 13:00 Pulse 83 02/10/21 13:00 Resp 24 H 02/10/21 13:25 BP 173/112 02/10/21 13:00 Pulse Ox 91 02/10/21 13:25 02/09/21 02/10/21 02/10/21 22:59 06:59 14:59 Intake Total 600.000 / 1188.422 536.017 / 1724.439 404.616 / 404.616 Output Total 1300 / 1300 1750 / 3050 Balance -700.000 / -111.578 -1213.983 / -1325.561 404.616 / 404.616 Weight last 48 hrs Weight 191 lb 1 oz Weight 191 lb 1 oz Physical Exam Narrative: EXAM NARRATIVE: Patient continues to be intubated. Bilateral lower extremity warm and of normal color. Good capillary refill on both feet. doppler able right posterior anterior and posterior tibial and left anterior tibial pulses. Urinary Catheter Management^: Marshall: Cath Placed During This Visit: yes Reason for Continuing Indwelling Catheter: Accurate Measurement of Urinary Output in Critically Ill Patients Urinary Catheter Date of Insertion: 02/01/21 Urinary Catheter Time of Insertion: 11:10 Data : 02/10/21 03:22 02/10/21 03:22 A&P Assessment and plan (1) Peripheral arterial disease with history of revascularization: Patient has chronic limb ischemia without acute limb threatening insult or ischemia. He has good capillary refill both legs are warm and moist. He has good dopplerable posterior tibial on the right and left anterior tibial pulses. He has history of multiple revascularization in the past. Graft and SFA on the right side is chronically occluded left SFA is also chronically occluded he has collateral flow to the lower legs. At this point there is no indication to proceed with intervention. We will treat him medically by keeping both leg warm and mean arterial pressure at optimal level of more than 65 mmHg. We recommend continuing anticoagulation in the form of Eliquis or heparin and aspirin what ever our medicine and pulmonary critical care colleagues choose. Patient has underlying acute on chronic kidney injury. He is at a high risk for contrast- induced nephropathy and at a high risk of ending up in dialysis if taken to the Vice Chancellor at the same time as a defined above there is no indication to consider revascularization with invasive strategy at the moment. I have detailed discussion with the patient family his and 2 sons for nearly half an hour, I have explained my findings and recommendations. I have given them the option of second opinion in fact our medicine databases software consultant has consulted [facility] where initially patient's family would like the patient to be transferred but because of bed situation due to Covid pandemic [facility] and surrounding was not accepting. We will continue to monitor closely. Patient's family including both son and his understood my recommendation and agreed with it. Patient remained stable vascular peña. Both feet and legs looks fine no indication of limb threatening ischemia. Status: Acute (2) Acute kidney injury superimposed on chronic kidney disease: Management as per medicine Status: Acute (3) Pneumonia due to severe acute respiratory syndrome coronavirus 2 (SARS-CoV-2): Management as per pulmonary and medicine Status: Acute Attestations Medical Necessity Statement*: As per medicine and pulmonary critical care Coding Level of Care Code Established Pt Acute Aquatics Manager for Chg Fwd Patient Type Established History Detailed Exam Detailed Medical Decision Making Moderate Complexity Diagnoses Peripheral arterial disease with history of revascularization I73.9; Z98.890 Acute kidney injury superimposed on chronic kidney disease N17.9; N18.9 Pneumonia due to severe acute respiratory syndrome coronavirus 2 (SARS-CoV-2) U07.1; J12.82
[2021-02-10 16:12] LABS: Glucose Point of Care 149 mg/dL (70-110)
[2021-02-10] MEDS: dextrose 5% 1,000 ML 30 ML IV (16:18)
--- NOTE | 2021-02-10 16:26 | PC.NURSE ---
urine remains a blue tinge. remains at bedside.
--- NOTE | 2021-02-10 19:26 | P.PN_ITS ---
Subjective Subjective: Interval history: -Patient seen at bedside today morning -Triglycerides are high-so held propofol -Patient seen and hyperventilating and has to place him on PSV 20/860% -Plan is to reduce Versed and to maintain sedation with fentanyl, Precedex, Ativan as needed and morphine as needed - Medications: Reviewed: Yes Vitals/I&O/Wt Last Vital Signs Temp 100.3 F H 02/10/21 16:00 Pulse 93 02/10/21 16:00 Resp 14 02/10/21 17:54 BP 106/61 02/10/21 16:00 Pulse Ox 92 02/10/21 17:54 02/10/21 02/10/21 02/10/21 06:59 14:59 22:59 Intake Total 536.017 / 1724.439 404.616 / 404.616 817 / 1221.616 Output Total 1750 / 3050 1200 / 1200 Balance -1213.983 / -1325.561 404.616 / 404.616 -383 / 21.616 Weight last 48 hrs Weight 191 lb 1 oz Weight 191 lb 1 oz Physical Exam Narrative: EXAM NARRATIVE: General: lying in bed, sedated and intubated. HEENT:NCAT, PERRLA, EOMI Neck: Supple Lungs: Bilateral diffuse crackles Heart: s1/s2, RRR Abd: soft, NT, ND, BS + Normoactive Extremities: No edema; today felt right lower extremity slightly warm; right extremity toes felt cold MARINE OPERATIONS COORDINATOR: sedated and limited MARINE OPERATIONS COORDINATOR exam possible SKIN: no rash Urinary Catheter Management^: Marshall: Cath Placed During This Visit: yes Reason for Continuing Indwelling Catheter: Accurate Measurement of Urinary Output in Critically Ill Patients Urinary Catheter Date of Insertion: 02/01/21 Urinary Catheter Time of Insertion: 11:10 Data : 02/10/21 03:22 02/10/21 03:22 Other Labs: Laboratory Results WBC 9.5 10^3/uL (4.0-10.0) 02/10/21 03:22 RBC 3.64 10^6/uL (4.1-5.3) L 02/10/21 03:22 Hgb 10.8 g/dL (11.7-16.6) L 02/10/21 03:22 Hct 35.8 % (42.0-52.0) L 02/10/21 03:22 MCV 98.4 fl (80-94) H 02/10/21 03:22 MCH 29.7 pg (28.0-34.0) 02/10/21 03:22 MCHC 30.2 g/dL (30.0-36.0) 02/10/21 03:22 RDW 15.1 % (12.1-15.1) 02/10/21 03:22 Plt Count 79 10^3/cmm (130-400) L 02/10/21 03:22 MPV 11.2 fL (7.4-10.4) H 02/10/21 03:22 Neut % (Auto) 86.0 % 02/10/21 03:22 Lymph % (Auto) 5.9 % 02/10/21 03:22 Mobile % (Auto) 3.6 % 02/10/21 03:22 Eos % (Auto) 3.7 % 02/10/21 03:22 Baso % (Auto) 0.3 % 02/10/21 03:22 Neut # (Auto) 8.19 10^3/uL (1.8-7.7) H 02/10/21 03:22 Lymph # (Auto) 0.6 10^3/uL (0.8-4.8) L 02/10/21 03:22 Mobile # (Auto) 0.3 10^3/uL (0.2-0.9) 02/10/21 03:22 Eos # (Auto) 0.4 10^3/uL (0.0-0.8) 02/10/21 03:22 Baso # (Auto) 0.0 10^3/uL (0.0-0.1) 02/10/21 03:22 Nucleated RBC % (auto) 0 % 02/10/21 03:22 Nucleated RBCs # 0.0 /100WBC 02/10/21 03:22 D-Dimer 3.27 ug/mIFEU (0-0.59) H 01/28/21 06:30 Specimen Type Arterial 02/10/21 11:03 Sample Site Radial, left 02/10/21 11:03 ABG pH 7.48 (7.35-7.45) H 02/10/21 11:03 ABG pCO2 37.2 mmHg (35-45) 02/10/21 11:03 ABG pO2 54.0 mmHg (80.0-100.0) L 02/10/21 11:03 ABG HCO3 27.4 mmol/L (22-26) H 02/10/21 11:03 ABG O2 Saturation 89.8 02/10/21 11:03 ABG Base Excess 3.7 mmol/L (-2.0-2.0) H 02/10/21 11:03 Harley Test Pos 02/10/21 11:03 A-a O2 Gradient 42.8 mmHg (5-10) H 02/10/21 11:03 Hematocrit 34.7 % (42-52) L 02/10/21 11:03 Hgb O2 Saturation 87.5 % (95-100) L 02/10/21 11:03 Carboxyhemoglobin 1.4 %THgb (0.4-20.1) 02/10/21 11:03 Methemoglobin 1.2 % (0.4-1.5) 02/10/21 11:03 Total Hemoglobin 11.3 g/dL (14-18) L 02/10/21 11:03 Sodium 150.0 mmol/L (131-143) H 02/10/21 11:03 Potassium 4.7 mmol/L (3.5-5.0) 02/10/21 11:03 Glucose 150.0 mg/dL (70-115) H 02/10/21 11:03 Ionized Calcium 1.0 mmol/L (1.1-1.4) L 02/10/21 11:03 O2 Delivery Device Vent 02/10/21 11:03 O2 Liters/Min 40.0 % 01/26/21 21:10 FiO2 60.0 % 02/10/21 11:03 Tidal Volume 0.50 02/08/21 11:00 PEEP 8.0 cmH20 02/10/21 11:03 Human Resources Services Specialist ID Cak 02/10/21 11:03 Sodium 147 mmol/L (136-145) H 02/10/21 03:22 Potassium 4.9 mmol/L (3.5-5.1) 02/10/21 03:22 Chloride 115 mmol/L (98-107) H 02/10/21 03:22 Carbon Dioxide 26 mmol/L (22-29) 02/10/21 03:22 Anion Gap 10.9 (5-19) 02/10/21 03:22 BUN 56 mg/dL (8-23) H 02/10/21 03:22 Creatinine 2.2 mg/dL (0.7-1.2) H 02/10/21 03:22 GFR Calculation 30.4 mL/min (90-130) L 02/10/21 03:22 Glucose 152 mg/dL (65-115) H 02/10/21 03:22 POC Glucose 154 mg/dL (70-110) H 02/10/21 20:15 Estimat Average Glucose 243 01/30/21 06:10 Hemoglobin A1c 10.1 % (4.0-6.0) H 01/30/21 06:10 Calculated Osmolality 322 mOsm/kg (285-295) H 02/10/21 03:22 Lactic Acid 3.1 mmol/L (0.5-2.2) H 01/26/21 18:44 Lactic Acid (Sepsis) 2.5 mmol/L (0.5-2.2) H 01/26/21 21:55 Lactate 2.7 mmol/L (0.5-2.2) H 02/02/21 14:40 Calcium 8.4 mg/dL (8.5-10.5) L 02/10/21 03:22 Phosphorus 7.5 mg/dL (2.5-4.5) H 02/05/21 05:25 Magnesium 2.1 mg/dL (1.7-2.3) 02/10/21 03:22 Ferritin 1542 ng/mL (30-400) H 01/27/21 04:50 Total Bilirubin 0.5 mg/dL (0.15-1.2) 02/10/21 03:22 AST 32 U/L (0-40) 02/10/21 03:22 ALT 53 U/L (0-41) H 02/10/21 03:22 Alkaline Phosphatase 124 IU/L (40-130) 02/10/21 03:22 Lactate Dehydrogenase 428 U/L (135-225) H 01/27/21 04:50 Creatine Kinase 447 U/L (39-308) H* 02/09/21 03:28 Troponin T Baseline 33 ng/L (0-15) H 01/26/21 18:44 Troponin T 120 Minute 31.73 ng/L (0-15) H 01/26/21 21:55 Delta Troponin T -1.27 ABS# (0-10) L 01/26/21 21:55 Troponin T Hi Sens 6Hr 31.76 ng/L (0-15) H 01/27/21 02:10 Troponin T Hi Sens 6Hr Delta -1.24 ng/L (0-12) L 01/27/21 02:10 C-Reactive Protein 134.7 mg/L (0.0-4.9) H 01/28/21 06:30 NT-Pro-B Natriuret Pep 1724 pg/mL (0-125) H 01/26/21 18:44 Total Protein 5.2 g/dL (6.6-8.7) L 02/10/21 03:22 Albumin 2.8 g/dL (3.5-5.2) L 02/10/21 03:22 Globulin 2.4 g/dL (1.3-4.6) 02/10/21 03:22 Triglycerides 627 mg/dL (0-150) H 02/09/21 03:28 LDL Cholesterol Direct 122 mg/dL (0-100) H 02/09/21 03:28 Procalcitonin 0.21 ng/mL (0-0.5) 01/26/21 18:44 Micro: Microbiology 02/10/21 14:45 Gram Stain - Final Sputum - Endotracheal Tube Aspirate A&P Assessment and plan (1) Pneumonia due to severe acute respiratory syndrome coronavirus 2 (SARS-CoV-2): Status: Acute (2) Acute respiratory failure with hypoxia: Status: Acute (3) Hypertension: Status: Acute Qualifiers: Hypertension type: unspecified Qualified Code(s): I10 - Essential (primary) hypertension (4) Chronic kidney disease: Status: Acute Qualifiers: Chronic kidney disease stage: unspecified stage Qualified Code(s): N18.9 - Chronic kidney disease, unspecified (5) Diabetes mellitus: Status: Acute Qualifiers: Diabetes mellitus type: type 2 Diabetes mellitus fdc insulin use: unspecified medical terminologist insulin use status Diabetes mellitus complication status: with kidney complications Diabetes mellitus complication detail: with chronic kidney disease Chronic kidney disease stage: unspecified stage Qualified Code(s): E11.22 - Type 2 diabetes mellitus with diabetic chronic kidney disease (6) Metabolic acidosis: Status: Acute (7) Decreased pulses in feet: Status: Acute (8) PAD (peripheral artery disease): Status: Acute # Acute hypoxic respiratory failure secondary to ARDS due to Covid 19 Pneumonia # Metabolic acidosis in pt with CKD-worsening NASIR # HTN # Diabetes # h/o A fib - rate controlled off paralytic and #Rhabdomyolysis -improving #Thrombocytopenia-monitor platelets #severe PAD - intubated, sedated, paralyzed and proned x 4 ; -Plan is to taper off further sedation and do spontaneous awakening trial -dc propofol as triglycerides are high ; while tapering off sedation patient is hyperventilating and seen in respiratory distress -Maintain sedation with fentanyl, Precedex, Ativan as needed and Morphine 2mg ivp q 6 hr prn pain -Currently on pressure support ventilation 20/8 fio2 60% - Chest x ray today: RLL opacity - i will obtain bronchoscopy if it perisists - Duoneb q 6 hr nathalie - dexamethasone 6 mg ivp nathalie x 10day and currently dexamethasone 3 mg ivp daily - s/p 5 day remdesivir and Tocilizumab 01/28/21 - monitor inflammatory markers q 48 hrs -Off pressor, ASA/PLAVIX -arterial doppler results reported features of severe PAD on the right and left extremities with occluded right femoral popliteal bypass graft -notify results to family and they wanted to transfer to [facility] to pts vascular surgeon Dr. Holley - Unable to reach Dr. Holley office and also [facility] is on transfer diversion due to bed unavailability -Family agreed to see intervention sandfill operator here & Dr. Farley was consulted- recommended medical management and so we will continue Eliquis, aspirin, Plavix - I/O/N -1325last 24 hours/-900 since admission - Na 147; K 4.9; creatinine better;CK better; on D5 @ 30 mls/hr -Hold Lantus as patient has hypoglycemic episodes -Continue FSBS every 6 monitoring and Insulin scale coverage - Continue tube feeding - PPI for gi ppx - Elliquis for DVT ppx and chronic A FIB - no fevers ; off antibiotics; - Blood cx - CONS - Contaminant - so far sputum positive for Yeast - id pending-on fluconazole - stable platelets 86 - Eliquis /asa/plavix/ PPI - Push ET 2 cm down code: Full DVT ppx: Elliquis GI ppx : PPI Prognosis: guarded Family NOK : Updated recommendations conveyed to RN,RT, Hospitalist taking care of the patient. Attestations Medical Necessity Statement*: Acute hypoxic respiratory failure secondary to ARDS due to COVID 19 Pneumonia - intubated, sedated and proned still requiring mechanical ventilator Time Spent in Patient Care: Greater than 35 minutes (>than 50% of time spent in counselling and/or direct pt care on unit) . Critical Care Time: The high probability of a clinically significant, sudden or life threatening deterioration of the patient's [respiratory, cardiac, endocrine, renal, vascular] system(s) required my full and direct attention, intervention and personal management. The critical care time is as shown. This time is in addition to time spent performing any reported procedures but include s the following: [x] Data and vital sign review and interpretation [x] Patient assessment, examination and intervention [x] Documentation [x] Medication orders and management Critical Care Time (min): 45 Coding Level of Care Code Acute Extension Service Supervisor for g Fwd Diagnoses Pneumonia due to severe acute respiratory syndrome coronavirus 2 (SARS-CoV-2) U07.1; J12.82 Acute respiratory failure with hypoxia J96.01 Hypertension I10 Hypertension type: unspecified Chronic kidney disease N18.9 Chronic kidney disease stage: unspecified stage Diabetes mellitus E11.22 Diabetes mellitus type: type 2 Diabetes mellitus medical terminologist insulin use: unspecified fdc insulin use status Diabetes mellitus complication status: with kidney complications Diabetes mellitus complication detail: with chronic kidney disease Chronic kidney disease stage: unspecified stage Metabolic acidosis E87.2 Decreased pulses in feet R09.89 PAD (peripheral artery disease) I73.9
[2021-02-10 20:17] LABS: Glucose Point of Care 154 mg/dL (70-110)
[2021-02-10] MEDS: dexamethasone 4 mg/mL INJ 3 MG IVP (20:21)
[2021-02-11] VITALS (67 sets, daily range): BP systolic 95–151; BP diastolic 61–90; PULSE 74–97; RESP 12–24; TEMP 37.1–38; O2SAT 85–98; BMI 25.9
[2021-02-11] MEDS: ipratropium-albuterol 3 mL Neb INHALATION ×4 (02:32→21:43)
[2021-02-11 03:09] LABS: Glucose Point of Care 256 mg/dL (70-110)
--- NOTE | 2021-02-11 04:00 | XRR_ITS ---
PROCEDURE INFORMATION: Exam: XR Chest Exam date and time: 02/11/2021 4:00 AM Age: 65 years old Clinical indication: Condition or disease; Lung condition and disease; Pneumonia; Viral TECHNIQUE: Imaging protocol: XR of the chest. Views: 1 view. COMPARISON: CR XR chest 1V portable [id number] 02/10/2021 9:26 AM FINDINGS: Tubes, catheters and devices: Central venous catheter via the right jugular approach with the tip projecting over the superior vena cava. nasogastric tube extends below the diaphragm although the location of the tip not identified as it is outside of the [id number]. Lungs: Patchy diffuse interstitial and alveolar airspace disease most pronounced in the perihilar regions and lung bases. Subpulmonic effusions bilaterally. Pleural spaces: See Lungs finding. Heart/Mediastinum: Borderline cardiomegaly. Bones/joints: Unremarkable. XR/XR chest 1V portable [id number] IMPRESSION: Patchy diffuse interstitial and alveolar airspace disease most pronounced in the perihilar regions and lung bases. Subpulmonic effusions bilaterally. Edema and/or pneumonia.
[2021-02-11 05:04] LABS: ABG PCO2 37.6 mmHg (35-45); ABG PH Result 7.43 (7.35-7.45); Arterial Blood Gas Hematocrit 42.1 % (42-52); Base Excess ABG 0.8 mmol/L (-2.0-2.0); Blood Gas Allen Test Pos; Blood Gas Sample Type Arterial; PO2 ABG 60.6 mmHg (80.0-100.0)
[2021-02-11 05:11] LABS: Blood Gas Sample Site Radial, right; Oxygen Device VENT
[2021-02-11] MEDS: dexmedetomidine 400 MCG in sodium chloride 0.9% (100 ml) 100 ML 15.77 MCG IV ×3 (05:37→19:55)
[2021-02-11 07:56] LABS: Basophils % 0.4 %; Eosinophils # 0.2 10^3/uL (0.0-0.8); Eosinophils % 2.5 %; Hematocrit 33.6 % (42.0-52.0); Hemoglobin 10.4 g/dL (11.7-16.6); Lymphocytes # 0.8 10^3/uL (0.8-4.8); Lymphocytes % 8.1 %; Mean Corpuscular Hemoglobin 30.1 pg (28.0-34.0); Mean Corpuscular Volume 97.4 fl (80-94); Mean Platelet Volume 11.2 fL (7.4-10.4); Monocytes # 0.5 10^3/uL (0.2-0.9); Monocytes % 5.6 %; Neutrophils # 7.62 10^3/uL (1.8-7.7); Neutrophils % 82.9 %; Nucleated Red Blood Cells % 0 %; Platelet Count 85 10^3/cmm (130-400); Red Blood Count 3.45 10^6/uL (4.1-5.3); Red Cell Distribution Width 14.9 % (12.1-15.1); White Blood Count 9.2 10^3/uL (4.0-10.0)
[2021-02-11 08:10] LABS: Alanine Aminotransferase 44 U/L (0-41); Albumin Level 2.5 g/dL (3.5-5.2); Alkaline Phosphatase 104 IU/L (40-130); Anion Gap 12.8 (5-19); Aspartate Amino Transferase 34 U/L (0-40); Blood Urea Nitrogen 60 mg/dL (8-23); Calcium 8.2 mg/dL (8.5-10.5); Carbon Dioxide 24 mmol/L (22-29); Chloride 112 mmol/L (98-107); Globulin 2.3 g/dL (1.3-4.6); Glomerular Filtration Rate 33.9 mL/min (90-130); Glucose 214 mg/dL (65-115); Osmolality Calculated 321 mOsm/kg (285-295); Potassium 4.8 mmol/L (3.5-5.1); Sodium 144 mmol/L (136-145); Total Bilirubin 0.4 mg/dL (0.15-1.2); Total Protein 4.8 g/dL (6.6-8.7)
[2021-02-11 08:11] LABS: Glucose Point of Care 186 mg/dL (70-110)
[2021-02-11] MEDS: levofloxacin-dextrose 5 % 750 MG/150 ML PREMIX 100 MG IV (08:18)
[2021-02-11] MEDS: pantoprazole 40 mg SDV IVP (08:56)
[2021-02-11] MEDS: clopidogrel 75 mg Tablet PO (08:56)
[2021-02-11] MEDS: aspirin 81 mg EC Tablet PO (08:56)
[2021-02-11] MEDS: apixaban 5 mg Tablet 2.5 MG PO ×2 (08:56→20:34)
[2021-02-11] MEDS: fluconazole premix 200 MG/100 ML PREMIX 100 MG IV (10:12)
[2021-02-11] MEDS: quetiapine 25 mg Tablet 50 MG PO ×2 (10:25→18:16)
[2021-02-11] MEDS: linezolid premix 600 MG/300 ML PREMIX 300 MG IV ×2 (11:22→22:23)
--- NOTE | 2021-02-11 13:00 | P.PN_ITS ---
Subjective Subjective: Interval history: Patient both legs stays warm moist with dopplerable right posterior tibial and left anterior tibial pulses. No change from the yesterday Medications: Reviewed: Yes Vitals/I&O/Wt Last Vital Signs Temp 99.4 F 02/11/21 11:00 Pulse 91 02/11/21 11:00 Resp 23 H 02/11/21 12:05 BP 133/81 02/11/21 11:00 Pulse Ox 95 02/11/21 12:05 02/10/21 02/11/21 02/11/21 22:59 06:59 14:59 Intake Total 999.8 / 1404.416 304 / 6209.834 1463 / 1004 Output Total 1200 / 1200 1200 / 2400 450 / 450 Balance -200.2 / 204.416 -896 / -691.584 554 / 554 Weight last 48 hrs Weight 191 lb 1 oz Weight 191 lb 1 oz Physical Exam Narrative: EXAM NARRATIVE: Patient is intubated and sedated. Bilateral lower extremity warm and of normal color. Good capillary refill on both feet. doppler able right posterior anterior and posterior tibial and left anterior tibial pulses. Urinary Catheter Management^: Marshall: Cath Placed During This Visit: yes Reason for Continuing Indwelling Catheter: Accurate Measurement of Urinary Output in Critically Ill Patients Urinary Catheter Date of Insertion: 02/01/21 Urinary Catheter Time of Insertion: 11:10 Data : 02/11/21 03:56 02/11/21 03:56 Micro: Microbiology 02/11/21 11:34 Blood Culture - Preliminary Blood SPECIMEN COLLECTED 02/11/21 11:34 Blood Culture - Preliminary Blood SPECIMEN COLLECTED 02/10/21 14:45 Gram Stain - Final Sputum - Endotracheal Tube Aspirate Sputum Culture - Preliminary Gram Negative Rods A&P Assessment and plan (1) Peripheral arterial disease with history of revascularization: Patient has chronic limb ischemia without acute limb threatening insult or ischemia. He has good capillary refill both legs are warm and moist. He has good dopplerable posterior tibial on the right and left anterior tibial pulses. He has history of multiple revascularization in the past. Graft and SFA on the right side is chronically occluded left SFA is also chronically occluded he has collateral flow to the lower legs. At this point there is no indication to proceed with intervention. We will treat him medically by keeping both leg warm and mean arterial pressure at optimal level of more than 65 mmHg. We recommend continuing anticoagulation in the form of Eliquis or heparin and aspirin what ever our medicine and pulmonary critical care colleagues choose. Patient has underlying acute on chronic kidney injury. He is at a high risk for contrast- induced nephropathy and at a high risk of ending up in dialysis if taken to the Aircraft Communicator at the same time as a defined above there is no indication to consider revascularization with invasive strategy at the moment. I have detailed discussion with the patient family his and 2 sons for nearly half an hour, I have explained my findings and recommendations. I have given them the option of second opinion in fact our medicine crop consultant has consulted [facility] where initially patient's family would like the patient to be transferred but because of bed situation due to Covid pandemic [facility] and surrounding was not accepting. We will continue to monitor closely. Patient's family including both son and his understood my recommendation and agreed with it. Patient remained stable vascular peña. Both feet and legs looks fine no indication of limb threatening ischemia. Patient remained stable vascular peña. Continue managing him conservatively at this point no intention to proceed with invasive study Status: Acute (2) Acute kidney injury superimposed on chronic kidney disease: Management as per medicine Status: Acute (3) Pneumonia due to severe acute respiratory syndrome coronavirus 2 (SARS-CoV-2): Management as per pulmonary and medicine Status: Acute Attestations Medical Necessity Statement*: As per medicine Coding Level of Care Code Established Pt Acute Ear Pull Machine Operator for g Fwd Patient Type Established History Expanded Problem Focused Exam Expanded Problem Focused Medical Decision Making Moderate Complexity Diagnoses Peripheral arterial disease with history of revascularization I73.9; Z98.890 Acute kidney injury superimposed on chronic kidney disease N17.9; N18.9 Pneumonia due to severe acute respiratory syndrome coronavirus 2 (SARS-CoV-2) U07.1; J12.82
--- NOTE | 2021-02-11 13:42 | P.PCN_ITS ---
Procedure/Consent Time out: Time Out Performed: Yes Consent: Consent for Procedure: Consent obtained from other (indicate) (), Risks & Benefits reviewed and Agrees to proceed with procedure Procedure Narrative: Procedure: Bronchoscopy with airway inspection and clearance of mucus-obtaining bronchoalveolar lavage samples for cultures Pre-Operative Diagnosis: Pneumonia Post-Operative Diagnosis: Same Indication: chest x-ray showing Patchy diffuse interstitial and alveolar airspace disease most pronounced in the perihilar regions and lung bases. Anesthesia: Patient already intubated and on fentanyl and versed and titrated drips to reach adequate sedation; given additonal dose of fentanyl 25 mcg and versed 2 mg one dose each Pre-procedure Evaluation: Patient was evaluated clinically and ancillary testing reviewed. The risk of having active MTB infection is very low in my clinical judgement. ASA: Malampati score: unable to evaluate due to presence of endotracheal tube Consent: Consents were obtained from NOK and placed in the chart Procedure Details: Time out was performed by the procedure team and nursing staff. Vent support maintained on Fio2 100. The bronchoscope was introduced through the ETT. A bronchoscopic airway exam was performed to evaluate the visible tracheobronchial tree to the segmental level. Summary of Significant Findings: -Bronchoscope passed through ET tube to visualize distal trachea which was noted to be normal. Main kale visualized which was sharp and normal. Then the scope was passed through the right bronchial tree was assessed to include the right mainstem bronchus, RBI, and RUL/RML/RLL bronchi to the segmental and subsegmental levels. No active bleeding noted. Mucosa appeared normal. Small amounts of purulent secretions noted and suctioned right away. Then the scope was left bronchial tree was assessed to include the left mainstem bronchus, PEPE, Lingula, and LLL bronchi to the segmental and subsegmental level. No active bleeding noted. Mucosa appeared normal. Small amounts of purulent secretions noted in left lower lobe. They were all suctioned right away. The bronchoscope was then removed and the procedure terminated. Estimated Blood Loss: None Specimens: Bronchoalveolar lavage was taken from right lower lobe and sent for microbiology cultures, fungal cultures and PCP. Complications:None; patient tolerated the procedure well. Disposition: Patient remains critically ill, intubated and stays in ICU Patient tolerated the procedure well. Praveen Glass MD Pulmonary critical Care Medicine [facility] Acute Procedures Epistaxis Control: Time out performed: Yes
--- NOTE | 2021-02-11 14:02 | P.PN_ITS ---
Subjective Subjective: Interval history: Patient spiked fever yesterday night, this morning broad-spectrum antibiotics added, status post bronchial lavage, bronchoscopy by cnc mill and lathe operator His right foot is warmer today as compared to yesterday no signs of acute limb ischemia Versed decreased to 6 mg today Fentanyl running at 100 On pressure support 70% FiO2 P O2 60 on 70% FiO2 with PEEP of 8 D5 running at lower rate negative balance 464ml Creatinine improved 2.0 Right IJ dressing changed, Marshall catheter in place draining clear yellow urine Low albumin AST ALT improving Vitals/I&O/Wt Last Vital Signs Temp 98.7 F 02/11/21 13:30 Pulse 82 02/11/21 13:30 Resp 21 H 02/11/21 13:30 BP 146/90 02/11/21 13:30 Pulse Ox 95 02/11/21 13:30 02/10/21 02/11/21 02/11/21 22:59 06:59 14:59 Intake Total 999.8 / 1404.416 304 / 9417.019 5113 / 1082 Output Total 1200 / 1200 1200 / 2400 450 / 450 Balance -200.2 / 204.416 -896 / -691.584 632 / 632 Weight last 48 hrs Weight 86.664 kg Weight 86.664 kg Physical Exam Narrative: EXAM NARRATIVE: Intubated and sedated Right IJ Marshall draining concentrated urine, yellow, Abdomen soft S1, S2 bilateral assisted breath sounds Patient did show some movement yesterday when was at the bedside, he was moving his head right to left, seemed agitated and wanted to move his upper extremities Today sedated Right foot feels warmer as compared to yesterday no acute limb ischemic findings Neuro exam limited, pinpoint pupil Skin without any ulcers Urinary Catheter Management^: Marshall: Cath Placed During This Visit: yes Reason for Continuing Indwelling Catheter: Accurate Measurement of Urinary Output in Critically Ill Patients Urinary Catheter Date of Insertion: 02/01/21 Urinary Catheter Time of Insertion: 11:10 Data : 02/11/21 03:56 02/11/21 03:56 Micro: Microbiology 02/11/21 11:34 Blood Culture - Preliminary Blood SPECIMEN COLLECTED 02/11/21 11:34 Blood Culture - Preliminary Blood SPECIMEN COLLECTED 02/10/21 14:45 Gram Stain - Final Sputum - Endotracheal Tube Aspirate Sputum Culture - Preliminary Gram Negative Rods A&P Assessment and plan (1) Sepsis: Status: Acute (2) PAD (peripheral artery disease): Status: Acute (3) Decreased pulses in feet: Status: Acute (4) Peripheral arterial disease with history of revascularization: Status: Acute (5) Arterial occlusion: Status: Acute (6) Acute kidney injury superimposed on chronic kidney disease: Status: Acute (7) Hypernatremia: Status: Acute (8) Metabolic acidosis: Status: Acute (9) Hypertension: Status: Acute (10) Pneumonia due to severe acute respiratory syndrome coronavirus 2 (SARS-CoV-2): Status: Acute (11) Respiratory failure: Status: Acute Qualifiers: Chronicity: acute Respiratory failure complication: hypoxia Qualified Code(s): J96.01 - Acute respiratory failure with hypoxia (12) COVID-19: Status: Acute Additional A&P Information Sepsis criteria met today Fever, tachypnea, concern for ventilator associated pneumonia Status post bronchoscopy and BAL Chest x-ray showing dense consolidation right lower lobe Bilateral groundglass opacities Antibiotics escalated to broad-spectrum with imipenem and linezolid, to be dosed renally Blood culture, bronchoalveolar lavage, urine culture sent, sputum culture sent yesterday Not in septic shock not requiring vasopressors no acute worsening of leukocytosis, blood pressure stable Requested CRP and procalcitonin High risk for superimposed bacterial infection and aspiration pneumonia/hospita l-acquired pneumonia Ventilator dependent respiratory failure Secondary to severe ARDS related to COVID-19 Management as per cnc mill and lathe operator Still requiring 70% FiO2 Off vasopressors, sedation vacation, awakening trials, he does become hypoxic as soon as his sedation decreases, concern for auto PEEP as well Peripheral arterial disease with occlusion of graft Appreciate cardiology recommendations, chronic occlusion no acute intervention needed, right foot is warmer with no acute signs of threatening ischemia Continue Eliquis Acute on chronic kidney disease: Creatinine improving with D5, continue water flushes, Antibiotics to be dosed renally, Eliquis renally dose Adequate urine output, negative balance Urine color change from green to yellow today Urine culture sent Might get CT abdomen to rule out pyelonephritis if UA shows significant pyuria will request UA Potassium, acidosis improved Hypernatremia: Improved with D5 Decrease water flushes 150 mL every 4h Hyperglycemia: Currently he is euglycemic on sliding scale Lantus discontinued Full code Tube feeding at 15 mL/h DVT prophylaxis Eliquis reduced dose Attestations Medical Necessity Statement*: Continue ICU management Time Spent in Patient Care: 16 - 35 minutes Coding Level of Care Code Acute Principal Planner for Chg Fwd Diagnoses Sepsis A41.9 PAD (peripheral artery disease) I73.9 Decreased pulses in feet R09.89 Peripheral arterial disease with history of revascularization I73.9; Z98.890 Arterial occlusion I70.90 Acute kidney injury superimposed on chronic kidney disease N17.9; N18.9 Hypernatremia E87.0 Metabolic acidosis E87.2 Hypertension I10 Pneumonia due to severe acute respiratory syndrome coronavirus 2 (SARS-CoV-2) U07.1; J12.82 Respiratory failure J96.01 Chronicity: acute Respiratory failure complication: hypoxia COVID-19 U07.1
[2021-02-11 14:05] LABS: Glucose Point of Care 149 mg/dL (70-110)
[2021-02-11 14:38] LABS: Glucose Urine UA Norm (Normal); Ketones Urine Negative (Negative); Protein Urine Trace (Negative); Urine Appearance Cloudy (CLEAR); Urine Color Yellow (Yellow); pH Urine 5 (5-7)
[2021-02-11 14:39] LABS: Add Urine Microscopic? YES; Bacteria Urine 2+ /hpf; Bilirubin Urine Neg (Negative); Blood Urine 3+ (Negative); Leukocyte Esterase Urine Trace (Negative); Nitrate Urine Negative (Negative); Urobilinogen Urine Norm (Negative)
[2021-02-11 14:40] LABS: Hyaline Casts Urine 0-4 /lpf; Mucus Urine 1+ /hpf
[2021-02-11 14:53] LABS: Procalcitonin 0.22 ng/mL (0-0.5)
--- NOTE | 2021-02-11 19:09 | PC.NURSE ---
Shift Note Frequent safety and comfort rounds continue. Orders and/or nursing care completed as indicated. Patient monitored for response to intervention and treatment(s). Bronchoscopy was done today and patient tolerated well. Education provided to spouse includes fluconazole, imipenem-cilastatin, quetiapine, diagnosis, bronchoscopy, and treatment plan. Spouse responded to education and reinforcement will be needed. Patient has spontaneously opened eyes. Patient remains on vent and sedated.
[2021-02-11] MEDS: lidocaine 1% INJ 20 mL 5 ML IV (19:10)
[2021-02-11 20:20] LABS: Glucose Point of Care 178 mg/dL (70-110)
[2021-02-11] MEDS: dexamethasone 4 mg/mL INJ 3 MG IVP (20:34)
[2021-02-11] MEDS: atorvastatin 40 mg Tablet PO (20:34)
--- NOTE | 2021-02-11 23:27 | P.PN_ITS ---
Subjective Subjective: Interval history: do awakening trial-Patient seen at bedside today multiple times -Labs and imaging reviewed -Plan is to do bronchoscopy for right lower lobe opacity -Started on empiric coverage with Zyvox and imipenem -Plan is to taper off sedation and awakening trial Medications: Reviewed: Yes Vitals/I&O/Wt Last Vital Signs Temp 98.8 F 02/11/21 19:00 Pulse 83 02/11/21 22:00 Resp 16 02/11/21 19:45 BP 123/73 02/11/21 22:00 Pulse Ox 92 02/11/21 22:00 02/11/21 02/11/21 02/12/21 14:59 22:59 06:59 Intake Total 1082 / 1082 208.283 / 1290.283 Output Total 450 / 450 637 / 1087 Balance 632 / 632 -428.717 / 203.283 Weight last 48 hrs Weight 191 lb 1 oz Weight 191 lb 1 oz Physical Exam Narrative: EXAM NARRATIVE: General: lying in bed, sedated and intubated. HEENT:NCAT, PERRLA, EOMI Neck: Supple Lungs: Bilateral diffuse crackles Heart: s1/s2, RRR Abd: soft, NT, ND, BS + Normoactive Extremities: No edema; today felt right lower extremity slightly warm STUDENT FINANCE SPECIALIST: sedated and limited STUDENT FINANCE SPECIALIST exam possible SKIN: no rash Urinary Catheter Management^: Marshall: Cath Placed During This Visit: yes Reason for Continuing Indwelling Catheter: Accurate Measurement of Urinary Output in Critically Ill Patients Urinary Catheter Date of Insertion: 02/01/21 Urinary Catheter Time of Insertion: 11:10 Data : 02/13/21 15:25 02/13/21 03:50 Other Labs: Laboratory Results WBC 9.2 10^3/uL (4.0-10.0) 02/11/21 03:56 RBC 3.45 10^6/uL (4.1-5.3) L 02/11/21 03:56 Hgb 10.4 g/dL (11.7-16.6) L 02/11/21 03:56 Hct 33.6 % (42.0-52.0) L 02/11/21 03:56 MCV 97.4 fl (80-94) H 02/11/21 03:56 MCH 30.1 pg (28.0-34.0) 02/11/21 03:56 MCHC 31.0 g/dL (30.0-36.0) 02/11/21 03:56 RDW 14.9 % (12.1-15.1) 02/11/21 03:56 Plt Count 85 10^3/cmm (130-400) L 02/11/21 03:56 MPV 11.2 fL (7.4-10.4) H 02/11/21 03:56 Neut % (Auto) 82.9 % 02/11/21 03:56 Lymph % (Auto) 8.1 % 02/11/21 03:56 [place] % (Auto) 5.6 % 02/11/21 03:56 Eos % (Auto) 2.5 % 02/11/21 03:56 Baso % (Auto) 0.4 % 02/11/21 03:56 Neut # (Auto) 7.62 10^3/uL (1.8-7.7) 02/11/21 03:56 Lymph # (Auto) 0.8 10^3/uL (0.8-4.8) 02/11/21 03:56 [place] # (Auto) 0.5 10^3/uL (0.2-0.9) 02/11/21 03:56 Eos # (Auto) 0.2 10^3/uL (0.0-0.8) 02/11/21 03:56 Baso # (Auto) 0.0 10^3/uL (0.0-0.1) 02/11/21 03:56 Nucleated RBC % (auto) 0 % 02/11/21 03:56 Nucleated RBCs # 0.0 /100WBC 02/11/21 03:56 D-Dimer 3.27 ug/mIFEU (0-0.59) H 01/28/21 06:30 Specimen Type Arterial 02/11/21 04:50 Sample Site Radial, right 02/11/21 04:50 ABG pH 7.43 (7.35-7.45) 02/11/21 04:50 ABG pCO2 37.6 mmHg (35-45) 02/11/21 04:50 ABG pO2 60.6 mmHg (80.0-100.0) L 02/11/21 04:50 ABG HCO3 25.0 mmol/L (22-26) 02/11/21 04:50 ABG O2 Saturation 89.8 02/10/21 11:03 ABG Base Excess 0.8 mmol/L (-2.0-2.0) 02/11/21 04:50 Harley Test Pos 02/11/21 04:50 A-a O2 Gradient 42.8 mmHg (5-10) H 02/10/21 11:03 Hematocrit 42.1 % (42-52) 02/11/21 04:50 Hgb O2 Saturation 87.5 % (95-100) L 02/10/21 11:03 Carboxyhemoglobin 1.4 %THgb (0.4-20.1) 02/10/21 11:03 Methemoglobin 1.2 % (0.4-1.5) 02/10/21 11:03 Total Hemoglobin 11.3 g/dL (14-18) L 02/10/21 11:03 Sodium 150.0 mmol/L (131-143) H 02/10/21 11:03 Potassium 4.7 mmol/L (3.5-5.0) 02/10/21 11:03 Glucose 150.0 mg/dL (70-115) H 02/10/21 11:03 Ionized Calcium 1.0 mmol/L (1.1-1.4) L 02/10/21 11:03 O2 Delivery Device Vent 02/11/21 04:50 O2 Liters/Min 40.0 % 01/26/21 21:10 FiO2 70.0 % 02/11/21 04:50 Tidal Volume 0.50 02/08/21 11:00 PEEP 8.0 cmH20 02/11/21 04:50 CPAP 16.0 cmH20 02/11/21 04:50 Laborer [employer] ID Hinja 02/11/21 04:50 Sodium 144 mmol/L (136-145) 02/11/21 03:56 Potassium 4.8 mmol/L (3.5-5.1) 02/11/21 03:56 Chloride 112 mmol/L (98-107) H 02/11/21 03:56 Carbon Dioxide 24 mmol/L (22-29) 02/11/21 03:56 Anion Gap 12.8 (5-19) 02/11/21 03:56 BUN 60 mg/dL (8-23) H 02/11/21 03:56 Creatinine 2.0 mg/dL (0.7-1.2) H 02/11/21 03:56 GFR Calculation 33.9 mL/min (90-130) L 02/11/21 03:56 Glucose 214 mg/dL (65-115) H 02/11/21 03:56 POC Glucose 178 mg/dL (70-110) H 02/11/21 20:18 Estimat Average Glucose 243 01/30/21 06:10 Hemoglobin A1c 10.1 % (4.0-6.0) H 01/30/21 06:10 Calculated Osmolality 321 mOsm/kg (285-295) H 02/11/21 03:56 Lactic Acid 3.1 mmol/L (0.5-2.2) H 01/26/21 18:44 Lactic Acid (Sepsis) 2.5 mmol/L (0.5-2.2) H 01/26/21 21:55 Lactate 2.7 mmol/L (0.5-2.2) H 02/02/21 14:40 Calcium 8.2 mg/dL (8.5-10.5) L 02/11/21 03:56 Phosphorus 7.5 mg/dL (2.5-4.5) H 02/05/21 05:25 Magnesium 2.1 mg/dL (1.7-2.3) 02/10/21 03:22 Ferritin 1542 ng/mL (30-400) H 01/27/21 04:50 Total Bilirubin 0.4 mg/dL (0.15-1.2) 02/11/21 03:56 AST 34 U/L (0-40) 02/11/21 03:56 ALT 44 U/L (0-41) H 02/11/21 03:56 Alkaline Phosphatase 104 IU/L (40-130) 02/11/21 03:56 Lactate Dehydrogenase 428 U/L (135-225) H 01/27/21 04:50 Creatine Kinase 447 U/L (39-308) H* 02/09/21 03:28 Troponin T Baseline 33 ng/L (0-15) H 01/26/21 18:44 Troponin T 120 Minute 31.73 ng/L (0-15) H 01/26/21 21:55 Delta Troponin T -1.27 ABS# (0-10) L 01/26/21 21:55 Troponin T Hi Sens 6Hr 31.76 ng/L (0-15) H 01/27/21 02:10 Troponin T Hi Sens 6Hr Delta -1.24 ng/L (0-12) L 01/27/21 02:10 C-Reactive Protein 134.7 mg/L (0.0-4.9) H 01/28/21 06:30 NT-Pro-B Natriuret Pep 1724 pg/mL (0-125) H 01/26/21 18:44 Total Protein 4.8 g/dL (6.6-8.7) L 02/11/21 03:56 Albumin 2.5 g/dL (3.5-5.2) L 02/11/21 03:56 Globulin 2.3 g/dL (1.3-4.6) 02/11/21 03:56 Triglycerides 627 mg/dL (0-150) H 02/09/21 03:28 LDL Cholesterol Direct 122 mg/dL (0-100) H 02/09/21 03:28 Procalcitonin 0.22 ng/mL (0-0.5) 02/11/21 03:56 Urine Color Yellow (Yellow) 02/11/21 14:09 Urine Appearance Cloudy (CLEAR) A 02/11/21 14:09 Urine pH 5 (5-7) 02/11/21 14:09 Ur Specific [place] 1.020 (1.005-1.030) 02/11/21 14:09 Urine Protein Trace (Negative) 02/11/21 14:09 Urine Glucose (UA) Norm (Normal) 02/11/21 14:09 Urine Ketones Negative (Negative) 02/11/21 14:09 Urine Blood 3+ (Negative) H 02/11/21 14:09 Urine Nitrate Negative (Negative) 02/11/21 14:09 Urine Bilirubin Neg (Negative) 02/11/21 14:09 Urine Urobilinogen Norm mg/dL (Negative) 02/11/21 14:09 Ur Leukocyte Esterase Trace (Negative) H 02/11/21 14:09 Urine RBC 5-10 /hpf (0-2) H 02/11/21 14:09 Urine WBC 5-10 /hpf (0-5) H 02/11/21 14:09 Ur Squamous Epith Cells 5-10 /hpf (0-5) H 02/11/21 14:09 Amorphous Sediment Not Reportable 02/11/21 14:09 Urine Bacteria 2+ /hpf (NONE) H 02/11/21 14:09 Hyaline Casts 0-4 /lpf H 02/11/21 14:09 Urine Mucus 1+ /hpf 02/11/21 14:09 Impressions Chest X-Ray 02/11/21 04:00 IMPRESSION: Patchy diffuse interstitial and alveolar airspace disease most pronounced in the perihilar regions and lung bases. Subpulmonic effusions bilaterally. Edema and/or pneumonia. Micro: Microbiology 02/11/21 Unknown Gram Stain - Final Lung Right Lower Lobe 02/11/21 11:34 Blood Culture - Preliminary Blood SPECIMEN COLLECTED 02/11/21 11:34 Blood Culture - Preliminary Blood SPECIMEN COLLECTED 02/10/21 14:45 Gram Stain - Final Sputum - Endotracheal Tube Aspirate Sputum Culture - Preliminary Gram Negative Rods A&P Assessment and plan (1) Pneumonia due to severe acute respiratory syndrome coronavirus 2 (SARS-CoV-2): Status: Acute (2) Acute respiratory failure with hypoxia: Status: Acute (3) Hypertension: Status: Acute Qualifiers: Hypertension type: unspecified Qualified Code(s): I10 - Essential (primary) hypertension (4) Chronic kidney disease: Status: Acute Qualifiers: Chronic kidney disease stage: unspecified stage Qualified Code(s): N18.9 - Chronic kidney disease, unspecified (5) Diabetes mellitus: Status: Acute Qualifiers: Chronic kidney disease stage: unspecified stage Diabetes mellitus complication detail: with chronic kidney disease Diabetes mellitus complication status: with kidney complications Diabetes mellitus terminal system operator insulin use: unspecified long-term insulin use status Diabetes mellitus type: type 2 Qualified Code(s): E11.22 - Type 2 diabetes mellitus with diabetic chronic kidney disease (6) Metabolic acidosis: Status: Acute (7) Decreased pulses in feet: Status: Acute (8) PAD (peripheral artery disease): Status: Acute # Acute hypoxic respiratory failure secondary to ARDS due to Covid 19 Pneumonia # Metabolic acidosis in pt with CKD-worsening NASIR # HTN # Diabetes # h/o A fib - rate controlled off paralytic and #Rhabdomyolysis -improving #Thrombocytopenia-monitor platelets #severe PAD - intubated, sedated, paralyzed and proned x 4 ; -Plan is to taper off further sedation and do spontaneous awakening trial -dc propofol as triglycerides are high ; while tapering off sedation patient is hyperventilating and seen in respiratory distress -Maintain sedation with fentanyl, Precedex, Ativan as needed and Morphine 2mg ivp q 6 hr prn pain -Currently on pressure support ventilation 20/8 fio2 60% - Duoneb q 6 hr nathalie - dexamethasone 6 mg ivp nathalie x 10day and currently dexamethasone 3 mg ivp daily - s/p 5 day remdesivir and Tocilizumab 01/28/21 - monitor inflammatory markers q 48 hrs -Off pressor, ASA/PLAVIX -arterial doppler results reported features of severe PAD on the right and left extremities with occluded right femoral popliteal bypass graft -notify results to family and they wanted to transfer to [facility] to pts vascular s urgeon Dr. Holley - Unable to reach Dr. Holley office and also [facility] is on transfer diversion due to bed unavailability -Family agreed to see intervention tool planer set up operator here & Dr. Farley was consulted-recommended medical management and so we will continue Eliquis, aspirin, Plavix -Try to maintain negative fluid balance - Na 144; K 4.9; creatinine better;CK better; on D5 @ 30 mls/hr -Continue FSBS every 6 monitoring and Insulin scale coverage - Continue tube feeding - PPI for gi ppx - Elliquis for DVT ppx and chronic A FIB - Blood cx - CONS - Contaminant - so far sputum positive for Yeast - id pending-on fluconazole - Chest x ray today: RLL opacity -s/p bronchoscopy for airway inspection and BAL sent for bacterial culture, fungal culture, PCP-started on empiric coverage with Zyvox and imipenem - stable platelets 86 - Eliquis /asa/plavix/ PPI - Push ET 2 cm down code: Full DVT ppx: Elliquis GI ppx : PPI Prognosis: guarded Family NOK : Updated recommendations conveyed to RN,RT, Hospitalist taking care of the patient. Attestations Medical Necessity Statement*: Acute hypoxic respiratory failure secondary to ARDS due to COVID 19 Pneumonia - intubated, sedated and proned still requiring mechanical ventilator Time Spent in Patient Care: Greater than 35 minutes (>than 50% of time spent in counselling and/or direct pt care on unit) . Critical Care Time: The high probability of a clinically significant, sudden or life threatening deterioration of the patient's [respiratory, cardiac, en docrine, renal, vascular] system(s) required my full and direct attention, intervention and personal management. The critical care time is as shown. This time is in addition to time spent performing any reported procedures but includes the following: [x] Data and vital sign review and interpretation [x] Patient assessment, examination and intervention [x] Documentation [x] Medication orders and management Critical Care Time (min): 45 Coding Level of Care Code Established Pt Acute Campus Recruiting Internship for Chg Fwd Patient Type Established History Comprehensive Exam Comprehensive Medical Decision Making High Complexity Diagnoses Pneumonia due to severe acute respiratory syndrome coronavirus 2 (SARS-CoV-2) U07.1; J12.82 Acute respiratory failure with hypoxia J96.01 Hypertension I10 Hypertension type: unspecified Chronic kidney disease N18.9 Chronic kidney disease stage: unspecified stage Diabetes mellitus E11.22 Chronic kidney disease stage: unspecified stage Diabetes mellitus complication detail: with chronic kidney disease Diabetes mellitus complication status: with kidney complications Diabetes mellitus long-term insulin use: unspecified terminal system operator insulin use status Diabetes mellitus type: type 2 Metabolic acidosis E87.2 Decreased pulses in feet R09.89 PAD (peripheral artery disease) I73.9 Time Spent (min) 45
[2021-02-12] VITALS (65 sets, daily range): BP systolic 93–180; BP diastolic 58–90; PULSE 68–102; RESP 11–24; TEMP 36.7–37.3; O2SAT 86–98
[2021-02-12] MEDS: dextrose 5% 1,000 ML 30 ML IV (02:04)
[2021-02-12 02:22] LABS: Glucose Point of Care 276 mg/dL (70-110)
[2021-02-12] MEDS: ipratropium-albuterol 3 mL Neb INHALATION ×2 (02:43→14:42)
[2021-02-12] MEDS: dexmedetomidine 400 MCG in sodium chloride 0.9% (100 ml) 100 ML 15.77 MCG IV ×4 (02:52→21:47)
[2021-02-12 04:40] LABS: ABG PCO2 37.5 mmHg (35-45); ABG PH Result 7.41 (7.35-7.45); Alveolar-Arterial Oxygen Gradi 40.5 mmHg (5-10); Arterial Blood Gas Hematocrit 33.4 % (42-52); Base Excess ABG -0.9 mmol/L (-2.0-2.0); Blood Gas Operator Identificat HARKR; Blood Gas Sample Site Brachial, right; Blood Gas Sample Type Arterial; Carboxyhemoglobin 1.3 %THgb (0.4-20.1); HCO3 ABG 23.6 mmol/L (22-26); HGB O2 Sat 91.8 % (95-100); Ionized Calcium Level - ABG 1.2 mmol/L (1.1-1.4); Methemoglobin 1.2 % (0.4-1.5); Oxygen Device VENT; Oxygen Saturation ABG 94.3; Total Hemoglobin 10.9 g/dL (14-18)
[2021-02-12 05:30] LABS: Basophils % 0.2 %; Eosinophils # 0.1 10^3/uL (0.0-0.8); Eosinophils % 1.4 %; Hematocrit 33.3 % (42.0-52.0); Hemoglobin 10.4 g/dL (11.7-16.6); Lymphocytes # 0.6 10^3/uL (0.8-4.8); Lymphocytes % 6.6 %; Mean Corpuscular HGB Conc 31.2 g/dL (30.0-36.0); Mean Corpuscular Hemoglobin 30.2 pg (28.0-34.0); Mean Corpuscular Volume 96.8 fl (80-94); Mean Platelet Volume 11.3 fL (7.4-10.4); Monocytes # 0.3 10^3/uL (0.2-0.9); Monocytes % 3.9 %; Neutrophils # 7.24 10^3/uL (1.8-7.7); Neutrophils % 87.3 %; Nucleated Red Blood Cells % 0 %; Platelet Count 86 10^3/cmm (130-400); Red Blood Count 3.44 10^6/uL (4.1-5.3); Red Cell Distribution Width 14.8 % (12.1-15.1); White Blood Count 8.3 10^3/uL (4.0-10.0)
--- NOTE | 2021-02-12 05:39 | PC.NURSE ---
updated patients this morning on progress throughout the night. patients asking about morning labs and update on plan of care for today. I reinforced that the Dr has not yet rounded this morning and that we would have more information regarding the plan for the day afterwards.
[2021-02-12 05:49] LABS: Alanine Aminotransferase 45 U/L (0-41); Albumin Level 2.5 g/dL (3.5-5.2); Alkaline Phosphatase 111 IU/L (40-130); Anion Gap 14.1 (5-19); Aspartate Amino Transferase 34 U/L (0-40); Blood Urea Nitrogen 57 mg/dL (8-23); C Reactive Protein 42.8 mg/L (0.0-4.9); Calcium 8.1 mg/dL (8.5-10.5); Carbon Dioxide 22 mmol/L (22-29); Chloride 109 mmol/L (98-107); Globulin 2.6 g/dL (1.3-4.6); Glucose 253 mg/dL (65-115); Lactate Dehydrogenase 521 U/L (135-225); Magnesium 1.9 mg/dL (1.7-2.3); Osmolality Calculated 314 mOsm/kg (285-295); Potassium 5.1 mmol/L (3.5-5.1); Sodium 140 mmol/L (136-145); Total Bilirubin 0.5 mg/dL (0.15-1.2); Total Protein 5.1 g/dL (6.6-8.7)
--- NOTE | 2021-02-12 06:00 | XRR_ITS ---
PROCEDURE INFORMATION: Exam: XR Chest Exam date and time: 02/12/2021 6:00 AM Age: 65 years old Clinical indication: Condition or disease; Lung condition and disease; Pneumonia; Patient HX: F/u resp failure. Intubated TECHNIQUE: Imaging protocol: XR of the chest. Views: 1 view. COMPARISON: CR XR chest 1V portable [id number] 02/11/2021 4:19 AM FINDINGS: Tubes, catheters and devices: Right IJ approach central line is in satisfactory position, with distal tip in the SVC, approximately 3 cm above the SVC/RA junction. Endotracheal tube is in satisfactory position. Feeding tube is in satisfactory position. Lungs: Persistent bilateral airspace opacities. Possible trace bilateral pleural effusions. No pneumothorax. Pleural spaces: See Lungs finding. Heart/Mediastinum: Stable cardiomediastinal silhouette. Bones/joints: No acute osseous injury identified. XR/XR chest 1V portable [id number] IMPRESSION: Persistent bilateral airspace opacities. Possible trace bilateral pleural effusions.
--- NOTE | 2021-02-12 06:15 | PC.NURSE ---
Shift Note Frequent safety and comfort rounds continue. Orders and nursing care completed as indicated. Patient monitored for response to intervention and treatments. Education provided including ventilator management, sedation medication, and change in antibiotic therapy. Patients verbalizes understanding. Will continue to monitor.
[2021-02-12] MEDS: quetiapine 25 mg Tablet 50 MG PO ×2 (08:43→18:38)
[2021-02-12] MEDS: aspirin 81 mg EC Tablet PO (08:43)
[2021-02-12] MEDS: pantoprazole 40 mg SDV IVP (08:44)
[2021-02-12] MEDS: clopidogrel 75 mg Tablet PO (08:44)
[2021-02-12] MEDS: apixaban 5 mg Tablet 2.5 MG PO ×3 (08:45→19:57)
--- NOTE | 2021-02-12 09:43 | PC.CHAP ---
Pastoral Care Encounter/Spiritual Assessment Type of Contact [] Declined swatch maker visit [] Patient/Family/Request visit [] Outpatient visit [] Follow-up visit [] Physician referral [] Code/Alert [x] Routine visit [] Staff referral [] Actively dying [] Patient sleeping [] Family support [] [] Out of room [] Palliative care [] [x] Receiving care in room [] Pre-surgical visit [] Trauma [] Long length of stay [x] ICU visit [] Other: Relational/Emotional Strength [] Patient feels connected with others/family/visitors/staff [] Distress [] Loneliness/isolation [] Abandonment Spirituality of Patient [] Person of Shalonda [] Attends Methodist of their Shalonda [] Believes in Prayer [] Reads Bible or Adventism materials [] There are Spiritual issues to be addressed Est[employer]ator [employer] Interventions [x] Prayer [] Active listening [] Non-anxious presence [] Spiritual/emotional support [] Crisis/trauma care [] Spiritual counseling [] Bereavement support [] Provided bereavement packet [] Provided Bible/devotional materials [] Provided toy/stuffed animal, coloring book to patient or family member [] Provided Communion [] Anointing/[place] [] Salvation [x] Completed spiritual assessment [] Other: Impact on Illness or Injury [] Angry [] Fearful [] Anxious [] Often cries [] Exhaustion [] Unable to work [] Unable to attend confucianist [] Unable to walk/stand [] Unable to read [] Unable to drive [] Unable to eat/drink [] Unable to sleep [] Unable to be with family [] Patient intubated [] Other: Summary Time spent with patient
[2021-02-12] MEDS: linezolid premix 600 MG/300 ML PREMIX 300 MG IV ×2 (10:19→22:21)
[2021-02-12] MEDS: fluconazole premix 200 MG/100 ML PREMIX 100 MG IV (10:20)
[2021-02-12 11:47] LABS: Glucose Point of Care 199 mg/dL (70-110)
--- NOTE | 2021-02-12 14:51 | PM.PN ---
Subjective Subjective: Interval history: Patient was seen and examined this morning, his eyes were open and he showed blinking to apprehension Versed decreased to 3 mg Precedex 0.7 Fentanyl at 100 Pressure support 60% FiO2 PEEP 8 Noticed both feet were cold today as compared to yesterday however no mottling or ischemic ulcer noticed Urine color yellow Tube feed at 15 mL an hour, requested nurse to go up on the rate D5 discontinued this morning Positive fluid balance today Sodium 140 potassium 5.1 creatinine 1.9 improving On broad-spectrum antibiotics CRP 42 Magnesium 1.9 Sputum culture from 02/10 growing Klebsiella sensitive to the lactamase Vitals/I&O/Wt Last Vital Signs Temp 98.7 F 02/12/21 10:00 Pulse 80 02/12/21 14:44 Resp 16 02/12/21 14:43 BP 126/71 02/12/21 10:00 Pulse Ox 97 02/12/21 14:43 02/11/21 02/12/21 02/12/21 22:59 06:59 14:59 Intake Total 308.283 / 3578.723 2356 / 5994.283 658.510 / 658.510 Output Total 637 / 1087 1300 / 2387 Balance -328.717 / 182.145 0833 / 3607.283 658.510 / 658.510 Weight last 48 hrs Weight 89.443 kg Weight 86.664 kg Physical Exam Narrative: EXAM NARRATIVE: Intubated and sedated Pressure support 60% FiO2 PEEP 8 Patient does open his eyes intermittently does show blinking to apprehension Right IJ Marshall catheter draining yellow-colored urine Abdomen soft Both feet cold today as compared to yesterday however no active signs of ischemic ulcers no mottling, weak posterior tibial pulses palpable Neuro exam limited S1, S2 sinus rhythm no murmur appreciated Assisted bilateral breath sounds with rhonchi Urinary Catheter Management^: Marshall: Cath Placed During This Visit: yes Reason for Continuing Indwelling Catheter: Accurate Measurement of Urinary Output in Critically Ill Patients Urinary Catheter Date of Insertion: 02/01/21 Urinary Catheter Time of Insertion: 11:10 Data : 02/13/21 03:50 02/13/21 03:50 Micro: Microbiology 02/10/21 14:45 Gram Stain - Final Sputum - Endotracheal Tube Aspirate Sputum Culture - Final Klebsiella pneumoniae 02/11/21 11:34 Blood Culture - Preliminary Blood NEGATIVE TO DATE 02/11/21 11:34 Blood Culture - Preliminary Blood NEGATIVE TO DATE 02/11/21 14:09 Urine Culture - Preliminary Urine Catheterized 02/11/21 Unknown Gram Stain - Final Lung Right Lower Lobe A&P Assessment and plan (1) Sepsis: Status: Acute (2) PAD (peripheral artery disease): Status: Acute (3) Decreased pulses in feet: Status: Acute (4) Peripheral arterial disease with history of revascularization: Status: Acute (5) Arterial occlusion: Status: Acute (6) Acute kidney injury superimposed on chronic kidney disease: Status: Acute (7) Hypernatremia: Status: Acute (8) Metabolic acidosis: Status: Acute (9) Hypertension: Status: Acute (10) History of atrial fibrillation: Status: Acute (11) ARDS (adult respiratory distress syndrome): Status: Acute (12) Pneumonia due to severe acute respiratory syndrome coronavirus 2 (SARS-CoV-2): Status: Acute (13) COVID-19: Status: Acute Additional A&P Information Sepsis Secondary to possible ventilator associated pneumonia Sputum culture growing Klebsiella Sensitive to beta lactamase Blood cultures unremarkable, bronchoalveolar lavage cultures no growth yet Hemodynamically stable, no fever in last 24 hours Off pressors, Continue broad-spectrum antibiotics for now along antifungal Arterial occlusion, peripheral arterial disease with chronic occlusion of graft No active ischemic ulcers no skin mottling however skin feet are cold Monitor for now Currently on aspirin, Plavix, atorvastatin and Eliquis Hypernatremia: D5 discontinued today sodium 140 today he is in positive fluid balance Metabolic acidosis: Improved ARDS related to COVID-19 Ventilator dependent respiratory failure Currently on pressure support PEEP 8, FiO2 60% Ventilator management as per bake room worker Status post bronchoscopy and bronchoalveolar lavage Acute on chronic kidney disease Creatinine improving with fluid hydration, D5 discontinued requested nurse to go up on his tube feeding Creatinine 1.9 Type 2 diabetes: Glucose within normal range Full code Tube feed rate to be increased DVT prophylaxis Eliquis can resume 5 mg twice a day once creatinine less than 1.7 Attestations Medical Necessity Statement*: Continue medical management patient is intubated and sedated Time Spent in Patient Care: less than 15 minutes Coding Level of Care Code Acute Flight Manager for [facility] Diagnoses Sepsis A41.9 PAD (peripheral artery disease) I73.9 Decreased pulses in feet R09.89 Peripheral arterial disease with history of revascularization I73.9; Z98.890 Arterial occlusion I70.90 Acute kidney injury superimposed on chronic kidney disease N17.9; N18.9 Hypernatremia E87.0 Metabolic acidosis E87.2 Hypertension I10 History of atrial fibrillation Z86.79 ARDS (adult respiratory distress syndrome) J80 Pneumonia due to severe acute respiratory syndrome coronavirus 2 (SARS-CoV-2) U07.1; J12.82 COVID-19 U07.1
--- NOTE | 2021-02-12 15:34 | PC.NUTR ---
Tube feeding follow up: Pt has been receiving TF at 15 ml/hr X 12 days, (assumed, unclear provision at times per chart) providing only 432 kcal per day during this entire time period. Currently continues receiving Gluc 1.2 @ 15 ml/hr. Recommend increasing by 10 ml/hr q 8 hours to goal rate of 55 ml/hr with 150 ml H2O flushes q 6 hours, to provide 1584 kcal, 79 g protein, and 1663 ml H2O. Spoke with Dr. Glass, who states will increase feeding rate today. Continue to recommend checking Phos when possible. See full RD assessment for further details.
[2021-02-12 19:52] LABS: Glucose Point of Care 268 mg/dL (70-110)
[2021-02-12] MEDS: atorvastatin 40 mg Tablet PO (19:57)
[2021-02-12] MEDS: dexamethasone 4 mg/mL INJ 3 MG IVP (19:57)
[2021-02-12] MEDS: insulin glargine 100 units/1 mL 15 UNIT SUBCUT (19:58)
--- NOTE | 2021-02-12 23:22 | PM.PN ---
Subjective Subjective: Interval history: -Patient seen at bedside today several times -Plan is to taper off sedation and awakening trial-patient hyperventilates and so started on fentanyl patch and placed on pressure support ventilation -Sputum cultures grew gram-negative rods -Other labs and imaging reviewed Medications: Reviewed: Yes Vitals/I&O/Wt Last Vital Signs Temp 99 F 02/12/21 19:00 Pulse 85 02/12/21 21:00 Resp 15 02/12/21 19:49 BP 160/90 02/12/21 21:00 Pulse Ox 92 02/12/21 21:00 02/12/21 02/12/21 02/13/21 14:59 22:59 06:59 Intake Total 658.510 / 658.510 427.338 / 1085.848 Output Total 1100 / 1100 Balance 658.510 / 658.510 -672.662 / -14.152 Weight last 48 hrs Weight 197 lb 3 oz Weight 191 lb 1 oz Physical Exam Narrative: EXAM NARRATIVE: General: lying in bed, sedated and intubated. HEENT:NCAT, PERRLA, EOMI Neck: Supple Lungs: Bilateral diffuse crackles Heart: s1/s2, RRR Abd: soft, NT, ND, BS + Normoactive Extremities: No edema; today felt right lower extremity slightly warm REMOTE SENSING ANALYST: sedated and limited REMOTE SENSING ANALYST exam possible SKIN: no rash Urinary Catheter Management^: Marshall: Cath Placed During This Visit: yes Reason for Continuing Indwelling Catheter: Accurate Measurement of Urinary Output in Critically Ill Patients Urinary Catheter Date of Insertion: 02/01/21 Urinary Catheter Time of Insertion: 11:10 Data : 02/13/21 15:25 02/13/21 03:50 Other Labs: Laboratory Results WBC 8.3 10^3/uL (4.0-10.0) 02/12/21 05:10 RBC 3.44 10^6/uL (4.1-5.3) L 02/12/21 05:10 Hgb 10.4 g/dL (11.7-16.6) L 02/12/21 05:10 Hct 33.3 % (42.0-52.0) L 02/12/21 05:10 MCV 96.8 fl (80-94) H 02/12/21 05:10 MCH 30.2 pg (28.0-34.0) 02/12/21 05:10 MCHC 31.2 g/dL (30.0-36.0) 02/12/21 05:10 RDW 14.8 % (12.1-15.1) 02/12/21 05:10 Plt Count 86 10^3/cmm (130-400) L 02/12/21 05:10 MPV 11.3 fL (7.4-10.4) H 02/12/21 05:10 Neut % (Auto) 87.3 % 02/12/21 05:10 Lymph % (Auto) 6.6 % 02/12/21 05:10 [place] % (Auto) 3.9 % 02/12/21 05:10 Eos % (Auto) 1.4 % 02/12/21 05:10 Baso % (Auto) 0.2 % 02/12/21 05:10 Neut # (Auto) 7.24 10^3/uL (1.8-7.7) 02/12/21 05:10 Lymph # (Auto) 0.6 10^3/uL (0.8-4.8) L 02/12/21 05:10 [place] # (Auto) 0.3 10^3/uL (0.2-0.9) 02/12/21 05:10 Eos # (Auto) 0.1 10^3/uL (0.0-0.8) 02/12/21 05:10 Baso # (Auto) 0.0 10^3/uL (0.0-0.1) 02/12/21 05:10 Nucleated RBC % (auto) 0 % 02/12/21 05:10 Nucleated RBCs # 0.0 /100WBC 02/12/21 05:10 D-Dimer 3.27 ug/mIFEU (0-0.59) H 01/28/21 06:30 Specimen Type Arterial 02/12/21 04:20 Sample Site Brachial, right 02/12/21 04:20 ABG pH 7.41 (7.35-7.45) 02/12/21 04:20 ABG pCO2 37.5 mmHg (35-45) 02/12/21 04:20 ABG pO2 69.0 mmHg (80.0-100.0) L 02/12/21 04:20 ABG HCO3 23.6 mmol/L (22-26) 02/12/21 04:20 ABG O2 Saturation 94.3 02/12/21 04:20 ABG Base Excess -0.9 mmol/L (-2.0-2.0) 02/12/21 04:20 Harley Test N/a 02/12/21 04:20 A-a O2 Gradient 40.5 mmHg (5-10) H 02/12/21 04:20 Hematocrit 33.4 % (42-52) L 02/12/21 04:20 Hgb O2 Saturation 91.8 % (95-100) L 02/12/21 04:20 Carboxyhemoglobin 1.3 %THgb (0.4-20.1) 02/12/21 04:20 Methemoglobin 1.2 % (0.4-1.5) 02/12/21 04:20 Total Hemoglobin 10.9 g/dL (14-18) L 02/12/21 04:20 Sodium 141.0 mmol/L (131-143) 02/12/21 04:20 Potassium 5.0 mmol/L (3.5-5.0) 02/12/21 04:20 Glucose 292.0 mg/dL (70-115) H 02/12/21 04:20 Ionized Calcium 1.2 mmol/L (1.1-1.4) 02/12/21 04:20 O2 Delivery Device Vent 02/12/21 04:20 O2 Liters/Min 40.0 % 01/26/21 21:10 FiO2 60.0 % 02/12/21 04:20 Tidal Volume 0.50 02/08/21 11:00 PEEP 8.0 cmH20 02/12/21 04:20 CPAP 16.0 cmH20 02/11/21 04:50 Food Order Expediter ID Harkr 02/12/21 04:20 Sodium 140 mmol/L (136-145) 02/12/21 05:10 Potassium 5.1 mmol/L (3.5-5.1) 02/12/21 05:10 Chloride 109 mmol/L (98-107) H 02/12/21 05:10 Carbon Dioxide 22 mmol/L (22-29) 02/12/21 05:10 Anion Gap 14.1 (5-19) 02/12/21 05:10 BUN 57 mg/dL (8-23) H 02/12/21 05:10 Creatinine 1.9 mg/dL (0.7-1.2) H 02/12/21 05:10 GFR Calculation 36.0 mL/min (90-130) L 02/12/21 05:10 Glucose 253 mg/dL (65-115) H 02/12/21 05:10 POC Glucose 268 mg/dL (70-110) H 02/12/21 19:49 Estimat Average Glucose 243 01/30/21 06:10 Hemoglobin A1c 10.1 % (4.0-6.0) H 01/30/21 06:10 Calculated Osmolality 314 mOsm/kg (285-295) H 02/12/21 05:10 Lactic Acid 3.1 mmol/L (0.5-2.2) H 01/26/21 18:44 Lactic Acid (Sepsis) 2.5 mmol/L (0.5-2.2) H 01/26/21 21:55 Lactate 2.7 mmol/L (0.5-2.2) H 02/02/21 14:40 Calcium 8.1 mg/dL (8.5-10.5) L 02/12/21 05:10 Phosphorus 7.5 mg/dL (2.5-4.5) H 02/05/21 05:25 Magnesium 1.9 mg/dL (1.7-2.3) 02/12/21 05:10 Ferritin 1542 ng/mL (30-400) H 01/27/21 04:50 Total Bilirubin 0.5 mg/dL (0.15-1.2) 02/12/21 05:10 AST 34 U/L (0-40) 02/12/21 05:10 ALT 45 U/L (0-41) H 02/12/21 05:10 Alkaline Phosphatase 111 IU/L (40-130) 02/12/21 05:10 Lactate Dehydrogenase 521 U/L (135-225) H 02/12/21 05:10 Creatine Kinase 447 U/L (39-308) H* 02/09/21 03:28 Troponin T Baseline 33 ng/L (0-15) H 01/26/21 18:44 Troponin T 120 Minute 31.73 ng/L (0-15) H 01/26/21 21:55 Delta Troponin T -1.27 ABS# (0-10) L 01/26/21 21:55 Troponin T Hi Sens 6Hr 31.76 ng/L (0-15) H 01/27/21 02:10 Troponin T Hi Sens 6Hr Delta -1.24 ng/L (0-12) L 01/27/21 02:10 C-Reactive Protein 42.8 mg/L (0.0-4.9) H 02/12/21 05:10 NT-Pro-B Natriuret Pep 1724 pg/mL (0-125) H 01/26/21 18:44 Total Protein 5.1 g/dL (6.6-8.7) L 02/12/21 05:10 Albumin 2.5 g/dL (3.5-5.2) L 02/12/21 05:10 Globulin 2.6 g/dL (1.3-4.6) 02/12/21 05:10 Triglycerides 627 mg/dL (0-150) H 02/09/21 03:28 LDL Cholesterol Direct 122 mg/dL (0-100) H 02/09/21 03:28 Procalcitonin 0.22 ng/mL (0-0.5) 02/11/21 03:56 Urine Color Yellow (Yellow) 02/11/21 14:09 Urine Appearance Cloudy (CLEAR) A 02/11/21 14:09 Urine pH 5 (5-7) 02/11/21 14:09 Ur Specific [place] 1.020 (1.005-1.030) 02/11/21 14:09 Urine Protein Trace (Negative) 02/11/21 14:09 Urine Glucose (UA) Norm (Normal) 02/11/21 14:09 Urine Ketones Negative (Negative) 02/11/21 14:09 Urine Blood 3+ (Negative) H 02/11/21 14:09 Urine Nitrate Negative (Negative) 02/11/21 14:09 Urine Bilirubin Neg (Negative) 02/11/21 14:09 Urine Urobilinogen Norm mg/dL (Negative) 02/11/21 14:09 Ur Leukocyte Esterase Trace (Negative) H 02/11/21 14:09 Urine RBC 5-10 /hpf (0-2) H 02/11/21 14:09 Urine WBC 5-10 /hpf (0-5) H 02/11/21 14:09 Ur Squamous Epith Cells 5-10 /hpf (0-5) H 02/11/21 14:09 Amorphous Sediment Not Reportable 02/11/21 14:09 Urine Bacteria 2+ /hpf (NONE) H 02/11/21 14:09 Hyaline Casts 0-4 /lpf H 02/11/21 14:09 Urine Mucus 1+ /hpf 02/11/21 14:09 Misc Test Reference See comment 02/04/21 08:00 Impressions Chest X-Ray 02/12/21 06:00 IMPRESSION: Persistent bilateral airspace opacities. Possible trace bilateral pleural effusions. Micro: Microbiology 02/10/21 14:45 Gram Stain - Final Sputum - Endotracheal Tube Aspirate Sputum Culture - Final Klebsiella pneumoniae 02/11/21 11:34 Blood Culture - Preliminary Blood NEGATIVE TO DATE 02/11/21 11:34 Blood Culture - Preliminary Blood NEGATIVE TO DATE 02/11/21 14:09 Urine Culture - Preliminary Urine Catheterized 02/11/21 Unknown Gram Stain - Final Lung Right Lower Lobe A&P Assessment and plan (1) Pneumonia due to severe acute respiratory syndrome coronavirus 2 (SARS-CoV-2): Status: Acute (2) Acute respiratory failure with hypoxia: Status: Acute (3) Hypertension: Status: Acute Qualifiers: Hypertension type: unspecified Qualified Code(s): I10 - Essential (primary) hypertension (4) Chronic kidney disease: Status: Acute Qualifiers: Chronic kidney disease stage: unspecified stage Qualified Code(s): N18.9 - Chronic kidney disease, unspecified (5) Diabetes mellitus: Status: Acute Qualifiers: Diabetes mellitus type: type 2 Diabetes mellitus skilled nursing insulin use: unspecified skilled nursing insulin use status Diabetes mellitus complication status: with kidney complications Diabetes mellitus complication detail: with chronic kidney disease Chronic kidney disease stage: unspecified stage Qualified Code(s): E11.22 - Type 2 diabetes mellitus with diabetic chronic kidney disease (6) Metabolic acidosis: Status: Acute (7) Decreased pulses in feet: Status: Acute (8) PAD (peripheral artery disease): Status: Acute # Acute hypoxic respiratory failure secondary to ARDS due to Covid 19 Pneumonia # Metabolic acidosis in pt with CKD-worsening NASIR # HTN # Diabetes # h/o A fib - rate controlled off paralytic and #Rhabdomyolysis -improving #Thrombocytopenia-monitor platelets #severe PAD - intubated, sedated, paralyzed and proned x 4 ; -Plan is to taper off further sedation and do spontaneous awakening trial -dc propofol as triglycerides are high ; while tapering off sedation patient is hyperventilating and seen in respiratory distress; started on fentanyl patch -Maintain sedation with fentanyl, Precedex, Ativan as needed and Morphine 2mg ivp q 6 hr prn pain -Currently on pressure support ventilation 20/8 fio2 60% - Duoneb q 6 hr nathalie - dexamethasone 6 mg ivp nathalie x 10day and currently dexamethasone 3 mg ivp daily - s/p 5 day remdesivir and Tocilizumab 01/28/21 - monitor inflammatory markers q 48 hrs -Off pressor, ASA/PLAVIX -arterial doppler results reported features of severe PAD on the right and left extremities with occluded right femoral popliteal bypass graft -notify results to family and they wanted to transfer to [facility] to pts vascular surgeon Dr. Holley - Unable to reach Dr. Holley office and also [facility] is on transfer diversion due to bed unavailability -Family agreed to see intervention senior test engineer here & Dr. Farley was consulted-recommended medical management and so we will continue Eliquis, aspirin, Plavix -Try to maintain negative fluid balance - Na 140; K 4.9; creatinine better;CK better; on D5 @ 30 mls/hr -Continue FSBS every 6 monitoring and Insulin scale coverage-started on Lantus 15 units daily - Continue tube feeding - PPI for gi ppx - Elliquis for DVT ppx and chronic A FIB - Blood cx - CONS - Contaminant - so far sputum positive for Yeast - id pending-on fluconazole - -s/p bronchoscopy 02/11/2021 for airway inspection and BAL sent for bacterial culture, fungal culture, PCP- on empiric coverage with Zyvox and imipenem-sputum cultures 02/10/21 showed gram-negative rods - stable platelets 86 - Eliquis /asa/plavix/ PPI code: Full DVT ppx: Elliquis GI ppx : PPI Prognosis: guarded Family NOK : Updated recommendations conveyed to RN,RT, Hospitalist taking care of the patient. Attestations Medical Necessity Statement*: Acute hypoxic respiratory failure secondary to ARDS due to COVID 19 Pneumonia - intubated, sedated and proned still requiring mechanical ventilator Time Spent in Patient Care: Greater than 35 minutes (>than 50% of time spent in counselling and/or direct pt care on unit). Critical Care Time: The high probability of a clinically significant, sudden or life threatening deterioration of the patient's [respiratory, cardiac, endocrine, renal, vascular] system(s) required my full and direct attention, intervention and personal management. The critical care time is as shown. This time is in addition to time spent performing any reported procedures but includes the following: [x] Data and vital sign review and interpretation [x] Patient assessment, examination and intervention [x] Documentation [x] Medication orders and management Critical Care Time (min): 45 Coding Level of Care Code Established Pt Acute Flight Technician for [facility] Patient Type Established History Comprehensive Exam Comprehensive Medical Decision Making High Complexity Diagnoses Pneumonia due to severe acute respiratory syndrome coronavirus 2 (SARS-CoV-2) U07.1; J12.82 Acute respiratory failure with hypoxia J96.01 Hypertension I10 Hypertension type: unspecified Chronic kidney disease N18.9 Chronic kidney disease stage: unspecified stage Diabetes mellitus E11.22 Diabetes mellitus type: type 2 Diabetes mellitus skilled nursing insulin use: unspecified skilled nursing insulin use status Diabetes mellitus complication status: with kidney complications Diabetes mellitus complication detail: with chronic kidney disease Chronic kidney disease stage: unspecified stage Metabolic acidosis E87.2 Decreased pulses in feet R09.89 PAD (peripheral artery disease) I73.9 Time Spent (min) 45
[2021-02-13] VITALS (59 sets, daily range): BP systolic 81–161; BP diastolic 54–86; PULSE 70–105; RESP 12–35; TEMP 36.8–37.3; O2SAT 87–99
[2021-02-13] MEDS: ipratropium-albuterol 3 mL Neb INHALATION ×5 (02:47→20:46)
[2021-02-13 03:06] LABS: Glucose Point of Care 265 mg/dL (70-110)
--- NOTE | 2021-02-13 04:09 | PC.NURSE ---
patient bathed at this time, skin assessed. SCD removed due to discoloration of pressure points. tube feeding tubing changed
[2021-02-13 04:21] LABS: Basophils % 0.4 %; Eosinophils # 0.7 10^3/uL (0.0-0.8); Eosinophils % 10.1 %; Hematocrit 32.1 % (42.0-52.0); Hemoglobin 9.9 g/dL (11.7-16.6); Lymphocytes # 0.9 10^3/uL (0.8-4.8); Lymphocytes % 13.8 %; Mean Corpuscular HGB Conc 30.8 g/dL (30.0-36.0); Mean Corpuscular Hemoglobin 29.7 pg (28.0-34.0); Mean Corpuscular Volume 96.4 fl (80-94); Mean Platelet Volume 11.8 fL (7.4-10.4); Monocytes # 0.4 10^3/uL (0.2-0.9); Monocytes % 6.2 %; Neutrophils # 4.65 10^3/uL (1.8-7.7); Neutrophils % 69.1 %; Nucleated Red Blood Cells % 0 %; Platelet Count 89 10^3/cmm (130-400); Red Blood Count 3.33 10^6/uL (4.1-5.3); White Blood Count 6.7 10^3/uL (4.0-10.0)
[2021-02-13 04:37] LABS: Alanine Aminotransferase 44 U/L (0-41); Albumin Level 2.5 g/dL (3.5-5.2); Alkaline Phosphatase 117 IU/L (40-130); Anion Gap 11.5 (5-19); Aspartate Amino Transferase 33 U/L (0-40); Blood Urea Nitrogen 51 mg/dL (8-23); Calcium 8.2 mg/dL (8.5-10.5); Carbon Dioxide 24 mmol/L (22-29); Chloride 107 mmol/L (98-107); Globulin 2.5 g/dL (1.3-4.6); Glomerular Filtration Rate 43.9 mL/min (90-130); Glucose 238 mg/dL (65-115); Magnesium 1.9 mg/dL (1.7-2.3); Osmolality Calculated 307 mOsm/kg (285-295); Phosphorus 3.4 mg/dL (2.5-4.5); Potassium 4.5 mmol/L (3.5-5.1); Sodium 138 mmol/L (136-145); Total Bilirubin 0.5 mg/dL (0.15-1.2)
[2021-02-13 04:40] LABS: Procalcitonin 0.21 ng/mL (0-0.5)
[2021-02-13] MEDS: dexmedetomidine 400 MCG in sodium chloride 0.9% (100 ml) 100 ML 15.77 MCG IV ×2 (05:16→11:20)
--- NOTE | 2021-02-13 06:00 | XR_ITS ---
WS: [id number] Portable AP semiupright chest, 02/13/2021 Clinical Data: pneumonia Comparison: Portable chest, 02/12/2021 Findings: The endotracheal tube, nasogastric tube and right internal jugular venous catheter remain i n good position. The bilateral pulmonary opacities have not changed. Monitor leads are on the chest w all. The heart is slightly enlarged. There is a small right pleural effusion. XR/XR chest 1V portable [id number] Impression: 1. No change in bilateral pulmonary opacities. 2. No change in multiple tubes
--- NOTE | 2021-02-13 06:16 | PC.NURSE ---
Shift Note Frequent safety and comfort rounds continue. Orders and nursing care completed as indicated. Patient monitored for response to intervention and treatments. Education provided including ventilator management and importance of remaining calm. patient nods in understanding. reinforcement needed due to sedation medication Will continue to monitor.
[2021-02-13] MEDS: morphine 4 mg/mL SDV 1 mL 2 MG IVP (07:21)
[2021-02-13] MEDS: cefTRIAXone 1,000 MG in sodium chloride 0.9% (plus) 50 ML 100 MG IV (08:11)
[2021-02-13 08:29] LABS: Glucose Point of Care 174 mg/dL (70-110)
[2021-02-13] MEDS: fentaNYL 50 mcg Patch 1 PATCH TRANSDERMA (08:31)
[2021-02-13] MEDS: insulin glargine 100 units/1 mL 15 UNIT SUBCUT (08:31)
[2021-02-13] MEDS: pantoprazole 40 mg SDV IVP (08:43)
[2021-02-13] MEDS: quetiapine 100 mg Tablet PO ×2 (08:43→17:25)
[2021-02-13] MEDS: aspirin 81 mg EC Tablet PO (08:43)
[2021-02-13] MEDS: clopidogrel 75 mg Tablet PO (08:44)
[2021-02-13] MEDS: apixaban 5 mg Tablet PO ×3 (08:44→20:33)
[2021-02-13] MEDS: fluconazole premix 200 MG/100 ML PREMIX 100 MG IV (10:10)
[2021-02-13] MEDS: lactated ringers 500 ML 999 ML IV (11:22)
--- NOTE | 2021-02-13 14:58 | PC.RESP ---
RT Shift Note Frequent safety and respiratory rounds continue. Orders completed as indicated. Patient monitored pre and post treatments throughout shift. Patient [Did.] tolerate treatments appropriately. Condition [.DidNotChange]. Patient and/or outreach representative educated on respiratory treatment and medications. Patient and/or outreach representative [unable to comprehend]. Will continue to monitor patient progress.
--- NOTE | 2021-02-13 14:59 | PM.PN ---
Subjective Subjective: Interval history: Patient was seen and examined in ICU along with ICU nurse Broad-spectrum antibiotics deescalated to ceftriaxone Sputum culture positive for Klebsiella no growth of yeast noticed this time He has stayed afebrile This morning he was hypotensive, getting fluid bolus TPN running at 20 mL/h Pressure support settings 50% FiO2 PEEP 8 Creatinine 1.6 today sodium 138 Eliquis dose switch back to 5 mg twice a day No intervention planned from cardiology for bilateral lower extremity chronic graft occlusion Versed at 1 mg, fentanyl at 25 mg Patient is able to wake up open his eyes Precedex 0.7 Hypoglycemia noted Lantus 15U twice a day added Vitals/I&O/Wt Last Vital Signs Temp 99.2 F 02/13/21 13:00 Pulse 105 H 02/13/21 14:55 Resp 32 H 02/13/21 14:55 BP 98/67 02/13/21 13:00 Pulse Ox 92 02/13/21 14:55 02/12/21 02/13/21 02/13/21 22:59 06:59 14:59 Intake Total 427.338 / 3705.520 3152.966 / 2149.814 325.167 / 325.167 Output Total 1100 / 1100 1400 / 2500 Balance -672.662 / -14.152 -336.034 / -350.186 325.167 / 325.167 Weight last 48 hrs Weight 88.961 kg Weight 89.443 kg Physical Exam Narrative: EXAM NARRATIVE: Patient intubated and sedated currently on pressure support Waking up opening his eyes with sedation vacation S1, S2 sinus rhythm no murmur No signs of heart failure Abdomen soft Right IJ Marshall catheter draining yellow urine Bilateral lower extremity cold without any ischemic ulcers or signs of gangrene no acute limb ischemic findings Weak dorsalis pedis pulses Patient does blink eyes to apprehension Urinary Catheter Management^: Marshall: Cath Placed During This Visit: yes Reason for Continuing Indwelling Catheter: Accurate Measurement of Urinary Output in Critically Ill Patients Urinary Catheter Date of Insertion: 02/01/21 Urinary Catheter Time of Insertion: 11:10 Data : 02/13/21 15:25 02/13/21 03:50 Micro: Microbiology 02/11/21 Unknown Gram Stain - Final Lung Right Lower Lobe Bronchoalveolar Lavage Culture - Preliminary 02/11/21 14:09 Urine Culture - Final Urine Catheterized 02/10/21 14:45 Gram Stain - Final Sputum - Endotracheal Tube Aspirate Sputum Culture - Final Klebsiella pneumoniae 02/11/21 11:34 Blood Culture - Preliminary Blood NEGATIVE TO DATE 02/11/21 11:34 Blood Culture - Preliminary Blood NEGATIVE TO DATE A&P Assessment and plan (1) Sepsis: Status: Acute (2) PAD (peripheral artery disease): Status: Acute (3) Decreased pulses in feet: Status: Acute (4) Peripheral arterial disease with history of revascularization: Status: Acute (5) Arterial occlusion: Status: Acute (6) Acute kidney injury superimposed on chronic kidney disease: Status: Acute (7) Hypernatremia: Status: Acute (8) Metabolic acidosis: Status: Acute (9) Hypertension: Status: Acute (10) Diabetes mellitus: Status: Acute Qualifiers: Chronic kidney disease stage: unspecified stage Diabetes mellitus complication detail: with chronic kidney disease Diabetes mellitus complication status: with kidney complications 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 insulin use: unspecified care home insulin use status Diabetes mellitus type: type 2 Qualified Code(s): E11.22 - Type 2 diabetes mellitus with diabetic chronic kidney disease (11) History of atrial fibrillation: Status: Acute (12) Hyperglycemia: Status: Acute (13) ARDS (adult respiratory distress syndrome): Status: Acute (14) Pneumonia due to severe acute respiratory syndrome coronavirus 2 (SARS-CoV-2): Status: Acute (15) Acute respiratory failure with hypoxia: Status: Acute (16) COVID-19: Status: Acute (17) Acute hyperglycemia: Status: Acute Additional A&P Information Ventilator dependent respiratory failure COVID-19 w Severe ARDS Intubated and sedated, sedation vacation, Versed decreased down to 1 mg, fentanyl at 25 Precedex running at 27 Patient has blink his eyes to hypertension, Currently on pressure support Vent management as per supervisor model making Patient was admitted on 01/27, candidate for tracheostomy ,peg and placement to LTAC? Right IJ placed 02/01 Status post bronchoscopy 02/10 Sepsis Related to possible ventilator dependent pneumonia Sputum culture positive for Klebsiella however previous culture was positive for yeast Yeast identification still pending, continue IV fluconazole broad-spectrum antibiotics switched to p.o. ceftriaxone Getting fluid bolus for an episode of hypotension this morning when his sedation was decreased Urine culture, urine antigens unremarkable Arterial occlusion peripheral arterial disease Chronic occlusion of graft Appreciate cardiology recommendations Not a candidate of acute intervention continue aspirin, Plavix, statin and Eliquis is still interested if he will get accepted at [facility], Dr. Holley placed the graft,(their ICU is on diversion) Hypernatremia secondary to 42 water deficit which improved after D5 fluid resuscitation, Sodium improved, D5 discontinued TPN increased to 30 mL/h Acute on chronic kidney disease Creatinine improved to 1.6 with improvement in fluid intake Acidosis, hyperkalemia improved Type 2 diabetes with hyperglycemia started Lantus 15 units twice a day, it was discontinued due to episode of hypoglycemia, part of the reason is his medications are also running through D5 Full code Tube feeds at 30 mL/h DVT prophylaxis currently on Eliquis 5 mg twice a day because of history of A. fib still wants him to be transferred to [facility] wants to have a bed Attestations Medical Necessity Statement*: continue icu care Coding Level of Care Code Acute Educational Technician for Chg Fwd Diagnoses Sepsis A41.9 PAD (peripheral artery disease) I73.9 Decreased pulses in feet R09.89 Peripheral arterial disease with history of revascularization I73.9; Z98.890 Arterial occlusion I70.90 Acute kidney injury superimposed on chronic kidney disease N17.9; N18.9 Hypernatremia E87.0 Metabolic acidosis E87.2 Hypertension I10 Diabetes mellitus E11.22 Chronic kidney disease stage: unspecified stage Diabetes mellitus complication detail: with chronic kidney disease Diabetes mellitus complication status: with kidney complications 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
[2021-02-13 15:20] LABS: Glucose Point of Care 157 mg/dL (70-110)
[2021-02-13 16:00] LABS: Troponin T (5th) Once 94 ng/L (0-15)
[2021-02-13 16:02] LABS: Basophils % 0.5 %; Eosinophils # 0.6 10^3/uL (0.0-0.8); Eosinophils % 9.3 %; Hematocrit 34.1 % (42.0-52.0); Hemoglobin 10.5 g/dL (11.7-16.6); Lymphocytes # 0.9 10^3/uL (0.8-4.8); Lymphocytes % 14.7 %; Mean Corpuscular HGB Conc 30.8 g/dL (30.0-36.0); Mean Corpuscular Hemoglobin 30.1 pg (28.0-34.0); Mean Corpuscular Volume 97.7 fl (80-94); Mean Platelet Volume 11.6 fL (7.4-10.4); Monocytes # 0.4 10^3/uL (0.2-0.9); Monocytes % 5.9 %; Neutrophils # 4.33 10^3/uL (1.8-7.7); Neutrophils % 69.1 %; Nucleated Red Blood Cells % 0 %; Platelet Count 94 10^3/cmm (130-400); Red Blood Count 3.49 10^6/uL (4.1-5.3); Red Cell Distribution Width 15.2 % (12.1-15.1); White Blood Count 6.3 10^3/uL (4.0-10.0)
--- NOTE | 2021-02-13 16:33 | P.PN_ITS ---
Subjective Subjective: Interval history: -Patient seen at bedside today multiple times -Afebrile, normal white count, pansensitive Klebsiella in sputum cultures -DC vancomycin, imipenem and started on Rocephin -Continue Diflucan for yeast in sputum -Moderately controlled sugars-we will DC D5 5 and continue Lantus 50 a.m. daily -Continue CMV 500/8/60 percent -We will plan to transfer to LTAC for trach and PEG Medications: Reviewed: Yes Vitals/I&O/Wt Last Vital Signs Temp 99.2 F 02/13/21 13:00 Pulse 102 H 02/13/21 15:00 Resp 32 H 02/13/21 14:55 BP 112/71 02/13/21 15:00 Pulse Ox 92 02/13/21 15:00 02/13/21 02/13/21 02/13/21 06:59 14:59 22:59 Intake Total 1063.966 / 2149.814 325.167 / 325.167 Output Total 1400 / 2500 Balance -336.034 / -350.186 325.167 / 325.167 Weight last 48 hrs Weight 196 lb 2 oz Weight 197 lb 3 oz Physical Exam Narrative: EXAM NARRATIVE: General: lying in bed, sedated and intubated. HEENT:NCAT, PERRLA, EOMI Neck: Supple Lungs: Bilateral diffuse crackles Heart: s1/s2, RRR Abd: soft, NT, ND, BS + Normoactive Extremities: No edema; bilateral warm extremities BORDER INSPECTOR: sedated and limited BORDER INSPECTOR exam possible; moves all his limbs when tapering off sedation SKIN: no rash Urinary Catheter Management^: Marshall: Cath Placed During This Visit: yes Reason for Continuing Indwelling Catheter: Accurate Measurement of Urinary Output in Critically Ill Patients Urinary Catheter Date of Insertion: 02/01/21 Urinary Catheter Time of Insertion: 11:10 Data : 02/13/21 15:25 02/13/21 03:50 Other Labs: Laboratory Results WBC 6.3 10^3/uL (4.0-10.0) 02/13/21 15:25 RBC 3.49 10^6/uL (4.1-5.3) L 02/13/21 15:25 Hgb 10.5 g/dL (11.7-16.6) L 02/13/21 15:25 Hct 34.1 % (42.0-52.0) L 02/13/21 15:25 MCV 97.7 fl (80-94) H 02/13/21 15:25 MCH 30.1 pg (28.0-34.0) 02/13/21 15:25 MCHC 30.8 g/dL (30.0-36.0) 02/13/21 15:25 RDW 15.2 % (12.1-15.1) H 02/13/21 15:25 Plt Count 94 10^3/cmm (130-400) L 02/13/21 15:25 MPV 11.6 fL (7.4-10.4) H 02/13/21 15:25 Neut % (Auto) 69.1 % 02/13/21 15:25 Lymph % (Auto) 14.7 % 02/13/21 15:25 [place] % (Auto) 5.9 % 02/13/21 15:25 Eos % (Auto) 9.3 % 02/13/21 15:25 Baso % (Auto) 0.5 % 02/13/21 15:25 Neut # (Auto) 4.33 10^3/uL (1.8-7.7) 02/13/21 15:25 Lymph # (Auto) 0.9 10^3/uL (0.8-4.8) 02/13/21 15:25 [place] # (Auto) 0.4 10^3/uL (0.2-0.9) 02/13/21 15:25 Eos # (Auto) 0.6 10^3/uL (0.0-0.8) 02/13/21 15:25 Baso # (Auto) 0.0 10^3/uL (0.0-0.1) 02/13/21 15:25 Nucleated RBC % (auto) 0 % 02/13/21: Nucleated RBCs # 0.0 /100WBC 02/13/21 15:25 D-Dimer 3.27 ug/mIFEU (0-0.59) H 01/28/21 06:30 Specimen Type Arterial 02/12/21 04:20 Sample Site Brachial, right 02/12/21 04:20 ABG pH 7.41 (7.35-7.45) 02/12/21 04:20 ABG pCO2 37.5 mmHg (35-45) 02/12/21 04:20 ABG pO2 69.0 mmHg (80.0-100.0) L 02/12/21 04:20 ABG HCO3 23.6 mmol/L (22-26) 02/12/21 04:20 ABG O2 Saturation 94.3 02/12/21 04:20 ABG Base Excess -0.9 mmol/L (-2.0-2.0) 02/12/21 04:20 Harley Test N/a 02/12/21 04:20 A-a O2 Gradient 40.5 mmHg (5-10) H 02/12/21 04:20 Hematocrit 33.4 % (42-52) L 02/12/21 04:20 Hgb O2 Saturation 91.8 % (95-100) L 02/12/21 04:20 Carboxyhemoglobin 1.3 %THgb (0.4-20.1) 02/12/21 04:20 Methemoglobin 1.2 % (0.4-1.5) 02/12/21 04:20 Total Hemoglobin 10.9 g/dL (14-18) L 02/12/21 04:20 Sodium 141.0 mmol/L (131-143) 02/12/21 04:20 Potassium 5.0 mmol/L (3.5-5.0) 02/12/21 04:20 Glucose 292.0 mg/dL (70-115) H 02/12/21 04:20 Ionized Calcium 1.2 mmol/L (1.1-1.4) 02/12/21 04:20 O2 Delivery Device Vent 02/12/21 04:20 O2 Liters/Min 40.0 % 01/26/21 21:10 FiO2 60.0 % 02/12/21 04:20 Tidal Volume 0.50 02/08/21 11:00 PEEP 8.0 cmH20 02/12/21 04:20 CPAP 16.0 cmH20 02/11/21 04:50 Caption Writer ID [email or web address] 02/12/21 04:20 Sodium 138 mmol/L (136-145) 02/13/21 03:50 Potassium 4.5 mmol/L (3.5-5.1) 02/13/21 03:50 Chloride 107 mmol/L (98-107) 02/13/21 03:50 Carbon Dioxide 24 mmol/L (22-29) 02/13/21 03:50 Anion Gap 11.5 (5-19) 02/13/21 03:50 BUN 51 mg/dL (8-23) H 02/13/21 03:50 Creatinine 1.6 mg/dL (0.7-1.2) H 02/13/21 03:50 GFR Calculation 43.9 mL/min (90-130) L 02/13/21 03:50 Glucose 238 mg/dL (65-115) H 02/13/21 03:50 POC Glucose 157 mg/dL (70-110) H 02/13/21 15:16 Estimat Average Glucose 243 01/30/21 06:10 Hemoglobin A1c 10.1 % (4.0-6.0) H 01/30/21 06:10 Calculated Osmolality 307 mOsm/kg (285-295) H 02/13/21 03:50 Lactic Acid 3.1 mmol/L (0.5-2.2) H 01/26/21 18:44 Lactic Acid (Sepsis) 2.5 mmol/L (0.5-2.2) H 01/26/21 21:55 Lactate 2.7 mmol/L (0.5-2.2) H 02/02/21 14:40 Calcium 8.2 mg/dL (8.5-10.5) L 02/13/21 03:50 Phosphorus 3.4 mg/dL (2.5-4.5) 02/13/21 03:50 Magnesium 1.9 mg/dL (1.7-2.3) 02/13/21 03:50 Ferritin 1542 ng/mL (30-400) H 01/27/21 04:50 Total Bilirubin 0.5 mg/dL (0.15-1.2) 02/13/21 03:50 AST 33 U/L (0-40) 02/13/21 03:50 ALT 44 U/L (0-41) H 02/13/21 03:50 Alkaline Phosphatase 117 IU/L (40-130) 02/13/21 03:50 Lactate Dehydrogenase 521 U/L (135-225) H 02/12/21 05:10 Creatine Kinase 447 U/L (39-308) H* 02/09/21 03:28 Troponin T Gen 5 ng/L 94 ng/L (0-15) H 02/13/21 15:25 Troponin T Baseline 33 ng/L (0-15) H 01/26/21 18:44 Troponin T 120 Minute 31.73 ng/L (0-15) H 01/26/21 21:55 Delta Troponin T -1.27 ABS# (0-10) L 01/26/21 21:55 Troponin T Hi Sens 6Hr 31.76 ng/L (0-15) H 01/27/21 02:10 Troponin T Hi Sens 6Hr Delta -1.24 ng/L (0-12) L 01/27/21 02:10 C-Reactive Protein 42.8 mg/L (0.0-4.9) H 02/12/21 05:10 NT-Pro-B Natriuret Pep 1724 pg/mL (0-125) H 01/26/21 18:44 Total Protein 5.0 g/dL (6.6-8.7) L 02/13/21 03:50 Albumin 2.5 g/dL (3.5-5.2) L 02/13/21 03:50 Globulin 2.5 g/dL (1.3-4.6) 02/13/21 03:50 Triglycerides 627 mg/dL (0-150) H 02/09/21 03:28 LDL Cholesterol Direct 122 mg/dL (0-100) H 02/09/21 03:28 Procalcitonin 0.21 ng/mL (0-0.5) 02/13/21 03:50 Urine Color Yellow (Yellow) 02/11/21 14:09 Urine Appearance Cloudy (CLEAR) A 02/11/21 14:09 Urine pH 5 (5-7) 02/11/21 14:09 Ur Specific [place] 1.020 (1.005-1.030) 02/11/21 14:09 Urine Protein Trace (Negative) 02/11/21 14:09 Urine Glucose (UA) Norm (Normal) 02/11/21 14:09 Urine Ketones Negative (Negative) 02/11/21 14:09 Urine Blood 3+ (Negative) H 02/11/21 14:09 Urine Nitrate Negative (Negative) 02/11/21 14:09 Urine Bilirubin Neg (Negative) 02/11/21 14:09 Urine Urobilinogen Norm mg/dL (Negative) 02/11/21 14:09 Ur Leukocyte Esterase Trace (Negative) H 02/11/21 14:09 Urine RBC 5-10 /hpf (0-2) H 02/11/21 14:09 Urine WBC 5-10 /hpf (0-5) H 02/11/21 14:09 Ur Squamous Epith Cells 5-10 /hpf (0-5) H 02/11/21 14:09 Amorphous Sediment Not Reportable 02/11/21 14:09 Urine Bacteria 2+ /hpf (NONE) H 02/11/21 14:09 Hyaline Casts 0-4 /lpf H 02/11/21 14:09 Urine Mucus 1+ /hpf 02/11/21 14:09 Misc Test Reference See comment 02/04/21 08:00 Impressions Chest X-Ray 02/13/21 06:00 Impression: 1. No change in bilateral pulmonary opacities. 2. No change in multiple tubes Micro: Microbiology 02/11/21 Unknown Gram Stain - Final Lung Right Lower Lobe Bronchoalveolar Lavage Culture - Preliminary 02/11/21 14:09 Urine Culture - Final Urine Catheterized 02/10/21 14:45 Gram Stain - Final Sputum - Endotracheal Tube Aspirate Sputum Culture - Final Klebsiella pneumoniae 02/11/21 11:34 Blood Culture - Preliminary Blood NEGATIVE TO DATE 02/11/21 11:34 Blood Culture - Preliminary Blood NEGATIVE TO DATE A&P Assessment and plan (1) Pneumonia due to severe acute respiratory syndrome coronavirus 2 (SARS-CoV-2): Status: Acute (2) Acute respiratory failure with hypoxia: Status: Acute (3) Hypertension: Status: Acute Qualifiers: Hypertension type: unspecified Qualified Code(s): I10 - Essential (primary) hypertension (4) Chronic kidney disease: Status: Acute Qualifiers: Chronic kidney disease stage: unspecified stage Qualified Code(s): N18.9 - Chronic kidney disease, unspecified (5) Diabetes mellitus: Status: Acute Qualifiers: Diabetes mellitus type: type 2 Diabetes mellitus superintendent terminal insulin use: unspecified superintendent terminal insulin use status Diabetes mellitus complication status: with kidney complications Diabetes mellitus complication detail: with chronic kidney disease Chronic kidney disease stage: unspecified stage Qualified Code(s): E11.22 - Type 2 diabetes mellitus with diabetic chronic kidney disease (6) Metabolic acidosis: Status: Acute (7) Decreased pulses in feet: Status: Acute (8) PAD (peripheral artery disease): Status: Acute (9) Ventilator associated pneumonia: Status: Acute (10) Counseling regarding advance care planning and goals of care: Status: Acute # Acute hypoxic respiratory failure secondary to ARDS due to Covid 19 Pneumonia #Ventilator associated pneumonia-pansensitive Klebsiella-started on Rocephin 02/13/2021 # Metabolic acidosis in pt with CKD-worsening NASIR-improving # HTN # Diabetes # h/o A fib - rate controlled #Rhabdomyolysis -improving #Thrombocytopenia-monitor platelets #severe PAD-on aspirin/Plavix-no need for urgent intervention - intubated, sedated, paralyzed and proned x 4 ; -Plan is to taper off further sedation and do spontaneous awakening trial -dc propofol as triglycerides are high ; while tapering off sedation patient is hyperventilating and seen in respiratory distress; started on fentanyl patch -Maintain sedation with fentanyl, Precedex, Ativan as needed and Morphine 2mg ivp q 6 hr prn pain -Also started on Seroquel 100 mg p.o. twice daily -Currently on CMV 500/60% FiO2/8 PEEP and ABG 7.41/37/69/23/94% - Duoneb q 6 hr nathalie - dexamethasone 6 mg ivp ntahalie x 10day and currently dexamethasone 3 mg ivp daily-we will DC today - s/p 5 day remdesivir and Tocilizumab 01/28/21 - monitor inflammatory markers q 48 hrs -Off pressor, ASA/PLAVIX -arterial doppler results reported features of severe PAD on the right and left extremities with occluded right femoral popliteal bypass graft -notify results to family and they wanted to transfer to [facility] to pts vascular surgeon Dr. Holley - Unable to reach Dr. Holley office and also [facility] is on tr ansfer diversion due to bed unavailability -Family agreed to see intervention trestle builder here & Dr. Farley was consulted- recommended medical management and so we will continue Eliquis, aspirin, Plavix --350 cc in 24 hours / +1.5 L since admission try to maintain negative fluid balance - Na 138; K 4.5; creatinine better;CK better; DC D5 @ 30 mls/hr -Continue FSBS every 6 monitoring and Insulin scale coverage-continue Lantus 15 units daily - Continue tube feeding - PPI for gi ppx - Elliquis for DVT ppx and chronic A FIB - Blood cx - CONS - Contaminant - so far sputum positive for Yeast - id pending-on fluconazole - -s/p bronchoscopy 02/11/2021 for airway inspection - BAL-bacterial culture negative so far, fungal culture, PCP-pending -Sputum cultures 02/10/21 showed pansensitive Klebsiella-DC Zyvox imipenem and started on Rocephin 02/13/21 - stable platelets 86 - Eliquis /asa/plavix/ PPI code: Full DVT ppx: Elliquis GI ppx : PPI Prognosis: guarded Disposition: Planning to send long-term acute care facility might need trach and PEG for long-term recovery. Family NOK : Updated recommendations conveyed to RN,RT, Hospitalist taking care of the patient. Attestations Medical Necessity Statement*: Acute hypoxic respiratory failure secondary to ARDS due to COVID 19 Pneumonia - intubated, sedated and proned still requiring mechanical ventilator Time Spent in Patient Care: Greater than 35 minutes (>than 50% of time spent in counselling and/or direct pt care on unit) . Critical Care Time: The high probability of a clinically significant, sudden or life threatening deterioration of the patient's [respiratory, cardiac, endocrine, renal, vascular] system(s) required my full and direct attention, intervention and personal management. The critical care time is as shown. This time is in addition to time spent performing any reported procedures but includes the following: [x] Data and vital sign review and interpretation [x] Patient assessment, examination and intervention [x] Documentation [x] Medication orders and management Critical Care Time (min): 90 Coding Level of Care Code Established Pt Acute Skin Piler for Chg Fwd Patient Type Established History Comprehensive Exam Comprehensive Medical Decision Making High Complexity Diagnoses Pneumonia due to severe acute respiratory syndrome coronavirus 2 (SARS-CoV-2) U07.1; J12.82 Acute respiratory failure with hypoxia J96.01 Hypertension I10 Hypertension type: unspecified Chronic kidney disease N18.9 Chronic kidney disease stage: unspecified stage Diabetes mellitus E11.22 Diabetes mellitus type: type 2 Diabetes mellitus prison insulin use: unspecified superintendent terminal insulin use status Diabetes mellitus complication status: with kidney complications Diabetes mellitus complication detail: with chronic kidney disease Chronic kidney disease stage: unspecified stage Metabolic acidosis E87.2 Decreased pulses in feet R09.89 PAD (peripheral artery disease) I73.9 Ventilator associated pneumonia J95.851 Counseling regarding advance care planning and goals of care Z71.89 Time Spent (min) 90
[2021-02-13] MEDS: dexmedetomidine 400 MCG in sodium chloride 0.9% (100 ml) 100 ML 22.53 MCG IV ×2 (17:24→22:43)
--- NOTE | 2021-02-13 19:41 | PC.NURSE ---
Spoke with Dr porras regarding current versed rate and discontinuation of order. received orders to renew the versed order and wean the gtt throughout the night.
[2021-02-13 20:31] LABS: Glucose Point of Care 230 mg/dL (70-110)
[2021-02-13] MEDS: atorvastatin 40 mg Tablet PO (20:34)
--- NOTE | 2021-02-13 23:00 | PC.NURSE ---
event note: patient noted to be sating 87%. upon entering patients room, he was noted to be audibly breathing around the ETT and coughing persistently. sats quickly dropped to low 80s. This RN attempted to suction patient but the catheter would not advance. RT imediately notified and began bagging patient. patient noted to be difficult to bag. Dr. Fleming at bedside Tube feeding disconnected with noted air escaping from OG. Dr Fleming ordered a stat CXR for possible pneumo-revealing distended stomach. Dr. Fleming attempted exchange of ETT at this time. patients sats at 50% at this time. sats quickly dropped and patient became bradycardic and lost a pulse. dx as PEA and resp code was initiated. (SEE CODE CHARTING) once rosc achieved patient was maintained of vent and levophed support for blood pressure patients sats recovering to high 80's- orders received for nimbex gtt for ventilator compliance from Dr. Fleming. initial TOF 4/4 on map
--- NOTE | 2021-02-13 23:14 | XRR_ITS ---
PROCEDURE INFORMATION: Exam: XR Chest Exam date and time: 02/13/2021 11:14 PM Age: 65 years old Clinical indication: Shortness of breath; Additional info: Change in status. Declining. TECHNIQUE: Imaging protocol: XR of the chest. Views: 1 view. COMPARISON: CR XR chest 1V portable [id number] 02/13/2021 6:36 AM FINDINGS: Tubes, catheters and devices: Right IJ catheter tip advanced to the right atriocaval junction. Enteric tube tip is beyond the proximal portion of the stomach and is not seen because it is below the inferior margin of the film. Stable endotracheal tube. Lungs: Stable moderate to severe bilateral nonspecific pulmonary opacities most consistent with pneumonia. Pleural spaces: Unremarkable. No pleural effusion. No pneumothorax. Heart/Mediastinum: Unremarkable. No cardiomegaly. Bones/joints: Unremarkable. XR/XR chest 1V portable [id number] IMPRESSION: Right IJ catheter tip advanced to the right atriocaval junction.
--- NOTE | 2021-02-13 23:21 | XRR_ITS ---
PROCEDURE INFORMATION: Exam: XR Chest Exam date and time: 02/13/2021 11:21 PM Age: 65 years old Clinical indication: Device placement; Ett placement (vent status); Additional info: Post intubation TECHNIQUE: Imaging protocol: XR of the chest. Views: 1 view. COMPARISON: CR XR chest 1V portable [id number] 02/13/2021 11:11 PM FINDINGS: Tubes, catheters and devices: Stable right central line. Stable endotracheal tube over the mid trachea, 4 cm proximal to the kale. Enteric tube tip is beyond the proximal portion of the stomach and is not seen because it is below the inferior margin of the film. Lungs: Moderate to severe with nonspecific bilateral pulmonary opacities most consistent with pneumonia. Pleural spaces: Unremarkable. No pleural effusion. No pneumothorax. Heart/Mediastinum: Unremarkable. No cardiomegaly. Bones/joints: Unremarkable. XR/XR chest 1V portable [id number] IMPRESSION: 1. Stable endotracheal tube over the mid trachea, 4 cm proximal to the kale. 2. Moderate to severe with nonspecific bilateral pulmonary opacities most consistent with pneumonia. 3. Enteric tube tip is beyond the proximal portion of the stomach and is not seen because it is below the inferior margin of the film.
[2021-02-14] VITALS (41 sets, daily range): BP systolic 82–156; BP diastolic 59–88; PULSE 82–152; RESP 9–27; TEMP 36.7–37.2; O2SAT 85–99
[2021-02-14] MEDS: succinylcholine 20 mg/mL SDV 10mL IVP
--- NOTE | 2021-02-14 00:25 | P.PNCC_ITS ---
Critical Care Event Note Critical Care Event The high probability of a clinically significant, sudden or life threatening deterioration of the patient's respiratory and cardiovascular system(s) required my full and direct attention, intervention and personal management. The critical care time is as shown. This time is in addition to time spent performing any reported procedures but includes the following: [x] Data and vital sign review and interpretation [x] Patient assessment, examination and intervention [x] Documentation [x] Medication orders and management I was in the ICU caring for another patient when Mr. Malhotra was noted to have sudden drop in oxygen saturations from around 90% to 80% to 70-60 and so on. On examination, patient was tachypneic, appeared to be breathing around the ET tube although the cuff was confirmed to still be inflated. It was difficult to auscultate breath sounds due to the amount of upper airway noise. Nothing was able to be suctioned out of the oropharynx or the ET tube. At the same time patient's abdomen was noted to be quite distended. Tube feeds were turned off and subsequently disconnected. Patient had air blowing out of the gastric tube with his respirations. He was on Versed, fentanyl, Precedex. He was disconnected from the ventilator and attempts to bag were difficult. Stat chest x-ray did not show evidence of pneumothorax though there was a large gastric bubble seen. Attempt was made to change the ET tube over a bougie after administering a paralytic. The bougie was placed to marked level from bedside measurements, cuff deflated and ET tube exchanged for another 8.0 tube. No color change nor breath sounds were noted and tube was withdrawn. Attempts were made at bagging which remained difficult. Fiberoptic scope which was already set up was then utilized for direct visualization. ET tube was placed visualized going through the cords to 26 at the lip which was the same markings as previous. Still unable to confirm color change and bilateral breath auscultation. ET tube was again pulled and patient was bagged. Bradycardic and subsequent PEA arrest occurred at this juncture and ACLS protocol was initiated. Dr. Schwartz assisted with intubation. Patient received 2 doses of epinephrine with return of spontaneous circulation. He remained tachycardic, at times wide- complex tachycardia afterwards. He received approximately 150 cc bolus of normal saline for hypotension prior to reinitiation of Levophed. Levophed was at 20 mics. Sedation was temporarily turned off. Chest x-ray showed ET tube at the clavicular line. It was advanced to 28 at the lip. I am not sure if the ET tube had migrated above the vocal cords previously leading to the hypoxemia but that might account for the challenges that we were having. After replacing the ET tube in the airway, abdomen decompressed further through the gastric tube and was soft again. Dr. Glass appeared after return of spontaneous circulation. We reviewed the events, ventilator settings and plan for paralytics. Patient has required adjustments to paralytics, ventilator settings several times since then. Updated of the events this evening and provided support. Have communicated with nursing staff as well. Most recent blood gas was improved though he is currently on 100% FiO2. Chest x-ray with increased opacities comparatively. Condition remains guarded. Critical Care Time Critical Care Time: Code activated: Yes Critical Care Time (min): 150 Additional information about critical care time: 60 minutes of critical care time occurred on 02/13/2021 before midnight, the remaining critical care time was after midnight on 02/14/2021. Critical care time includes procedures and care done during code. Coding Level of Care Code Acute Spooler Rubber Strand for Pia Bhatt
--- NOTE | 2021-02-14 00:30 | PC.NURSE ---
patients , michelle, at bedside. Discussed recent events with myself and Dr. Fleming at this time.
[2021-02-14 00:32] LABS: ABG PCO2 45.7 mmHg (35-45); ABG PH Result 7.27 (7.35-7.45); Alveolar-Arterial Oxygen Gradi 79.3 mmHg (5-10); Arterial Blood Gas Hematocrit 32.2 % (42-52); Base Excess ABG -5.7 mmol/L (-2.0-2.0); Blood Gas Allen Test Pos; Blood Gas Operator Identificat JB; Blood Gas Sample Site Radial, left; Blood Gas Sample Type Arterial; Carboxyhemoglobin 1.5 %THgb (0.4-20.1); HCO3 ABG 21.1 mmol/L (22-26); Ionized Calcium Level - ABG 1.3 mmol/L (1.1-1.4); Methemoglobin 1.3 % (0.4-1.5); Oxygen Device VENT; Oxygen Saturation ABG 80.2; PO2 ABG 49.3 mmHg (80.0-100.0); Potassium Level - ABG 4.5 mmol/L (3.5-5.0); Total Hemoglobin 10.5 g/dL (14-18)
--- NOTE | 2021-02-14 00:40 | PC.NURSE ---
paralytic initiated at this time. TOF 4/4 on 4 map
[2021-02-14] MEDS: cisatracurium 100 MG in sodium chloride 0.9% 50 ML IV (01:10)
--- NOTE | 2021-02-14 01:38 | PC.NURSE ---
TOF 4/4. nimbex gtt increased
--- NOTE | 2021-02-14 02:46 | ED_ITS ---
HPI - SOB/Dyspnea General: Chief Complaint: Shortness of Breath/Dyspnea Stated Complaint: RESP DISTRESS; COVID + Time Seen by Provider: 01/26/21 18:02 History of Present Illness: Severity: moderate Exacerbating factors: exertion Relieving factors: oxygen Treatment prior to arrival: oxygen [facility] ED PFSH: Medical History (Updated 02/13/21 @ 16:46 by Praveen Glass MD) Hypertension Peripheral arterial disease with history of revascularization Procedures Intubation sedative: none Laryngoscope: Devin ET Tube Size: 8 ET Tube Uncuffed: No Tube Secured Depth (cm): 26 Tube Secured Location: teeth Tube Placement Confirmation: visualized tube passing through cords, equal breath sounds bilaterally, no breath sounds over epigastrium and confirmation by capnometry Course Vital Signs: Vital signs: Vital Signs Temperature 98.2 F 02/13/21 20:53 Pulse Rate 107 H 02/14/21 01:00 Respiratory Rate 27 H 02/14/21 00:09 Blood Pressure 134/78 02/14/21 01:00 Pulse Oximetry 91 02/14/21 01:00 MDM - SOB/Dyspnea MDM Narrative: Medical decision making narrative: Responded to a CODE BLUE in the ICU. I arrived CPR was in progress Dr. Fleming was present running the code. I intubated the patient visualize the tube going through the cords had good color change on capnography. Lab Data: Labs: Lab Results 01/26/21 01/26/21 01/26/21 Range/Units 18:44 18:44 18:44 WBC 8.4 (4.0-10.0) 10^3/ uL RBC 4.77 (4.1-5.3) 10^6/u L Hgb 14.2 (11.7-16.6) g/dL Hct 42.0 (42.0-52.0) % MCV 88.1 (80-94) fL MCH 29.8 (28.0-34.0) pg MCHC 33.8 (30.0-36.0) g/dL RDW 13.2 (12.1-15.1) % Plt Count 146 (130-400) 10^3/c mm MPV 10.3 (7.4-10.4) fL Neut % (Auto) 77.0 % Lymph % (Auto) 17.5 % [place] % (Auto) 3.8 % Eos % (Auto) 0.1 % Baso % (Auto) 0.1 % Neut # (Auto) 6.49 (1.8-7.7) 10^3/u L Lymph # (Auto) 1.5 (0.8-4.8) 10^3/u L [place] # (Auto) 0.3 (0.2-0.9) 10^3/u L Eos # (Auto) 0.0 (0.0-0.8) 10^3/u L Baso # (Auto) 0.0 (0.0-0.1) 10^3/u L Nucleated RBC % (a uto) 0 % Nucleated RBCs # 0.0 /100WBC D-Dimer 2.71 H (0-0.59) ug/mIFE U Specimen Type Sample Site ABG pH (7.35-7.45) ABG pCO2 (35-45) mmHg ABG pO2 (80.0-100.0) mmH g ABG HCO3 (22-26) mmol/L ABG Base Excess (-2.0-2.0) mmol/ L Harley Test Hematocrit (42-52) % Hgb O2 Saturation (95-100) % Carboxyhemoglobin (0.4-20.1) %THgb Methemoglobin (0.4-1.5) % Total Hemoglobin (14-18) g/dL O2 Delivery Device O2 Liters/Min % FiO2 % Associate Professor [employer] ID Sodium 128 L (136-145) mmol/L Potassium 4.2 (3.5-5.1) mmol/L Chloride 93 L (98-107) mmol/L Carbon Dioxide 17 L (22-29) mmol/L Anion Gap 22.2 H (5-19) BUN 51 H (8-23) mg/dL Creatinine 2.0 H (0.7-1.2) mg/dL GFR Calculation 33.9 L (90-130) mL/min Glucose 434 H (65-115) mg/dL Calculated Osmolal ity 298 H (285-295) mOsm/k g Lactic Acid (0.5-2.2) mmol/L Lactic Acid (Sepsi s) (0.5-2.2) mmol/L Calcium 8.0 L (8.5-10.5) mg/dL Total Bilirubin 0.4 (0.15-1.2) mg/dL AST 20 (0-40) U/L ALT 30 (0-41) U/L Alkaline Phosphata se 64 (40-130) IU/L Troponin T Baselin e (0-15) ng/L Troponin T 120 Min [place] (0-15) ng/L Delta Troponin T (0-10) ABS# C-Reactive Protein 78.1 H (0.0-4.9) mg/L NT-Pro-B Natriuret Pep 1724 H (0-125) pg/mL Total Protein 6.2 L (6.6-8.7) g/dL Albumin 3.2 L (3.5-5.2) g/dL Globulin 3.0 (1.3-4.6) g/dL Procalcitonin 0.21 (0-0.5) ng/mL 01/26/21 01/26/21 01/26/21 Range/Units 18:44 18:44 21:10 WBC (4.0-10.0) 10^3/ uL RBC (4.1-5.3) 10^6/u L Hgb (11.7-16.6) g/dL Hct (42.0-52.0) % MCV (80-94) fL MCH (28.0-34.0) pg MCHC (30.0-36.0) g/dL RDW (12.1-15.1) % Plt Count (130-400) 10^3/c mm MPV (7.4-10.4) fL Neut % (Auto) % Lymph % (Auto) % [place] % (Auto) % Eos % (Auto) % Baso % (Auto) % Neut # (Auto) (1.8-7.7) 10^3/u L Lymph # (Auto) (0.8-4.8) 10^3/u L [place] # (Auto) (0.2-0.9) 10^3/u L Eos # (Auto) (0.0-0.8) 10^3/u L Baso # (Auto) (0.0-0.1) 10^3/u L Nucleated RBC % (a uto) % Nucleated RBCs # /100WBC D-Dimer (0-0.59) ug/mIFE U Specimen Type Arterial Sample Site Radial, right ABG pH 7.42 (7.35-7.45) ABG pCO2 29.1 L (35-45) mmHg ABG pO2 80.6 (80.0-100.0) mmH g ABG HCO3 19.0 L (22-26) mmol/L ABG Base Excess -4.1 L (-2.0-2.0) mmol/ L Harley Test Pos Hematocrit 42.8 (42-52) % Hgb O2 Saturation 95.3 (95-100) % Carboxyhemoglobin 0.4 (0.4-20.1) %THgb Methemoglobin 0.5 (0.4-1.5) % Total Hemoglobin 14.0 (14-18) g/dL O2 Delivery Device Nc O2 Liters/Min 40.0 % FiO2 100.0 % Associate Professor [employer] ID nabde Sodium (136-145) mmol/L Potassium (3.5-5.1) mmol/L Chloride (98-107) mmol/L Carbon Dioxide (22-29) mmol/L Anion Gap (5-19) BUN (8-23) mg/dL Creatinine (0.7-1.2) mg/dL GFR Calculation (90-130) mL/min Glucose (65-115) mg/dL Calculated Osmolal ity (285-295) mOsm/k g Lactic Acid 3.1 H (0.5-2.2) mmol/L Lactic Acid (Sepsi s) (0.5-2.2) mmol/L Calcium (8.5-10.5) mg/dL Total Bilirubin (0.15-1.2) mg/dL AST (0-40) U/L ALT (0-41) U/L Alkaline Phosphata se (40-130) IU/L Troponin T Baselin e 33 H (0-15) ng/L Troponin T 120 Min [place] (0-15) ng/L Delta Troponin T (0-10) ABS# C-Reactive Protein (0.0-4.9) mg/L NT-Pro-B Natriuret Pep (0-125) pg/mL Total Protein (6.6-8.7) g/dL Albumin (3.5-5.2) g/dL Globulin (1.3-4.6) g/dL Procalcitonin (0-0.5) ng/mL 01/26/21 01/26/21 01/26/21 Range/Units 21:55 21:55 21:55 WBC (4.0-10.0) 10^3/ uL RBC (4.1-5.3) 10^6/u L Hgb (11.7-16.6) g/dL Hct (42.0-52.0) % MCV (80-94) fL MCH (28.0-34.0) pg MCHC (30.0-36.0) g/dL RDW (12.1-15.1) % Plt Count (130-400) 10^3/c mm MPV (7.4-10.4) fL Neut % (Auto) % Lymph % (Auto) % [place] % (Auto) % Eos % (Auto) % Baso % (Auto) % Neut # (Auto) (1.8-7.7) 10^3/u L Lymph # (Auto) (0.8-4.8) 10^3/u L [place] # (Auto) (0.2-0.9) 10^3/u L Eos # (Auto) (0.0-0.8) 10^3/u L Baso # (Auto) (0.0-0.1) 10^3/u L Nucleated RBC % (a uto) % Nucleated RBCs # /100WBC D-Dimer (0-0.59) ug/mIFE U Specimen Type Sample Site ABG pH (7.35-7.45) ABG pCO2 (35-45) mmHg ABG pO2 (80.0-100.0) mmH g ABG HCO3 (22-26) mmol/L ABG Base Excess (-2.0-2.0) mmol/ L Harley Test Hematocrit (42-52) % Hgb O2 Saturation (95-100) % Carboxyhemoglobin (0.4-20.1) %THgb Methemoglobin (0.4-1.5) % Total Hemoglobin (14-18) g/dL O2 Delivery Device O2 Liters/Min % FiO2 % Associate Professor [employer] ID Sodium 130 L (136-145) mmol/L Potassium 4.1 (3.5-5.1) mmol/L Chloride 96 L (98-107) mmol/L Carbon Dioxide 20 L (22-29) mmol/L Anion Gap 18.1 (5-19) BUN 49 H (8-23) mg/dL Creatinine 1.9 H (0.7-1.2) mg/dL GFR Calculation 36.0 L (90-130) mL/min Glucose 398 H (65-115) mg/dL Calculated Osmolal ity 300 H (285-295) mOsm/k g Lactic Acid (0.5-2.2) mmol/L Lactic Acid (Sepsi s) 2.5 H (0.5-2.2) mmol/L Calcium 7.9 L (8.5-10.5) mg/dL Total Bilirubin (0.15-1.2) mg/dL AST (0-40) U/L ALT (0-41) U/L Alkaline Phosphata se (40-130) IU/L Troponin T Baselin e (0-15) ng/L Troponin T 120 Min [place] 31.73 H (0-15) ng/L Delta Troponin T -1.27 L (0-10) ABS# C-Reactive Protein (0.0-4.9) mg/L NT-Pro-B Natriuret Pep (0-125) pg/mL Total Protein (6.6-8.7) g/dL Albumin (3.5-5.2) g/dL Globulin (1.3-4.6) g/dL Procalcitonin (0-0.5) ng/mL Discharge Plan Discharge Patient Disposition: Admitted As Inpatient Admit Provider: Kerry Elias Clinical Impression: COVID-19, Acute hyperglycemia Respiratory failure Qualifiers: Chronicity: acute Respiratory failure complication: hypoxia Qualified Code(s): J96.01 - Acute respiratory failure with hypoxia Condition: Serious Coding Level of Care Code ED Transplant Case Manager for Pia Bhatt
--- NOTE | 2021-02-14 02:48 | PC.NURSE ---
CODE EVENT 2314 - Michael Sheikh RN, Jourdan and Mera from RT at bedside. Pt's abdomen noted to be firm and gurgling was noted around ET tube. Dr and staff assessing patient. XRAY called STAT to ICU. 2317- Xray arrive. Chest Xray & KUB complete. ET Tube placement assessed. 232- ET tube removed; attempt to replace tube with boujee; Pt O2 sat @ 80%; versed drip, fentanyl drip, and precedex drip paused. 232- attempt unsuccessful; O2 sat at 45%. reattempt 232- Dr Schwartz called to ICU. O2 sat at 0%. Bagging begun with face mask by RT. 2324- Loss of pulse, CPR started. 1mg Epi given IVP. 2327 - Dr Schwartz arrived. 1mg Epi given IVP Pulse check - PEA - compressions resumed Pt intubated by Dr Schwartz. 233 - 1mg Epi given IVP BP 77/43 233- Pulse check - Left femoral pulse palpated. ROSC. Sinus tach 130. 60% SPO2. Hyperkalemic rhythm per Dr. Schwartz 2333- Levophed drip started at 10. 2334 - Loss of pulse. Compressions restarted. NS 500ml bolus started 2336 - 1mg Epi given IVP Calcium Chloride given IVP 2337 - Bicarb given IVP Pulse check - ROSC. Sinus tach with couplet PVCs- HR 159; 82% SPO2; BP 81/38 Sedation drips restarted. RT continuing to bag pt with ET tube and BVM. 2340 - Datar at bedside Chest Xray - ET tube at clavicle level. Pt repositioned and tube advanced. second Chest Xray - tube in good position per Datar. 2346- Pt's RN called pt's to have her come in and update. 147/93 90% SPO2; 143 HR sinus tach; 25 Resp. 2355 - Patient transitioned to vent by RT Kalen. HR 121; 86% pulse ox and climbing; 104/65; 18 Resp.
[2021-02-14 02:51] LABS: Glucose Point of Care 255 mg/dL (70-110)
[2021-02-14] MEDS: ipratropium-albuterol 3 mL Neb INHALATION ×3 (03:23→14:39)
[2021-02-14] MEDS: dexmedetomidine 400 MCG in sodium chloride 0.9% (100 ml) 100 ML 22.53 MCG IV ×5 (03:32→22:28)
--- NOTE | 2021-02-14 03:39 | XRR_ITS ---
PROCEDURE INFORMATION: Exam: XR Chest Exam date and time: 02/14/2021 3:39 AM Age: 65 years old Clinical indication: Shortness of breath; Patient HX: Resp failure S/P code; Additional info: Resp distress TECHNIQUE: Imaging protocol: XR of the chest. Views: 1 view. COMPARISON: CR XR chest 1V portable [id number] 02/13/2021 11:36 PM FINDINGS: Tubes, catheters and devices: The wholeEndotracheal tube is in satisfactory position. Feeding tube is in satisfactory position. Right IJ approach central line is in satisfactory position, with distal tip in the SVC, approximately 3 cm above the SVC/RA junction. Lungs: Persistent bilateral airspace opacities. Possible trace bilateral pleural effusions. No pneumothorax. Pleural spaces: See Lungs finding. Heart/Mediastinum: Stable cardiomediastinal silhouette. Stable cardiomediastinal silhouette. Bones/joints: No acute osseous injury identified. XR/XR chest 1V [id number] IMPRESSION: Persistent bilateral airspace opacities, with possible trace bilateral pleural effusions.
--- NOTE | 2021-02-14 03:42 | PC.NURSE ---
patient continues to desat. patient is overbreathing vent. paralytic increased for compliance. stat chest xray ordered
--- NOTE | 2021-02-14 03:53 | PC.NURSE ---
spoke with Dr. Fleming regarding recent events and inability to improve patients saturations. received orders to switch patient to cpap mode and decrease paralytic
[2021-02-14 04:30] LABS: ABG PCO2 43.6 mmHg (35-45); ABG PH Result 7.35 (7.35-7.45); Alveolar-Arterial Oxygen Gradi 76.2 mmHg (5-10); Arterial Blood Gas Hematocrit 30.9 % (42-52); Base Excess ABG -1.8 mmol/L (-2.0-2.0); Blood Gas Allen Test Pos; Blood Gas Operator Identificat HARKR; Blood Gas Sample Site Radial, right; Blood Gas Sample Type Arterial; Carboxyhemoglobin 1.2 %THgb (0.4-20.1); HCO3 ABG 23.8 mmol/L (22-26); HGB O2 Sat 92.6 % (95-100); Ionized Calcium Level - ABG 1.3 mmol/L (1.1-1.4); Oxygen Device VENT; Oxygen Saturation ABG 94.7; PO2 ABG 73.9 mmHg (80.0-100.0); Potassium Level - ABG 4.5 mmol/L (3.5-5.0); Total Hemoglobin 10.1 g/dL (14-18)
[2021-02-14 05:26] LABS: Basophils % 0.4 %; Eosinophils # 0.4 10^3/uL (0.0-0.8); Eosinophils % 6.3 %; Hematocrit 31.9 % (42.0-52.0); Hemoglobin 9.7 g/dL (11.7-16.6); Lymphocytes # 0.5 10^3/uL (0.8-4.8); Lymphocytes % 8.8 %; Mean Corpuscular HGB Conc 30.4 g/dL (30.0-36.0); Mean Corpuscular Hemoglobin 29.8 pg (28.0-34.0); Mean Corpuscular Volume 98.2 fl (80-94); Mean Platelet Volume 11.6 fL (7.4-10.4); Monocytes # 0.3 10^3/uL (0.2-0.9); Neutrophils # 4.38 10^3/uL (1.8-7.7); Nucleated Red Blood Cells % 0 %; Platelet Count 92 10^3/cmm (130-400); Red Blood Count 3.25 10^6/uL (4.1-5.3); Red Cell Distribution Width 15.3 % (12.1-15.1); White Blood Count 5.6 10^3/uL (4.0-10.0)
[2021-02-14 05:47] LABS: Alanine Aminotransferase 146 U/L (0-41); Albumin Level 2.3 g/dL (3.5-5.2); Alkaline Phosphatase 124 IU/L (40-130); Anion Gap 9.6 (5-19); Aspartate Amino Transferase 143 U/L (0-40); Blood Urea Nitrogen 47 mg/dL (8-23); Calcium 8.4 mg/dL (8.5-10.5); Carbon Dioxide 25 mmol/L (22-29); Chloride 108 mmol/L (98-107); Globulin 2.4 g/dL (1.3-4.6); Glomerular Filtration Rate 43.9 mL/min (90-130); Glucose 199 mg/dL (65-115); Magnesium 1.8 mg/dL (1.7-2.3); Osmolality Calculated 304 mOsm/kg (285-295); Potassium 4.6 mmol/L (3.5-5.1); Sodium 138 mmol/L (136-145); Total Bilirubin 0.3 mg/dL (0.15-1.2); Total Protein 4.7 g/dL (6.6-8.7)
[2021-02-14] MEDS: cefTRIAXone 1,000 MG in sodium chloride 0.9% (plus) 50 ML 100 MG IV (06:23)
--- NOTE | 2021-02-14 07:46 | PC.NURSE ---
Shift Note Frequent safety and comfort rounds continue. Orders and nursing care completed as indicated. Patient monitored for response to intervention and treatments. Education provided including ventilator management, oxygenation, and progress of care. Patients verbalized understanding. Will continue to monitor.
[2021-02-14 08:12] LABS: Glucose Point of Care 130 mg/dL (70-110)
[2021-02-14] MEDS: aspirin 81 mg EC Tablet PO (09:17)
[2021-02-14] MEDS: clopidogrel 75 mg Tablet PO (09:17)
[2021-02-14] MEDS: quetiapine 100 mg Tablet PO ×2 (09:18→17:42)
[2021-02-14] MEDS: apixaban 5 mg Tablet PO ×2 (09:18→21:49)
[2021-02-14] MEDS: pantoprazole 40 mg SDV IVP (09:19)
[2021-02-14 09:34] LABS: ABG PCO2 43.7 mmHg (35-45); ABG PH Result 7.35 (7.35-7.45); Alveolar-Arterial Oxygen Gradi 68.3 mmHg (5-10); Arterial Blood Gas Hematocrit 31.2 % (42-52); Base Excess ABG -1.5 mmol/L (-2.0-2.0); Blood Gas Allen Test Pos; Blood Gas Sample Site Radial, right; Blood Gas Sample Type Arterial; Blood Gas Tidal Volume 0.45; Carboxyhemoglobin 1.2 %THgb (0.4-20.1); HCO3 ABG 24.2 mmol/L (22-26); HGB O2 Sat 90.6 % (95-100); Ionized Calcium Level - ABG 1.3 mmol/L (1.1-1.4); Methemoglobin 0.9 % (0.4-1.5); Oxygen Device VENT; Oxygen Saturation ABG 92.6; PO2 ABG 64.1 mmHg (80.0-100.0); Potassium Level - ABG 4.5 mmol/L (3.5-5.0); Total Hemoglobin 10.2 g/dL (14-18)
[2021-02-14] MEDS: fluconazole premix 200 MG/100 ML PREMIX 100 MG IV (10:01)
[2021-02-14] MEDS: docusate sodium 10 mg/mL (5ml) Liq 100 MG PO (11:31)
--- NOTE | 2021-02-14 11:34 | XR_ITS ---
WS: [id number] KUB, AP view, 02/14/2021 Clinical Data: distended abd Comparison: None. Findings: No abnormal intraabdominal masses or calcifications are seen. There is no dilatated small bowel or ev idence of obstruction. The nasogastric tube ends in the stomach. There is a aortoiliac stent. There is a large amount of fec al material throughout the colon. There are surgical clips in both inguinal areas. XR/XR abdomen 1V* [id number] Impression: Large amount of fecal material throughout the colon.
[2021-02-14] MEDS: morphine 4 mg/mL SDV 1 mL 2 MG IVP ×3 (14:01→22:08)
[2021-02-14 14:49] LABS: Glucose Point of Care 125 mg/dL (70-110)
--- NOTE | 2021-02-14 14:50 | PC.RESP ---
RT Shift Note Frequent safety and respiratory rounds continue. Orders completed as indicated. Patient monitored pre and post treatments throughout shift. Patient [Did.] tolerate treatments appropriately. Condition .DidNotChange]. Patient and/or sales representative electric service educated on respiratory treatment and medications. Patient and/or sales representative electric service [unable to comprehend]. Will continue to monitor patient progress.
--- NOTE | 2021-02-14 15:54 | P.PN_ITS ---
Subjective Subjective: Interval history: Patient was examined this morning, is at bedside, currently is on 90% FiO2, overnight, patient had a sudden drop in the FiO2 overnight, was tachypneic, abdomen is quite distended, was disconnected from ventilator, attempts at bagging was difficult, no evidence of pneumothorax, he developed bradycardia then PEA arrest, ACLS initiated, with ROSC, 2 doses of epi, patient's airway was exchanged, then advanced, possibility of ET tube migration above vocal cords as a cause of his desaturations overnight is likely, currently normotensive, Levophed, no tachypnea, afebrile, on sedation Vitals/I&O/Wt Last Vital Signs Temp 98.0 F 02/14/21 07:00 Pulse 109 H 02/14/21 15:00 Resp 23 H 02/14/21 15:00 BP 125/69 02/14/21 15:00 Pulse Ox 92 02/14/21 15:00 02/14/21 02/14/21 02/14/21 06:59 14:59 22:59 Intake Total 233.023 / 1226.209 596.491 / 596.491 Output Total 1200 / 1200 Balance -966.977 / 26.209 596.491 / 596.491 Weight last 48 hrs Weight 90.718 kg Weight 88.961 kg Physical Exam Narrative: EXAM NARRATIVE: Intubated, sedated Resp: COMMON NORMALS: normal respiratory effort, No retractions, No use of accessory muscles and clear to auscultation bilaterally AUSCULTATION: clear to auscultation bilaterally Cardio: COMMON NORMALS: regular rate, regular rhythm, S1 normal heart sound present and S2 normal heart sound present RATE: regular rate RHYTHM: regular rhythm HEART SOUNDS: S1 normal heart sound present and S2 normal heart sound present GI: COMMON NORMALS: Normal to inspection, nondistended, normoactive bowel sounds present, Soft to palpation and non-tender PALPATION: Yes Soft to palpation Extremity: COMMON NORMALS: no pedal edema Urinary Catheter Management^: Marshall: Cath Placed During This Visit: yes Reason for Continuing Indwelling Catheter: Accurate Measurement of Urinary Output in Critically Ill Patients Urinary Catheter Date of Insertion: 02/01/21 Urinary Catheter Time of Insertion: 11:10 Data : 02/14/21 04:15 02/14/21 04:15 Micro: Microbiology 02/11/21 Unknown Gram Stain - Final Lung Right Lower Lobe Bronchoalveolar Lavage Culture - Preliminary Yeast 02/11/21 Unknown Fungal Smear - Preliminary Sputum - Endotracheal Tube Aspirate A&P Assessment and plan (1) Sepsis: Status: Acute (2) PAD (peripheral artery disease): Status: Acute (3) Decreased pulses in feet: Status: Acute (4) Peripheral arterial disease with history of revascularization: Status: Acute (5) Arterial occlusion: Status: Acute (6) Acute kidney injury superimposed on chronic kidney disease: Status: Acute (7) Hypernatremia: Status: Acute (8) Metabolic acidosis: Status: Acute (9) Hypertension: Status: Acute (10) Diabetes mellitus: Status: Acute Qualifiers: Diabetes mellitus type: type 2 Diabetes mellitus long term care phlebotomist insulin use: unspecified long term care phlebotomist insulin use status Diabetes mellitus complication status: with kidney complications Diabetes mellitus complication detail: with chronic kidney disease Chronic kidney disease stage: unspecified stage Qualified Code(s): E11.22 - Type 2 diabetes mellitus with diabetic chronic kidney disease (11) History of atrial fibrillation: Status: Acute (12) Hyperglycemia: Status: Acute (13) ARDS (adult respiratory distress syndrome): Status: Acute (14) Pneumonia due to severe acute respiratory syndrome coronavirus 2 (SARS-CoV-2): Status: Acute (15) Acute respiratory failure with hypoxia: Status: Acute (16) COVID-19: remdisivir 200mg iv x 1 then 100mg iv daily x 5 days dexamethasone 6g IVP qd duonebs, budesonide suppemetal 02, bipap prn ceftraixone and azithromycin empirically Status post 1 dose of tocilizumab trend inflammatory markers Status: Acute (17) Acute hyperglycemia: Status: Acute Additional A&P Information Ventilator dependent respiratory failure Agree with pulmonary critical care, on consult COVID-19 w Severe ARDS Intubated and sedated, on paralytics, Nimbex Precedex, fentanyl Fentanyl patch Seroquel Overnight hypoxemic events, possibly secondary to ET tube migration, replaced, 28 at the lip, currently on 95% FiO2, wean oxygen as tolerated Currently on Levophed On Rocephin, On flucanazole Vent management as per knotter Patient was admitted on 01/27, candidate for tracheostomy ,peg and placement to LTAC Right IJ placed 02/01 Status post bronchoscopy 02/10 Status post PEA, ACLS, 2 doses of epi, ROSC Sepsis Related to possible ventilator dependent pneumonia Sputum culture positive for Klebsiella however previous culture was positive for yeast Yeast identification still pending, continue IV fluconazole broad-spectrum antibiotics switched to IV. ceftriaxone Urine culture, urine antigens unremarkable Arterial occlusion peripheral arterial disease Chronic occlusion of graft Appreciate cardiology recommendations Not a candidate of acute intervention continue aspirin, Plavix, statin and Eliquis is still interested if he will get accepted at [facility], Dr. Holley placed the graft,(their ICU is on diversion) Hypernatremia secondary to free water deficit, improved, 138 Sodium improved, TPN on hold Acute on chronic kidney disease Creatinine improved to 1.6 Urine output 1200 Acidosis, hyperkalemia improved Type 2 diabetes with hyperglycemia started L 18 units daily, insulin sliding he will, Rhabdomyolysis, CPK 447 Transaminitis Full code Tube feeds on hold DVT prophylaxis currently on Eliquis 5 mg twice a day because of history of A. fib still wants him to be transferred to [facility] wants to have a bed Attestations Medical Necessity Statement*: Patient requires hospitalization for acute respiratory failure secondary COVID-19 Coding Level of Care Code Acute Early Head Start Teacher for Chg Fwd Diagnoses Sepsis A41.9 PAD (peripheral artery disease) I73.9 Decreased pulses in feet R09.89 Peripheral arterial disease with history of revascularization I73.9; Z98.890 Arterial occlusion I70.90 Acute kidney injury superimposed on chronic kidney disease N17.9; N18.9 Hypernatremia E87.0 Metabolic acidosis E87.2 Hypertension I10 Diabetes mellitus E11.22 Diabetes mellitus type: type 2 Diabetes mellitus alf insulin use: unspecified alf insulin use status Diabetes mellitus complication status: with kidney complications Diabetes mellitus complication detail: with chronic kidney disease Chronic kidney disease stage: unspecified stage History of atrial fibrillation Z86.79 Hyperglycemia R73.9 ARDS (adult respiratory distress syndrome) J80 Pneumonia due to severe acute respiratory syndrome coronavirus 2 (SARS-CoV-2) U07.1; J12.82 Acute respiratory failure with hypoxia J96.01 COVID-19 U07.1 Acute hyperglycemia R73.9
--- NOTE | 2021-02-14 18:49 | PC.NURSE ---
1840 WAsted 66ml of Versed with Luz Marina as witness.
[2021-02-14] MEDS: FUROsemide 10 mg/mL SDV 4mL 40 MG IVP (20:30)
--- NOTE | 2021-02-14 20:32 | ECG_ITS ---
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 Measurements Intervals [place] Rate: 137 P: SC: QRS: -34 QRSD: 102 T: 93 QT: 260 QTc: 393 Interpretive Statements possible ATRIAL FLUTTER/TACHYCARDIA WITH RAPID VENTRICULAR RESPONSE POSSIBLE ANTERIOR MYOCARDIAL INFARCTION,OF INDETERMINATE AGE INFERIOR MYOCARDIAL INFARCTION, OF INDETERMINATE AGE ST DEPRESSION, CONSIDER SUBENDOCARDIAL INJURY [0.1+ mV ST DEPRESSION] Compared to ECG 01/26/2021 18:53:58 Myocardial infarct finding now present ST (T wave) deviation now present Sinus rhythm no longer present Sinus arrhythmia no longer present T-wave abnormality no longer present Possible ischemia no longer present Electronically Signed On 02-15-2021 19:30:56 CDT by Michelle Srivastava M.D. [id number] [email or web address]
--- NOTE | 2021-02-14 21:30 | PM.PN ---
Subjective Subjective: Interval history: -Patient seen at bedside today multiple times -Yesterday night patient coughed out his ET tube and while exchanging tube patient became hypoxic and had cardiac arrest for 3 minutes-achieved ROSC -Plan is to taper down sedation-likely developed opioid benzodiazepine tolerance and requiring very high levels of sedation-otherwise hyperventilates and. Volumes greater than 1000 cc -Other labs and imaging reviewed Medications: Reviewed: Yes Vitals/I&O/Wt Last Vital Signs Temp 99.0 F 02/14/21 16:27 Pulse 140 H 02/14/21 20:00 Resp 25 H 02/14/21 20:53 BP 100/69 02/14/21 20:00 Pulse Ox 88 L 02/14/21 20:53 02/14/21 02/14/21 02/14/21 06:59 14:59 22:59 Intake Total 233.023 / 1226.209 596.491 / 596.491 330.50 / 926.991 Output Total 1200 / 1200 950 / 950 Balance -966.977 / 26.209 596.491 / 596.491 -619.50 / -23.009 Weight last 48 hrs Weight 200 lb Weight 196 lb 2 oz Physical Exam Narrative: EXAM NARRATIVE: General: lying in bed, sedated and intubated. HEENT:NCAT, PERRLA, EOMI Neck: Supple Lungs: Bilateral diffuse crackles Heart: s1/s2, RRR Abd: soft, NT, ND, BS + Normoactive Extremities: No edema; bilateral warm extremities MAIL CLERK BILLS: sedated and limited MAIL CLERK BILLS exam possible; SKIN: no rash Urinary Catheter Management^: Marshall: Cath Placed During This Visit: yes Reason for Continuing Indwelling Catheter: Accurate Measurement of Urinary Output in Critically Ill Patients Urinary Catheter Date of Insertion: 02/01/21 Urinary Catheter Time of Insertion: 11:10 Data : 02/15/21 05:00 02/15/21 13:54 Other Labs: Laboratory Results WBC 5.6 10^3/uL (4.0-10.0) 02/14/21 04:15 RBC 3.25 10^6/uL (4.1-5.3) L 02/14/21 04:15 Hgb 9.7 g/dL (11.7-16.6) L 02/14/21 04:15 Hct 31.9 % (42.0-52.0) L 02/14/21 04:15 MCV 98.2 fl (80-94) H 02/14/21 04:15 MCH 29.8 pg (28.0-34.0) 02/14/21 04:15 MCHC 30.4 g/dL (30.0-36.0) 02/14/21 04:15 RDW 15.3 % (12.1-15.1) H 02/14/21 04:15 Plt Count 92 10^3/cmm (130-400) L 02/14/21 04:15 MPV 11.6 fL (7.4-10.4) H 02/14/21 04:15 Neut % (Auto) 79.0 % 02/14/21 04:15 Lymph % (Auto) 8.8 % 02/14/21 04:15 Hood % (Auto) 5.0 % 02/14/21 04:15 Eos % (Auto) 6.3 % 02/14/21 04:15 Baso % (Auto) 0.4 % 02/14/21 04:15 Neut # (Auto) 4.38 10^3/uL (1.8-7.7) 02/14/21 04:15 Lymph # (Auto) 0.5 10^3/uL (0.8-4.8) L 02/14/21 04:15 Hood # (Auto) 0.3 10^3/uL (0.2-0.9) 02/14/21 04:15 Eos # (Auto) 0.4 10^3/uL (0.0-0.8) 02/14/21 04:15 Baso # (Auto) 0.0 10^3/uL (0.0-0.1) 02/14/21 04:15 Nucleated RBC % (auto) 0 % 02/14/21 04:15 Nucleated RBCs # 0.0 /100WBC 02/14/21 04:15 D-Dimer 3.27 ug/mIFEU (0-0.59) H 01/28/21 06:30 Specimen Type Arterial 02/14/21 09:16 Sample Site Radial, right 02/14/21 09:16 ABG pH 7.35 (7.35-7.45) 02/14/21 09:16 ABG pCO2 43.7 mmHg (35-45) 02/14/21 09:16 ABG pO2 64.1 mmHg (80.0-100.0) L 02/14/21 09:16 ABG HCO3 24.2 mmol/L (22-26) 02/14/21 09:16 ABG O2 Saturation 92.6 02/14/21 09:16 ABG Base Excess -1.5 mmol/L (-2.0-2.0) 02/14/21 09:16 Harley Test Pos 02/14/21 09:16 A-a O2 Gradient 68.3 mmHg (5-10) H 02/14/21 09:16 Hematocrit 31.2 % (42-52) L 02/14/21 09:16 Hgb O2 Saturation 90.6 % (95-100) L 02/14/21 09:16 Carboxyhemoglobin 1.2 %THgb (0.4-20.1) 02/14/21 09:16 Methemoglobin 0.9 % (0.4-1.5) 02/14/21 09:16 Total Hemoglobin 10.2 g/dL (14-18) L 02/14/21 09:16 Sodium 142.0 mmol/L (131-143) 02/14/21 09:16 Potassium 4.5 mmol/L (3.5-5.0) 02/14/21 09:16 Glucose 119.0 mg/dL (70-115) H 02/14/21 09:16 Ionized Calcium 1.3 mmol/L (1.1-1.4) 02/14/21 09:16 O2 Delivery Device Vent 02/14/21 09:16 O2 Liters/Min 40.0 % 01/26/21 21:10 FiO2 90.0 % 02/14/21 09:16 Tidal Volume 0.45 02/14/21 09:16 PEEP 10.0 cmH20 02/14/21 09:16 CPAP 16.0 cmH20 02/11/21 04:50 [place] Hydraulic Press Operator ID [id number] 02/14/21 09:16 Sodium 138 mmol/L (136-145) 02/14/21 04:15 Potassium 4.6 mmol/L (3.5-5.1) 02/14/21 04:15 Chloride 108 mmol/L (98-107) H 02/14/21 04:15 Carbon Dioxide 25 mmol/L (22-29) 02/14/21 04:15 Anion Gap 9.6 (5-19) 02/14/21 04:15 BUN 47 mg/dL (8-23) H 02/14/21 04:15 Creatinine 1.6 mg/dL (0.7-1.2) H 02/14/21 04:15 GFR Calculation 43.9 mL/min (90-130) L 02/14/21 04:15 Glucose 199 mg/dL (65-115) H 02/14/21 04:15 POC Glucose 125 mg/dL (70-110) H 02/14/21 14:46 Estimat Average Glucose 243 01/30/21 06:10 Hemoglobin A1c 10.1 % (4.0-6.0) H 01/30/21 06:10 Calculated Osmolality 304 mOsm/kg (285-295) H 02/14/21 04:15 Lactic Acid 3.1 mmol/L (0.5-2.2) H 01/26/21 18:44 Lactic Acid (Sepsis) 2.5 mmol/L (0.5-2.2) H 01/26/21 21:55 Lactate 2.7 mmol/L (0.5-2.2) H 02/02/21 14:40 Calcium 8.4 mg/dL (8.5-10.5) L 02/14/21 04:15 Phosphorus 3.4 mg/dL (2.5-4.5) 02/13/21 03:50 Magnesium 1.8 mg/dL (1.7-2.3) 02/14/21 04:15 Ferritin 1542 ng/mL (30-400) H 01/27/21 04:50 Total Bilirubin 0.3 mg/dL (0.15-1.2) 02/14/21 04:15 AST 143 U/L (0-40) H 02/14/21 04:15 ALT 146 U/L (0-41) H 02/14/21 04:15 Alkaline Phosphatase 124 IU/L (40-130) 02/14/21 04:15 Lactate Dehydrogenase 521 U/L (135-225) H 02/12/21 05:10 Creatine Kinase 447 U/L (39-308) H* 02/09/21 03:28 Troponin T Gen 5 ng/L 94 ng/L (0-15) H 02/13/21 15:25 Troponin T Baseline 33 ng/L (0-15) H 01/26/21 18:44 Troponin T 120 Minute 31.73 ng/L (0-15) H 01/26/21 21:55 Delta Troponin T -1.27 ABS# (0-10) L 01/26/21 21:55 Troponin T Hi Sens 6Hr 31.76 ng/L (0-15) H 01/27/21 02:10 Troponin T Hi Sens 6Hr Delta -1.24 ng/L (0-12) L 01/27/21 02:10 C-Reactive Protein 42.8 mg/L (0.0-4.9) H 02/12/21 05:10 NT-Pro-B Natriuret Pep 1724 pg/mL (0-125) H 01/26/21 18:44 Total Protein 4.7 g/dL (6.6-8.7) L 02/14/21 04:15 Albumin 2.3 g/dL (3.5-5.2) L 02/14/21 04:15 Globulin 2.4 g/dL (1.3-4.6) 02/14/21 04:15 Triglycerides 627 mg/dL (0-150) H 02/09/21 03:28 LDL Cholesterol Direct 122 mg/dL (0-100) H 02/09/21 03:28 Procalcitonin 0.21 ng/mL (0-0.5) 02/13/21 03:50 Urine Color Yellow (Yellow) 02/11/21 14:09 Urine Appearance Cloudy (CLEAR) A 02/11/21 14:09 Urine pH 5 (5-7) 02/11/21 14:09 Ur Specific [place] 1.020 (1.005-1.030) 02/11/21 14:09 Urine Protein Trace (Negative) 02/11/21 14:09 Urine Glucose (UA) Norm (Normal) 02/11/21 14:09 Urine Ketones Negative (Negative) 02/11/21 14:09 Urine Blood 3+ (Negative) H 02/11/21 14:09 Urine Nitrate Negative (Negative) 02/11/21 14:09 Urine Bilirubin Neg (Negative) 02/11/21 14:09 Urine Urobilinogen Norm mg/dL (Negative) 02/11/21 14:09 Ur Leukocyte Esterase Trace (Negative) H 02/11/21 14:09 Urine RBC 5-10 /hpf (0-2) H 02/11/21 14:09 Urine WBC 5-10 /hpf (0-5) H 02/11/21 14:09 Ur Squamous Epith Cells 5-10 /hpf (0-5) H 02/11/21 14:09 Amorphous Sediment Not Reportable 02/11/21 14:09 Urine Bacteria 2+ /hpf (NONE) H 02/11/21 14:09 Hyaline Casts 0-4 /lpf H 02/11/21 14:09 Urine Mucus 1+ /hpf 02/11/21 14:09 Misc Test Reference See comment 02/04/21 08:00 Impressions Abdomen X-Ray 02/14/21 11:34 Impression: Large amount of fecal material throughout the colon. Micro: Microbiology 02/11/21 Unknown Gram Stain - Final Lung Right Lower Lobe Bronchoalveolar Lavage Culture - Preliminary Yeast 02/11/21 Unknown Fungal Smear - Preliminary Sputum - Endotracheal Tube Aspirate A&P Assessment and plan (1) Pneumonia due to severe acute respiratory syndrome coronavirus 2 (SARS-CoV-2): Status: Acute (2) Acute respiratory failure with hypoxia: Status: Acute (3) Hypertension: Status: Acute Qualifiers: Hypertension type: unspecified Qualified Code(s): I10 - Essential (primary) hypertension (4) Chronic kidney disease: Status: Acute Qualifiers: Chronic kidney disease stage: unspecified stage Qualified Code(s): N18.9 - Chronic kidney disease, unspecified (5) Diabetes mellitus: Status: Acute Qualifiers: Diabetes mellitus type: type 2 Diabetes mellitus continuous churn buttermaker insulin use: unspecified long-term insulin use status Diabetes mellitus complication status: with kidney complications Diabetes mellitus complication detail: with chronic kidney disease Chronic kidney disease stage: unspecified stage Qualified Code(s): E11.22 - Type 2 diabetes mellitus with diabetic chronic kidney disease (6) Metabolic acidosis: Status: Acute (7) Decreased pulses in feet: Status: Acute (8) PAD (peripheral artery disease): Status: Acute (9) Ventilator associated pneumonia: Status: Acute (10) Counseling regarding advance care planning and goals of care: Status: Acute (11) Cardiac arrest with successful resuscitation: Status: Acute # Acute hypoxic respiratory failure secondary to ARDS due to Covid 19 Pneumonia #Ventilator associated pneumonia-pansensitive Klebsiella-started on Rocephin 02/13/2021 #BAL-grew yeast-identification pending #S/p cardiac arrest for 3 minutes on 02/13/2021 # Metabolic acidosis in pt with CKD-worsening NASIR-improving # HTN # Diabetes # h/o A fib - rate controlled #Rhabdomyolysis -improving #Thrombocytopenia-monitor platelets #severe PAD-on aspirin/Plavix-no need for urgent intervention - intubated, sedated, paralyzed and proned x 4 ; -Plan is to taper off further sedation and do spontaneous awakening trial but patient -dc propofol as triglycerides are high ; while tapering off fentanyl and Versed sedation patient is hyperventilating and seen in respiratory distress; started on fentanyl patch -Maintain sedation with fentanyl, Precedex, Ativan as needed and Morphine 2mg ivp q 6 hr prn pain -Also started on Seroquel 100 mg p.o. twice daily -S/p cardiac arrest on 02/13/2021 night-successful resuscitation and achieved ROSC after 3 minutes -Currently on CMV 450/10/90%-7.3 5/43/64/20 4/92% - Duoneb q 6 hr nathalie -Received dexamethasone 6 mg IV push for 10 days later tapered down with 3 mg-completed - s/p 5 day remdesivir and Tocilizumab 01/28/21 - monitor inflammatory markers q 48 hrs -On Levophed ASA/PLAVIX -arterial doppler results reported features of severe PAD on the right and left extremities with occluded right femoral popliteal bypass graft -notify results to family and they wanted to transfer to [facility] to pts vascular surgeon Dr. Holley - Unable to reach Dr. Holley office and also [facility] is on transfer diversion due to bed unavailability -Family agreed to see intervention boiler/chiller technician here & Dr. Farley was consulted-recommended medical management and so we will continue Eliquis, aspirin, Plavix - 26 mL in 24 hours / + 1.7 L since admission try to maintain negative fluid balance - Na 138; K 4.5; creatinine better;CK better -Continue FSBS every 6 monitoring and Insulin scale coverage-increase Lantus to 18 units daily - Continue tube feeding - PPI for gi ppx - Elliquis for DVT ppx and chronic A FIB - Blood cx - CONS - Contaminant - so far sputum positive for Yeast - id pending-on fluconazole - -s/p bronchoscopy 02/11/2021 for airway inspection - BAL-bacterial culture negative so far, fungal culture, PCP-pending -Sputum cultures 02/10/21 showed pansensitive Klebsiella-DC Zyvox imipenem and started on Rocephin 02/13/21 - stable platelets 86 - Eliquis /asa/plavix/ PPI code: Full DVT ppx: Elliquis GI ppx : PPI Prognosis: Critical Disposition: Planning to send long-term acute care facility might need trach and PEG for long-term recovery but due to yesterday night cardiac arrest and currently requiring 90% FiO2 will try to stabilize him first. Ongoing evaluation for long-term acute care facility. Family and NOK : Updated recommendations conveyed to RN,RT, Hospitalist taking care of the patient. Attestations Medical Necessity Statement*: Acute hypoxic respiratory failure secondary to ARDS due to COVID 19 Pneumonia - intubated, sedated and proned still requiring mechanical ventilator Time Spent in Patient Care: Greater than 35 minutes (>than 50% of time spent in counselling and/or direct pt care on unit). Critical Care Time: The high probability of a clinically significant, sudden or life threatening deterioration of the patient's [respiratory, cardiac, endocrine, renal, vascular] system(s) required my full and direct attention, intervention and personal management. The critical care time is as shown. 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 for Chg Fwd Patient Type Established History Comprehensive Exam Comprehensive Medical Decision Making High Complexity Diagnoses Pneumonia due to severe acute respiratory syndrome coronavirus 2 (SARS-CoV-2) U07.1; J12.82 Acute respiratory failure with hypoxia J96.01 Hypertension I10 Hypertension type: unspecified Chronic kidney disease N18.9 Chronic kidney disease stage: unspecified stage Diabetes mellitus E11.22 Diabetes mellitus type: type 2 Diabetes mellitus continuous churn buttermaker insulin use: unspecified long-term insulin use status Diabetes mellitus complication status: with kidney complications Diabetes mellitus complication detail: with chronic kidney disease Chronic kidney disease stage: unspecified stage Metabolic acidosis E87.2 Decreased pulses in feet R09.89 PAD (peripheral artery disease) I73.9 Ventilator associated pneumonia J95.851 Counseling regarding advance care planning and goals of care Z71.89 Cardiac arrest with successful resuscitation I46.9 Time Spent (min) 60
[2021-02-14] MEDS: atorvastatin 40 mg Tablet PO (21:49)
--- NOTE | 2021-02-14 22:28 | XRR_ITS ---
PROCEDURE INFORMATION: Exam: XR Chest Exam date and time: 02/14/2021 10:28 PM Age: 65 years old Clinical indication: Device placement; Ett placement (vent status); Shortness of breath; Additional info: Acute decompensation. Advanced ett. TECHNIQUE: Imaging protocol: XR of the chest. Views: 1 view. COMPARISON: CR (CHEST, ) 02/14/2021 4:20 AM FINDINGS: Tubes, catheters and devices: There is stable placement of a right internal jugular vein central venous line and a nasogastric tube. The endotracheal tube tip is approximately 6 cm from the kale. Lungs: Pulmonary infiltrates persist unchanged from earlier today. Pleural spaces: Unremarkable. No pleural effusion. No pneumothorax. Heart/Mediastinum: Unremarkable. No cardiomegaly. Bones/joints: Unremarkable. XR/XR chest 1V portable [id number] IMPRESSION: 1. The endotracheal tube tip is approximately 6 cm from the kale. 2. Bilateral infiltrates unchanged from earlier today.
--- NOTE | 2021-02-14 22:58 | P.PNCC_ITS ---
Critical Care Event Note Critical Care Event The high probability of a clinically significant, sudden or life threatening deterioration of the patient's respiratory & cardiovascular system(s) required my full and direct attention, intervention and personal management. The critical care time is as shown. This time is in addition to time spent performing any reported procedures but includes the following: [x] Data and vital sign review and interpretation [x] Patient assessment, examination and intervention [x] Documentation [x] Medication orders and management Patient with atrial fibrillation with rapid ventricular response developed tonight. Additionally Mr. Gillette had increasing difficulty maintaining oxygen saturations on ventilator settings. He was started on amiodarone drip with improvement in rate control. He did develop hypotension which ultimately necessitated initiation of pressor support. Vasopressin had to be added to max Levophed to maintain mean arterial pressures. In terms of ventilator management, Nimbex was restarted. Patient was ultimately changed to pressure control with improvement in oxygenation. He was pulling tidal volumes around 600. He remains in critical condition with extremely guarded prognosis. I spoke with patient's and other family members several times providing support and updating on condition. They remain hopeful but are starting to appreciate just how sick he is. Critical Care Time Critical Care Time: Code activated: No Critical Care Time (min): 75 Coding Level of Care Code Acute Human Geography Instructor for Pia Bhatt
[2021-02-15] VITALS (40 sets, daily range): BP systolic 80–137; BP diastolic 53–89; PULSE 98–120; RESP 18–27; TEMP 37.3–38.2; O2SAT 88–100
[2021-02-15] MEDS: morphine 4 mg/mL SDV 1 mL 2 MG IVP ×3 (02:11→20:00)
[2021-02-15] MEDS: sodium chloride 0.9% 500 ML 999 ML IV (02:18)
[2021-02-15] MEDS: ipratropium-albuterol 3 mL Neb INHALATION ×4 (02:34→21:23)
[2021-02-15] MEDS: dexmedetomidine 400 MCG in sodium chloride 0.9% (100 ml) 100 ML 22.53 MCG IV ×4 (03:17→23:17)
[2021-02-15 04:52] LABS: Glucose Point of Care 306 mg/dL (70-110)
[2021-02-15 05:19] LABS: Basophils # 0.1 10^3/uL (0.0-0.1); Basophils % 0.5 %; Eosinophils # 0.2 10^3/uL (0.0-0.8); Eosinophils % 2.4 %; Hematocrit 32.3 % (42.0-52.0); Hemoglobin 9.9 g/dL (11.7-16.6); Lymphocytes # 1.2 10^3/uL (0.8-4.8); Lymphocytes % 11.9 %; Mean Corpuscular HGB Conc 30.7 g/dL (30.0-36.0); Mean Corpuscular Hemoglobin 29.9 pg (28.0-34.0); Mean Corpuscular Volume 97.6 fl (80-94); Mean Platelet Volume 10.9 fL (7.4-10.4); Monocytes # 0.6 10^3/uL (0.2-0.9); Monocytes % 6.1 %; Neutrophils # 7.56 10^3/uL (1.8-7.7); Neutrophils % 78.4 %; Nucleated Red Blood Cells % 0 %; Platelet Count 132 10^3/cmm (130-400); Red Blood Count 3.31 10^6/uL (4.1-5.3); Red Cell Distribution Width 15.5 % (12.1-15.1); White Blood Count 9.7 10^3/uL (4.0-10.0)
[2021-02-15 05:27] LABS: Alanine Aminotransferase 163 U/L (0-41); Albumin Level 2.4 g/dL (3.5-5.2); Alkaline Phosphatase 174 IU/L (40-130); Anion Gap 18.3 (5-19); Aspartate Amino Transferase 136 U/L (0-40); Blood Urea Nitrogen 49 mg/dL (8-23); Calcium 8.3 mg/dL (8.5-10.5); Carbon Dioxide 20 mmol/L (22-29); Chloride 105 mmol/L (98-107); Globulin 2.8 g/dL (1.3-4.6); Glomerular Filtration Rate 32.1 mL/min (90-130); Glucose 283 mg/dL (65-115); Magnesium 1.8 mg/dL (1.7-2.3); Osmolality Calculated 307 mOsm/kg (285-295); Phosphorus 5.1 mg/dL (2.5-4.5); Potassium 6.3 mmol/L (3.5-5.1); Sodium 137 mmol/L (136-145); Total Bilirubin 0.4 mg/dL (0.15-1.2); Total Protein 5.2 g/dL (6.6-8.7)
--- NOTE | 2021-02-15 05:50 | ECG_ITS ---
[facility] Test Date: 2021-02-15 Pat Name: Isaiah Gillette Department: Room: ICU11 Gender: Male Summer Babysitter: : 1955 Requested By: Gissel Fleming Order Number: [id number] Shaun MD: Michelle Srivastava M.D. Measurements Intervals [place] Rate: 99 P: 17 GA: 187 QRS: -34 QRSD: 105 T: 109 QT: 341 QTc: 439 Interpretive Statements SINUS RHYTHM ANTERIOR MYOCARDIAL INFARCTION [40+ ms Q WAVE AND/OR ST/T ABNORMALITY IN V3/V4], PROBABLY RECENT INFERIOR MYOCARDIAL INFARCTION [40+ ms Q WAVE AND/OR ST/T ABNORMALITY IN II/aVF], OF INDETERMINATE AGE ACUTE [place] Compared to ECG 02/14/2021 19:54:53 Atrial flutter no longer present ST (T wave) deviation no longer present Myocardial infarct finding still present Electronically Signed On 02-15-2021 19:39:08 CDT by Michelle Srivastava M.D. [id number]
[2021-02-15 06:11] LABS: Uric Acid 4.1 mg/dL (3.4-7.0)
--- NOTE | 2021-02-15 06:30 | PC.NURSE ---
Shift Note Frequent safety and comfort rounds continue. Orders and/or nursing care completed as indicated. Patient monitored for response to intervention and treatment(s). Education provided included medication information, trach information, and realistic goals. Patient family asked questions and made a tentative plan to continue all current drips and if patient's heart stops, staff will start resuscitative measures. Will continue to monitor.
[2021-02-15] MEDS: norepinephrine 8 MG in dextrose 5 % 500 ML 76.2 MG IV (06:45)
--- NOTE | 2021-02-15 07:00 | XR_ITS ---
WS: [id number] Portable AP semiupright chest, 02/15/2021 Clinical Data: tube placement/lung progress Comparison: Portable chest, 02/14/2021 Findings: The patchy opacities throughout both lungs remains the same. There are bilateral pleural ef fusions. The heart is enlarged. The endotracheal tube, right internal jugular venous catheter, nasoga stric tube, monitor leads and recording devices remain the same. XR/XR chest 1V portable [id number] Impression: 1. No change in bilateral patchy opacities in both lungs. 2. No change in position of multiple tubes. 3. No change in cardiomegaly and pleural effusions.
[2021-02-15] MEDS: cefTRIAXone 1,000 MG in sodium chloride 0.9% (plus) 50 ML 100 MG IV (07:08)
[2021-02-15 08:59] LABS: Anion Gap 14.5 (5-19); Blood Urea Nitrogen 47 mg/dL (8-23); Calcium 8.1 mg/dL (8.5-10.5); Carbon Dioxide 22 mmol/L (22-29); Chloride 107 mmol/L (98-107); Glomerular Filtration Rate 28.9 mL/min (90-130); Glucose 268 mg/dL (65-115); Osmolality Calculated 308 mOsm/kg (285-295); Potassium 5.5 mmol/L (3.5-5.1); Sodium 138 mmol/L (136-145)
[2021-02-15] MEDS: pantoprazole 40 mg SDV IVP (09:02)
[2021-02-15] MEDS: quetiapine 100 mg Tablet PO ×2 (09:03→18:17)
[2021-02-15] MEDS: clopidogrel 75 mg Tablet PO (09:03)
[2021-02-15] MEDS: apixaban 5 mg Tablet PO ×2 (09:03→20:01)
[2021-02-15] MEDS: aspirin 81 mg EC Tablet PO (09:03)
[2021-02-15] MEDS: lactulose oral liq 20 gm/30 mL UDC 30 GM PO (10:17)
[2021-02-15] MEDS: docusate sodium 10 mg/mL (5ml) Liq 100 MG PO ×2 (10:21→20:02)
[2021-02-15] MEDS: insulin glargine 100 units/1 mL 18 UNIT SUBCUT (10:23)
[2021-02-15] MEDS: FUROsemide 10 mg/mL SDV 2mL 20 MG IVP (10:25)
--- NOTE | 2021-02-15 11:13 | PC.NURSE ---
0730-will discuss lactulose with dr. porras. at bedside.
[2021-02-15 11:19] LABS: ABG PH Result 7.27 (7.35-7.45); Alveolar-Arterial Oxygen Gradi 74.9 mmHg (5-10); Arterial Blood Gas Hematocrit 29.8 % (42-52); Base Excess ABG -4.7 mmol/L (-2.0-2.0); Blood Gas Allen Test Pos; Blood Gas Operator Identificat CAK; Blood Gas Sample Site Radial, left; Blood Gas Sample Type Arterial; Carboxyhemoglobin 1.1 %THgb (0.4-20.1); HCO3 ABG 22.1 mmol/L (22-26); HGB O2 Sat 92.9 % (95-100); Ionized Calcium Level - ABG 1.2 mmol/L (1.1-1.4); Methemoglobin 1.2 % (0.4-1.5); Oxygen Device VENT; Oxygen Saturation ABG 95.1; PO2 ABG 76.4 mmHg (80.0-100.0); Potassium Level - ABG 5.2 mmol/L (3.5-5.0); Total Hemoglobin 9.7 g/dL (14-18)
[2021-02-15] MEDS: fluconazole premix 200 MG/100 ML PREMIX 100 MG IV (12:04)
[2021-02-15 12:17] LABS: P. Jirovecii DNA QL PCR NOT DETECTED; P. Jirovecii DNA QL PCR Source BAL
--- NOTE | 2021-02-15 12:43 | PC.NURSE ---
og clamped for i.j. insertion of triple lumen.
--- NOTE | 2021-02-15 12:52 | P.PN_ITS ---
Subjective Subjective: Interval history: Overnight, patient had episodes of A. fib with RVR, requiring placement on amiodarone, also with brief episodes of hypotension, requiring additional of vasopressin, remains on 18 of Levophed, he is pulling large tidal volumes of around 600, change to pressure control, 100% FiO2, remains on paralytics, but plans on weaning today, Versed, fentanyl Vitals/I&O/Wt Last Vital Signs Temp 99.1 F 02/15/21 11:00 Pulse 109 H 02/15/21 11:00 Resp 18 02/15/21 11:09 BP 92/61 02/15/21 11:00 Pulse Ox 96 02/15/21 11:09 02/14/21 02/15/21 02/15/21 22:59 06:59 14:59 Intake Total 418.743 / 2508.295 8457.009 / 2625.243 257.805 / 257.805 Output Total 950 / 950 1075 / 2025 Balance -531.257 / 65.234 535.009 / 600.243 257.805 / 257.805 Weight last 48 hrs Weight 90.718 kg Physical Exam Const: COMMON NORMALS: no acute distress GENERAL APPEARANCE: ill appearing and frail appearing OTHER: Currently intubated, sedated, on paralytics Chest: COMMONS NORMALS: normal inspection of the chest OTHER: Right central line in place Resp: EFFORT & INSPECTION: Yes tachypneic and Yes retractions (Slight retractions present) AUSCULTATION: diminished lung sounds Cardio: COMMON NORMALS: regular rate, S1 normal heart sound present and S2 normal heart sound present RATE: regular rate RHYTHM: abnormal rhythm irregularly irregular HEART SOUNDS: S1 normal heart sound present and S2 normal heart sound present GI: COMMON NORMALS: Soft to palpation INSPECTION: Yes normal to inspection and Yes abdominal distension AUSCULTATION: Yes normoactive bowel sounds PALPATION: Yes Soft to palpation and No Tenderness to palpation present (GI) Extremity: COMMON NORMALS: no pedal edema Urinary Catheter Management^: Marshall: Cath Placed During This Visit: yes Reason for Continuing Indwelling Catheter: Accurate Measurement of Urinary Output in Critically Ill Patients Urinary Catheter Date of Insertion: 02/01/21 Urinary Catheter Time of Insertion: 11:10 Data : 02/15/21 05:00 02/15/21 08:09 Micro: Microbiology 02/11/21 Unknown Gram Stain - Final Lung Right Lower Lobe Bronchoalveolar Lavage Culture - Preliminary Yeast A&P Assessment and plan (1) Sepsis: Status: Acute (2) PAD (peripheral artery disease): Status: Acute (3) Decreased pulses in feet: Status: Acute (4) Peripheral arterial disease with history of revascularization: Status: Acute (5) Arterial occlusion: Status: Acute (6) Acute kidney injury superimposed on chronic kidney disease: Status: Acute (7) Hypernatremia: Status: Acute (8) Metabolic acidosis: Status: Acute (9) Hypertension: Status: Acute (10) Diabetes mellitus: Status: Acute Qualifiers: Diabetes mellitus type: type 2 Diabetes mellitus terminal makeup operator insulin use: unspecified terminal makeup operator insulin use status Diabetes mellitus complication status: with kidney complications Diabetes mellitus complication detail: with chronic kidney disease Chronic kidney disease stage: unspecified stage Qualified Code(s): E11.22 - Type 2 diabetes mellitus with diabetic chronic kidney disease (11) History of atrial fibrillation: Status: Acute (12) Hyperglycemia: Status: Acute (13) ARDS (adult respiratory distress syndrome): Status: Acute (14) Pneumonia due to severe acute respiratory syndrome coronavirus 2 (SARS-CoV-2): Status: Acute (15) Acute respiratory failure with hypoxia: Status: Acute (16) COVID-19: remdisivir 200mg iv x 1 then 100mg iv daily x 5 days dexamethasone 6g IVP qd duonebs, budesonide suppemetal 02, bipap prn ceftraixone and azithromycin empirically Status post 1 dose of tocilizumab trend inflammatory markers Status: Acute (17) Acute hyperglycemia: Status: Acute Additional A&P Information Ventilator dependent respiratory failure Agree with pulmonary critical care, on consult COVID-19 w Severe ARDS Intubated and sedated, on paralytics, Nimbex Precedex, fentanyl Fentanyl patch Seroquel Overnight, pulling high tidal volumes change to pressure support, currently on 100% FiO2, wean oxygen as tolerated Currently on Levophed, at 18 Vasopressin On Rocephin, On flucanazole Vent management as per spanish language lecturer Patient was admitted on 01/27, candidate for tracheostomy ,peg and placement to LTAC Right IJ placed 02/01 Status post bronchoscopy 02/10 Plan for today, wean off Nimbex, weaning trial Status post PEA, ACLS, 2 doses of epi, ROSC AF with RVR, on amiodarone drip, currently rate controlled Sepsis lA 2.5 Related to possible ventilator dependent pneumonia Sputum culture positive for Klebsiella however previous culture was positive for yeast Yeast identification still pending, continue IV fluconazole broad-spectrum antibiotics switched to IV. ceftriaxone Urine culture, urine antigens unremarkable Currently on Levophed, now vasopressin Arterial occlusion peripheral arterial disease Chronic occlusion of graft Appreciate cardiology recommendations Not a candidate of acute intervention continue aspirin, Plavix, statin and Eliquis is still interested if he will get accepted at [facility], Dr. Holley placed the graft,(their ICU is on diversion) Hypernatremia secondary to free water deficit, improved, 138 Sodium improved, TPN on hold Hyperkalemia, lactulose Acute on chronic kidney disease Creatinine 2.3 Urine output 2024 Acidosis, hyperkalemia improved Type 2 diabetes with hyperglycemia started L 18 units daily, insulin sliding he will, Rhabdomyolysis, CPK 447 Transaminitis Full code Tube feeds on hold DVT prophylaxis currently on Eliquis 5 mg twice a day because of history of A. fib still wants him to be transferred to [facility] wants to have a bed Attestations Medical Necessity Statement*: Patient requires hospitalization for acute respiratory failure secondary to COVID-19 pneumonia, Coding Level of Care Code Acute Plywood Patcher for Chg Fwd Diagnoses Sepsis A41.9 PAD (peripheral artery disease) I73.9 Decreased pulses in feet R09.89 Peripheral arterial disease with history of revascularization I73.9; Z98.890 Arterial occlusion I70.90 Acute kidney injury superimposed on chronic kidney disease N17.9; N18.9 Hypernatremia E87.0 Metabolic acidosis E87.2 Hypertension I10 Diabetes mellitus E11.22 Diabetes mellitus type: type 2 Diabetes mellitus terminal makeup operator insulin use: unspecified halfway insulin use status Diabetes mellitus complication status: with kidney complications Diabetes mellitus complication detail: with chronic kidney disease Chronic kidney disease stage: unspecified stage History of atrial fibrillation Z86.79 Hyperglycemia R73.9 ARDS (adult respiratory distress syndrome) J80 Pneumonia due to severe acute respiratory syndrome coronavirus 2 (SARS-CoV-2) U07.1; J12.82 Acute respiratory failure with hypoxia J96.01 COVID-19 U07.1 Acute hyperglycemia R73.9
[2021-02-15] MEDS: dexmedetomidine 400 MCG in sodium chloride 0.9% (100 ml) 100 ML 15 MCG IV (14:10)
--- NOTE | 2021-02-15 14:30 | XR_ITS ---
WS: [id number] Portable chest, 02/15/2021, 1434 hours Clinical Data: line placement Comparison: Comparison chest, 02/15/2021, 0529 hours. Findings: A left internal jugular venous catheter has been inserted and it ends in the superior vena cava. The remainder the tubes remains the same. The diffuse bilateral pulmonary opacities have not changed. The heart size is the same. XR/XR chest 1V portable 22031 Impression: Satisfactory insertion of left internal jugular venous catheter.
[2021-02-15 14:47] LABS: Anion Gap 13.3 (5-19); Blood Urea Nitrogen 47 mg/dL (8-23); Calcium 7.6 mg/dL (8.5-10.5); Carbon Dioxide 22 mmol/L (22-29); Chloride 107 mmol/L (98-107); Glomerular Filtration Rate 27.5 mL/min (90-130); Glucose 245 mg/dL (65-115); Osmolality Calculated 304 mOsm/kg (285-295); Potassium 5.3 mmol/L (3.5-5.1); Sodium 137 mmol/L (136-145)
--- NOTE | 2021-02-15 15:12 | P.PN_ITS ---
Subjective Subjective: Interval history: -Patient seen at bedside multiple times -Yesterday night he developed A. fib RVR requiring amiodarone 150 mg bolus and drip -Also required Levophed 20 units to maintain maps greater than 65 -He started hyperventilating again and pulling large tidal volumes has to put him back on Versed 8 and fentanyl 200 MCG -Called family Ms. Mayer and his sons and had a family meetin and updated critical prognosis -Today morning appeared heart rate 100 to 110 bpm and saturating 95% on 100% FiO2 -Plan is to gradually taper down sedation -BAL growing yeast, currently on Rocephin sensitive for Klebsiella, added gram- positive coverage vancomycin and recultured to rule out septic component causing hypoventilation -Yesterday abdominal x-ray showed significant stool-on Colace and senna-added lactulose 20 mg twice daily -Right IJ was placed 02/01/2021-changed to left IJ today -Labs and imaging reviewed Medications: Reviewed: Yes Vitals/I&O/Wt Last Vital Signs Temp 99.1 F 02/15/21 11:00 Pulse 99 02/15/21 14:58 Resp 22 H 02/15/21 14:30 BP 92/61 02/15/21 11:00 Pulse Ox 98 02/15/21 14:30 02/15/21 02/15/21 02/15/21 06:59 14:59 22:59 Intake Total 1610.009 / 2625.243 527.672 / 527.672 Output Total 1074 Balance 535.009 / 600.243 527.672 / 527.672 Weight last 48 hrs Weight 200 lb Physical Exam Narrative: EXAM NARRATIVE: General: lying in bed, sedated and intubated. HEENT:NCAT, PERRLA, EOMI Neck: Supple Lungs: Bilateral diffuse crackles Heart: s1/s2, RRR Abd: soft, NT, ND, BS + Normoactive Extremities: No edema; bilateral warm extremities FORMING ROLL OPERATOR HEAVY DUTY: sedated and limited FORMING ROLL OPERATOR HEAVY DUTY exam possible; SKIN: no rash Left IJ line placed: 02/15/2021 Urinary Catheter Management^: Marshall: Cath Placed During This Visit: yes Reason for Continuing Indwelling Catheter: Accurate Measurement of Urinary Output in Critically Ill Patients Urinary Catheter Date of Insertion: 02/01/21 Urinary Catheter Time of Insertion: 11:10 Data : 02/15/21 05:00 08/20/21 13:54 Other Labs: Laboratory Results WBC 9.7 10^3/uL (4.0-10.0) 02/15/21 05:00 RBC 3.31 10^6/uL (4.1-5.3) L 02/15/21 05:00 Hgb 9.9 g/dL (11.7-16.6) L 02/15/21 05:00 Hct 32.3 % (42.0-52.0) L 02/15/21 05:00 MCV 97.6 fl (80-94) H 02/15/21 05:00 MCH 29.9 pg (28.0-34.0) 02/15/21 05:00 MCHC 30.7 g/dL (30.0-36.0) 02/15/21 05:00 RDW 15.5 % (12.1-15.1) H 02/15/21 05:00 Plt Count 132 10^3/cmm (130-400) D 02/15/21 05:00 MPV 10.9 fL (7.4-10.4) H 02/15/21 05:00 Neut % (Auto) 78.4 % 02/15/21 05:00 Lymph % (Auto) 11.9 % 02/15/21 05:00 [place] % (Auto) 6.1 % 02/15/21 05:00 Eos % (Auto) 2.4 % 02/15/21 05:00 Baso % (Auto) 0.5 % 02/15/21 05:00 Neut # (Auto) 7.56 10^3/uL (1.8-7.7) 02/15/21 05:00 Lymph # (Auto) 1.2 10^3/uL (0.8-4.8) 02/15/21 05:00 [place] # (Auto) 0.6 10^3/uL (0.2-0.9) 02/15/21 05:00 Eos # (Auto) 0.2 10^3/uL (0.0-0.8) 02/15/21 05:00 Baso # (Auto) 0.1 10^3/uL (0.0-0.1) 02/15/21 05:00 Nucleated RBC % (auto) 0 % 02/15/21 05:00 Nucleated RBCs # 0.0 /100WBC 02/15/21 05:00 D-Dimer 3.27 ug/mIFEU (0-0.59) H 01/28/21 06:30 Specimen Type Arterial 02/15/21 11:08 Sample Site Radial, left 02/15/21 11:08 ABG pH 7.27 (7.35-7.45) L 02/15/21 11:08 ABG pCO2 48.0 mmHg (35-45) H 02/15/21 11:08 ABG pO2 76.4 mmHg (80.0-100.0) L 02/15/21 11:08 ABG HCO3 22.1 mmol/L (22-26) 02/15/21 11:08 ABG O2 Saturation 95.1 02/15/21 11:08 ABG Base Excess -4.7 mmol/L (-2.0-2.0) L 02/15/21 11:08 Harley Test Pos 02/15/21 11:08 A-a O2 Gradient 74.9 mmHg (5-10) H 02/15/21 11:08 Hematocrit 29.8 % (42-52) L 02/15/21 11:08 Hgb O2 Saturation 92.9 % (95-100) L 02/15/21 11:08 Carboxyhemoglobin 1.1 %THgb (0.4-20.1) 02/15/21 11:08 Methemoglobin 1.2 % (0.4-1.5) 02/15/21 11:08 Total Hemoglobin 9.7 g/dL (14-18) L 02/15/21 11:08 Sodium 139.0 mmol/L (131-143) 02/15/21 11:08 Potassium 5.2 mmol/L (3.5-5.0) H 02/15/21 11:08 Glucose 254.0 mg/dL (70-115) H 02/15/21 11:08 Ionized Calcium 1.2 mmol/L (1.1-1.4) 02/15/21 11:08 O2 Delivery Device Vent 02/15/21 11:08 O2 Liters/Min 40.0 % 01/26/21 21:10 FiO2 100.0 % 02/15/21 11:08 Tidal Volume 0.45 02/14/21 09:16 PEEP 12.0 cmH20 02/15/21 11:08 CPAP 16.0 cmH20 02/11/21 04:50 Health Promotion Coordinator ID Cak 02/15/21 11:08 Sodium 137 mmol/L (136-145) 02/15/21 13:54 Potassium 5.3 mmol/L (3.5-5.1) H 02/15/21 13:54 Chloride 107 mmol/L (98-107) 02/15/21 13:54 Carbon Dioxide 22 mmol/L (22-29) 02/15/21 13:54 Anion Gap 13.3 (5-19) 02/15/21 13:54 BUN 47 mg/dL (8-23) H 02/15/21 13:54 Creatinine 2.4 mg/dL (0.7-1.2) H 02/15/21 13:54 GFR Calculation 27.5 mL/min (90-130) L 02/15/21 13:54 Glucose 245 mg/dL (65-115) H 02/15/21 13:54 POC Glucose 306 mg/dL (70-110) H 02/15/21 04:49 Estimat Average Glucose 243 01/30/21 06:10 Hemoglobin A1c 10.1 % (4.0-6.0) H 01/30/21 06:10 Calculated Osmolality 304 mOsm/kg (285-295) H 02/15/21 13:54 Lactic Acid 3.1 mmol/L (0.5-2.2) H 01/26/21 18:44 Lactic Acid (Sepsis) 2.5 mmol/L (0.5-2.2) H 01/26/21 21:55 Lactate 2.7 mmol/L (0.5-2.2) H 02/02/21 14:40 Uric Acid 4.1 mg/dL (3.4-7.0) 02/15/21 05:20 Calcium 7.6 mg/dL (8.5-10.5) L 02/15/21 13:54 Phosphorus 5.1 mg/dL (2.5-4.5) H 02/15/21 05:00 Magnesium 1.8 mg/dL (1.7-2.3) 02/15/21 05:00 Ferritin 1542 ng/mL (30-400) H 01/27/21 04:50 Total Bilirubin 0.4 mg/dL (0.15-1.2) 02/15/21 05:00 AST 136 U/L (0-40) H 02/15/21 05:00 ALT 163 U/L (0-41) H 02/15/21 05:00 Alkaline Phosphatase 174 IU/L (40-130) H 02/15/21 05:00 Lactate Dehydrogenase 521 U/L (135-225) H 02/12/21 05:10 Creatine Kinase 447 U/L (39-308) H* 02/09/21 03:28 Troponin T Gen 5 ng/L 94 ng/L (0-15) H 02/13/21 15:25 Troponin T Baseline 33 ng/L (0-15) H 01/26/21 18:44 Troponin T 120 Minute 31.73 ng/L (0-15) H 01/26/21 21:55 Delta Troponin T -1.27 ABS# (0-10) L 01/26/21 21:55 Troponin T Hi Sens 6Hr 31.76 ng/L (0-15) H 01/27/21 02:10 Troponin T Hi Sens 6Hr Delta -1.24 ng/L (0-12) L 01/27/21 02:10 C-Reactive Protein 42.8 mg/L (0.0-4.9) H 02/12/21 05:10 NT-Pro-B Natriuret Pep 1724 pg/mL (0-125) H 01/26/21 18:44 Total Protein 5.2 g/dL (6.6-8.7) L 02/15/21 05:00 Albumin 2.4 g/dL (3.5-5.2) L 02/15/21 05:00 Globulin 2.8 g/dL (1.3-4.6) 02/15/21 05:00 Triglycerides 627 mg/dL (0-150) H 02/09/21 03:28 LDL Cholesterol Direct 122 mg/dL (0-100) H 02/09/21 03:28 Procalcitonin 0.21 ng/mL (0-0.5) 02/13/21 03:50 Urine Color Yellow (Yellow) 02/11/21 14:09 Urine Appearance Cloudy (CLEAR) A 02/11/21 14:09 Urine pH 5 (5-7) 02/11/21 14:09 Ur Specific [place] 1.020 (1.005-1.030) 02/11/21 14:09 Urine Protein Trace (Negative) 02/11/21 14:09 Urine Glucose (UA) Norm (Normal) 02/11/21 14:09 Urine Ketones Negative (Negative) 02/11/21 14:09 Urine Blood 3+ (Negative) H 02/11/21 14:09 Urine Nitrate Negative (Negative) 02/11/21 14:09 Urine Bilirubin Neg (Negative) 02/11/21 14:09 Urine Urobilinogen Norm mg/dL (Negative) 02/11/21 14:09 Ur Leukocyte Esterase Trace (Negative) H 02/11/21 14:09 Urine RBC 5-10 /hpf (0-2) H 02/11/21 14:09 Urine WBC 5-10 /hpf (0-5) H 02/11/21 14:09 Ur Squamous Epith Cells 5-10 /hpf (0-5) H 02/11/21 14:09 Amorphous Sediment Not Reportable 02/11/21 14:09 Urine Bacteria 2+ /hpf (NONE) H 02/11/21 14:09 Hyaline Casts 0-4 /lpf H 02/11/21 14:09 Urine Mucus 1+ /hpf 02/11/21 14:09 Pneumocystis Source Bal 02/11/21 Unknown Pneumocyst jiroveci PCR Not detected 02/11/21 Unknown [facility] Test Reference See comment 02/04/21 08:00 Impressions Abdomen X-Ray 02/14/21 11:34 Impression: Large amount of fecal material throughout the colon. Chest X-Ray 02/15/21 14:30 Impression: Satisfactory insertion of left internal jugular venous catheter. Micro: Microbiology 02/11/21 Unknown Gram Stain - Final Lung Right Lower Lobe Bronchoalveolar Lavage Culture - Preliminary Yeast A&P Assessment and plan (1) Pneumonia due to severe acute respiratory syndrome coronavirus 2 (SARS-CoV-2): Status: Acute (2) Acute respiratory failure with hypoxia: Status: Acute (3) Hypertension: Status: Acute Qualifiers: Hypertension type: unspecified Qualified Code(s): I10 - Essential (primary) hypertension (4) Chronic kidney disease: Status: Acute Qualifiers: Chronic kidney disease stage: unspecified stage Qualified Code(s): N18.9 - Chronic kidney disease, unspecified (5) Diabetes mellitus: Status: Acute Qualifiers: Diabetes mellitus type: type 2 Diabetes mellitus penitentiary insulin use: unspecified computer terminal operator insulin use status Diabetes mellitus complication status: with kidney complications Diabetes mellitus complication detail: with chronic kidney disease Chronic kidney disease stage: unspecified stage Qualified Code(s): E11.22 - Type 2 diabetes mellitus with diabetic chronic kidney disease (6) Metabolic acidosis: Status: Acute (7) Decreased pulses in feet: Status: Acute (8) PAD (peripheral artery disease): Status: Acute (9) Ventilator associated pneumonia: Status: Acute (10) Counseling regarding advance care planning and goals of care: Status: Acute (11) Cardiac arrest with successful resuscitation: Status: Acute (12) Yeast species isolated but not further identified: Status: Acute (13) Septic shock: Status: Acute # Acute hypoxic respiratory failure secondary to ARDS due to Covid 19 Pneumonia #Ventilator associated pneumonia-pansensitive Klebsiella-started on Rocephin 02/13/2021 #BAL-grew yeast-identification pending #S/p cardiac arrest for 3 minutes on 02/13/2021 #Possible septic shock #NASIR on CKD # HTN # Diabetes #A fib -RVR-on amiodarone drip #Rhabdomyolysis -improving #Thrombocytopenia-monitor platelets #severe PAD-on aspirin/Plavix-no need for urgent intervention - intubated, sedated, paralyzed and proned x 4 ; -Plan is to taper off further sedation and do spontaneous awakening trial but patient -dc propofol as triglycerides are high ; while tapering off fentanyl and Versed sedation patient is hyperventilating and seen in respiratory distress; on fentanyl patch -Maintain sedation with fentanyl, Precedex, Ativan as needed and Morphine 2mg ivp q 6 hr prn pain -Also started on Seroquel 100 mg p.o. twice daily -S/p cardiac arrest on 02/13/2021 night-successful resuscitation and achieved ROSC after 3 minutes -Currently on CMV 450/10/100%- 7.2 /76/22/95% - Duoneb q 6 hr nathalie -Completed dexamethasone ; s/p 5 day remdesivir and Tocilizumab 01/28/21 - monitor inflammatory markers q 48 hrs -On Levophed 20 MCG -ASA/PLAVIX -arterial doppler results reported features of severe PAD on the right and left extremities with occluded right femoral popliteal bypass graft -notify results to family and they wanted to transfer to [facility] to pts vascular surgeon Dr. Holley - Unable to reach Dr. Holley office and also [facility] is on transfer diversion due to bed unavailability -Family agreed to see intervention glass washer here & Dr. Farley was consulted- recommended medical management and so we will continue Eliquis, aspirin, Plavix -+600 24 hours /+2 L since admission try to maintain negative fluid balance-Las ix 40 mg 1 dose given today -NASIR on CKD-worsening possibly due to septic shock - Na 137; K 6.3-received scale coverage insulin for high sugars-repeat BMP potassium 5.3; CK better - Elliquis for DVT ppx and chronic A FIB- - -s/p bronchoscopy 02/11/2021 for airway inspection - Blood cx - CONS - Contaminant; PCP pending, sputum and BAL positive for Yeast - id pending-on fluconazole -Also sputum cultures 02/10/21 showed pansensitive Klebsiella-DC Zyvox imipenem and started on Rocephin 02/13/21 -But given his overall clinical condition-with possible septic shock-I would repeat cultures, DC fluconazole, Rocephin and broaden antibiotic coverage to vancomycin, imipenem and micafungin -Also changed central line from right IJ (placed 02/01/2021 ) to left IJ - stable platelets 132 - Eliquis /asa/plavix/ PPI -Continue FSBS every 6 monitoring and Insulin scale coverage-increase Lantus to 18 units daily - Continue trickle feeding/- PPI for gi ppx code: Full DVT ppx: Elliquis GI ppx : PPI Prognosis: Critical Disposition: Plan was to send long-term acute care facility might need trach and PEG for long-term recovery but due to recent cardiac arrest and currently requiring 90% FiO2 and possible septic shock will try to stabilize him first. Ongoing evaluation for long-term acute care facility. Family and NOK : Updated recommendations conveyed to RN,RT, Hospitalist taking care of the patient. Attestations Medical Necessity Statement*: Acute hypoxic respiratory failure secondary to ARDS due to COVID 19 Pneumonia - intubated, sedated and proned still requiring mechanical ventilator Time Spent in Patient Care: Greater than 35 minutes (>than 50% of time spent in counselling and/or direct pt care on unit) . Critical Care Time: The high probability of a clinically significant, sudden or life threatening deterioration of the patient's [respiratory, cardiac, endocrine, renal, vascular] system(s) required my full and direct attention, intervention and personal management. The critical care time is as shown. This time is in addition to time spent performing any reported procedures but includes the following: [x] Data and vital sign review and interpretation [x] Patient assessment, examination and intervention [x] Documentation [x] Medication orders and management Critical Care Time (min): 90 Coding Level of Care Code Established Pt Acute Domestic Maid for Chg Fwd Patient Type Established History Comprehensive Exam Comprehensive Medical Decision Making High Complexity Diagnoses Pneumonia due to severe acute respiratory syndrome coronavirus 2 (SARS-CoV-2) U07.1; J12.82 Acute respiratory failure with hypoxia J96.01 Hypertension I10 Hypertension type: unspecified Chronic kidney disease N18.9 Chronic kidney disease stage: unspecified stage Diabetes mellitus E11.22 Diabetes mellitus type: type 2 Diabetes mellitus penitentiary insulin use: unspecified penitentiary insulin use status Diabetes mellitus complication status: with kidney complications Diabetes mellitus complication detail: with chronic kidney disease Chronic kidney disease stage: unspecified stage Metabolic acidosis E87.2 Decreased pulses in feet R09.89 PAD (peripheral artery disease) I73.9 Ventilator associated pneumonia J95.851 Counseling regarding advance care planning and goals of care Z71.89 Cardiac arrest with successful resuscitation I46.9 Yeast species isolated but not further identified B37.9 Septic shock A41.9; R65.21 Time Spent (min) 90
[2021-02-15] MEDS: norepinephrine 8 MG in dextrose 5 % 500 ML 68.58 MG IV ×2 (15:21→21:50)
[2021-02-15] MEDS: vancomycin 1,250 MG/250 ML PIGGYBACK 250 MG IV (15:26)
[2021-02-15] MEDS: lactulose oral liq 20 gm/30 mL UDC PO (15:26)
--- NOTE | 2021-02-15 16:04 | P.PCN_ITS ---
Procedure/Consent Time out: Time Out Performed: Yes Consent: Consent for Procedure: Consent obtained from other (indicate) (), Risks & Benefits reviewed and Agrees to proceed with procedure Procedure Narrative: Procedure time: 1415 Procedure: Central venous access placement Indication: Shock , Vasopressors infusion Educational Manager(s): Praveen Goncalvesr Consent: Consent signed and placed in the chart Time out called. [place] precautions applied. Site: Left internal jugular vein Catheter: 7 Fr, 20 cm, Triple Lumen Sutured at: 20 cm Anesthesia: 5 cc 1% lidocaine without epinephrine Description: Area prepped with chlorhexidine and draped in a universal sterile manner. The vessel anatomy and patency was examined by ultrasound probe which was covered with sterile probe cover. The needle was inserted into the vessel under ultrasound guidance, after venous blood aspirated the guidewire was inserted through the needle and kept in situ while the needle was removed. Placement of guidewire in the vein and in relation to the adjacent artery was verified by ultrasound. Catheter was then advanced over the guidewire after dilation and guidewire successfully removed.The catheter was sutured to the skin and sterile dressing with chlorhexidine patch placed. Number of attempts: 1 Dilator applied: 1; number of Dilations: 1 Placement Verified by: Blood draw from all ports and Ultrasound exam and Chest Xray EBL: 5 cc Complications:none Ultrasound guidance used: yes Acute Procedures Epistaxis Control: Time out performed: Yes
--- NOTE | 2021-02-15 17:17 | PC.NUTR ---
Tube feeding follow up: TF possibly unsafe at this time based upon chart review and TF held 02/14-02/15. If appropriate at later time, recommend resuming at 15 ml/hr, and increasing by 10 ml/hr q 12 hours or as tolerated to goal rate. As propofol d/c, goal rate to meet needs: 70 ml/hr with 100 ml H2O flushes q 6 hours, to provide 2016 kcal, 101 g protein, and 1752 ml H2O. If unable to resume EN, recommend consideration of TPN if consistent with goals of care and if hemodynamically stable, in accordance with ASPEN guidelines. See full RD assessment for further details.
[2021-02-15 17:31] LABS: Triglycerides 305 mg/dL (0-150)
--- NOTE | 2021-02-15 19:03 | PC.NURSE ---
fentanyl wouldnt scan. manual entry.
--- NOTE | 2021-02-15 19:04 | PC.NURSE ---
cvl placement today. r.t. weaned fio2 to 85%
[2021-02-15] MEDS: atorvastatin 40 mg Tablet PO (20:00)
[2021-02-15 20:44] LABS: Glucose Point of Care 190 mg/dL (70-110)
[2021-02-15 20:44] LABS: Glucose Point of Care 239 mg/dL (70-110)
[2021-02-15] MEDS: acetaminophen 325 mg Tablet 650 MG PO (20:50)
[2021-02-16] VITALS (37 sets, daily range): BP systolic 88–163; BP diastolic 59–97; PULSE 88–144; RESP 16–27; TEMP 37.7; O2SAT 80–98
[2021-02-16] MEDS: morphine 4 mg/mL SDV 1 mL 2 MG IVP ×2 (00:57→04:38)
[2021-02-16] MEDS: lactulose oral liq 20 gm/30 mL UDC PO ×2 (03:11→14:31)
[2021-02-16 03:12] LABS: Glucose Point of Care 220 mg/dL (70-110)
[2021-02-16] MEDS: ipratropium-albuterol 3 mL Neb INHALATION ×4 (03:51→22:17)
[2021-02-16] MEDS: dexmedetomidine 400 MCG in sodium chloride 0.9% (100 ml) 100 ML 22.53 MCG IV ×2 (04:27→10:16)
--- NOTE | 2021-02-16 05:41 | PM.EVENT ---
Event Note Event Note: Nursing staff has been able to decrease sedation quite a bit in the evening but recently patient became significantly tachycardic, hypoxic and having increased fighting against the ventilator. Sedation was increased again. Vital signs are improved however after this event patient's asked to speak with me. At this point in time she has made the decision that should his heart quit beating again we are not to do CPR or other aggressive life-saving measures. She asked about options going forward. We talked about continuing current care and simply not resuscitating him through options such as stopping all IV medications and removing him from the ventilator and what that might be like as well. Mrs. Gillette will think about things. She has asked for me to talk with family possibly this evening or tomorrow when her son from out of state is able to get back here. That son just had his first child being born. Leyla understands that the chances of meaningful recovery, as her would want, are minimal.
[2021-02-16] MEDS: norepinephrine 8 MG in dextrose 5 % 500 ML 53.34 MG IV ×3 (05:42→16:03)
--- NOTE | 2021-02-16 08:04 | XRR_ITS ---
PROCEDURE INFORMATION: Exam: XR Chest Exam date and time: 02/16/2021 8:04 AM Age: 65 years old Clinical indication: Shortness of breath; Additional info: Pneumonia TECHNIQUE: Imaging protocol: XR of the chest. Views: 1 view. COMPARISON: CR XR chest 1V portable [id number] 02/15/2021 2:33 PM FINDINGS: Tubes, catheters and devices: Endotracheal tube tip estimated 5 cm cephalad to the kale. Left IJ central line tip overlies the distal SVC. Enteric tube extends off the inferior margin of the radiograph, passing the region of the GE junction. Lungs: There are again diffuse interstitial and patchy peripheral alveolar opacities, with increased opacification at the right lateral lung base. Pleural spaces: Small effusions not excluded. No evidence of pneumothorax. Heart/Mediastinum: Cardiac silhouette upper normal. Bones/joints: No acute bony abnormality appreciated. XR/XR chest 1V portable [id number] IMPRESSION: Diffuse interstitial and peripheral alveolar opacities redemonstrated, with increasing consolidation/pneumonia at the right lung base.
--- NOTE | 2021-02-16 09:21 | PC.CHAP ---
Pastoral Care Encounter/Spiritual Assessment Type of Contact [] Declined group underwriter visit [] Patient/Family/Request visit [] Outpatient visit [] Follow-up visit [] Physician referral [] Code/Alert [] Routine visit [X] Staff referral [X] Actively dying [] Patient sleeping [X] Family support [] [] Out of room [] Palliative care [] [] Receiving care in room [] Pre-surgical visit [] Trauma [X] Long length of stay [X] ICU visit [X] Other: Visit was with pt's who is processing acceptance that pt is not going to recover; assessment is based on visit with Relational/Emotional Strength [X] Patient feels connected with others/family/visitors/staff [X] Distress [] Loneliness/isolation [] Abandonment Spirituality of Patient [X] Person of Shalonda [X] Attends Denominational of their Shalonda [X] Believes in Prayer [X] Reads Bible or Pentecostal materials [] There are Spiritual issues to be addressed Certified Nursing Assistant Instructor Interventions [X] Prayer [X] Active listening [X] Non-anxious presence [X] Spiritual/emotional support [] Crisis/trauma care [X] Spiritual counseling [X] Bereavement support [] Provided bereavement packet [] Provided Bible/devotional materials [] Provided toy/stuffed animal, coloring book to patient or family member [] Provided Communion [] Anointing/[place] [] Salvation [X] Completed spiritual assessment [] Other: Impact on Illness or Injury [] Angry [X] Fearful [X] Anxious [] Often cries [X] Exhaustion [] Unable to work [] Unable to attend jain [] Unable to walk/stand [] Unable to read [] Unable to drive [] Unable to eat/drink [] Unable to sleep [] Unable to be with family [] Patient intubated [] Other: Summary: Pt spouse is actively coming to terms with pt's impending . Topics discussed included: God's presence, message, and purpose; support system; plan to convene and inform family; mourning; and shalonda. Spouse's affect, thought processes are entirely within normal as one processes the of a loved one. They've been 45 years. Plan is to go home and inform her kids. [id number] family members have been notified and are making plans. Pt will remain on comfort care until family arrives. Encouraged spouse to talk to pt and share her feelings and thoughts with him. Time spent with patient: 45 mins
[2021-02-16] MEDS: aspirin 81 mg EC Tablet PO (09:26)
[2021-02-16] MEDS: pantoprazole 40 mg SDV IVP (09:26)
[2021-02-16] MEDS: quetiapine 100 mg Tablet PO ×2 (09:26→17:29)
[2021-02-16] MEDS: clopidogrel 75 mg Tablet PO (09:26)
[2021-02-16] MEDS: insulin glargine 100 units/1 mL 18 UNIT SUBCUT (09:27)
[2021-02-16] MEDS: apixaban 5 mg Tablet PO ×2 (09:57→21:16)
[2021-02-16 09:58] LABS: Basophils % 0.5 %; Eosinophils # 0.3 10^3/uL (0.0-0.8); Eosinophils % 4.4 %; Hematocrit 27.2 % (42.0-52.0); Hemoglobin 8.4 g/dL (11.7-16.6); Lymphocytes # 0.9 10^3/uL (0.8-4.8); Lymphocytes % 15.6 %; Mean Corpuscular HGB Conc 30.9 g/dL (30.0-36.0); Mean Corpuscular Hemoglobin 30.1 pg (28.0-34.0); Mean Corpuscular Volume 97.5 fl (80-94); Mean Platelet Volume 10.6 fL (7.4-10.4); Monocytes # 0.4 10^3/uL (0.2-0.9); Neutrophils # 4.19 10^3/uL (1.8-7.7); Neutrophils % 71.6 %; Nucleated Red Blood Cells % 0 %; Platelet Count 115 10^3/cmm (130-400); Red Blood Count 2.79 10^6/uL (4.1-5.3); Red Cell Distribution Width 15.7 % (12.1-15.1); White Blood Count 5.9 10^3/uL (4.0-10.0)
[2021-02-16 10:44] LABS: Alanine Aminotransferase 121 U/L (0-41); Albumin Level 2.1 g/dL (3.5-5.2); Alkaline Phosphatase 121 IU/L (40-130); Anion Gap 15.9 (5-19); Aspartate Amino Transferase 68 U/L (0-40); Blood Urea Nitrogen 53 mg/dL (8-23); Calcium 7.8 mg/dL (8.5-10.5); Carbon Dioxide 18 mmol/L (22-29); Chloride 105 mmol/L (98-107); Globulin 2.7 g/dL (1.3-4.6); Glomerular Filtration Rate 21.2 mL/min (90-130); Glucose 274 mg/dL (65-115); Magnesium 1.6 mg/dL (1.7-2.3); Osmolality Calculated 302 mOsm/kg (285-295); Potassium 4.9 mmol/L (3.5-5.1); Sodium 134 mmol/L (136-145); Total Bilirubin 0.5 mg/dL (0.15-1.2); Total Protein 4.8 g/dL (6.6-8.7); Triglycerides 320 mg/dL (0-150)
[2021-02-16] MEDS: docusate sodium 10 mg/mL (5ml) Liq 100 MG PO (10:55)
--- NOTE | 2021-02-16 14:27 | PM.PN ---
Subjective Subjective: Interval history: Patient was seen this morning, is at bedside, overnight he remains in A. fib, remains on amiodarone, remains on 100% FiO2, had episodes of breathing over the ventilator with late last night, has episodes this morning her breathing over the ventilator, remains on pressors, sedation vacation has been difficult, as he does not tolerate decreasing the sedation, is at bedside, she tells me that he has fought a good fight, now she just wants him to be comfortable, she tells me that he is just not looking any better, and that we have done everything for him, she does not want him to suffer, she tells me that this morning she felt that God told her to let him go, she just does not want him to suffer anymore, she tells me that this is what he would have wanted, she feels that he does not have any hope, he continues to worsen in her mind, however she does want her son from [place] who recently had a baby boy to come see him, he is going to be here may be Thursday or thursday, his 2 other sons want to see him, she wants to change his CODE STATUS, to allow natural Vitals/I&O/Wt Last Vital Signs Temp 100 F H 02/16/21 12:00 Pulse 102 H 02/16/21 12:00 Resp 19 H 02/16/21 13:41 BP 119/72 02/16/21 12:00 Pulse Ox 98 02/16/21 13:41 02/15/21 02/16/21 02/16/21 22:59 06:59 14:59 Intake Total 1741.125 / 2776.797 1034.013 / 3810.810 792.334 / 792.334 Output Total 1000 / 1000 400 / 1400 Balance 741.125 / 1776.797 634.013 / 2410.810 792.334 / 792.334 Physical Exam Narrative: EXAM NARRATIVE: Intubated, sedated Resp: COMMON NORMALS: normal respiratory effort AUSCULTATION: diminished lung sounds diffuse Cardio: COMMON NORMALS: regular rate, S1 normal heart sound present and S2 normal heart sound present RATE: regular rate RHYTHM: abnormal rhythm irregularly irregular HEART SOUNDS: S1 normal heart sound present and S2 normal heart sound present GI: COMMON NORMALS: Soft to palpation INSPECTION: Yes normal to inspection AUSCULTATION: Yes Hypoactive bowel sounds present PALPATION: Yes Soft to palpation Extremity: COMMON NORMALS: no pedal edema Urinary Catheter Management^: Marshall: Cath Placed During This Visit: yes Reason for Continuing Indwelling Catheter: Accurate Measurement of Urinary Output in Critically Ill Patients Urinary Catheter Date of Insertion: 02/01/21 Urinary Catheter Time of Insertion: 11:10 Data : 02/16/21 09:18 02/16/21 09:18 Micro: Microbiology 02/11/21 11:34 Blood Culture - Final Blood NO GROWTH AFTER 5 DAYS 02/11/21 11:34 Blood Culture - Final Blood NO GROWTH AFTER 5 DAYS 02/11/21 Unknown Fungal Smear - Preliminary Sputum - Endotracheal Tube Aspirate 02/15/21 16:04 Blood Culture - Preliminary Blood SPECIMEN COLLECTED 02/15/21 16:08 Blood Culture - Preliminary Blood SPECIMEN COLLECTED A&P Assessment and plan (1) Sepsis: Status: Acute (2) PAD (peripheral artery disease): Status: Acute (3) Decreased pulses in feet: Status: Acute (4) Peripheral arterial disease with history of revascularization: Status: Acute (5) Arterial occlusion: Status: Acute (6) Acute kidney injury superimposed on chronic kidney disease: Status: Acute (7) Hypernatremia: Status: Acute (8) Metabolic acidosis: Status: Acute (9) Hypertension: Status: Acute (10) Diabetes mellitus: Status: Acute Qualifiers: Diabetes mellitus type: type 2 Diabetes mellitus correction insulin use: unspecified correction insulin use status Diabetes mellitus complication status: with kidney complications Diabetes mellitus complication detail: with chronic kidney disease Chronic kidney disease stage: unspecified stage Qualified Code(s): E11.22 - Type 2 diabetes mellitus with diabetic chronic kidney disease (11) History of atrial fibrillation: Status: Acute (12) Hyperglycemia: Status: Acute (13) ARDS (adult respiratory distress syndrome): Status: Acute (14) Pneumonia due to severe acute respiratory syndrome coronavirus 2 (SARS-CoV-2): Status: Acute (15) Acute respiratory failure with hypoxia: Status: Acute (16) COVID-19: remdisivir 200mg iv x 1 then 100mg iv daily x 5 days dexamethasone 6g IVP qd duonebs, budesonide suppemetal 02, bipap prn ceftraixone and azithromycin empirically Status post 1 dose of tocilizumab trend inflammatory markers Status: Acute (17) Acute hyperglycemia: Status: Acute Additional A&P Information Ventilator dependent respiratory failure has changed his CODE STATUS to allow natural , she wants him to be comfortable She wants us to continue noninvasive interventions, until her son from [place] can come and see him possibly Thursday or Thursday Agree with pulmonary critical care, on consult COVID-19 w Severe ARDS Intubated and sedated, on paralytics, Nimbex Precedex, fentanyl Fentanyl patch Seroquel Overnight, pulling high tidal volumes change to pressure support, currently on 100% FiO2, wean oxygen as tolerated Currently on Levophe Vasopressin On Rocephin, On flucanazole Vent management as per application software developer Patient was admitted on 01/27, candidate for tracheostomy ,peg and placement to LTAC Right IJ placed 02/01 Status post bronchoscopy 02/10 Plan for today, wean off Nimbex, weaning trial Status post PEA, ACLS, 2 doses of epi, ROSC AF with RVR, on amiodarone drip, currently rate controlled Sepsis Related to possible ventilator dependent pneumonia Sputum culture positive for Klebsiella however previous culture was positive for yeast Yeast identification still pending, continue IV fluconazole broad-spectrum antibiotics switched to IV. ceftriaxone Urine culture, urine antigens unremarkable Currently on Levophed, now vasopressin Arterial occlusion peripheral arterial disease Chronic occlusion of graft Appreciate cardiology recommendations Not a candidate of acute intervention continue aspirin, Plavix, statin and Eliquis is still interested if he will get accepted at [facility], Dr. Holley placed the graft,(their ICU is on diversion) Hypernatremia secondary to free water deficit, improved, 138 Sodium improved, TPN on hold Hyperkalemia, lactulose Acute on chronic kidney disease Creatinine 3.0 Urine output 1400 Acidosis, hyperkalemia improved Type 2 diabetes with hyperglycemia started L 18 units daily, insulin sliding he will, Rhabdomyolysis, Transaminitis Full code Tube feeds on hold DVT prophylaxis currently on Eliquis 5 mg twice a day because of history of A. fib still wants him to be transferred to [facility] wants to have a bed Attestations Medical Necessity Statement*: Patient requires hospitalization for acute respiratory failure secondary COVID-19 Coding Level of Care Code Acute Mold Release Worker for Chg Fwd Diagnoses Sepsis A41.9 PAD (peripheral artery disease) I73.9 Decreased pulses in feet R09.89 Peripheral arterial disease with history of revascularization I73.9; Z98.890 Arterial occlusion I70.90 Acute kidney injury superimposed on chronic kidney disease N17.9; N18.9 Hypernatremia E87.0 Metabolic acidosis E87.2 Hypertension I10 Diabetes mellitus E11.22 Diabetes mellitus type: type 2 Diabetes mellitus termite control representative insulin use: unspecified correction insulin use status Diabetes mellitus complication status: with kidney complications Diabetes mellitus complication detail: with chronic kidney disease Chronic kidney disease stage: unspecified stage History of atrial fibrillation Z86.79 Hyperglycemia R73.9 ARDS (adult respiratory distress syndrome) J80 Pneumonia due to severe acute respiratory syndrome coronavirus 2 (SARS-CoV-2) U07.1; J12.82 Acute respiratory failure with hypoxia J96.01 COVID-19 U07.1 Acute hyperglycemia R73.9
[2021-02-16 14:32] LABS: Glucose Point of Care 244 mg/dL (70-110)
--- NOTE | 2021-02-16 14:32 | PC.RESP ---
RT Shift Note Frequent safety and respiratory rounds continue. Orders completed as indicated. Patient monitored pre and post treatments throughout shift. Patient [Did.] tolerate treatments appropriately. Condition [.DidNotChange]. Patient and/or quality audit representative educated on respiratory treatment and medications. Patient and/or quality audit representative [unable to comprehend]. Will continue to monitor patient progress.
[2021-02-16] MEDS: dexmedetomidine 400 MCG in sodium chloride 0.9% (100 ml) 100 ML 18.03 MCG IV (17:30)
[2021-02-16] MEDS: atorvastatin 40 mg Tablet PO (21:16)
--- NOTE | 2021-02-16 22:34 | PM.PN ---
Subjective Subjective: Interval history: - Patient seen at bedside today morning - Still critically ill -Renal functions worsening and decreased urine output -Requiring sedation fentanyl 200 and Versed 80 mg-every attempt to taper down sedation-patient Aurea lucas becomes uncontrolled and becomes tachypneic - wanted to talk to other family members and make patient comfort care Medications: Reviewed: Yes Vitals/I&O/Wt Last Vital Signs Temp 100 F H 02/16/21 20:00 Pulse 95 02/16/21 22:17 Resp 22 H 02/16/21 22:17 BP 102/64 02/16/21 20:00 Pulse Ox 95 02/16/21 22:17 02/16/21 02/16/21 02/16/21 06:59 14:59 22:59 Intake Total 1034.013 / 3810.810 832.339 / 832.339 562.83 / 1395.169 Output Total 400 / 1400 Balance 634.013 / 2410.810 832.339 / 832.339 562.83 / 1395.169 Physical Exam Narrative: EXAM NARRATIVE: General: lying in bed, sedated and intubated. HEENT:NCAT, PERRLA, EOMI Neck: Supple Lungs: Bilateral diffuse crackles Heart: s1/s2, RRR Abd: soft, NT, ND, BS + Normoactive Extremities: No edema; bilateral warm extremities TRIMMER LOADER: sedated and limited TRIMMER LOADER exam possible; SKIN: no rash Left IJ line placed: 02/15/2021 Urinary Catheter Management^: Marshall: Cath Placed During This Visit: yes Reason for Continuing Indwelling Catheter: Accurate Measurement of Urinary Output in Critically Ill Patients Urinary Catheter Date of Insertion: 02/01/21 Urinary Catheter Time of Insertion: 11:10 Data : 02/16/21 09:18 02/16/21 09:18 Other Labs: Laboratory Results WBC 5.9 10^3/uL (4.0-10.0) 02/16/21 09:18 RBC 2.79 10^6/uL (4.1-5.3) L 02/16/21 09:18 Hgb 8.4 g/dL (11.7-16.6) L 02/16/21 09:18 Hct 27.2 % (42.0-52.0) L 02/16/21 09:18 MCV 97.5 fl (80-94) H 02/16/21 09:18 MCH 30.1 pg (28.0-34.0) 02/16/21 09:18 MCHC 30.9 g/dL (30.0-36.0) 02/16/21 09:18 RDW 15.7 % (12.1-15.1) H 02/16/21 09:18 Plt Count 115 10^3/cmm (130-400) L 02/16/21 09:18 MPV 10.6 fL (7.4-10.4) H 02/16/21 09:18 Neut % (Auto) 71.6 % 02/16/21 09:18 Lymph % (Auto) 15.6 % 02/16/21 09:18 Mccormick % (Auto) 7.0 % 02/16/21 09:18 Eos % (Auto) 4.4 % 02/16/21 09:18 Baso % (Auto) 0.5 % 02/16/21 09:18 Neut # (Auto) 4.19 10^3/uL (1.8-7.7) 02/16/21 09:18 Lymph # (Auto) 0.9 10^3/uL (0.8-4.8) 02/16/21 09:18 Mccormick # (Auto) 0.4 10^3/uL (0.2-0.9) 02/16/21 09:18 Eos # (Auto) 0.3 10^3/uL (0.0-0.8) 02/16/21 09:18 Baso # (Auto) 0.0 10^3/uL (0.0-0.1) 02/16/21 09:18 Nucleated RBC % (auto) 0 % 02/16/21 09:18 Nucleated RBCs # 0.0 /100WBC 02/16/21 09:18 D-Dimer 3.27 ug/mIFEU (0-0.59) H 01/28/21 06:30 Specimen Type Arterial 02/15/21 11:08 Sample Site Radial, left 02/15/21 11:08 ABG pH 7.27 (7.35-7.45) L 02/15/21 11:08 ABG pCO2 48.0 mmHg (35-45) H 02/15/21 11:08 ABG pO2 76.4 mmHg (80.0-100.0) L 02/15/21 11:08 ABG HCO3 22.1 mmol/L (22-26) 02/15/21 11:08 ABG O2 Saturation 95.1 02/15/21 11:08 ABG Base Excess -4.7 mmol/L (-2.0-2.0) L 02/15/21 11:08 Harley Test Pos 02/15/21 11:08 A-a O2 Gradient 74.9 mmHg (5-10) H 02/15/21 11:08 Hematocrit 29.8 % (42-52) L 02/15/21 11:08 Hgb O2 Saturation 92.9 % (95-100) L 02/15/21 11:08 Carboxyhemoglobin 1.1 %THgb (0.4-20.1) 02/15/21 11:08 Methemoglobin 1.2 % (0.4-1.5) 02/15/21 11:08 Total Hemoglobin 9.7 g/dL (14-18) L 02/15/21 11:08 Sodium 139.0 mmol/L (131-143) 02/15/21 11:08 Potassium 5.2 mmol/L (3.5-5.0) H 02/15/21 11:08 Glucose 254.0 mg/dL (70-115) H 02/15/21 11:08 Ionized Calcium 1.2 mmol/L (1.1-1.4) 02/15/21 11:08 O2 Delivery Device Vent 02/15/21 11:08 O2 Liters/Min 40.0 % 01/26/21 21:10 FiO2 100.0 % 02/15/21 11:08 Tidal Volume 0.45 02/14/21 09:16 PEEP 12.0 cmH20 02/15/21 11:08 CPAP 16.0 cmH20 02/11/21 04:50 Molding Machine Tender ID Cak 02/15/21 11:08 Sodium 134 mmol/L (136-145) L 02/16/21 09:18 Potassium 4.9 mmol/L (3.5-5.1) 02/16/21 09:18 Chloride 105 mmol/L (98-107) 02/16/21 09:18 Carbon Dioxide 18 mmol/L (22-29) L 02/16/21 09:18 Anion Gap 15.9 (5-19) 02/16/21 09:18 BUN 53 mg/dL (8-23) H 02/16/21 09:18 Creatinine 3.0 mg/dL (0.7-1.2) H 02/16/21 09:18 GFR Calculation 21.2 mL/min (90-130) L 02/16/21 09:18 Glucose 274 mg/dL (65-115) H 02/16/21 09:18 POC Glucose 244 mg/dL (70-110) H 02/16/21 14:29 Estimat Average Glucose 243 01/30/21 06:10 Hemoglobin A1c 10.1 % (4.0-6.0) H 01/30/21 06:10 Calculated Osmolality 302 mOsm/kg (285-295) H 02/16/21 09:18 Lactic Acid 3.1 mmol/L (0.5-2.2) H 01/26/21 18:44 Lactic Acid (Sepsis) 2.5 mmol/L (0.5-2.2) H 01/26/21 21:55 Lactate 2.7 mmol/L (0.5-2.2) H 02/02/21 14:40 Uric Acid 4.1 mg/dL (3.4-7.0) 02/15/21 05:20 Calcium 7.8 mg/dL (8.5-10.5) L 02/16/21 09:18 Phosphorus 5.1 mg/dL (2.5-4.5) H 02/15/21 05:00 Magnesium 1.6 mg/dL (1.7-2.3) L 02/16/21 09:18 Ferritin 1542 ng/mL (30-400) H 01/27/21 04:50 Total Bilirubin 0.5 mg/dL (0.15-1.2) 02/16/21 09:18 AST 68 U/L (0-40) H 02/16/21 09:18 ALT 121 U/L (0-41) H 02/16/21 09:18 Alkaline Phosphatase 121 IU/L (40-130) 02/16/21 09:18 Lactate Dehydrogenase 521 U/L (135-225) H 02/12/21 05:10 Creatine Kinase 447 U/L (39-308) H* 02/09/21 03:28 Troponin T Gen 5 ng/L 94 ng/L (0-15) H 02/13/21 15:25 Troponin T Baseline 33 ng/L (0-15) H 01/26/21 18:44 Troponin T 120 Minute 31.73 ng/L (0-15) H 01/26/21 21:55 Delta Troponin T -1.27 ABS# (0-10) L 01/26/21 21:55 Troponin T Hi Sens 6Hr 31.76 ng/L (0-15) H 01/27/21 02:10 Troponin T Hi Sens 6Hr Delta -1.24 ng/L (0-12) L 01/27/21 02:10 C-Reactive Protein 42.8 mg/L (0.0-4.9) H 02/12/21 05:10 NT-Pro-B Natriuret Pep 1724 pg/mL (0-125) H 01/26/21 18:44 Total Protein 4.8 g/dL (6.6-8.7) L 02/16/21 09:18 Albumin 2.1 g/dL (3.5-5.2) L 02/16/21 09:18 Globulin 2.7 g/dL (1.3-4.6) 02/16/21 09:18 Triglycerides 320 mg/dL (0-150) H 02/16/21 09:18 LDL Cholesterol Direct 122 mg/dL (0-100) H 02/09/21 03:28 Procalcitonin 0.21 ng/mL (0-0.5) 02/13/21 03:50 Urine Color Yellow (Yellow) 02/11/21 14:09 Urine Appearance Cloudy (CLEAR) A 02/11/21 14:09 Urine pH 5 (5-7) 02/11/21 14:09 Ur Specific [place] 1.020 (1.005-1.030) 02/11/21 14:09 Urine Protein Trace (Negative) 02/11/21 14:09 Urine Glucose (UA) Norm (Normal) 02/11/21 14:09 Urine Ketones Negative (Negative) 02/11/21 14:09 Urine Blood 3+ (Negative) H 02/11/21 14:09 Urine Nitrate Negative (Negative) 02/11/21 14:09 Urine Bilirubin Neg (Negative) 02/11/21 14:09 Urine Urobilinogen Norm mg/dL (Negative) 02/11/21 14:09 Ur Leukocyte Esterase Trace (Negative) H 02/11/21 14:09 Urine RBC 5-10 /hpf (0-2) H 02/11/21 14:09 Urine WBC 5-10 /hpf (0-5) H 02/11/21 14:09 Ur Squamous Epith Cells 5-10 /hpf (0-5) H 02/11/21 14:09 Amorphous Sediment Not Reportable 02/11/21 14:09 Urine Bacteria 2+ /hpf (NONE) H 02/11/21 14:09 Hyaline Casts 0-4 /lpf H 02/11/21 14:09 Urine Mucus 1+ /hpf 02/11/21 14:09 Pneumocystis Source Bal 02/11/21 Unknown Pneumocyst jiroveci PCR Not detected 02/11/21 Unknown Misc Test Reference See comment 02/04/21 08:00 Impressions Abdomen X-Ray 02/14/21 11:34 Impression: Large amount of fecal material throughout the colon. Chest X-Ray 02/16/21 08:04 IMPRESSION: Diffuse interstitial and peripheral alveolar opacities redemonstrated, with increasing consolidation/pneumonia at the right lung base. Micro: Microbiology 02/15/21 16:08 Blood Culture - Preliminary Blood NEGATIVE TO DATE 02/15/21 16:04 Blood Culture - Preliminary Blood NEGATIVE TO DATE 02/01/21 14:45 Gram Stain - Final Sputum - Endotracheal Tube Aspirate Sputum Culture - Final Mckayla albicans 02/15/21 16:00 Urine Culture - Preliminary Urine Catheterized 02/11/21 11:34 Blood Culture - Final Blood NO GROWTH AFTER 5 DAYS 02/11/21 11:34 Blood Culture - Final Blood NO GROWTH AFTER 5 DAYS 02/11/21 Unknown Fungal Smear - Preliminary Sputum - Endotracheal Tube Aspirate A&P Assessment and plan (1) Pneumonia due to severe acute respiratory syndrome coronavirus 2 (SARS-CoV-2): Status: Acute (2) Acute respiratory failure with hypoxia: Status: Acute (3) Hypertension: Status: Acute Qualifiers: Hypertension type: unspecified Qualified Code(s): I10 - Essential (primary) hypertension (4) Chronic kidney disease: Status: Acute Qualifiers: Chronic kidney disease stage: unspecified stage Qualified Code(s): N18.9 - Chronic kidney disease, unspecified (5) Diabetes mellitus: Status: Acute Qualifiers: Diabetes mellitus type: type 2 Diabetes mellitus terminal make up operator insulin use: unspecified terminal make up operator insulin use status Diabetes mellitus complication status: with kidney complications Diabetes mellitus complication detail: with chronic kidney disease Chronic kidney disease stage: unspecified stage Qualified Code(s): E11.22 - Type 2 diabetes mellitus with diabetic chronic kidney disease (6) Metabolic acidosis: Status: Acute (7) Decreased pulses in feet: Status: Acute (8) PAD (peripheral artery disease): Status: Acute (9) Ventilator associated pneumonia: Status: Acute (10) Counseling regarding advance care planning and goals of care: Status: Acute (11) Cardiac arrest with successful resuscitation: Status: Acute (12) Yeast species isolated but not further identified: Status: Acute (13) Septic shock: Status: Acute # Acute hypoxic respiratory failure secondary to ARDS due to Covid 19 Pneumonia #Ventilator associated pneumonia-pansensitive Klebsiella-started on Rocephin 02/13/2021 #BAL-grew yeast-identification pending #S/p cardiac arrest for 3 minutes on 02/13/2021 #Possible septic shock #NASIR on CKD # HTN # Diabetes #A fib -RVR-on amiodarone drip #Rhabdomyolysis -improving #Thrombocytopenia-monitor platelets #severe PAD-on aspirin/Plavix-no need for urgent intervention - intubated, sedated, paralyzed and proned x 4 ; -dc propofol as triglycerides are high ; while tapering off fentanyl and Versed sedation patient is hyperventilating and seen in respiratory distress; on fentanyl patch -Maintain sedation with fentanyl, Precedex, Ativan as needed and Morphine 2mg ivp q 6 hr prn pain - on Seroquel 100 mg p.o. twice daily -S/p cardiac arrest on 02/13/2021 night-successful resuscitation and achieved ROSC after 3 minutes -Currently on CMV 450/10/100% - Duoneb q 6 hr nathalie -Completed dexamethasone ; s/p 5 day remdesivir and Tocilizumab 01/28/21 - monitor inflammatory markers q 48 hrs -On Levophed 20 MCG -ASA/PLAVIX -arterial doppler results reported features of severe PAD on the right and left extremities with occluded right femoral popliteal bypass graft -notify results to family and they wanted to transfer to [facility] to pts vascular surgeon Dr. Holley - Unable to reach Dr. Holley office and also [facility] is on transfer diversion due to bed unavailability -Family agreed to see intervention feather boner here & Dr. Farley was consulted-recommended medical management and so we will continue Eliquis, aspirin, Plavix -+2.4 L 24 hours /+ 4.6 L since admission try to maintain negative fluid balance-Lasix 40 mg 1 dose given today -NASIR on CKD-worsening possibly due to septic shock - Na 137; - Elliquis for DVT ppx and chronic A FIB- - -s/p bronchoscopy 02/11/2021 for airway inspection - Blood cx - CONS - Contaminant; PCP pending, sputum and BAL positive for Yeast - id pending-on fluconazole -Also sputum cultures 02/10/21 showed pansensitive Klebsiella-DC Zyvox imipenem and started on Rocephin 02/13/21 -But given his overall clinical condition-with possible septic shock-DCED fluconazole, Rocephin and broaden antibiotic coverage to vancomycin, imipenem and micafungin -Also changed central line from right IJ (placed 02/01/2021 ) to left IJ -Repeat cultures negative to date - Eliquis /asa/plavix/ PPI -Continue FSBS every 6 monitoring and Insulin scale coverage-i Lantus to 18 units daily - Continue trickle feeding/- PPI for gi ppx code: Full DVT ppx: Elliquis GI ppx : PPI Prognosis: Extremely poor Family and NOK : Updated -had any more towards comfort care recommendations conveyed to RN,RT, Hospitalist taking care of the patient. Attestations Medical Necessity Statement*: Acute hypoxic respiratory failure secondary to ARDS due to COVID 19 Pneumonia - intubated, sedated and proned still requiring mechanical ventilator Time Spent in Patient Care: Greater than 35 minutes (>than 50% of time spent in counselling and/or direct pt care on unit). Critical Care Time: The high probability of a clinically significant, sudden or life threatening deterioration of the patient's [respiratory, cardiac, endocrine, renal, vascular] system(s) required my full and direct attention, intervention and personal management. The critical care time is as shown. This time is in addition to time spent performing any reported procedures but includes the following: [x] Data and vital sign review and interpretation [x] Patient assessment, examination and intervention [x] Documentation [x] Medication orders and management Critical Care Time (min): 45 Coding Level of Care Code Established Pt Acute Psychologist Military Personnel for Chg Fwd Patient Type Established History Comprehensive Exam Comprehensive Medical Decision Making High Complexity Diagnoses Pneumonia due to severe acute respiratory syndrome coronavirus 2 (SARS-CoV-2) U07.1; J12.82 Acute respiratory failure with hypoxia J96.01 Hypertension I10 Hypertension type: unspecified Chronic kidney disease N18.9 Chronic kidney disease stage: unspecified stage Diabetes mellitus E11.22 Diabetes mellitus type: type 2 Diabetes mellitus correction insulin use: unspecified correction insulin use status Diabetes mellitus complication status: with kidney complications Diabetes mellitus complication detail: with chronic kidney disease Chronic kidney disease stage: unspecified stage Metabolic acidosis E87.2 Decreased pulses in feet R09.89 PAD (peripheral artery disease) I73.9 Ventilator associated pneumonia J95.851 Counseling regarding advance care planning and goals of care Z71.89 Cardiac arrest with successful resuscitation I46.9 Yeast species isolated but not further identified B37.9 Septic shock A41.9; R65.21 Time Spent (min) 45
[2021-02-17] VITALS (24 sets, daily range): BP systolic 78–110; BP diastolic 57–86; PULSE 117–124; RESP 18–26; TEMP 37.3–37.7; O2SAT 90–95; BMI 27.1
[2021-02-17] MEDS: norepinephrine 8 MG in dextrose 5 % 500 ML 53.34 MG IV ×2 (00:19→07:06)
[2021-02-17] MEDS: dexmedetomidine 400 MCG in sodium chloride 0.9% (100 ml) 100 ML 18.03 MCG IV (03:17)
[2021-02-17 04:21] LABS: Glucose Point of Care 216 mg/dL (70-110)
[2021-02-17] MEDS: lactulose oral liq 20 gm/30 mL UDC PO (04:31)
--- NOTE | 2021-02-17 07:07 | NUR.SHIFT ---
02/16/21 18:21 - Nursing by EDUARDO Lemus RN Acct Num: [id number] : 12/01/1929 Patient Age: 89 Shift Note Frequent safety and comfort rounds continue. Orders and/or nursing care completed as indicated. Patient monitored for response to intervention and treatment(s). Education provided includes[sedation ]. Patient and/or risk control field representative understand]. Will continue to monitor. with any activity or movement pt will start with severe agonal resperations rate up to 40 and heart rate increased to 140 o2 sats dropped to 72 fio2 increased on vent to 100 increased sedation to maximal as tolerated overall took approximatly hour to sedate pt enough to be able to obtain heart rate 120 and sats up to 91 Initialized on 02/16/21 18:21 - END OF NOTE
[2021-02-17] MEDS: apixaban 5 mg Tablet PO (09:26)
[2021-02-17] MEDS: clopidogrel 75 mg Tablet PO (09:27)
[2021-02-17] MEDS: pantoprazole 40 mg SDV IVP (09:27)
[2021-02-17] MEDS: FUROsemide 10 mg/mL SDV 4mL 40 MG IVP (09:27)
[2021-02-17] MEDS: aspirin 81 mg EC Tablet PO (09:27)
[2021-02-17] MEDS: quetiapine 100 mg Tablet PO (09:27)
[2021-02-17] MEDS: insulin glargine 100 units/1 mL 18 UNIT SUBCUT (09:28)
[2021-02-17] MEDS: magnesium sulfate premix 4 GM/100 ML PREMIX IV (09:39)
[2021-02-17] MEDS: docusate sodium 10 mg/mL (5ml) Liq 100 MG PO (09:40)
--- NOTE | 2021-02-17 13:19 | P.PN_ITS ---
Subjective Subjective: Interval history: Patient was seen this morning, , granddaughter, at bedside, she wants to pursue comfort care, her son from [place] should be here by noon, she wants for him to be here before we pursue full comfort care, advised of the risks and benefits, she voiced understanding, all questions answered, agreed to proceed Vitals/I&O/Wt Last Vital Signs Temp 99.1 F 02/17/21 08:23 Pulse 121 H 02/17/21 11:00 Resp 21 H 02/17/21 13:12 BP 93/58 02/17/21 11:00 Pulse Ox 92 02/17/21 13:12 02/16/21 02/17/21 02/17/21 22:59 06:59 14:59 Intake Total 562.83 / 8298.949 3849.344 / 2811.513 859.490 / 859.490 Output Total 550 / 550 Balance 562.83 / 1395.169 866.344 / 2261.513 859.490 / 859.490 Weight last 48 hrs Weight 90.718 kg Physical Exam Narrative: EXAM NARRATIVE: Intubated, sedated Chest: OTHER: Right central line in place Resp: COMMON NORMALS: normal respiratory effort, No retractions and No use of accessory muscles AUSCULTATION: diminished lung sounds Cardio: COMMON NORMALS: regular rate, regular rhythm, S1 normal heart sound present and S2 normal heart sound present RATE: regular rate RHYTHM: regular rhythm HEART SOUNDS: S1 normal heart sound present and S2 normal heart sound present GI: COMMON NORMALS: Normal to inspection, nondistended, normoactive bowel sounds present and Soft to palpation PALPATION: Yes Soft to palpation Extremity: COMMON NORMALS: no pedal edema Urinary Catheter Management^: Marshall: Cath Placed During This Visit: yes Reason for Continuing Indwelling Catheter: Accurate Measurement of Urinary Output in Critically Ill Patients Urinary Catheter Date of Insertion: 02/01/21 Urinary Catheter Time of Insertion: 11:10 Data : 02/16/21 09:18 02/16/21 09:18 Micro: Microbiology 02/15/21 16:00 Urine Culture - Final Urine Catheterized 02/15/21 16:08 Blood Culture - Preliminary Blood NEGATIVE TO DATE 02/15/21 16:04 Blood Culture - Preliminary Blood NEGATIVE TO DATE 02/01/21 14:45 Gram Stain - Final Sputum - Endotracheal Tube Aspirate Sputum Culture - Final Mckayla albicans 02/11/21 11:34 Blood Culture - Final Blood NO GROWTH AFTER 5 DAYS 02/11/21 11:34 Blood Culture - Final Blood NO GROWTH AFTER 5 DAYS A&P Assessment and plan (1) Sepsis: Status: Acute (2) PAD (peripheral artery disease): Status: Acute (3) Decreased pulses in feet: Status: Acute (4) Peripheral arterial disease with history of revascularization: Status: Acute (5) Arterial occlusion: Status: Acute (6) Acute kidney injury superimposed on chronic kidney disease: Status: Acute (7) Hypernatremia: Status: Acute (8) Metabolic acidosis: Status: Acute (9) Hypertension: Status: Acute (10) Diabetes mellitus: Status: Acute Qualifiers: Diabetes mellitus type: type 2 Diabetes mellitus detention insulin use: unspecified detention insulin use status Diabetes mellitus complication status: with kidney complications Diabetes mellitus complication detail: with chronic kidney disease Chronic kidney disease stage: unspecified stage Qualified Code(s): E11.22 - Type 2 diabetes mellitus with diabetic chronic kidney disease (11) History of atrial fibrillation: Status: Acute (12) Hyperglycemia: Status: Acute (13) ARDS (adult respiratory distress syndrome): Status: Acute (14) Pneumonia due to severe acute respiratory syndrome coronavirus 2 (SARS-CoV-2): Status: Acute (15) Acute respiratory failure with hypoxia: Status: Acute (16) COVID-19: remdisivir 200mg iv x 1 then 100mg iv daily x 5 days dexamethasone 6g IVP qd duonebs, budesonide suppemetal 02, bipap prn ceftraixone and azithromycin empirically Status post 1 dose of tocilizumab trend inflammatory markers Status: Acute (17) Acute hyperglycemia: Status: Acute Additional A&P Information Ventilator dependent respiratory failure Pursuing comfort care awaiting son from [place] Patient is DNR/DNI Agree with pulmonary critical care, on consult COVID-19 w Severe ARDS Intubated and sedated, on paralytics, Nimbex Precedex, fentanyl Fentanyl patch Seroquel Overnight, pulling high tidal volumes change to pressure support, currently on 100% FiO2, wean oxygen as tolerated Currently on Levophe Vasopressin On Rocephin, On flucanazole Vent management as per bar roller Patient was admitted on 01/27, candidate for tracheostomy ,peg and placement to LTAC Right IJ placed 02/01 Status post bronchoscopy 02/10 Plan for today, wean off Nimbex, weaning trial Status post PEA, ACLS, 2 doses of epi, ROSC AF with RVR, on amiodarone drip, currently rate controlled Sepsis Related to possible ventilator dependent pneumonia Sputum culture positive for Klebsiella however previous culture was positive for yeast Yeast identification still pending, continue IV fluconazole broad-spectrum antibiotics switched to IV. ceftriaxone Urine culture, urine antigens unremarkable Currently on Levophed, now vasopressin Arterial occlusion peripheral arterial disease Chronic occlusion of graft Appreciate cardiology recommendations Not a candidate of acute intervention continue aspirin, Plavix, statin and Eliquis is still interested if he will get accepted at [facility], Dr. Holley placed the graft,(their ICU is on diversion) Hypernatremia secondary to free water deficit, improved, 138 Sodium improved, TPN on hold Hyperkalemia, lactulose Acute on chronic kidney disease Creatinine 3.0 Urine output 1400 Acidosis, hyperkalemia improved Type 2 diabetes with hyperglycemia started L 18 units daily, insulin sliding he will, Rhabdomyolysis, Transaminitis Full code Tube feeds on hold DVT prophylaxis currently on Eliquis 5 mg twice a day because of history of A. fib still wants him to be transferred to [facility] wants to have a bed Attestations Medical Necessity Statement*: Pursuing comfort care Coding Level of Care Code Acute Transport Operations Inspector for Chg Fwd Diagnoses Sepsis A41.9 PAD (peripheral artery disease) I73.9 Decreased pulses in feet R09.89 Peripheral arterial disease with history of revascularization I73.9; Z98.890 Arterial occlusion I70.90 Acute kidney injury superimposed on chronic kidney disease N17.9; N18.9 Hypernatremia E87.0 Metabolic acidosis E87.2 Hypertension I10 Diabetes mellitus E11.22 Diabetes mellitus type: type 2 Diabetes mellitus detention insulin use: unspecified superintendent marine oil terminal insulin use status Diabetes mellitus complication status: with kidney complications Diabetes mellitus complication detail: with chronic kidney disease Chronic kidney disease stage: unspecified stage History of atrial fibrillation Z86.79 Hyperglycemia R73.9 ARDS (adult respiratory distress syndrome) J80 Pneumonia due to severe acute respiratory syndrome coronavirus 2 (SARS-CoV-2) U07.1; J12.82 Acute respiratory failure with hypoxia J96.01 COVID-19 U07.1 Acute hyperglycemia R73.9
--- NOTE | 2021-02-17 15:09 | PC.PT ---
Nursing requests PT to hold at this time, due to decrease in status.
--- NOTE | 2021-02-17 16:00 | PC.NURSE ---
MTS contacted at this time and pt is not a candidate for donation. Unit made aware and they will contact the home.
--- NOTE | 2021-02-17 16:04 | P.DES_ITS ---
Discharge Providers DDS Date of Admission: 01/26/21 22:08 Date Summary Completed: 02/17/21 Attending Provider at Admission: Kerry Elias MD Time of : 15:28 Attending Provider at Discharge: Mark Bauer MD Primary Care Provider: DO VARSHA Navarrete Diagnoses Hospital Diagnoses (1) Sepsis: (2) PAD (peripheral artery disease): (3) Decreased pulses in feet: (4) Peripheral arterial disease with history of revascularization: (5) Arterial occlusion: (6) Acute kidney injury superimposed on chronic kidney disease: (7) Hypernatremia: (8) Metabolic acidosis: (9) Hypertension: (10) Diabetes mellitus: Qualifiers: Diabetes mellitus type: type 2 Diabetes mellitus care home insulin use: 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 Diabetes mellitus complication status: with kidney complications Diabetes mellitus complication detail: with chronic kidney disease Chronic kidney disease stage: unspecified stage Qualified Code(s): E11.22 - Type 2 diabetes mellitus with diabetic chronic kidney disease (11) History of atrial fibrillation: (12) Hyperglycemia: (13) ARDS (adult respiratory distress syndrome): (14) Pneumonia due to severe acute respiratory syndrome coronavirus 2 (SARS-CoV-2): (15) Acute respiratory failure with hypoxia: (16) COVID-19: (17) Acute hyperglycemia: Reason for Visit Reason for Visit: RESP DISTRESS; COVID + Summary Date and Time of Date of : 02/17/21 Time of : 15:28 Summary Summary: This is a 65-year-old male with a past medical history of hypertension, CKD, atrial fibrillation, GERD, BPH who presents [facility] due to shortness of breath Patient was admitted to [facility] for acute hypoxic respiratory failure secondary to COVID-19 pneumonia, acute respiratory distress syndrome, with ventilator associated pneumonia, septic shock, multiorgan failure, NASIR, A. fib, rhabdomyolysis, thrombocytopenia, severe PAD. Patient was intubated, sedated, received remdesivir, Decadron, broad-spectrum antibiotic therapy, managed with pulmonary critical care. Status post bronchoscopy 02/11/2021 for airway inspection. Status post cardiac arrest on 02/13/2021. Remained intubated, sedated, paralyzed, prone x4, remained on the ventilator for approximately 18 days, cultures positive for yeast, Klebsiella, was on broad- spectrum antibiotic and fungal coverage. Patient also developed intermittent episodes of septic shock requiring Levophed. Patient also developed episodes of atrial fibrillation, requiring amiodarone drip. Given patient's prolonged course of respiratory failure, high oxygen requirements up to 100% FiO2, episode of cardiac arrest, acute respiratory distress, prolonged ventilation, evidence of multiorgan failure, evidence of recurrent sepsis, and not significantly improving with optimal medical therapy, patient's prognosis was poor, likelihood of meaningful recovery was fairly unlikely. After discussion with family, discussing goals of care, patient was made DNR/DNI, patient's family wanted to pursue comfort care until son from [place] arrived in [place]. Patient was made comfort care on 02/17/2021 in the afternoon, after discussion with family and patient's , discussed risks and benefits, voices, all questions answered. patient 02/17/2021 at 3:20 PM Additional Data Confirmation of as documented by pronouncing clinician: no pulse Family: at bedside Additional persons at bedside: nursing staff Attending/PCP notified?: Attending notified Was code activated?: No Advance directives?: No Discharge Plan Discharge Patient Disposition: Condition: Serious Prescriptions: No Action clonidine HCl 0.1 mg Tablet 0.1 mg PO BID RF: 0 Lantus U-100 Insulin 100 unit/mL Solution 25 unit SUBCUT BEDTIME RF: 0 clopidogrel 75 mg Tablet 75 mg PO DAILY RF: 0 amlodipine 10 mg Tablet 10 mg PO DAILY RF: 0 doxazosin 4 mg Tablet 2 mg PO BEDTIME RF: 0 glipizide 5 mg Tablet 5 mg PO BID RF: 0 Xarelto 2.5 mg Tablet 2.5 mg PO BID RF: 0 albuterol sulfate 90 mcg/actuation HFA aerosol inhaler 2 inh INHALATION Q6H PRN (Reason: shortness of breath or wheezing) Qty: 8 RF: 0 azithromycin 250 mg tablet See Rx Instructions .ROUTE .COMPLEX RF: 0 aspirin 325 mg Tablet 325 mg PO DAILY RF: 0 metoprolol tartrate 100 mg Tablet 50 mg PO BID RF: 0 dexamethasone 6 mg tablet 6 mg PO DAILY RF: 0 Vitamin C 1 tab PO DAILY RF: 0 Vitamin D3 1 cap PO DAILY RF: 0 zinc 1 cap PO DAILY RF: 0 Patient Instructions: Opioid Safety DS Attestations Time Spent in /Discharge Care*: greater than 30 min Quality - AMI: AMI present?: No Quality - Stroke: CVA present?: No Quality - VTE: VTE present?: No Coding Level of Care Code Acute Merchandise Adjustment Clerk for Chg Fwd Diagnoses Sepsis A41.9 PAD (peripheral artery disease) I73.9 Decreased pulses in feet R09.89 Peripheral arterial disease with history of revascularization I73.9; Z98.890 Arterial occlusion I70.90 Acute kidney injury superimposed on chronic kidney disease N17.9; N18.9 Hypernatremia E87.0 Metabolic acidosis E87.2 Hypertension I10 Diabetes mellitus E11.22 Diabetes mellitus type: type 2 Diabetes mellitus care home insulin use: unspecified care home insulin use status Diabetes mellitus complication status: with kidney complications Diabetes mellitus complication detail: with chronic kidney disease Chronic kidney disease stage: unspecified stage History of atrial fibrillation Z86.79 Hyperglycemia R73.9 ARDS (adult respiratory distress syndrome) J80 Pneumonia due to severe acute respiratory syndrome coronavirus 2 (SARS-CoV-2) U07.1; J12.82 Acute respiratory failure with hypoxia J96.01 COVID-19 U07.1 Acute hyperglycemia R73.9
--- NOTE | 2021-02-17 16:30 | PC.NURSE ---
PT to comfort care Family made the decision to make pt comfort care. 1520: Pt was extubated with family at bedside. All IV medications except for fentanyl and versed were stopped. 1528: Pt went asystole Phys notified and family were given all the time they needed at bedside. Fentanyl 55ml wasted and Versed 91ml wasted with Shelia Kemp notified.
[2021-02-17] MEDS: morphine 4 mg/mL SDV 1 mL 2 MG IVP (17:02)
[2021-02-19 11:47] LABS: Histoplasma Antigen (Quant) NONE DETECTED; Histoplasma Antigen Interpreta NEGATIVE; Histoplasma Antigen Specimen URINE
== END 2021-02-17 15:28 | disposition expired | DRG 207 ==
LOC: ER 21:35 → MS 2A 22:28 → ICU 01-27 01:15
PROVIDERS: Hospitalist; Internal Medicine; Internal Medicine Critical Care Medicine; Internal Medicine Pulmonary Disease; Admitting Provider Student in an Organized Health Care Education/Training Program; Emergency Provider Emergency Medicine; PCP Emergency Medicine Emergency Medical Services; Visit Provider Family Medicine
DX: U07.1 COVID-19 (principal); E11.00 Type 2 diabetes mellitus with hyperosmolarity without nonketotic hyperglycemic-hyperosmolar coma (NKHHC); J12.82 Pneumonia due to coronavirus disease 2019; J80 Acute respiratory distress syndrome; A41.9 Sepsis, unspecified organism; R65.21 Severe sepsis with septic shock; N17.9 Acute kidney failure, unspecified; E87.4 Mixed disorder of acid-base balance; I47.2 Ventricular tachycardia; M62.82 Rhabdomyolysis; I48.20 Chronic atrial fibrillation, unspecified; I82.513 Chronic embolism and thrombosis of femoral vein, bilateral; T82.868A Thrombosis due to vascular prosthetic devices, implants and grafts, initial encounter; J95.851 Ventilator associated pneumonia; E87.0 Hyperosmolality and hypernatremia; E11.22 Type 2 diabetes mellitus with diabetic chronic kidney disease; E11.51 Type 2 diabetes mellitus with diabetic peripheral angiopathy without gangrene; I12.9 Hypertensive chronic kidney disease with stage 1 through stage 4 chronic kidney disease, or unspecified chronic kidney disease; N18.9 Chronic kidney disease, unspecified; E11.65 Type 2 diabetes mellitus with hyperglycemia; E86.0 Dehydration; Y82.9 Unspecified medical devices associated with adverse incidents; N40.0 Benign prostatic hyperplasia without lower urinary tract symptoms; K21.9 Gastro-esophageal reflux disease without esophagitis; B37.9 Candidiasis, unspecified; Z66 Do not resuscitate; E87.5 Hyperkalemia; Z51.5 Encounter for palliative care; I46.9 Cardiac arrest, cause unspecified; I95.9 Hypotension, unspecified; B96.1 Klebsiella pneumoniae [K. pneumoniae] as the cause of diseases classified elsewhere; D69.6 Thrombocytopenia, unspecified
CPT/HCPCS: 36415; 36416; 36592; 36600; 51702; 71045; 74018; 80048; 80051; 80053; 81001; 82330; 82550; 82728; 82803; 82805; 82962; 83036; 83605; 83615; 83721; 83735; 83880; 84100; 84145; 84478; 84484; 84550; 85025; 85378; 86140; 87040; 87070; 87077; 87086; 87102; 87106; 87107; 87186; 87205; 87206; 87385; 87798; 93005; 93925; 94002; 94003; 94640; 94660; 94799; 96365; 96367; 96372; 96375; 97110; 97161; 97530; 99285; C9113; J0171; J0282; J0330; J0360; J0456; J0610; J0637; J0696; J0743; J1100; J1450; J1650; J1815 ×2; J1940; J1956; J2020; J2060; J2250; J2270; J2405; J2543; J2704; J3010; J3262; J3370; J3475; J3490; J7030; J7040; J7050; J7060; J7611; J7626